=== PATIENT | female | born 1950 ===

== ENCOUNTER → 2020-08-24 15:25 | Outpatient (BNVA) | payer MEDICARE, SELFPAY | PROVIDERS: PCP Family Medicine; Visit Provider Internal Medicine | DX: R06.00 Dyspnea, unspecified (principal); J45.909 Unspecified asthma, uncomplicated; E66.9 Obesity, unspecified; G72.9 Myopathy, unspecified | CPT/HCPCS: 99202 ==

== ENCOUNTER → 2020-10-11 11:21 | Outpatient (BNVA) | payer MEDICARE, SELFPAY | PROVIDERS: PCP Family Medicine; Visit Provider Internal Medicine | DX: J44.9 Chronic obstructive pulmonary disease, unspecified (principal); Z79.899 Other long term (current) drug therapy | CPT/HCPCS: 99212 ==

== ENCOUNTER → 2021-05-29 13:58 | Outpatient (BNVA) | payer MEDICARE, SELFPAY | PROVIDERS: PCP Family Medicine; Visit Provider Internal Medicine | DX: J45.909 Unspecified asthma, uncomplicated (principal); R06.00 Dyspnea, unspecified; R05.9 Cough, unspecified; G72.9 Myopathy, unspecified | CPT/HCPCS: 99212 ==

== ENCOUNTER → 2021-07-27 13:37 | Outpatient (BNVA) | payer MEDICARE, SELFPAY | PROVIDERS: PCP Family Medicine; Visit Provider Internal Medicine | DX: J45.909 Unspecified asthma, uncomplicated (principal); R05.9 Cough, unspecified | CPT/HCPCS: 99212 ==

== ENCOUNTER 2021-08-14 11:25 | Outpatient (REF) | payer MEDICARE, SELFPAY ==
[2021-08-14 14:32] LABS: Basophils Percent Auto 0.6 % (0-2); Hematocrit 30.6 % (37.0-47.0); Hemoglobin 10.1 g/dl (12.0-16.0); Lymphocytes Absolute Auto 0.6 X10*3/uL (1.2-4.9); Lymphocytes Percent Auto 34.5 % (20-40); MANUAL DIFF FLAG SCAN; Mean Corpuscular Hemoglobin 28.3 pg (27.0-33.0); Mean Corpuscular Volume 85.7 fL (80.0-98.0); Mean Platelet Volume 8.8 fL (9.4-12.3); Monocytes Absolute Auto 0.2 X10*3/uL (0.1-1.2); Monocytes Percent Auto 13.3 % (2-11); Neutrophils Absolute Auto 0.9 x10*3/uL (2.0-8.3); Neutrophils Percent Auto 51.6 % (45-73); Platelet Count 222 X10*3/uL (160-400); Red Blood Count 3.57 X10*6/uL (4.20-5.50); Red Cell Distribution Width 12.8 % (11.0-16.0); SCAN SMEAR FLAG 1
[2021-08-14 14:34] LABS: White Blood Count 1.7 X10*3/uL (4.8-10.8)
[2021-08-14 14:55] LABS: Alanine Aminotransferase 19 U/L (0-31); Albumin Level 3.7 g/dL (3.5-5.0); Alkaline Phosphatase 116 U/L (39-117); Anion Gap 13 (12-20); Aspartate Amino Transferase 27 U/L (5-31); Bilirubin Total 0.2 mg/dL (0.0-1.0); Blood Urea Nitrogen 21 mg/dL (9-16); C Reactive Protein 0.49 mg/dL (< or = 0.50); Calcium 9.4 mg/dL (8.4-10.2); Carbon Dioxide 28 mmol/L (22-29); Chloride 91 mmol/L (96-108); Estimated Glomerular Filt Rate 51; Glucose Random 104 mg/dL (60-115); Potassium 3.6 mmol/L (3.3-5.1); Sodium 128 mmol/L (135-145)
[2021-08-14 15:10] LABS: Erythrocyte Sedimentation Rate 97 MM/HR (0-20)
[2021-08-14 15:16] LABS: Ferritin 93 ng/mL (10-250); TSH reflex Free T4 1.86 uIU/mL (0.32-4.0)
[2021-08-14 15:29] LABS: SLIDE REVIEW VERIFIED
[2021-08-15 16:27] LABS: Gliadin Deamidated IgA Ab <1.0 U/mL; Gliadin Deamidated IgG Ab 9.3 U/mL
[2021-08-15 17:17] LABS: Calcium, Ionized 5.2 mg/dL (4.8-5.6)
[2021-08-15 18:21] LABS: IgA 136 mg/dL (70-320); IgG 4494 mg/dL (600-1540); IgM 83 mg/dL (50-300)
[2021-08-19 12:48] LABS: Gastrin 297 pg/mL (<=100)
[2021-08-24 08:17] LABS: Transglutaminase Ab IgG 2.2 U/mL; Transglutaminase IgA <1.0 U/mL
== END 2021-08-14 11:26 | disposition home or self-care (01) ==
LOC: HO.LAB 11:25
PROVIDERS: PCP Family Medicine; Referring Provider Family Medicine; Visit Provider Internal Medicine Gastroenterology
DX: R19.7 Diarrhea, unspecified (principal); G89.29 Other chronic pain; R10.33 Periumbilical pain; K75.81 Nonalcoholic steatohepatitis (NASH); E83.52 Hypercalcemia
CPT/HCPCS: 36415; 80053; 82330; 82728; 82784; 82941; 83088; 83520; 84443; 85025; 85652; 86003; 86140; 86258; 86364; 99202; 99212

== ENCOUNTER 2021-08-23 12:08 | Outpatient (REF) | payer MEDICARE, SELFPAY ==
[2021-08-23 13:19] LABS: CDiff Gene PCR NEGATIVE (Negative)
[2021-08-30 02:07] LABS: Fecal Fat Qualitative NORMAL (NORMAL)
[2021-08-30 19:53] LABS: Pancreatic Elastase-1 >500 mcg/g
[2021-08-30 23:11] LABS: Lactoferrin, Fecal, Quant. <30.0 mcg/mL
== END 2021-08-23 12:09 | disposition home or self-care (01) ==
LOC: HO.LNP 12:08
PROVIDERS: Visit Provider Internal Medicine Gastroenterology
DX: R19.7 Diarrhea, unspecified (principal)
CPT/HCPCS: 82656; 82705; 83631; 87493

== ENCOUNTER 2021-09-01 09:14 | Outpatient (REF) | payer MEDICARE, SELFPAY ==
--- NOTE | ~2021-09-01 | MR_ITS ---
EXAMINATION: MR OF THE ABDOMEN AND PELVIS WITH AND WITHOUT CONTRAST CLINICAL INFORMATION: Diarrhea. COMPARISON: None. TECHNIQUE: Sagittal, axial and coronal sequences through the abdomen and pelvis following oral Breeza contrast and with and without gadolinium. Patient received 8 mL intravenous Gadavist contrast. FINDINGS: The lung bases are clear. The liver is normal in size, shape and signal. No focal liver lesion. The gallbladder has been removed. There is no intrahepatic or extrahepatic biliary duct dilatation. The spleen is normal. Pancreas is normal. There are bilateral renal. There is a 1.5 x 2 cm complex cyst in the lower pole the right kidney thin nonenhancing septations Bosniak type II F cyst. Remainder of the cysts represent simple cysts the bladder is not optimally distended but appears unremarkable. The stomach is normal. The small bowel is normal. There is long segment wall thickening of the distal colon involving the left colon and sigmoid colon long segment distribution. This demonstrates mild enhancement. There is prominence of the vasa recta. There is very mild diverticulosis of the colon. The rectum is normal. The appendix is normal. No ascites or adenopathy. Vascular structures are normal. There is a small umbilical hernia fat. The uterus appears to have been removed. No pelvic mass. Bone marrow signal is normal. There is degenerative disc disease of the lower lumbar spine. MR/MR pelvis wo/w con IMPRESSION: Mild colitis of the distal colon. Bilateral renal cysts.
--- NOTE | ~2021-09-01 | MR_ITS ---
EXAMINATION: MR OF THE ABDOMEN AND PELVIS WITH AND WITHOUT CONTRAST CLINICAL INFORMATION: Diarrhea. COMPARISON: None. TECHNIQUE: Sagittal, axial and coronal sequences through the abdomen and pelvis following oral Breeza contrast and with and without gadolinium. Patient received 8 mL intravenous Gadavist contrast. FINDINGS: The lung bases are clear. The liver is normal in size, shape and signal. No focal liver lesion. The gallbladder has been removed. There is no intrahepatic or extrahepatic biliary duct dilatation. The spleen is normal. Pancreas is normal. There are bilateral renal. There is a 1.5 x 2 cm complex cyst in the lower pole the right kidney thin nonenhancing septations Bosniak type II F cyst. Remainder of the cysts represent simple cysts the bladder is not optimally distended but appears unremarkable. The stomach is normal. The small bowel is normal. There is long segment wall thickening of the distal colon involving the left colon and sigmoid colon long segment distribution. This demonstrates mild enhancement. There is prominence of the vasa recta. There is very mild diverticulosis of the colon. The rectum is normal. The appendix is normal. No ascites or adenopathy. Vascular structures are normal. There is a small umbilical hernia fat. The uterus appears to have been removed. No pelvic mass. Bone marrow signal is normal. There is degenerative disc disease of the lower lumbar spine. MR/MR abdomen wo/w con IMPRESSION: Mild colitis of the distal colon. Bilateral renal cysts.
== END 2021-09-01 09:15 | disposition home or self-care (01) ==
LOC: HO.MRI 09:14
PROVIDERS: Visit Provider Internal Medicine Gastroenterology
DX: R19.7 Diarrhea, unspecified (principal)
CPT/HCPCS: 72197; 74183; A9585

== ENCOUNTER 2021-09-18 17:46 | Emergency (ER) | payer MEDICARE, SELFPAY ==
--- NOTE | ~2021-09-18 | XR_ITS ---
EXAMINATION: XR WRIST, LEFT CLINICAL INFORMATION: Pain COMPARISON: None TECHNIQUE: Four views of the left wrist. FINDINGS: Osseous alignment is anatomic. No definite acute fracture is seen. Osteopenia is noted. There is calcification at the triangular fibrocartilage complex. Joint space narrowing is noted at the wrist, with spurring also present at the basal joint of the thumb. Soft tissue swelling is noted at the wrist. XR/XR wrist LT 2V IMPRESSION: Soft tissue swelling and chronic appearing/degenerative changes as described above.
[2021-09-18 20:29] VITALS: BP 162/78; PULSE 74; RESP 18; TEMP 36.7; O2SAT 98; BMI 36.3
--- NOTE | 2021-09-18 23:37 | PC.NURSE ---
pt refusing lab draw, wants labs drawn off of port.
--- NOTE | 2021-09-19 00:49 | ED_ITS ---
HPI - General Adult General Chief complaint: General Medical Stated complaint: allergic reaction to iv ig infusion Time Seen by Provider: 09/18/21 21:57 History of Present Illness HPI narrative: Patient is a 71-year-old female with a history of cerebral aneurysm status post stent history of anxiety history of hypertension history of acid reflux history of autoimmune myopathy secondary statin use. Currently undergoing IVIG infusions every 3 weeks. Complaining of redness to the left wrist. The swelling has been ongoing for few weeks. There is no fever no chills. No systemic complaints. No history of blood clots. Patient from home. The redness area is localized over the thenar side of the wrist. Patient finally decided to come in for further evaluation. Related Data Home Medications Medication Instructions Recorded Confirmed albuterol sulfate 90 mcg/actuation 2 puff inhalation QID 08/24/20 aerosol inhaler (ProAir HFA) alprazolam 1 mg tablet 1 mg PO TID PRN 08/24/20 amlodipine 10 mg tablet 10 mg PO DAILY 08/24/20 duloxetine 30 mg capsule,delayed 30 mg PO DAILY 08/24/20 release levothyroxine 125 mcg tablet 125 mcg PO DAILY 08/24/20 olmesartan 20 mg tablet 20 mg PO DAILY 08/24/20 trazodone 100 mg tablet 100 mg PO BEDTIME 08/24/20 pantoprazole 40 mg tablet,delayed 40 mg PO DAILY 08/14/21 release Previous Rx's Medication Instructions Recorded bisacodyl 5 mg tablet,delayed 20 mg PO ONCE 1 day #4 tabs 08/14/21 release (Dulcolax (bisacodyl)) polyethylene glycol 3350 17 238 g PO ONCE #238 grams 08/14/21 gram/dose oral powder (Miralax) rifaximin 550 mg tablet 550 mg PO TID 2 weeks #42 tabs 08/14/21 sucralfate 100 mg/mL oral 1 g (10 mL) PO BID GERD #600 mL 08/23/21 suspension (Carafate) fluticasone 500 mcg-salmeterol 50 1 inh inhalation BID ASTHMA/COPD 09/05/21 mcg/dose blistr powdr for 30 days #60 ea inhalation (Advair Diskus) clindamycin HCl 300 mg capsule 300 mg PO Q6H 7 days #28 caps 09/19/21 Allergies Allergy/AdvReac Type Severity Reaction Status Date / Time latex [LATEX] Allergy Intermediate RASH Verified 09/18/21 20:29 Sulfa (Sulfonamide Allergy Intermediate HIVES, Verified 09/18/21 20:29 Antibiotics) coughing, [SULFA (SULFONAMIDE wheezing, ANTIBIOTICS)] breathing moxifloxacin [From AVELOX] Allergy Unknown HIVES Verified 09/18/21 20:29 penicillin G [Penicillin G] Allergy Unknown UPSET Verified 09/18/21 20:29 STOMACH Vqlgfos-UZB-QbZ Reductase Allergy Unknown MUSCLE Verified 09/18/21 20:29 Inhibitor CRAMPS [[id number] REDUCTASE INHIBITOR] transparent dressing Allergy Unknown Unknown Verified 09/18/21 20:29 [Tegaderm] Review of Systems Review of Systems: Positive redness and pain to the left wrist Yes all other systems are reviewed and are negative [facility] Past Medical History Attestation statement: The following information was validated with the patient. Medical History Asthma Cough Dyspnea on exertion EMG syndrome Myopathy Obesity (BMI 30-39.9) Trigger finger, left index finger Surgical History History of bone marrow biopsy History of esophagogastroduodenoscopy (EGD) History of laryngoscopy Hx of cholecystectomy Hx of colonoscopy Hx of nasal polypectomy Family History Family History Father Colon cancer Sister Colon cancer Social History Social History Patient Tobacco Use Status: Former Tobacco user Advance Directives: No Physical Exam ED Vital Signs: Vital Signs - 24 hr 09/18/21 20:29 Temperature 98.0 F Pulse Rate 74 Respiratory Rate 18 Blood Pressure 162/78 H Pulse Oximetry 98 Oxygen Delivery Method Room Air BMI result Body Mass Index 36.3 Appearance: Alert. Oriented X3. No acute distress. Eyes: Pupils equal, round and reactive to light. ENT: Pharynx normal. Neck: Normal inspection. Neck supple. No lymph nodes noted. No crepitus CVS: Normal heart rate and rhythm. Pulses normal. Normal S1 and S2 Respiratory: No respiratory distress. Breath sounds normal. No Wheezing. No r ales Abdomen: Soft and nontender. No rigidity. No distention. good BS x4 Skin: positive redness to the left wrist. Mostly over the radial side. Range of motion intact. Sensation over the radial median ulnar nerve intact. Capillary refill less than 2 seconds. Range of motion at the wrist intact. Extremities: No lower extremity edema. Neurovascular intact to all extremities. No Lacerations. No Rash Neuro: Oriented X 3. No motor deficit. No sensory deficit. Moving all extermities. No slurred speech Medical Decision Making MDM Narrative Medical decision making narrative: Question cause of the redness. Multiple allergies to antibiotics. We will go ahead and get some labs x-rays. Question cellulitis. Will start patient on antibiotics. Will have patient closely follow up on an outpatient basis. Patient's white count is 3. This is approximately baseline. There is no significant shift notice. Patient electrolytes unremarkable. X-ray did not show any acute fracture. Will start patient on clindamycin she has multiple allergies. Will have patient closely follow up on an outpatient basis. Question cellulitis. Patient is currently in stable condition. Lab Data Result diagrams: 09/19/21 01:14 09/19/21 01:14 Labs: Lab Results 09/19/21 09/19/21 09/19/21 Range/Units 01:14 01:14 01:14 WBC 3.3 L (4.8-10.8) X10*3/uL RBC 3.50 L (4.20-5.50) X10*6/uL Hgb 10.0 L (12.0-16.0) g/dl Hct 29.6 L (37.0-47.0) % MCV 84.6 (80.0-98.0) fL MCH 28.6 (27.0-33.0) pg MCHC 33.8 (31.0-35.0) g/dl RDW 13.2 (11.0-16.0) % Plt Count 217 (160-400) X10*3/uL MPV 8.3 L (9.4-12.3) fL Immature Gran % (Auto) 0.3 (0.0-0.4) % Neut % (Auto) 69.0 (45-73) % Lymph % (Auto) 22.6 (20-40) % [place] % (Auto) 7.5 (2-11) % Eos % (Auto) 0.3 (0-4) % Baso % (Auto) 0.3 (0-2) % Lymph # (Auto) 0.8 L (1.2-4.9) X10*3/uL [place] # (Auto) 0.3 (0.1-1.2) X10*3/uL Eos # (Auto) 0.0 (0.0-0.4) X10*3/uL Baso # (Auto) 0.0 (0.0-0.2) X10*3/uL Abs Immat Gran (auto) 0.01 (0.00-0.03) X10*3/uL Absolute Neuts (auto) 2.3 (2.0-8.3) x10*3/uL Absolute Nucleated RBC 0.000 (0.0-0.012) X10*3/uL Nucleated RBC % (auto) 0.0 (0.0-0.2) /100WBC Sodium 132 L (135-145) mmol/L Potassium 3.3 (3.3-5.1) mmol/L Chloride 96 (96-108) mmol/L Carbon Dioxide 28 (22-29) mmol/L Anion Gap 11 L (12-20) BUN 12 (9-16) mg/dL Creatinine 0.97 (0.5-1.4) mg/dL Estim Creat Clear Calc 48.5 Estimated GFR 56 Random Glucose 101 (60-115) mg/dL Calcium 9.3 9.6 (8.4-10.2) mg/dL Magnesium 1.7 (1.6-2.6) mg/dL Total Bilirubin 0.2 (0.0-1.0) mg/dL Direct Bilirubin 0.2 (0.0-0.5) mg/dL AST 27 (5-31) U/L ALT 18 (0-31) U/L Alkaline Phosphatase 93 (39-117) U/L Total Protein 10.5 H (6.5-8.0) g/dL Albumin 3.6 (3.5-5.0) g/dL Urine Color Urine Appearance Urine pH (5.0-8.0) Ur Specific [place] (1.005-1.025) Urine Protein (NEG-TRACE) MG/DL Urine Glucose (UA) (NEG) MG/DL Urine Ketones (NEG) MG/DL Urine Blood (NEG) Urine Nitrite (NEG) Ur Leukocyte Esterase (NEG) Urine RBC (0) /HPF Urine WBC (0-4) /HPF Ur Squamous Epith Cells /LPF Urine Bacteria /LPF 09/19/21 Range/Units 01:14 WBC (4.8-10.8) X10*3/uL RBC (4.20-5.50) X10*6/uL Hgb (12.0-16.0) g/dl Hct (37.0-47.0) % MCV (80.0-98.0) fL MCH (27.0-33.0) pg MCHC (31.0-35.0) g/dl RDW (11.0-16.0) % Plt Count (160-400) X10*3/uL MPV (9.4-12.3) fL Immature Gran % (Auto) (0.0-0.4) % Neut % (Auto) (45-73) % Lymph % (Auto) (20-40) % [place] % (Auto) (2-11) % Eos % (Auto) (0-4) % Baso % (Auto) (0-2) % Lymph # (Auto) (1.2-4.9) X10*3/uL [place] # (Auto) (0.1-1.2) X10*3/uL Eos # (Auto) (0.0-0.4) X10*3/uL Baso # (Auto) (0.0-0.2) X10*3/uL Abs Immat Gran (auto) (0.00-0.03) X10*3/uL Absolute Neuts (auto) (2.0-8.3) x10*3/uL Absolute Nucleated RBC (0.0-0.012) X10*3/uL Nucleated RBC % (auto) (0.0-0.2) /100WBC Sodium (135-145) mmol/L Potassium (3.3-5.1) mmol/L Chloride (96-108) mmol/L Carbon Dioxide (22-29) mmol/L Anion Gap (12-20) BUN (9-16) mg/dL Creatinine (0.5-1.4) mg/dL Estim Creat Clear Calc Estimated GFR Random Glucose (60-115) mg/dL Calcium (8.4-10.2) mg/dL Magnesium (1.6-2.6) mg/dL Total Bilirubin (0.0-1.0) mg/dL Direct Bilirubin (0.0-0.5) mg/dL AST (5-31) U/L ALT (0-31) U/L Alkaline Phosphatase (39-117) U/L Total Protein (6.5-8.0) g/dL Albumin (3.5-5.0) g/dL Urine Color STRAW Urine Appearance CLEAR Urine pH 6.0 (5.0-8.0) Ur Specific [place] <= 1.005 (1.005-1.025) Urine Protein NEG (NEG-TRACE) MG/DL Urine Glucose (UA) NEG (NEG) MG/DL Urine Ketones NEG (NEG) MG/DL Urine Blood TRACE (NEG) Urine Nitrite NEG (NEG) Ur Leukocyte Esterase 1+ H (NEG) Urine RBC 0-2 (0) /HPF Urine WBC 0-2 (0-4) /HPF Ur Squamous Epith Cells TRACE /LPF Urine Bacteria NONE /LPF Discharge Plan Discharge Clinical Impression: Cellulitis Patient Disposition: Home, Self-Care Instructions: Cellulitis (ED) Prescriptions: New clindamycin HCl 300 mg capsule 300 mg PO Q6H 7 Days Qty: 28 0RF No Action sucralfate [Carafate] 100 mg/mL suspension 1 g PO BID Qty: 600 1RF Rx Instructions: take 10 cc's 45-30 mins before breakfast and dinner on empty stomach. fluticasone propion-salmeterol [Advair Diskus] 500-50 mcg/dose blister with device 1 inh inhalation BID 30 Days Qty: 60 3RF alprazolam 1 mg tablet 1 mg PO TID PRN amlodipine 10 mg tablet 10 mg PO DAILY duloxetine 30 mg capsule,delayed release(DR/EC) 30 mg PO DAILY olmesartan 20 mg tablet 20 mg PO DAILY trazodone 100 mg tablet 100 mg PO BEDTIME levothyroxine 125 mcg tablet 125 mcg PO DAILY albuterol sulfate [ProAir HFA] 90 mcg/actuation HFA aerosol inhaler 2 puff inhalation QID pantoprazole 40 mg tablet,delayed release (DR/EC) 40 mg PO DAILY rifaximin 550 mg tablet 550 mg PO TID 14 Days Qty: 42 0RF polyethylene glycol 3350 [Miralax] 17 gram/dose powder 238 g PO ONCE Qty: 238 0RF Rx Instructions: mix the full container with 64 ounces of gatorade for colonoscopy prep the evening before the test and drink bisacodyl [Dulcolax (bisacodyl)] 5 mg tablet,delayed release (DR/EC) 20 mg PO ONCE 1 Days Qty: 4 0RF Rx Instructions: take at 6 pm day before colonoscopy
[2021-09-19 01:23] LABS: Basophils Percent Auto 0.3 % (0-2); Eosinophils Percent Auto 0.3 % (0-4); Hematocrit 29.6 % (37.0-47.0); Imm Gran Abs Auto 0.01 X10*3/uL (0.00-0.03); Imm Gran Pct Auto 0.3 % (0.0-0.4); Lymphocytes Absolute Auto 0.8 X10*3/uL (1.2-4.9); Lymphocytes Percent Auto 22.6 % (20-40); MANUAL DIFF FLAG NO; Mean Corpuscular HGB Conc 33.8 g/dl (31.0-35.0); Mean Corpuscular Hemoglobin 28.6 pg (27.0-33.0); Mean Corpuscular Volume 84.6 fL (80.0-98.0); Mean Platelet Volume 8.3 fL (9.4-12.3); Monocytes Absolute Auto 0.3 X10*3/uL (0.1-1.2); Monocytes Percent Auto 7.5 % (2-11); Neutrophils Absolute Auto 2.3 x10*3/uL (2.0-8.3); Platelet Count 217 X10*3/uL (160-400); Red Cell Distribution Width 13.2 % (11.0-16.0); White Blood Count 3.3 X10*3/uL (4.8-10.8)
[2021-09-19 01:26] LABS: Appearance Urine CLEAR; Color Urine STRAW; Glucose Urine UA NEG (NEG); Leukocyte Esterase Urine 1+ (NEG); Nitrite Urine NEG (NEG); Specific Gravity - Urine <= 1.005 (1.005-1.025); UACC Culture Trigger YES; Urine Blood TRACE (NEG); Urine Ketones NEG (NEG); Urine Protein NEG (NEG-TRACE)
[2021-09-19 01:34] LABS: RBC Urine 0-2 /HPF (0); Squamous Epithelial Cell Urine TRACE /LPF; UACC CULT YES; WBC Urine 0-2 /HPF (0-4)
[2021-09-19 01:41] LABS: Anion Gap 11 (12-20); Blood Urea Nitrogen 12 mg/dL (9-16); Calcium 9.3 mg/dL (8.4-10.2); Carbon Dioxide 28 mmol/L (22-29); Chloride 96 mmol/L (96-108); Creatinine Clr Calc Pharmacy 48.5; Estimated Glomerular Filt Rate 56; Glucose Random 101 mg/dL (60-115); Potassium 3.3 mmol/L (3.3-5.1); Sodium 132 mmol/L (135-145)
[2021-09-19 01:48] LABS: Alanine Aminotransferase 18 U/L (0-31); Albumin Level 3.6 g/dL (3.5-5.0); Alkaline Phosphatase 93 U/L (39-117); Aspartate Amino Transferase 27 U/L (5-31); Bilirubin Direct 0.2 mg/dL (0.0-0.5); Bilirubin Total 0.2 mg/dL (0.0-1.0); Calcium 9.6 mg/dL (8.4-10.2); Magnesium 1.7 mg/dL (1.6-2.6); Total Protein 10.5 g/dL (6.5-8.0)
[2021-09-19] MEDS: Clindamycin HCL 300 MG CAPSULE PO (02:38)
== END 2021-09-19 02:42 | disposition home or self-care (01) ==
PROVIDERS: Emergency Provider Emergency Medicine Emergency Medical Services; PCP Family Medicine
DX: L03.114 Cellulitis of left upper limb (principal); Z79.899 Other long term (current) drug therapy
CPT/HCPCS: 36415; 73100; 80048; 80076; 81001; 82310; 83735; 85025; 87086; 99282; 99284

== ENCOUNTER 2021-10-04 12:33 | Day surgery (SDC) | payer MEDICARE, SELFPAY ==
[2021-10-04] VITALS (8 sets, daily range): BP systolic 104–143; BP diastolic 64–78; PULSE 89–114; RESP 18–22; TEMP 35.9–36.7; O2SAT 95–100; BMI 35.1
--- NOTE | 2021-10-04 12:58 | MHC.SHP ---
Pre-Procedural Eval Section A Date of Service: 10/04/21 Section B Chief Complaint: reflux Details of Present Illness: diarrhea Relevant Family History (Specify if Yes): No Relevant Social History: None Present Medications: see Short Stay Collaborative assessment Medical History: Significant History (Asthma Cough Dyspnea on exertion EMG syndrome Myopathy Obesity (BMI 30-39.9) Trigger finger, left index finger) History of Previous Operations: Relevant previous surgery/procedure and date(s) (History of bone marrow biopsy History of esophagogastroduodenoscopy (EGD) History of laryngoscopy Hx of cholecystectomy Hx of colonoscopy Hx of nasal polypectomy) Allergies: Allergies Allergy/AdvReac Type Severity Reaction Status Date / Time latex [LATEX] Allergy Intermediate RASH Verified 09/18/21 20:29 Sulfa (Sulfonamide Allergy Intermediate HIVES, Verified 09/18/21 20:29 Antibiotics) coughing, [SULFA (SULFONAMIDE wheezing, ANTIBIOTICS)] breathing moxifloxacin [From AVELOX] Allergy Unknown HIVES Verified 09/18/21 20:29 penicillin G [Penicillin G] Allergy Unknown UPSET Verified 09/18/21 20:29 STOMACH Offxivq-TWV-ZgV Reductase Allergy Unknown MUSCLE Verified 09/18/21 20:29 Inhibitor CRAMPS [[id number]-[id number]-[id number] REDUCTASE INHIBITOR] transparent dressing Allergy Unknown Unknown Verified 09/18/21 20:29 [Tegaderm] Review of Systems Sugical H&P ROS: Negative: Constitution, Cardiovascular, Respiratory, Neurological, Psychiatric, Hem-Onc, Allergic/Immunologic, Gastrointestinal, Genitourinary, Musculoskeletal, Integumentary, Endocrine and Eyes/Ears/Nose/Throat Exam Surgical H&P Exam: Normal: HEENT, Normal: Heart, Normal: Lungs, Normal: Extremities, Normal: Abdomen, Normal: Skin and Normal: Neurological Plan Diagnosis/Plan: Unchanged I have reviewed the history and physical and performed a pertinent physical examination on my patient. No changes have occurred unless specified.
[2021-10-04] MEDS: Albuterol Sulfate (0.083%) 2.5 MG/3 ML VIAL.NEB INHALE (13:28)
--- NOTE | 2021-10-04 13:56 | HO.ANESPROP2 ---
[facility] Active Problems Active Problems: All Active Problems (Updated 09/20/21 @ 00:01 by Juwan Leroy) Dysphagia (Acute) Diarrhea (Acute) Cough (Acute) Myopathy (Acute) Obesity (BMI 30-39.9) (Acute) Asthma (Acute) Dyspnea on exertion (Acute) Past Medical History Medical History Asthma Cough Dyspnea on exertion EMG syndrome Myopathy Obesity (BMI 30-39.9) Trigger finger, left index finger Family History Family History Father Colon cancer Sister Colon cancer Family history of problems with anesthesia: No Surgical History Surgical History History of bone marrow biopsy History of esophagogastroduodenoscopy (EGD) History of laryngoscopy Hx of cholecystectomy Hx of colonoscopy Hx of nasal polypectomy History of Problems with Anesthesia: No Social History Social History Patient Tobacco Use Status: Former Tobacco user Are you DNR?: No Advance Directives: No Advance Directives Information Provided: Yes Recently lost weight without trying: Yes How much weight loss: 14-23 pounds Meds Allergies Allergy/AdvReac Type Severity Reaction Status Date / Time latex [LATEX] Allergy Intermediate RASH Verified 09/18/21 20:29 Sulfa (Sulfonamide Allergy Intermediate HIVES, Verified 09/18/21 20:29 Antibiotics) coughing, [SULFA (SULFONAMIDE wheezing, ANTIBIOTICS)] breathing moxifloxacin [From AVELOX] Allergy Unknown HIVES Verified 09/18/21 20:29 penicillin G [Penicillin G] Allergy Unknown UPSET Verified 09/18/21 20:29 STOMACH Wnmrjpk-RAY-TdC Reductase Allergy Unknown MUSCLE Verified 09/18/21 20:29 Inhibitor CRAMPS [LDDTTVP-OUT-IND REDUCTASE INHIBITOR] transparent dressing Allergy Unknown Unknown Verified 09/18/21 20:29 [Tegaderm] Home Medications Medication Instructions Recorded Confirmed Last Taken Type albuterol sulfate 90 mcg/actuation 2 puff inhalation QID 08/24/20 Unknown History aerosol inhaler (ProAir HFA) alprazolam 1 mg tablet 1 mg PO TID PRN 08/24/20 Unknown History amlodipine 10 mg tablet 10 mg PO DAILY 08/24/20 Unknown History duloxetine 30 mg capsule,delayed 30 mg PO DAILY 08/24/20 Unknown History release levothyroxine 125 mcg tablet 125 mcg PO DAILY 08/24/20 Unknown History olmesartan 20 mg tablet 20 mg PO DAILY 08/24/20 Unknown History trazodone 100 mg tablet 100 mg PO BEDTIME 08/24/20 Unknown History pantoprazole 40 mg tablet,delayed 40 mg PO DAILY 08/14/21 Unknown History release Exam Exam Date and Time: October 04, 2021 1356 Height,Weight and Vital Signs: Height 4 ft 11 in Weight 78.925 kg Last Vital Signs Temp 96.7 F L 10/04/21 12:49 Pulse 100 10/04/21 13:30 Resp 22 H 10/04/21 13:30 BP 143/76 H 10/04/21 12:49 Pulse Ox 95 10/04/21 12:49 O2 Del Method 10/04/21 12:49 Airway Mallampati Class: II TM Dist: >3cm Neck ROM: Full Denture: Upper and Lower Heart: rrr Lungs: clear Assessment and Plan Final Anesthetic Review Family History of Problems with Anesthesia: No History of Problems with Anesthesia: No NPO: Yes ASA Class: III Final Preanesthetic Review: No Changes in Pt Med Stat, Meds/Allgs Chart Reviewed, Consent Obtained/Reviewed and Anes Risks/Benef Reviewed Patient Risk: Intermediate Procedure Risk: Low Anesthetic Plan Anesthetic Plan: MAC: Disposition: Standard PACU
--- NOTE | 2021-10-04 14:19 | W.PM.OPN ---
Operative Note Operative Note Date of Service: 10/04/21 Narrative: Procedure Description: EGD Indication: diarrhea, GERD Anesthesia: MAC FLEXIBLE TRANSORAL UPPER GASTROINTESTINAL ENDOSCOPY UPPER ENDOSCOPY Consent: Indications for the procedure and potential complications of bleeding, perforation, reaction to medications and missed diagnosis were discussed with the patient and informed consent was obtained. Instrument: Olympus GIF H 190 J mid size upper endoscope Monitoring: Vital signs and clinical assessment, continuous EKG monitoring, Pulse oximetry, Carbon Dioxide monitoring and blood pressure monitoring were done throughout the procedure. Procedure: The patient was placed in the left lateral decubitis position and pre-procedure medications were administered and a bite block was placed. The endoscope was inserted into the mouth and advanced under direct vision to the third part of duodenum. A careful inspection was made as the upper endoscope was withdrawn including a retroflexed examination of the proximal stomach; Findings and interventions are described below. Findings: Larynx:normal Esophagus: GE junction at 35 cm, diaphragm hiatus at 37 cm, 2 cm sliding hiatal hernia with non obstructive schatzki ring noted, bx taken from GEJ, and distal/proximal esophagus in separate jars Stomach: Patchy gastric erythema with erosions joshua mid body. Biopsies were obtained. Grade 2 flap valve on retroflexed examination of the cardia. Duodenum: Normal bulb and descending duodenum, bx taken Intervention: Biopsies as noted above Impression/Findings: schatzki ring erosive gastritis hiatal hernia PLAN: coughing maybe from reflux given findings, ensure compliance with PPI and carafate, might need Pires to confirm if h pylori pos then treat check for amyloid and other infiltrative disease eg. lymphoma etc
== END 2021-10-04 15:58 | disposition home or self-care (01) ==
PROVIDERS: PCP Family Medicine; Visit Provider Internal Medicine Gastroenterology
PROC: 0DJ08ZZ Inspection of Upper Intestinal Tract, Via Natural or Artificial Opening Endoscopic (ICD-10-PCS; CPT 43235; principal; 2021-10-04 14:00)
DX: K21.9 Gastro-esophageal reflux disease without esophagitis (principal); K29.60 Other gastritis without bleeding; K22.2 Esophageal obstruction; K44.9 Diaphragmatic hernia without obstruction or gangrene; R19.7 Diarrhea, unspecified; Z80.0 Family history of malignant neoplasm of digestive organs; D64.9 Anemia, unspecified; J44.9 Chronic obstructive pulmonary disease, unspecified; R06.09 Other forms of dyspnea; G72.89 Other specified myopathies; R94.131 Abnormal electromyogram [EMG]; E66.9 Obesity, unspecified; Z68.35 Body mass index [BMI] 35.0-35.9, adult; Z79.51 Long term (current) use of inhaled steroids; Z79.899 Other long term (current) drug therapy; Z91.040 Latex allergy status; Z88.0 Allergy status to penicillin; Z88.1 Allergy status to other antibiotic agents; Z88.2 Allergy status to sulfonamides; Z88.8 Allergy status to other drugs, medicaments and biological substances; Z87.891 Personal history of nicotine dependence; Z90.49 Acquired absence of other specified parts of digestive tract
CPT/HCPCS: 43239; 88305; 88313; 88342; 94640

== ENCOUNTER → 2021-10-12 14:05 | Outpatient (BNVA) | payer MEDICARE, SELFPAY | PROVIDERS: PCP Family Medicine; Visit Provider Internal Medicine | DX: J45.909 Unspecified asthma, uncomplicated (principal); G72.9 Myopathy, unspecified; Z79.899 Other long term (current) drug therapy | CPT/HCPCS: 99212 ==

== ENCOUNTER → 2021-12-19 11:21 | Outpatient (BNVA) | payer MEDICARE, SELFPAY | PROVIDERS: PCP Family Medicine; Visit Provider Internal Medicine | DX: G72.9 Myopathy, unspecified (principal); J45.909 Unspecified asthma, uncomplicated; R05.9 Cough, unspecified; R06.00 Dyspnea, unspecified | CPT/HCPCS: 99212 ==

== ENCOUNTER → 2022-02-05 08:59 | Outpatient (BNVA) | payer MEDICARE, SELFPAY | PROVIDERS: PCP Family Medicine; Visit Provider Internal Medicine Gastroenterology | DX: K52.9 Noninfective gastroenteritis and colitis, unspecified (principal) | CPT/HCPCS: 99212 ==

== ENCOUNTER → 2022-04-19 11:20 | Outpatient (BNVA) | payer MEDICARE, SELFPAY | PROVIDERS: PCP Family Medicine; Visit Provider Internal Medicine | DX: J45.909 Unspecified asthma, uncomplicated (principal); R05.9 Cough, unspecified; R06.00 Dyspnea, unspecified | CPT/HCPCS: 99212 ==

== ENCOUNTER 2022-05-02 09:10 | Outpatient (REF) | payer MEDICARE, SELFPAY ==
--- NOTE | ~2022-05-02 | CT_ITS ---
EXAMINATION: CT ENTEROGRAPHY ABDOMEN AND PELVIS WITH CONTRAST CLINICAL INFORMATION: Periumbilical pain COMPARISON: Previous MRI August 2021 TECHNIQUE: Study performed with oral VoLumen (1350 mL) and 480 mL of water to distend the abdomen. The patient was injected with 85 mL Omnipaque 350 intravenous contrast which was administered without adverse effect. Coronal and sagittal reformatted images were obtained at the technologist's workstation. This CT examination was performed using dose optimization techniques as appropriate, variously including the following: *Automated exposure control *Adjustment of mA and/or kV according to patient size (this includes techniques or standardized protocols for targeted exams where dose is matched to indication/reason for exam; i.e. extremities or head) *Use of iterative reconstruction technique DLP: 471 mGy-cm FINDINGS: GASTROINTESTINAL FINDINGS: Stomach: Well-distended and normal in appearance. Small intestine: Satisfactorily distended and normal in appearance. Large intestine: Well-distended and normal in appearance. No perirectal changes demonstrated. The appendix is normal. Additional findings: No abnormal enhancement of the vasa recta or significant mesenteric or retroperitoneal lymphadenopathy is seen. No abdominal abscess or fistulous tract demonstrated. ABDOMINAL AND PELVIC CT FINDINGS: Liver, gallbladder, biliary tract: Mild fatty infiltration of the liver. The gallbladder has been removed. No focal liver lesion or biliary duct dilatation. Pancreas: Normal Spleen: Normal Adrenal glands and kidneys: The adrenal glands are normal. There are bilateral renal cysts. No imaging follow-up recommended. The kidneys are otherwise normal. Ureters and bladder: The ureters are normal. The bladder is not optimally distended. Lymphovascular structures: Normal Bones: Degenerative changes of the spine. Mild anterior subluxation of L4 with respect to L5 probably related to facet arthritis. Degenerative changes at the hip joints, left greater than right. Lung bases: Normal CT/CT enterography IMPRESSION: Mild fatty infiltration of the liver. Bilateral renal cysts.
[2022-05-02 09:11] LABS: MANUAL DIFF FLAG NO
[2022-05-02 09:13] LABS: Basophils Percent Auto 0.9 % (0-2); Eosinophils Absolute Auto 0.1 X10*3/uL (0.0-0.4); Eosinophils Percent Auto 3.4 % (0-4); Hematocrit 33.3 % (37.0-47.0); Hemoglobin 10.8 g/dl (12.0-16.0); Imm Gran Abs Auto 0.01 X10*3/uL (0.00-0.03); Imm Gran Pct Auto 0.3 % (0.0-0.4); Lymphocytes Absolute Auto 1.1 X10*3/uL (1.2-4.9); Lymphocytes Percent Auto 35.1 % (20-40); Mean Corpuscular HGB Conc 32.4 g/dl (31.0-35.0); Mean Corpuscular Hemoglobin 27.2 pg (27.0-33.0); Mean Corpuscular Volume 83.9 fL (80.0-98.0); Mean Platelet Volume 8.8 fL (9.4-12.3); Monocytes Absolute Auto 0.3 X10*3/uL (0.1-1.2); Monocytes Percent Auto 9.4 % (2-11); Neutrophils Absolute Auto 1.6 x10*3/uL (2.0-8.3); Neutrophils Percent Auto 50.9 % (45-73); Platelet Count 236 X10*3/uL (160-400); Red Blood Count 3.97 X10*6/uL (4.20-5.50); Red Cell Distribution Width 13.6 % (11.0-16.0); White Blood Count 3.2 X10*3/uL (4.8-10.8)
[2022-05-02 09:34] LABS: Alanine Aminotransferase 10 U/L (0-31); Albumin Level 3.9 g/dL (3.5-5.0); Alkaline Phosphatase 90 U/L (39-117); Anion Gap 12 (12-20); Aspartate Amino Transferase 19 U/L (5-31); Bilirubin Total 0.3 mg/dL (0.0-1.0); Blood Urea Nitrogen 11 mg/dL (9-16); C Reactive Protein 0.29 mg/dL (< or = 0.50); Calcium 9.2 mg/dL (8.4-10.2); Carbon Dioxide 27 mmol/L (22-29); Chloride 102 mmol/L (96-108); Estimated Glomerular Filt Rate > 60; Glucose Random 104 mg/dL (60-115); Magnesium 1.9 mg/dL (1.6-2.6); Potassium 3.4 mmol/L (3.3-5.1); Sodium 138 mmol/L (135-145); Total Protein 8.1 g/dL (6.5-8.0)
[2022-05-02 09:48] LABS: TSH reflex Free T4 1.66 uIU/mL (0.32-4.0)
[2022-05-02 09:56] LABS: Erythrocyte Sedimentation Rate 74 MM/HR (0-20)
[2022-05-02] MEDS: iohexoL 350 MG/ML 100 ML INFUS..BTL IV (11:19)
[2022-05-02] MEDS: Sorbitol/Mannit/Xanth Imaging 500 ML LIQUID 1500 ML PO (11:20)
[2022-05-04 11:49] LABS: IgA 123 mg/dL (70-320); IgG 2605 mg/dL (600-1540); IgM 99 mg/dL (50-300)
[2022-05-09 06:44] LABS: Gastrin 193 pg/mL (<=100)
== END 2022-05-02 09:11 | disposition home or self-care (01) ==
LOC: HO.CT 09:10
PROVIDERS: Visit Provider Internal Medicine Gastroenterology
DX: R10.33 Periumbilical pain (principal); K75.81 Nonalcoholic steatohepatitis (NASH); R19.7 Diarrhea, unspecified; G72.9 Myopathy, unspecified
CPT/HCPCS: 36415; 74177; 80053; 82784; 82941; 82943; 83735; 84307; 84443; 84586; 85025; 85652; 86140; Q9967

== ENCOUNTER 2022-06-22 10:30 | Outpatient (REF) | payer MEDICARE, SELFPAY ==
[2022-06-22 11:48] LABS: CDiff Gene PCR NEGATIVE (Negative)
[2022-06-28 06:08] LABS: Calcitonin <2 pg/mL (<=5)
[2022-06-29 05:39] LABS: Gastrin 198 pg/mL (<=100)
[2022-06-29 17:39] LABS: Histamine Plasma 1.7 ng/mL (< OR = 1.8)
[2022-06-29 20:34] LABS: Calprotectin, Fecal 69 mcg/g
== END 2022-06-22 10:31 | disposition home or self-care (01) ==
LOC: HO.LNP 10:30
PROVIDERS: Visit Provider Internal Medicine Gastroenterology
DX: K52.9 Noninfective gastroenteritis and colitis, unspecified (principal); K21.9 Gastro-esophageal reflux disease without esophagitis; G72.9 Myopathy, unspecified; E83.52 Hypercalcemia
CPT/HCPCS: 82308; 82330; 82941; 82943; 83088; 83520; 83993; 84307; 84586; 87493; 99212

== ENCOUNTER → 2022-06-27 08:28 | Outpatient (BNVA) | payer MEDICARE, SELFPAY | PROVIDERS: PCP Family Medicine; Visit Provider Internal Medicine Gastroenterology | DX: E66.9 Obesity, unspecified (principal); Z90.49 Acquired absence of other specified parts of digestive tract | CPT/HCPCS: 91110 ==

== ENCOUNTER 2022-07-23 07:53 | Outpatient (REF) | payer MEDICARE, SELFPAY ==
--- NOTE | ~2022-07-23 | US_ITS ---
EXAMINATION: ULTRASOUND DOPPLER ABDOMEN VISCERAL ARTERIES CLINICAL INFORMATION: Diarrhea. Rule out intestinal ischemia. Pain and diarrhea with food. COMPARISON: CT enterography 05/02/2022. TECHNIQUE: Doppler ultrasound of the abdominal aorta, celiac artery (including splenic and hepatic arteries), superior mesenteric artery, and inferior mesenteric artery was performed using grayscale, color Doppler, and spectral Doppler. FINDINGS: Abdominal aorta proximal to SMA: PSV 71 cm/s. Normal waveform. Abdominal aorta distal to SMA: PSV 56 cm/s. Normal waveform. Celiac artery: Supine with inspiration: PSV 172 cm/s. Normal visceral waveform. Supine with expiration: PSV 111 cm/s. Normal visceral waveform. Erect with inspiration: PSV 192 cm/s. Normal visceral waveform. Erect with expiration: PSV 131 cm/s. Normal visceral waveform. Superior mesenteric artery: Proximal: PSV 216 cm/s. Normal visceral waveform. Mid: PSV 128 cm/s. Normal visceral waveform. Distal: PSV 159 cm/s. Normal visceral waveform. Inferior mesenteric artery: PSV 134 cm/s. Normal visceral waveform. Splenic artery: 120 cm/s. Normal visceral waveform. Hepatic artery: 109 cm/s. Normal visceral waveform. CT enterography 05/02/2022 was reviewed to evaluate the arterial system. There is no significant atherosclerotic disease involving the visceral arteries. There is no evidence of hemodynamically significant stenosis. US/US SMA IMPRESSION: No Doppler evidence of hemodynamically significant visceral artery disease.
== END 2022-07-23 07:54 | disposition home or self-care (01) ==
LOC: HO.US 07:53
PROVIDERS: PCP Family Medicine; Visit Provider Internal Medicine Gastroenterology
DX: R19.7 Diarrhea, unspecified (principal); R10.9 Unspecified abdominal pain; K55.059 Acute (reversible) ischemia of intestine, part and extent unspecified
CPT/HCPCS: 93976

== ENCOUNTER 2022-09-24 10:21 | Outpatient (AMB) | payer MEDICARE, SELFPAY ==
--- NOTE | 2022-09-24 10:32 | MHC.OFFVIS ---
Intake Vital Signs 09/24/22 10:34 Height 4 ft 11 in Weight 154 lb 5.177 oz BMI 31.2 BP 120/60 Blood Pressure Location Lt brachial Position Sitting Pulse 50 Intake Visit Reasons: 3 month follow up Capsule and US Intake Note: Sharon presents in the office as a 3 month follow up. CC: States that she is having a lot of health issues. On the she had a BA swallow and has the results of that here today. Diarrhea is in remission. She states that she is having lots of acid reflux and sometimes has trouble swallowing. 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: No Allergies latex [LATEX] Allergy (Intermediate, Verified 06/22/22 10:34) RASH Sulfa (Sulfonamide Antibiotics) [SULFA (SULFONAMIDE ANTIBIOTICS)] Allergy (Intermediate, Verified 06/22/22 10:34) HIVES, coughing, wheezing, breathing moxifloxacin [From AVELOX] Allergy (Unknown, Verified 06/22/22 10:34) HIVES penicillin G [Penicillin G] Allergy (Unknown, Verified 06/22/22 10:34) UPSET STOMACH Tbjccbv-PRT-JbU Reductase Inhibitor [ACUYYOT-ZAA-HMG REDUCTASE INHIBITOR] Allergy (Unknown, Verified 06/22/22 10:34) MUSCLE CRAMPS transparent dressing [Tegaderm] Allergy (Unknown, Verified 06/22/22 10:34) Unknown HPI 3 month follow up Capsule and US HPI Details Josephine has had coughing and regurgitation for a long time, gottne worse over 2 monthsvoice is starting to go hoarse has horrible taste in mouth she might have incontinence with coughing food can get stuck, feels like not going down smoothly, doesn;t digest fully, foods comes out in bowel no choking with food' diarrhea going on for most of ehr life, has progrssed and gotten worse with time, has no control she is going 5-6 times for stool at night as well no blood in stool she has pain in various area,s moves aorund can be lower quadrants abdo can feel distended she has been told she is anemia and bleeding from her GI tract possibly she started pantoprazole 3-4 weeks has felt no benefit -father and sister both had CRC Colonoscopy 2021: 2 adenomatous polyps removed, random bx neg for microscopic colitis EGD 2021-- nml duodenum, mnimal inflmmation stomach MRe- possible colitis left side, but fecal lactoferrin negative CTe: 04/2022-- neg, no inflammation seen Capsule: 07/01-- mild gastritis Ba swallow- 09/30--mild esophgeal dysmotility INTERIM: she has noted staggering when walking, feels embarrased in case ppl think she is drunk, has apptm to see PCP next week has been in poor health diarrhea in remission, she isn't sure what helped--not takign any meds for this no blood in stools appetite is good she has some trouble swallowing, water can run out of her mouth, terrible acid reflux, speech can get fumbled up --still going for the IVIG for the myopathy she is taking PPI and famotidine EXAM: GENERAL: The patient is well developed and nontoxic. VITAL SIGNS:see workflow HEENT: Nonicteric sclerae, PERRLA, EOMI. Oropharynx clear. Moist mucous membranes. Conjunctivae appear well perfused. No thyroid mass. CHEST: Chest wall is nontender. HEART: Regular rate and rhythm without murmurs. LUNGS: Clear to auscultation bilaterally. ABDOMEN: Soft, positive bowel sounds, tender upper and lower abdomen, no organomegaly.no flank tenderness SKIN: No rash, no excessive bruising, petechiae, or purpura. NEUROLOGIC: Cranial nerves II-XII intact without motor/sensory deficit. 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 ? [facility] Medical History Asthma Cough Dyspnea on exertion EMG syndrome Myopathy Obesity (BMI 30-39.9) Trigger finger, left index finger Surgical History History of bone marrow biopsy History of esophagogastroduodenoscopy (EGD) History of laryngoscopy Hx of cholecystectomy Hx of colonoscopy Hx of nasal polypectomy Hx of total knee replacement Family History Father Colon cancer Sister Colon cancer Social History Patient Tobacco Use Status: Former Tobacco user Tobacco use type: Cigarette Years Smoked: 10 years Physical Exam Vital Signs: Last Vital Signs Pulse 50 09/24/22 10:34 BP 120/60 09/24/22 10:34 BMI result Body Mass Index 31.2 Assessment & Plan Assessment & Plan (1) Slurred speech: Code(s): R47.81 - Slurred speech Orders: Referrals Neurology Referral R47.81 - Slurred speech Medications: New esomeprazole magnesium 40 mg PO DAILY 90 caps 1RF Discontinued pantoprazole Discontinued Reason: Patient Completed Course 40 mg PO DAILY 90 tabs 2RF Coding Level of Care Code Est Pt Level 3 (24826) Diagnoses Slurred speech R47.81
[2022-09-24 10:34] VITALS: BP 120/60; PULSE 50; BMI 31.2
== END 2022-09-24 10:59 | disposition home or self-care (01) ==
PROVIDERS: PCP Family Medicine; Visit Provider Internal Medicine Gastroenterology
DX: R47.81 Slurred speech (principal)
CPT/HCPCS: 99213

== ENCOUNTER → 2022-09-24 10:21 | Outpatient (BNVA) | payer MEDICARE, SELFPAY | PROVIDERS: PCP Family Medicine; Visit Provider Internal Medicine Gastroenterology | DX: R47.81 Slurred speech (principal) | CPT/HCPCS: 99212 ==

== ENCOUNTER 2022-10-19 12:34 | Outpatient (RCR) | payer MEDICARE, SELFPAY | END 2022-12-03 15:54 | disposition home or self-care (01) | LOC: HO.WCC 12:34 | PROVIDERS: PCP Family Medicine; Visit Provider Physician Assistant | DX: L97.312 Non-pressure chronic ulcer of right ankle with fat layer exposed (principal); G72.0 Drug-induced myopathy; E44.1 Mild protein-calorie malnutrition; I10 Essential (primary) hypertension; J44.9 Chronic obstructive pulmonary disease, unspecified; Z87.891 Personal history of nicotine dependence; Z86.73 Personal history of transient ischemic attack (TIA), and cerebral infarction without residual deficits | CPT/HCPCS: 11042; 11104; 88304; 88305; 99212; 99213 ==

== ENCOUNTER 2022-12-05 10:59 | Outpatient (AMB) | payer MEDICARE, SELFPAY ==
[2022-12-05 11:32] VITALS: BP 120/64; PULSE 57; O2SAT 98; BMI 32.1
--- NOTE | 2022-12-05 11:32 | A.OFFVIS_ITS ---
Intake Vital Signs 12/05/22 11:32 Height 4 ft 11 in Weight 159 lb BMI 32.1 BP 120/64 Blood Pressure Location Lt brachial Position Sitting Pulse 57 Pulse Source Pulse Oximeter Pulse Oximetry (%) 98 Oxygen Delivery Method Room Air Intake Visit Reasons: cough Intake Note: pt is here for follow up and states she is dealing with a lot of health issues, she states she coughs a lot, but a lot related to acid reflux, hoarse voice at a time. 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 Required: No Allergies latex [LATEX] Allergy (Intermediate, Verified 12/05/22 12:02) RASH Sulfa (Sulfonamide Antibiotics) [SULFA (SULFONAMIDE ANTIBIOTICS)] Allergy (Intermediate, Verified 12/05/22 12:02) HIVES, coughing, wheezing, breathing moxifloxacin [From AVELOX] Allergy (Unknown, Verified 12/05/22 12:02) HIVES penicillin G [Penicillin G] Allergy (Unknown, Verified 12/05/22 12:02) UPSET STOMACH Hwfewbb-AKQ-BpX Reductase Inhibitor [XUUDAVR-BWJ-XBP REDUCTASE INHIBITOR] Allergy (Unknown, Verified 12/05/22 12:02) MUSCLE CRAMPS transparent dressing [Tegaderm] Allergy (Unknown, Verified 12/05/22 12:02) Unknown Medication List - Last Reconciled 12/05/22 by Erin Correa MD albuterol sulfate 90 mcg/actuation (ProAir HFA) 2 puffs inhalation QID alprazolam 1 mg PO TID PRN amlodipine 10 mg PO DAILY diphenoxylate-atropine 2.5-0.025 mg (Lomotil) 1 tab PO BID PRN doxepin 50 mg PO BEDTIME duloxetine 30 mg PO DAILY esomeprazole magnesium 40 mg PO DAILY esomeprazole magnesium 20 mg PO BID 90 days famotidine 40 mg PO BEDTIME fluoxetine 40 mg PO QAM gabapentin 100 mg PO DAILY levothyroxine 112 mcg PO DAILY mesalamine ER 1.5 grams (4 x 0.375 gram) PO DAILY 90 days metoprolol succinate ER 25 mg PO DAILY olmesartan 40 mg PO DAILY trazodone 100 mg PO BEDTIME Wixela Inhub 500-50 mcg/dose (fluticasone propion-salmeterol) 1 inh inhalation BID NS Do you need a note to return to daycare/school/sports/work: No HPI cough HPI Details HAROLDO IS 72 YEARS OLD VERY PLEASANT FEMALE. SHE HAVE ONGOING COUGH WHICH IS RELATIVELY CONTROLLED WITH THE USE OF WIXELA. SHE COMPLAINS OF HOARSENESS OF THE VOICE AND IRRITATION IN THE THROAT WHICH IS MOSTLY RELATED TO GERD CONTINUES TO CAUSE SOME COUGH. SHE DENIES ANY WHEEZING ATTACKS. REMAINS WEAK AND TIRED MAINLY BECAUSE OF HER MULTIPLE ISSUES ESPECIALLY IMMUNE M YOPATHY. SHE CONTINUES TO GET MONTHLY IV ADMINISTRATION OF IVIG . FOR CONTROL OF GERD SHE IS ON HE ESOMEPRAZOLE 40 MG A DAY WELL FAMOTIDINE 40 MG AT BEDTIME. SHE REMAINS WEAK AND GETS TIRED EASILY. [facility] Medical History EMG syndrome Trigger finger, left index finger Cough Myopathy Obesity (BMI 30-39.9) Asthma Dyspnea on exertion Surgical History Hx of total knee replacement History of bone marrow biopsy History of laryngoscopy Hx of nasal polypectomy Hx of cholecystectomy Hx of colonoscopy History of esophagogastroduodenoscopy (EGD) Family History Father Colon cancer Sister Colon cancer Social History Patient Tobacco Use Status: Former Tobacco user Tobacco use type: Cigarette Years Smoked: 10 years Review of Systems Const All systems reviewed & are unremarkable except as noted in HPI and below Reports body aches (MILD ) and Reports fatigue (MILD) Eyes Reports no additional complaints ENT Reports no additional complaints Card Denies chest pain, Denies irregular heart rhythm and Denies dyspnea on exertion Resp Reports cough (OCCASIONAL , MILD ), Denies dyspnea on exertion and Denies wheezing GI Reports no additional complaints Reports no additional complaints Musc Reports myalgias (MILD TO MODERATE ) and Reports muscle weakness (CHRONIC , MILD ) Skin/Breast Reports system reviewed and no additional complaints, except as documented Neuro Reports no additional complaints Psych Reports anxiety (WORRIED ABOUT ALL HER MEDICAL PROBLEMS ) Endo Reports fatigue (MILD) Aller/Immun Denies wheezing Physical Exam Vital Signs: Last Vital Signs Pulse 57 12/05/22 11:32 BP 120/64 12/05/22 11:32 Pulse Ox 98 12/05/22 11:32 Oxygen Delivery Method Room Air 12/05/22 11:32 BMI result Body Mass Index 32.1 Const General: comfortable, no acute distress, alert and awake Orientation/consciousness: patient oriented x3 HEENT Head: Yes normal to inspection General nose exam: No nasal polyps present and No nasal discharge present Face and sinus: Yes sinuses nontender Mouth: oropharynx normal Throat: Yes posterior oropharynx normal Eyes General: appearance normal, both eyes and all related structures Neck Neck: Yes normal visual inspection, Yes no lymphadenopathy, Yes trachea midline and Yes no JVD Thyroid: Thyroid normal Chest Chest palpation & inspection: normal inspection of the chest, normal palpation of entire chest wall and no tenderness Resp Other: Percussion note is resonant, breath sounds slightly distant with prolonged expiratory phase. There are a few scattered expiratory wheezes , no crepitations. Cardio Palpation: normal PMI Rate: regular rate Rhythm: regular rhythm Heart sounds: no gallops and no murmurs Peripheral pulses: Peripheral pulses 2+ throughout GI Palpation (GI): Soft to palpation, nontender, No hepatosplenomegaly present and no masses Auscultation: normal bowel sounds Back/Spine/Pelvis Thoracic/Lumbar Spine: thoracic and lumbar spine normal to inspection Skin General skin exam: no rashes or lesions noted Neuro General: patient oriented x3 and no focal motor deficits Cranial nerves: Yes CN's II-XII intact bilaterally Extrem General: Yes normal to inspection, Yes no clubbing, cyanosis or edema and Yes no calf tenderness Psych Appearance: grossly normal and well kempt Speech and movement: Normal speech and movement present Assessment & Plan Assessment & Plan (1) Asthma: Comment: PER SPIROMETRY SHE DOES HAVE EVIDENCE OF THE BRONCHIAL ASTHMA/COPD MODERATELY SEVERE. Tx : CONTINUE : WIXELA 250-50 1 INHALATION B.I.D. ALBUTEROL HFA 2 PUFFS Q 4-6 HRS PRN SHE STILL HAS COUGH AT NIGHT AND MILD COUGH DURING THE DAYTIME BUT IT IS SEC TO GERD . Code(s): J45.909 - Unspecified asthma, uncomplicated (2) Dyspnea on exertion: Comment: DYSPNEA ON EXERTION IS MULTIFACTORIAL, AND I EXPLAINED TO HER MULTIPLE POSSIBLE CONTRIBUTING FACTORS. 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 Code(s): R06.00 - Dyspnea, unspecified (3) Myopathy: Comment: SHE HAS DIAGNOSIS OF AUTOIMMUNE MYOPATHY, INITIALLY THOUGHT TO BE DUE TO STATINS. SHE IS ON IVIG THERAPY WITH INFUSION OF IVIG OVER 2 CONSECUITIVE DAYS EVERY THREE WEEKS . Code(s): G72.9 - Myopathy, unspecified (4) Cough: Comment: COUGH IS PART OF THE BRONCHIAL ASTHMA, AND CHRONIC OBSTRUCTIVE AIRWAY DISORDER. TX UNDER aSTHMA AND ALSO MAY USE MUCINEX 600 MG B.I.D. P.R.N.. KEEP HEAD OF THE BED PROPPED UO AT NIGHT . Code(s): R05.9 - Cough, unspecified Medications: New fluticasone propion-salmeterol 250-50 mcg/dose (Wixela Inhub) 1 inh inhalation BID 60 ea 3RF ASTHMA/COUGH 90 days Coding Level of Care Code Est Pt Level 3 (51081) Diagnoses Asthma J45.909 Dyspnea on exertion R06.00 Myopathy G72.9 Cough R05.9
== END 2022-12-05 12:03 | disposition home or self-care (01) ==
PROVIDERS: PCP Family Medicine; Visit Provider Internal Medicine
DX: J45.909 Unspecified asthma, uncomplicated (principal); R06.00 Dyspnea, unspecified; G72.9 Myopathy, unspecified; R05.9 Cough, unspecified
CPT/HCPCS: 99213

== ENCOUNTER → 2022-12-05 10:59 | Outpatient (BNVA) | payer MEDICARE, SELFPAY | PROVIDERS: PCP Family Medicine; Visit Provider Internal Medicine | DX: J45.909 Unspecified asthma, uncomplicated (principal); R05.9 Cough, unspecified; R06.00 Dyspnea, unspecified; G72.9 Myopathy, unspecified | CPT/HCPCS: 99212 ==

== ENCOUNTER 2022-12-24 08:06 | Outpatient (RCR) | payer MEDICARE, SELFPAY | END 2022-12-25 10:17 | disposition home or self-care (01) | LOC: HO.WCC 08:06 | PROVIDERS: PCP Family Medicine; Visit Provider Physician Assistant | DX: Z09 Encounter for follow-up examination after completed treatment for conditions other than malignant neoplasm (principal); L08.89 Other specified local infections of the skin and subcutaneous tissue; I10 Essential (primary) hypertension; G72.0 Drug-induced myopathy; Z86.73 Personal history of transient ischemic attack (TIA), and cerebral infarction without residual deficits; Z87.891 Personal history of nicotine dependence | CPT/HCPCS: 99212 ==

== ENCOUNTER 2023-04-08 13:07 | Outpatient (AMB) | payer MEDICARE, SELFPAY ==
--- NOTE | 2023-04-08 13:12 | A.OFFVIS_ITS ---
Intake Vital Signs 04/08/23 13:16 Height 4 ft 11 in Weight 160 lb 14.999 oz BMI 32.5 BP 132/63 Blood Pressure Location Lt brachial Position Sitting Pulse 56 Intake Visit Reasons: 4 month follow up Intake Note: Sharon presents in the office as a 4 month follow up. CC: She states that she went to [facility] and she states that our office did not call her back. Dynamite Reclaimer Required: No Allergies latex [LATEX] Allergy (Intermediate, Verified 04/08/23 13:17) RASH Sulfa (Sulfonamide Antibiotics) [SULFA (SULFONAMIDE ANTIBIOTICS)] Allergy (Intermediate, Verified 04/08/23 13:17) HIVES, coughing, wheezing, breathing moxifloxacin [From AVELOX] Allergy (Unknown, Verified 04/08/23 13:17) HIVES penicillin G [Penicillin G] Allergy (Unknown, Verified 04/08/23 13:17) UPSET STOMACH Hlxlqyp-YYH-BnX Reductase Inhibitor [GDSGFVE-LUC-ZCI REDUCTASE INHIBITOR] Allergy (Unknown, Verified 04/08/23 13:17) MUSCLE CRAMPS transparent dressing [Tegaderm] Allergy (Unknown, Verified 04/08/23 13:17) Unknown HPI 4 month follow up HPI Details 72 yr old f here for f/u Recap she had coughing and regurgitation for a long time, has horrible taste in mouth she might have incontinence with coughing food can get stuck, feels like not going down smoothly, doesn;t digest fully, foods comes out in bowel no choking with food' diarrhea going on for most of ehr life, has progrssed and gotten worse with time, has no control she is going 5-6 times for stool at night as well no blood in stool she has pain in various area,s moves aorund can be lower quadrants abdo can feel distended she has been told she is anemia and bleeding from her GI tract possibly she started pantoprazole 3-4 weeks has felt no benefit -father and sister both had CRC Colonoscopy 2021: 2 adenomatous polyps removed, random bx neg for microscopic colitis EGD 2021-- nml duodenum, mnimal inflmmation stomach MRe- possible colitis left side, but fecal lactoferrin negative CTe: 04/2022-- neg, no inflammation seen Capsule: 07/01-- mild gastritis Ba swallow- 09/30--mild esophgeal dysmotility INTERIM: she was at [facility] and dx with enteritis in Feb 2023 she saw neremery after referral when I saw her last tiem due to cerebellar signs --still having slurred speech at times and gait issues she has variable bowel habits at time, sometimes diarrhea she had worse GERD with the enteritis but now comes and goes still going for the IVIG for the myopathy --CPK level has been higher recently she has trouble swallowing foods or pills soemtimes she has mid abdominal discomfort worse with food Per chart she was referred by me to neuro 6 months ago and she was called but never scheduled the apptm any how now seeing [facility] neuro and MRI pending 04/24/23 EXAM: GENERAL: The patient is well developed and nontoxic. VITAL SIGNS:see workflow HEENT: Nonicteric sclerae, PERRLA, EOMI. Oropharynx clear. Moist mucous membranes. Conjunctivae appear well perfused. No thyroid mass. CHEST: Chest wall is nontender. HEART: Regular rate and rhythm without murmurs. LUNGS: Clear to auscultation bilaterally. ABDOMEN: Soft, positive bowel sounds, tender upper and lower abdomen, no organomegaly.no flank tenderness SKIN: No rash, no excessive bruising, petechiae, or purpura. NEUROLOGIC: Cranial nerves II-XII intact without motor/sensory deficit. 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, acid hypersecretion, hiatal hernia--possibly not controlled with current PPI, maybe oral pharyngeal dysphagia component 3/ anemia of chronic disease 4/ neuro sx with fumbling speech and irr egular gait at times e.g cerebellar d/o, paraneoplastic disorder, TIA-- Plan: 1/neuro w/u pending, from GI point of vi ew Whipples disease could explain if neuro w/u is neg and would explain enteritis and neuro sx--however this si rare 2/ CTe to eval small bowel, if ongoing i nflammation then trial of budeosnide and maybe repeat EGD with bx [facility] Medical History EMG syndrome Trigger finger, left index finger Cough Myopathy Obesity (BMI 30-39.9) Asthma Dyspnea on exertion Surgical History Hx of total knee replacement History of bone marrow biopsy History of laryngoscopy Hx of nasal polypectomy Hx of cholecystectomy Hx of colonoscopy History of esophagogastroduodenoscopy (EGD) Family History Father Colon cancer Sister Colon cancer Social History Patient Tobacco Use Status: Former Tobacco user Tobacco use type: Cigarette Years Smoked: 10 years Physical Exam Vital Signs: BMI result Body Mass Index 32.5 Assessment & Plan Assessment & Plan (1) Diarrhea: Code(s): R19.7 - Diarrhea, unspecified Plan: A/P: 1/ Chronic diarrhea, on and off 2/ chronic gerd, DDX Eoe, dysmotility, 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, acid hypersecretion, hiatal hernia--possibly not controlled with current PPI, maybe oral pharyngeal dysphagia component 3/ anemia of chronic disease 4/ neuro sx with fumbling speech and irregular gait at times e.g cerebellar d/o, paraneoplastic disorder, TIA-- Plan: 1/neuro w/u pending, from GI point of view Whipples disease could explain if neuro w/u is neg and would explain enteritis and neuro sx--however this si rare 2/ CTe to eval small bowel, if ongoing inflammation then trial of budeosnide and maybe repeat EGD with bx (2) Slurred speech: Code(s): R47.81 - Slurred speech Plan: A/P: 1/ Chronic diarrhea, on and off 2/ chronic gerd, DDX Eoe, dysmotility, 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, acid hypersecretion, hiatal hernia--possibly not controlled with current PPI, maybe oral pharyngeal dysphagia component 3/ anemia of chronic disease 4/ neuro sx with fumbling speech and irregular gait at times e.g cerebellar d/o, paraneoplastic disorder, TIA-- Plan: 1/neuro w/u pending, from GI point of view Whipples disease could explain if neuro w/u is neg and would explain enteritis and neuro sx--however this si rare 2/ CTe to eval small bowel, if ongoing inflammation then trial of budeosnide and maybe repeat EGD with bx Orders: Orders CT enterography Today R10.33 - Periumbilical pain Coding Level of Care Code Est Pt Level 3 (77586) Diagnoses Diarrhea R19.7 Slurred speech R47.81
[2023-04-08 13:16] VITALS: BP 132/63; PULSE 56; BMI 32.5
== END 2023-04-08 14:17 | disposition home or self-care (01) ==
PROVIDERS: PCP Family Medicine; Visit Provider Internal Medicine Gastroenterology
DX: R19.7 Diarrhea, unspecified (principal); R47.81 Slurred speech
CPT/HCPCS: 99213

== ENCOUNTER → 2023-04-08 13:07 | Outpatient (BNVA) | payer MEDICARE, SELFPAY | PROVIDERS: PCP Family Medicine; Visit Provider Internal Medicine Gastroenterology | DX: J45.909 Unspecified asthma, uncomplicated (principal); R06.00 Dyspnea, unspecified; R05.9 Cough, unspecified; G72.9 Myopathy, unspecified; R19.7 Diarrhea, unspecified; R47.81 Slurred speech | CPT/HCPCS: 99212 ==

== ENCOUNTER 2023-04-08 13:57 | Outpatient (AMB) | payer MEDICARE, SELFPAY ==
[2023-04-08 14:12] VITALS: BP 102/63; PULSE 51; O2SAT 96; BMI 32.5
--- NOTE | 2023-04-08 14:12 | MHC.OFFVIS ---
Intake Vital Signs 04/08/23 14:12 Height 4 ft 11 in Weight 160 lb 14.999 oz BMI 32.5 BP 102/63 Blood Pressure Location Lt brachial Position Sitting Pulse 51 Pulse Source Pulse Oximeter Pulse Oximetry (%) 96 Oxygen Delivery Method Room Air Intake Visit Reasons: cough Intake Note: pt is here for follow up and states she is starting some coughing with mucous and sometimes some wheezing and coughing spells. Allergies latex [LATEX] Allergy (Intermediate, Verified 04/08/23 14:17) RASH Sulfa (Sulfonamide Antibiotics) [SULFA (SULFONAMIDE ANTIBIOTICS)] Allergy (Intermediate, Verified 04/08/23 14:17) HIVES, coughing, wheezing, breathing moxifloxacin [From AVELOX] Allergy (Unknown, Verified 04/08/23 14:17) HIVES penicillin G [Penicillin G] Allergy (Unknown, Verified 04/08/23 14:17) UPSET STOMACH Mcudplu-VXJ-AfC Reductase Inhibitor [FKDBMKR-RGX-ASQ REDUCTASE INHIBITOR] Allergy (Unknown, Verified 04/08/23 14:17) MUSCLE CRAMPS transparent dressing [Tegaderm] Allergy (Unknown, Verified 04/08/23 14:17) Unknown [facility] Medical History EMG syndrome Trigger finger, left index finger Cough Myopathy Obesity (BMI 30-39.9) Asthma Dyspnea on exertion Surgical History Hx of total knee replacement History of bone marrow biopsy History of laryngoscopy Hx of nasal polypectomy Hx of cholecystectomy Hx of colonoscopy History of esophagogastroduodenoscopy (EGD) Family History Father Colon cancer Sister Colon cancer Social History Patient Tobacco Use Status: Former Tobacco user Tobacco use type: Cigarette Years Smoked: 10 years Coding
--- NOTE | 2023-04-08 14:13 | A.OFFVIS_ITS ---
Intake Vital Signs 04/08/23 14:12 Height 4 ft 11 in Weight 160 lb 14.999 oz BMI 32.5 BP 102/63 Blood Pressure Location Lt brachial Position Sitting Pulse 51 Pulse Source Pulse Oximeter Pulse Oximetry (%) 96 Oxygen Delivery Method Room Air Intake Visit Reasons: cough Allergies latex [LATEX] Allergy (Intermediate, Verified 04/08/23 14:27) RASH Sulfa (Sulfonamide Antibiotics) [SULFA (SULFONAMIDE ANTIBIOTICS)] Allergy (Intermediate, Verified 04/08/23 14:27) HIVES, coughing, wheezing, breathing moxifloxacin [From AVELOX] Allergy (Unknown, Verified 04/08/23 14:27) HIVES penicillin G [Penicillin G] Allergy (Unknown, Verified 04/08/23 14:27) UPSET STOMACH Mtqvykw-YGN-AxK Reductase Inhibitor [PYVXLQZ-XHI-QFG REDUCTASE INHIBITOR] Allergy (Unknown, Verified 04/08/23 14:27) MUSCLE CRAMPS transparent dressing [Tegaderm] Allergy (Unknown, Verified 04/08/23 14:27) Unknown Medication List - Last Reconciled 04/08/23 by Erin Correa MD albuterol sulfate 90 mcg/actuation (ProAir HFA) 2 puffs inhalation QID alprazolam 1 mg PO TID PRN amlodipine 10 mg PO DAILY clotrimazole-betamethasone 1-0.05 % appl topical DAILY diphenoxylate-atropine 2.5-0.025 mg (Lomotil) 1 tab PO BID PRN doxepin 50 mg PO BEDTIME duloxetine 30 mg PO DAILY esomeprazole magnesium 40 mg PO DAILY esomeprazole magnesium 20 mg PO BID 90 days famotidine 40 mg PO BEDTIME fluoxetine 40 mg PO QAM fluticasone propion-salmeterol 250-50 mcg/dose (Wixela Inhub) 1 inh inhalation BID 90 days gabapentin 100 mg PO DAILY levothyroxine 112 mcg PO DAILY mesalamine ER 1.5 grams (4 x 0.375 gram) PO DAILY 90 days metoprolol succinate ER 25 mg PO DAILY olmesartan 40 mg PO DAILY trazodone 100 mg PO BEDTIME Do you need a note to return to daycare/school/sports/work: No HPI cough HPI Details 72 years old female very pleasant is her e for 6 months follow-up. She is being treated for chronic cough which is mostly due to reactive airways, and has responded very well to the treatment with fluticasone/salmeterol. She is using Wixela 250-50 b.i.d., the cough is mostly under control with only occasional flare ups. She uses albuterol once in awhile . She continues to have IV IG infusions Q 4 weeks for her chronic Auto-immune myopathy syndrome. Malickkikendra has had no acute infection or exacerbation. [facility] Medical History EMG syndrome Trigger finger, left index finger Cough Myopathy Obesity (BMI 30-39.9) Asthma Dyspnea on exertion Surgical History Hx of total knee replacement History of bone marrow biopsy History of laryngoscopy Hx of nasal polypectomy Hx of cholecystectomy Hx of colonoscopy History of esophagogastroduodenoscopy (EGD) Family History Father Colon cancer Sister Colon cancer Social History Patient Tobacco Use Status: Former Tobacco user Tobacco use type: Cigarette Years Smoked: 10 years Review of Systems Const All systems reviewed & are unremarkable except as noted in HPI and below Reports body aches (MILD ) and Reports fatigue (MILD) Eyes Reports no additional complaints ENT Reports no additional complaints Card Denies chest pain, Denies irregular heart rhythm and Denies dyspnea on exertion Resp Reports cough (OCCASIONAL , MILD ), Denies dyspnea on exertion and Denies wheezi ng GI Reports no additional complaints Reports no additional complaints Musc Reports myalgias (MILD TO MODERATE ) and Reports muscle weakness (CHRONIC , MILD ) Skin/Breast Reports system reviewed and no additional complaints, except as documented Neuro Reports no additional complaints Psych Reports anxiety (WORRIED ABOUT ALL HER MEDICAL PROBLEMS ) Endo Reports fatigue (MILD) Aller/Immun Denies wheezing Physical Exam Const General: comfortable, no acute distress, alert and awake Orientation/consciousness: patient oriented x3 HEENT Head: Yes normal to inspection General nose exam: No nasal polyps present and No nasal discharge present Face and sinus: Yes sinuses nontender Mouth: oropharynx normal Throat: Yes posterior oropharynx normal Eyes General: appearance normal, both eyes and all related structures Neck Neck: Yes normal visual inspection, Yes no lymphadenopathy, Yes trachea midline and Yes no JVD Thyroid: Thyroid normal Chest Chest palpation & inspection: normal inspection of the chest, normal palpation of entire chest wall and no tenderness Resp Other: Percussion note is resonant, breath sounds slightly distant with prolonged expiratory phase. There are a few scattered expiratory wheezes , no crepitations. Cardio Palpation: normal PMI Rate: regular rate Rhythm: regular rhythm Heart sounds: no gallops and no murmurs Peripheral pulses: Peripheral pulses 2+ throughout GI Palpation (GI): Soft to palpation, nontender, No hepatosplenomegaly present and no masses Auscultation: normal bowel sounds Back/Spine/Pelvis Thoracic/Lumbar Spine: thoracic and lumbar spine normal to inspection Skin General skin exam: no rashes or lesions noted Neuro General: patient oriented x3 and no focal motor deficits Cranial nerves: Yes CN's II-XII intact bilaterally Extrem General: Yes normal to inspection, Yes no clubbing, cyanosis or edema and Yes no calf tenderness Psych Appearance: grossly normal and well kempt Speech and movement: Normal speech and movement present Assessment & Plan Assessment & Plan (1) Asthma: Comment: PER SPIROMETRY SHE DOES HAVE EVIDENCE OF BRONCHIAL ASTHMA/COPD ,MODERATELY SEVERE . REMAINS UNDER CONTROL AND STABLE. Code(s): J45.909 - Unspecified asthma, uncomplicated Plan: Tx : WIXELA 250-50 1 INHALATION B.I.D. ALBUTEROL HFA 2 PUFFS Q 4-6 HRS PRN (2) Dyspnea on exertion: Comment: DYSPNEA ON EXERTION IS MULTIFACTORIAL, AND I EXPLAINED TO HER MULTIPLE POSSIBLE CONTRIBUTING FACTORS. 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 SHE UNDERSTANDS FULLY AND, STATES THAT HER DYSPNEA ON EXERTION IS NOT BOTHERING HER MUCH. Code(s): R06.00 - Dyspnea, unspecified Plan: ABOVE (3) Myopathy: Comment: SHE HAS DIAGNOSIS OF AUTOIMMUNE MYOPATHY, INITIALLY THOUGHT TO BE DUE TO STATINS. SHE IS ON IVIG THERAPY WITH INFUSION OF IVIG OVER 2 CONSECUITIVE DAYS EVERY FOUR WEEKS . SEEMS TO BE UNDER CONTROL Code(s): G72.9 - Myopathy, unspecified Plan: ABOVE (4) Cough: Comment: COUGH IS PART OF THE BRONCHIAL ASTHMA, AND CHRONIC OBSTRUCTIVE AIRWAY DISORDER. Code(s): R05.9 - Cough, unspecified Plan: TX UNDER aSTHMA AND ALSO MAY USE MUCINEX 600 MG B.I.D. P.R.N.. KEEP HEAD OF THE BED PROPPED UO AT NIGHT . Medications: Refilled fluticasone propion-salmeterol 250-50 mcg/dose (Wixela Inhub) 1 inh inhalation BID 90 days 3 ea 3RF ASTHMA/COUGH Coding Level of Care Code Est Pt Level 3 (63539) Diagnoses Asthma J45.909 Dyspnea on exertion R06.00 Myopathy G72.9 Cough R05.9
== END 2023-04-08 14:32 | disposition home or self-care (01) ==
PROVIDERS: PCP Family Medicine; Visit Provider Internal Medicine
DX: J45.909 Unspecified asthma, uncomplicated (principal); R06.00 Dyspnea, unspecified; G72.9 Myopathy, unspecified; R05.9 Cough, unspecified
CPT/HCPCS: 99213

== ENCOUNTER 2023-05-06 10:52 | Outpatient (REF) | payer MEDICARE, SELFPAY ==
[2023-05-08 08:35] LABS: Myeloperoxidase Antibody <1.0 AI; Proteinase 3 PR3 Antibodies <1.0 AI
[2023-05-12 21:34] LABS: Acetylcholine Receptor Binding <0.30 nmol/L
[2023-05-14 18:09] LABS: Acetylcholine Recep Modulating <1
[2023-05-16 14:48] LABS: Hu Antibody Screen, IFA Serum NEGATIVE (NEGATIVE); Yo Antibody, Serum Screen NEGATIVE (NEGATIVE)
[2023-05-16 18:53] LABS: Acetylcholine Recept. Blocking <15 (<15)
== END 2023-05-06 10:53 | disposition home or self-care (01) ==
LOC: HO.LAB 10:52
PROVIDERS: PCP Family Medicine; Visit Provider Internal Medicine Gastroenterology
DX: K55.9 Vascular disorder of intestine, unspecified (principal); G72.9 Myopathy, unspecified
CPT/HCPCS: 36415; 84181; 86021; 86041; 86042; 86043; 86255; 86256; 99212

== ENCOUNTER 2023-05-06 10:54 | Outpatient (AMB) | payer MEDICARE, SELFPAY ==
--- NOTE | 2023-05-06 11:00 | MHC.OFFVIS ---
Intake Vital Signs 05/06/23 11:01 Height 4 ft 11 in Weight 154 lb 5.177 oz BMI 31.2 BP 133/60 Blood Pressure Location Lt brachial Position Sitting Pulse 55 Intake Visit Reasons: 4 week follow up Intake Note: Sharon presents in the office as a 4 week follow up. CC: She states that she is still having a lot of GI problems. 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: No Allergies latex [LATEX] Allergy (Intermediate, Verified 05/06/23 11:02) RASH Sulfa (Sulfonamide Antibiotics) [SULFA (SULFONAMIDE ANTIBIOTICS)] Allergy (Intermediate, Verified 05/06/23 11:02) HIVES, coughing, wheezing, breathing moxifloxacin [From AVELOX] Allergy (Unknown, Verified 05/06/23 11:02) HIVES penicillin G [Penicillin G] Allergy (Unknown, Verified 05/06/23 11:02) UPSET STOMACH Xzynkyv-OIN-YaU Reductase Inhibitor [HKYMLXI-GAT-JKM REDUCTASE INHIBITOR] Allergy (Unknown, Verified 05/06/23 11:02) MUSCLE CRAMPS transparent dressing [Tegaderm] Allergy (Unknown, Verified 05/06/23 11:02) Unknown HPI 4 week follow up HPI Details 72 yr old f here for f/u Recap she had coughing and regurgitation for a long time, has horrible taste in mouth she might have incontinence with coughing food can get stuck, feels like not going down smoothly, doesn;t digest fully, foods comes out in bowel no choking with food' diarrhea going on for most of ehr life, has progrssed and gotten worse with time, has no control she is going 5-6 times for stool at night as well no blood in stool she has pain in various area,s moves aorund can be lower quadrants abdo can feel distended she has been told she is anemia and bleeding from her GI tract possibly she started pantoprazole 3-4 weeks has felt no benefit -father and sister both had CRC Colonoscopy 2021: 2 adenomatous polyps removed, random bx neg for microscopic colitis EGD 2021-- nml duodenum, mnimal inflmmation stomach MRe- possible colitis left side, but fecal lactoferrin negative CTe: 04/2022-- neg, no inflammation seen Capsule: 07/01-- mild gastritis Ba swallow- 09/30--mild esophgeal dysmotility INTERIM: She has trouble swallowing usu pills and foods she has been worse last 1 week with diarrhea and nausea, she has mid abdominal pain her CK level is going down, with ther IVIG still taking PPI She had MRI spine and brain no acute findings, small vessel disease but done w/o contrast EXAM: GENERAL: The patient is well developed and nontoxic. VITAL SIGNS:see workflow HEENT: Nonicteric sclerae, PERRLA, EOMI. Oropharynx clear. Moist mucous membranes. Conjunctivae appear well perfused. No thyroid mass. CHEST: Chest wall is nontender. HEART: Regular rate and rhythm without murmurs. LUNGS: Clear to auscultation bilaterally. ABDOMEN: Soft, positive bowel sounds, tender upper and lower abdomen, no organomegaly.no flank tenderness SKIN: No rash, no excessive bruising, petechiae, or purpura. NEUROLOGIC: Cranial nerves II-XII intact without motor/sensory deficit. no nystagmus, falling to sides at time, mild tremor Psych: nml affect A/P: 1/ Chronic diarrhea, on and off --worse recently 2/ chronic gerd, DDX Eoe, dysmotility, 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, acid hypersecretion, hiatal hernia--possibly not controlled with current PPI, maybe oral pharyngeal dysphagia component 3/ anemia of chronic disease 4/ neuro sx with fumbling speech and irregular gait at times e.g cerebellar d/o, paraneoplastic disorder, TIA-- Plan: 1/EGd with dilation and bx for T.whipplei 2/ CTe to eval small bowel, if ongoing inflammation then trial of budeosnide--has this coming up, can try pepto bismol meantime 3/ check ANCA and ab for MG, consider repeat MRI with contrast PFSH Medical History EMG syndrome Trigger finger, left index finger Cough Myopathy Obesity (BMI 30-39.9) Asthma Dyspnea on exertion Surgical History Hx of total knee replacement History of bone marrow biopsy History of laryngoscopy Hx of nasal polypectomy Hx of cholecystectomy Hx of colonoscopy History of esophagogastroduodenoscopy (EGD) Family History Father Colon cancer Sister Colon cancer Social History Patient Tobacco Use Status: Former Tobacco user Tobacco use type: Cigarette Years Smoked: 10 years Physical Exam Vital Signs: Last Vital Signs Pulse 55 05/06/23 11:01 BP 133/60 05/06/23 11:01 BMI result Body Mass Index 31.2 Assessment & Plan Assessment & Plan (1) Mesenteric ischemia: Code(s): K55.9 - Vascular disorder of intestine, unspecified Plan: 1/ Chronic diarrhea, on and off --worse recently 2/ chronic gerd, DDX Eoe, dysmotility, 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, acid hypersecretion, hiatal hernia--possibly not controlled with current PPI, maybe oral pharyngeal dysphagia component 3/ anemia of chronic disease 4/ neuro sx with fumbling speech and irregular gait at times e.g cerebellar d/o, paraneoplastic disorder, TIA-- Plan: 1/EGd with dilation and bx for T.whipplei 2/ CTe to eval small bowel, if ongoing inflammation then trial of budeosnide--has this coming up, can try pepto bismol meantime 3/ check ANCA and ab for MG, consider repeat MRI with contrast (2) Myopathy: Code(s): G72.9 - Myopathy, unspecified Plan: 1/ Chronic diarrhea, on and off --worse recently 2/ chronic gerd, DDX Eoe, dysmotility, 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, acid hypersecretion, hiatal hernia--possibly not controlled with current PPI, maybe oral pharyngeal dysphagia component 3/ anemia of chronic disease 4/ neuro sx with fumbling speech and irregular gait at times e.g cerebellar d/o, paraneoplastic disorder, TIA-- Plan: 1/EGd with dilation and bx for T.whipplei 2/ CTe to eval small bowel, if ongoing inflammation then trial of budeosnide--has this coming up, can try pepto bismol meantime 3/ check ANCA and ab for MG, consider repeat MRI with contrast Orders: Orders ANCA Vasculitides Today G72.9 - Myopathy, unspecified, K55.9 - Vascular disorder of intestine, unspecified GI Panel Today G72.9 - Myopathy, unspecified, K55.9 - Vascular disorder of intestine, unspecified, R19.7 - Diarrhea, unspecified CDiff Gene PCR Today G72.9 - Myopathy, unspecified, K55.9 - Vascular disorder of intestine, unspecified Yo Antibody Today G72.9 - Myopathy, unspecified, K55.9 - Vascular disorder of intestine, unspecified HU Antibody Today G72.9 - Myopathy, unspecified, K55.9 - Vascular disorder of intestine, unspecified Acetylcholine Orthotic/Prosthetic Practitioner Modulating Today G72.9 - Myopathy, unspecified, K55.9 - Vascular disorder of intestine, unspecified Acetylcholine Recept. Blocking Today G72.9 - Myopathy, unspecified, K55.9 - Vascular disorder of intestine, unspecified Acetylcholine Receptor Binding Today G72.9 - Myopathy, unspecified, K55.9 - Vascular disorder of intestine, unspecified Coding Level of Care Code Est Pt Level 4 (04970) Diagnoses Mesenteric ischemia K55.9 Myopathy G72.9
[2023-05-06 11:01] VITALS: BP 133/60; PULSE 55; BMI 31.2
== END 2023-05-06 11:55 | disposition home or self-care (01) ==
PROVIDERS: PCP Family Medicine; Visit Provider Internal Medicine Gastroenterology
DX: K55.9 Vascular disorder of intestine, unspecified (principal); G72.9 Myopathy, unspecified
CPT/HCPCS: 99214

== ENCOUNTER 2023-05-16 11:54 | Day surgery (SDC) | payer MEDICARE, SELFPAY ==
[2023-05-16 13:00] VITALS: BP 171/81; PULSE 78; RESP 18; TEMP 36.4; O2SAT 95; BMI 30.9
--- NOTE | 2023-05-16 13:57 | P.CONAN_ITS ---
[facility] Active Problems Active Problems: All Active Problems (Updated 05/16/23 @ 13:32 by Susana Suresh RN) Slurred speech (Acute) Mesenteric ischemia (Acute) Dysphagia (Acute) Diarrhea (Acute) Cough (Acute) Myopathy (Acute) Obesity (BMI 30-39.9) (Acute) Asthma (Acute) Dyspnea on exertion (Acute) Past Medical History Medical History GERD (gastroesophageal reflux disease) Thyroid disease HTN (hypertension) Bundle branch block EMG syndrome Trigger finger, left index finger Cough Myopathy Obesity (BMI 30-39.9) Asthma Dyspnea on exertion Family History Family History Father Colon cancer Sister Colon cancer Family history of problems with anesthesia: No Surgical History Surgical History Hx of hysterectomy Hx of cerebral aneurysm repair Hx of total knee replacement History of bone marrow biopsy History of laryngoscopy Hx of nasal polypectomy Hx of cholecystectomy Hx of colonoscopy History of esophagogastroduodenoscopy (EGD) History of Problems with Anesthesia: No Social History Social History Patient Tobacco Use Status: Former Tobacco user Tobacco use type: Cigarette Years Smoked: 10 years Are you DNR?: No Advance Directives: No Advance Directives Information Provided: Yes Nutrition Risks: No Nutritional Risk Meds Allergies Allergy/AdvReac Type Severity Reaction Status Date / Time latex [LATEX] Allergy Intermediate RASH Verified 05/06/23 11:02 Sulfa (Sulfonamide Allergy Intermediate HIVES, Verified 05/06/23 11:02 Antibiotics) coughing, [SULFA (SULFONAMIDE wheezing, ANTIBIOTICS)] breathing moxifloxacin [From AVELOX] Allergy Unknown HIVES Verified 05/06/23 11:02 penicillin G [Penicillin G] Allergy Unknown UPSET Verified 05/06/23 11:02 STOMACH Ksehfit-UFE-JsD Reductase Allergy Unknown MUSCLE Verified 05/06/23 11:02 Inhibitor CRAMPS [[id number]-[id number]-QCZ REDUCTASE INHIBITOR] Home Medications Medication Instructions Recorded Confirmed Last Taken Type albuterol sulfate 90 mcg/actuation 2 puff inhalation QID 08/24/20 05/16/23 05/16/23 07:00 History aerosol inhaler (ProAir HFA) alprazolam 1 mg tablet 1 mg PO TID PRN y 08/24/20 05/16/23 05/15/23 History amlodipine 10 mg tablet 10 mg PO DAILY 08/24/20 05/16/23 05/15/23 History duloxetine 30 mg capsule,delayed 30 mg PO DAILY 08/24/20 05/16/23 05/16/23 07:00 History release trazodone 100 mg tablet 100 mg PO BEDTIME 08/24/20 05/16/23 05/15/23 History levothyroxine 112 mcg tablet 112 mcg PO DAILY 02/05/22 05/16/23 05/16/23 07:00 History metoprolol succinate 25 mg 25 mg PO DAILY 04/19/22 05/16/23 05/16/23 07:00 History tablet,extended release 24 hr fluoxetine 20 mg capsule 40 mg PO QAM 09/24/22 05/16/23 05/15/23 History gabapentin 100 mg capsule 100 mg PO DAILY 09/24/22 05/16/23 05/15/23 History olmesartan 40 mg tablet 40 mg PO DAILY 09/24/22 05/16/23 05/15/23 History Exam Height,Weight and Vital Signs: Height 4 ft 11 in Weight 69.49 kg Last Vital Signs Temp 97.6 F 05/16/23 13:00 Pulse 78 05/16/23 13:00 Resp 18 05/16/23 13:00 BP 171/81 H 05/16/23 13:00 Pulse Ox 95 05/16/23 13:00 O2 Del Method Room Air 05/16/23 13:00 Airway Mallampati Class: II TM Dist: >3cm Neck ROM: Full Denture: Upper and Lower Loose/Missing/Broken Teeth: Yes, Upper and Lower Heart: RRR Lungs: CTA Assessment and Plan Assessment Anesthesia Assessment: Anesthesia Plan Discussed and Chart Reviewed Final Anesthetic Review Family History of Problems with Anesthesia: No History of Problems with Anesthesia: No NPO: Yes ASA Class: III Final Preanesthetic Review: Meds/Allgs Chart Reviewed, Consent Obtained/Reviewed and Anes Risks/Benef Reviewed Patient Risk: Intermediate Procedure Risk: Intermediate Anesthetic Plan Anesthetic Plan: MAC: Disposition: Standard PACU
--- NOTE | 2023-05-16 14:23 | MHC.SHP ---
Pre-Procedural Eval Section A - 24 Hr Update-Section A only Date of Service: 05/16/23 The patient is an INPATIENT: No The patient has been examined within 24 hours of the surgical procedure. The History & Physical has been completed within 30 days and I have reviewed it.: Yes Section B - Complete if H&P > 30 days Chief Complaint: Myopathy,Vascular disorder of intestine, Allergies: Allergies Allergy/AdvReac Type Severity Reaction Status Date / Time latex [LATEX] Allergy Intermediate RASH Verified 05/06/23 11:02 Sulfa (Sulfonamide Allergy Intermediate HIVES, Verified 05/06/23 11:02 Antibiotics) coughing, [SULFA (SULFONAMIDE wheezing, ANTIBIOTICS)] breathing moxifloxacin [From AVELOX] Allergy Unknown HIVES Verified 05/06/23 11:02 penicillin G [Penicillin G] Allergy Unknown UPSET Verified 05/06/23 11:02 STOMACH Kjfeciv-TYS-CfT Reductase Allergy Unknown MUSCLE Verified 05/06/23 11:02 Inhibitor CRAMPS [PQKBXQV-AAP-DDI REDUCTASE INHIBITOR] Plan I have reviewed the history and physical and performed a pertinent physical examination on my patient. No changes have occurred unless specified. Time Spent With Patient Time: Total time managing care of this patient today ____ minutes.
--- NOTE | 2023-05-16 14:24 | W.PM.OPN ---
Operative Note Operative Note Date of Service: 05/16/23 Narrative: Procedure Description: EGD Indication: dysphagia Anesthesia: MAC FLEXIBLE TRANSORAL UPPER GASTROINTESTINAL ENDOSCOPY UPPER ENDOSCOPY Consent: Indications for the procedure and potential complications of bleeding, perforation, reaction to medications and missed diagnosis were discussed with the patient and informed consent was obtained. Instrument: Olympus GIF H 190 J mid size upper endoscope Monitoring: Vital signs and clinical assessment, continuous EKG monitoring, Pulse oximetry, Carbon Dioxide monitoring and blood pressure monitoring were done throughout the procedure. Procedure: The patient was placed in the left lateral decubitis position and pre-procedure medications were administered and a bite block was placed. The endoscope was inserted into the mouth and advanced under direct vision to the third part of duodenum. A careful inspection was made as the upper endoscope was withdrawn including a retroflexed examination of the proximal stomach; Findings and interventions are described below. Findings: Larynx:normal Esophagus: GE junction at 38 cm, diaphragm hiatus at 38 cm, schatzki ring noted, bx taken from GEJ, distal and proximal esophagus, balloon dilation to 20 mm at LES and UES. no tears seen Stomach: Patchy erythema, scar tissue . Biopsies were obtained. Grade 2 flap valve on retroflexed examination of the cardia. polypoid lesion proximal stomach 11-12 mm removed with cold snare and retrieved by net Duodenum: Normal bulb and descending duodenum, bx taken incl for tropheryma PCR Intervention: Biopsies as noted above, cold snare polypectomy, balloon dilation Impression/Findings: gastritis schatzki ring gastric polyp PLAN: cont with PPI for the meantime GERD precautions if ongoing sx then manometry
[2023-05-16 15:13] VITALS: BP 88/43; PULSE 64; RESP 18; TEMP 36.1; O2SAT 100
[2023-05-16 15:28] VITALS: BP 133/59; PULSE 57; RESP 18; TEMP 36.3; O2SAT 98
[2023-05-16 15:43] VITALS: BP 132/63; PULSE 53; RESP 18; TEMP 36.6; O2SAT 98
== END 2023-05-16 15:55 | disposition home or self-care (01) ==
PROVIDERS: PCP Family Medicine; Visit Provider Internal Medicine Gastroenterology
PROC: (CPT 43249; principal; 2023-05-16 14:20)
DX: K22.2 Esophageal obstruction (principal); G72.9 Myopathy, unspecified; K55.9 Vascular disorder of intestine, unspecified; Z80.0 Family history of malignant neoplasm of digestive organs; K29.50 Unspecified chronic gastritis without bleeding; K31.7 Polyp of stomach and duodenum; K44.9 Diaphragmatic hernia without obstruction or gangrene; E66.9 Obesity, unspecified; Z68.31 Body mass index [BMI] 31.0-31.9, adult; J45.909 Unspecified asthma, uncomplicated; Z79.899 Other long term (current) drug therapy; Z88.0 Allergy status to penicillin; Z88.1 Allergy status to other antibiotic agents; Z88.2 Allergy status to sulfonamides; Z88.8 Allergy status to other drugs, medicaments and biological substances; Z91.040 Latex allergy status; Z87.891 Personal history of nicotine dependence
CPT/HCPCS: 43249; 43251; 43239; 88305; 88312; 88313; 88342; C1726; J2704

== ENCOUNTER → 2023-05-16 11:54 | Outpatient (BNV) | payer MEDICARE, SELFPAY | PROVIDERS: PCP Family Medicine; Visit Provider Internal Medicine Gastroenterology | DX: K22.2 Esophageal obstruction (principal); K29.70 Gastritis, unspecified, without bleeding; K31.7 Polyp of stomach and duodenum | CPT/HCPCS: 43239; 43249; 43251 ==

== ENCOUNTER → 2023-05-27 10:37 | Outpatient (BNVA) | payer MEDICARE, SELFPAY | PROVIDERS: PCP Family Medicine; Visit Provider Internal Medicine Gastroenterology ==

== ENCOUNTER 2023-05-27 11:55 | Emergency (ER) | payer MEDICARE, SELFPAY ==
--- NOTE | ~2023-05-27 | CT_ITS ---
EXAMINATION: CT ANGIOGRAM HEAD CT ANGIOGRAM NECK CLINICAL INFORMATION: Increased headache. History of aneurysm. COMPARISON: Brain MRI from 04/24/2023. TECHNIQUE: Initial noncontrast cemetery warden imaging of the head and neck was performed. Noncontrast head CT was also performed. Test bolus sequences followed by intravenous administration 70 mL of Omnipaque 350. Helical imaging was performed in the axial plane from the aortic arch to the skull vertex. Delayed postcontrast imaging of the head was also performed. The data was processed at the microbiology technologist's workstation for generation of MIP sequences. Angled MIPs and volume rendered reformatted images were also generated at an offline 3D workstation. Stenoses are assessed in accordance with NASCET criteria unless otherwise indicated. This CT examination was performed using dose optimization techniques as appropriate, variously including the following: *Automated exposure control. *Adjustment of mA and/or kV according to patient size (this includes techniques or standardized protocols for targeted exams where dose is matched to indication/reason for exam; i.e. extremities or head). *Use of iterative reconstruction technique. DLP: 1909 mGy-cm FINDINGS: CT Head: There is no evidence of acute intracranial hemorrhage or edematous territorial infarction. Jones-white matter differentiation is preserved. Scattered and partially confluent hypoattenuation in the periventricular and deep white matter are consistent with moderate microangiopathy. Proportional prominence of the ventricles and sulcal spaces without evidence of obstructive hydrocephalus. No abnormal mass effect or midline shift. No extra-axial fluid collections. No pathologic intra-axial enhancement or regional oligemia. No acute soft tissue or osseous abnormalities. Changes of prior sinonasal surgery. Mild mucosal thickening of the paranasal sinuses. The mastoid air cells and middle ear cavities are clear. Bilateral lens extractions. CT Neck: The thyroid gland and remaining cervical soft tissues are within normal limits. Straightening of the normal cervical lordosis. CT Upper Chest: Accessed right-sided chest port. The visualized lung apices and upper mediastinum are within normal limits. Neck CTA: Aortic Arch: Normal contour and caliber with moderate calcific atherosclerotic disease. Two vessel branching pattern of the arch with left common carotid artery arising from the brachiocephalic trunk. Great Vessel Origins: No significant stenosis of the branch origins. Right Common Carotid Artery: No focal stenosis or occlusion. Cervical Right Internal Carotid Artery: Calcific atherosclerotic disease of the carotid bulb and proximal internal carotid artery causing less than 50% stenosis. Left Common Carotid Artery: No focal stenosis or occlusion. Cervical Left Internal Carotid Artery: Calcific atherosclerotic disease of the carotid bulb and proximal internal carotid artery causing less than 50% stenosis. Cervical Right Vertebral Artery: Co-dominant. No focal stenosis or occlusion. Cervical Left Vertebral Artery: Co-dominant. No focal stenosis or occlusion. Brain CTA: Intracranial Internal Carotid Arteries: No focal stenosis or occlusion. Pipeline embolization device in place within the cavernous and parapelvic segments of the left ICA. Right Anterior Cerebral Artery: Normal A1 segment. Normal opacification of the distal GEORGINA segments. Left Anterior Cerebral Artery: Normal A1 segment. Normal opacification of the distal GEORGINA segments. Anterior Communicating Artery: Normal. Right Middle Cerebral Artery: Normal M1 segment of the MCA without focal stenosis or occlusion. Normal arborization of the distal segments. Left Middle Cerebral Artery: Normal M1 segment of the MCA without focal stenosis or occlusion. Normal arborization of the distal segments. Right Vertebral Artery: Normal V4 segment. Normal opacification of the proximal segments of the posterior inferior cerebellar artery. Left Vertebral Artery: Normal V4 segment. Normal opacification of the proximal segments of the posterior inferior cerebellar artery. Basilar Artery: Normal without focal stenosis or occlusion. Normal appearance of the proximal superior cerebellar arteries. Right Posterior Cerebral Artery: Normal P1 segment. Normal opacification of the distal COMMUNITY WORKER segments. Left Posterior Cerebral Artery: Normal P1 segment. Normal opacification of the distal COMMUNITY WORKER segments. Normal opacification of the superior sagittal, straight, transverse, and sigmoid sinuses. CT/CT angio head neck IMPRESSION: 1. No evidence of acute intracranial hemorrhage or edematous territorial infarction. Moderate underlying microangiopathy and generalized cerebral volume loss. 2. Pipeline embolization device in place within the cavernous and supraclinoid segments of the left ICA. No demonstrated intracranial aneurysm. 3. CTA of the head and neck without proximal occlusion or flow-limiting stenosis.
--- NOTE | 2023-05-27 12:45 | ED_ITS ---
HPI - General Adult General Chief complaint: General Medical Stated complaint: outpatient response Time Seen by Provider: 05/27/23 12:07 Source: patient and old records reviewed Limitations: no limitations History of Present Illness HPI narrative: 73 yo female with PMH of GERD, HTN, BBB, asthma, dysphagia, mesenteric ischemia, brain aneurysm s/p repair, statin induced myopathy who receives IVIG infusions at [facility] received 1 week ago at this time she was seen at GI follow up today but had intermittent diffuse rigors but denies fevers. Has had this in the past related to stress. Just had endoscopy showing possible barretts. She is due for CT scan of head given increased headaches next week. She can talk and sometimes when talking the rigors stop. They started after waking this AM. No hx of seizures. MD complaint: body shaking Onset (ago): hour(s) (4+) Location: chest, abdomen, left, right, upper extremity and lower extremity Radiation: non-radiation Severity: moderate Quality: other (shaking) Pain Consistency: intermittent Relieving factors: none Exacerbating factors: other (stress, movement) Associated symptoms: other (headaches, sore throat, GERD) Treatments prior to arrival: none Related Data Home Medications Medication Instructions Recorded Confirmed albuterol sulfate 90 mcg/actuation 2 puff inhalation QID 08/24/20 05/16/23 aerosol inhaler (ProAir HFA) alprazolam 1 mg tablet 1 mg PO TID PRN y 08/24/20 05/16/23 amlodipine 10 mg tablet 10 mg PO DAILY 08/24/20 05/16/23 duloxetine 30 mg capsule,delayed 30 mg PO DAILY 08/24/20 05/16/23 release trazodone 100 mg tablet 100 mg PO BEDTIME 08/24/20 05/16/23 levothyroxine 112 mcg tablet 112 mcg PO DAILY 02/05/22 05/16/23 metoprolol succinate 25 mg 25 mg PO DAILY 04/19/22 05/16/23 tablet,extended release 24 hr fluoxetine 20 mg capsule 40 mg PO QAM 09/24/22 05/16/23 gabapentin 100 mg capsule 100 mg PO DAILY 09/24/22 05/16/23 olmesartan 40 mg tablet 40 mg PO DAILY 09/24/22 05/16/23 Previous Rx's Medication Instructions Recorded diphenoxylate-atropine 2.5 1 tab PO BID PRN diarrhea #30 tabs 06/22/22 mg-0.025 mg tablet (Lomotil) mesalamine 0.375 gram 1.5 g (4 x 0.375 gram) PO DAILY 90 09/04/22 capsule,extended release 24 hr days #360 caps esomeprazole magnesium 40 mg 40 mg PO DAILY #90 caps 10/09/22 capsule,delayed release esomeprazole magnesium 20 mg 20 mg PO BID 90 days #180 caps 11/08/22 capsule,delayed release famotidine 40 mg tablet 40 mg PO BEDTIME #90 tabs 02/04/23 fluticasone 250 mcg-salmeterol 50 1 inh inhalation BID ASTHMA/COUGH 04/08/23 mcg/dose blistr powdr for 90 days #3 ea inhalation (Wixela Inhub) Allergies Allergy/AdvReac Type Severity Reaction Status Date / Time latex [LATEX] Allergy Intermediate RASH Verified 05/27/23 11:25 Sulfa (Sulfonamide Allergy Intermediate HIVES, Verified 05/27/23 11:25 Antibiotics) coughing, [SULFA (SULFONAMIDE wheezing, ANTIBIOTICS)] breathing moxifloxacin [From AVELOX] Allergy Unknown HIVES Verified 05/27/23 11:25 penicillin G [Penicillin G] Allergy Unknown UPSET Verified 05/27/23 11:25 STOMACH Lbiostc-KCC-IqL Reductase Allergy Unknown MUSCLE Verified 05/27/23 11:25 Inhibitor CRAMPS [FCINNWL-EVJ-PRE REDUCTASE INHIBITOR] Review of Systems 2 Review of Systems: Constitutional : No Fever, No Chills, No Fatigue ENT/Mouth : No sore throat, No Rhinorrhea Eyes: No Eye Pain, No Swelling, No Redness Cardiovascular : No Chest Pain, No SOB, No Dyspnea on Exertion Respiratory : No Cough, No Sputum Gastrointestinal : No Nausea, No Vomiting, No Diarrhea, No abdominal Pain Genitourinary : No Dysuria, No Urinary Frequency, No Hematuria, Musculoskeletal : No joint pain, No Myalgias, No Joint Swelling Skin : No Skin Lesions, No rash Neuro : No Weakness, No Numbness, No Dizziness, positive Headache, pos shaking Psych : No Anxiety/Panic, No Depression Heme/Lymph: No Bruising, No Bleeding,No Lymphadenopathy Endocrine : No Polyuria, No Polydipsia All other systems reviewed and are negative PMFSH Past Medical History Attestation statement: The following information was validated with the patient. Source: old records reviewed Medical History GERD (gastroesophageal reflux disease) Thyroid disease HTN (hypertension) Bundle branch block EMG syndrome Trigger finger, left index finger Cough Myopathy Obesity (BMI 30-39.9) Asthma Dyspnea on exertion Surgical History Hx of hysterectomy Hx of cerebral aneurysm repair Hx of total knee replacement History of bone marrow biopsy History of laryngoscopy Hx of nasal polypectomy Hx of cholecystectomy Hx of colonoscopy History of esophagogastroduodenoscopy (EGD) Family History Family History Father Colon cancer Sister Colon cancer Social History Social History Patient Tobacco Use Status: Former Tobacco user Tobacco use type: Cigarette Years Smoked: 10 years Smoked in Last 30 Days: No Use of substances other than those prescribed or required for medical reasons: No Advance Directives: No Physical Exam ED Vital Signs: Vital Signs - 24 hr 05/27/23 12:51 05/27/23 14:50 Temperature 97.7 F 98.2 F Pulse Rate 65 63 Respiratory Rate 16 14 Blood Pressure 163/71 H 154/70 H Pulse Oximetry 97 97 Oxygen Delivery Method Room Air Room Air BMI result Body Mass Index 30.1 Appearance: Alert. Oriented X3. No acute distress. Eyes: Pupils equal, round and reactive to light. ENT: Pharynx normal. Neck: Normal inspection. Neck supple. CVS: Normal heart rate and rhythm. Pulses normal. Respiratory: No respiratory distress. Breath sounds normal. Abdomen: Soft and nontender. Skin: Skin warm and dry. Normal skin color. Normal skin turgor. Extremities: No lower extremity edema. No calf ttp Neuro: Oriented X 3. No motor deficit. No sensory deficit. no clonus no hyperreflexia no rigidity the tremors are intermittent and at times stop when she is talking or distracted Course Course Course Narrative: rigors have stopped Reevaluation(s) Reevaluation #1: signed out to Dr. Sanches pending CTA Medications Administered Generic Name Dose Route Start Last Admin Trade Name Freq PRN Reason Stop Dose Admin Potassium Chloride 10 meq in 100 mls @ 100 mls/hr 05/27/23 15:15 05/27/23 15:58 Potassium Chloride/H20 IV 05/27/23 17:14 100 mls/hr Q1H YISSEL Administration Discontinued Medications Generic Name Dose Route Start Last Admin Trade Name Anshul PRN Reason Stop Dose Admin Iohexol 100 ml 05/27/23 15:40 05/27/23 15:40 Iohexol 350 Mg/Ml 100 Ml Infus..Btl IV 05/27/23 15:41 70 ml ONCE ONE Administration Lorazepam 1 mg 05/27/23 12:43 05/27/23 14:46 Lorazepam 2 Mg/Ml Vial IVPUSH 05/27/23 12:44 1 mg STAT STA Administration Potassium Chloride 40 meq 05/27/23 15:11 05/27/23 15:52 Potassium Chloride Packet 20 Meq Packet PO 05/27/23 15:12 40 meq ONCE ONE Administration Medical Decision Making Medical Decision Making [facility] Narrative: 73 yo female with PMH of GERD, HTN, BBB, asthma, dysphagia, mesenteric ischemia, brain aneurysm s/p repair, statin induced myopathy here with c/o rigors or body shaking that she has had before in the past due to stress at this time they are intermittent no focal deficits, no hyperreflexia, no clonus has had this before will obtain labs, CTA given plan for this as outpatient with worsening headaches, IV ativan for rigors and infectioius work up ordered though lower suspicion Differential Diagnosis Differential Diagnoses: The differential diagnosis associated with the presentation includes stress, rigors, rhabdo, mass Admission/Observation Consideration of admission/observation: Escalation of care including admission/observation considered pending CTA will sign out to Dr. Sanches Lab Data [facility] Lab Attestation statement: I reviewed the patient's lab results. CRP negative doubt infection repleting K 05/27/23 14:42 05/27/23 14:42 Labs: Lab Results 05/27/23 05/27/23 Range/Units 11:59 14:42 WBC 3.6 L (4.8-10.8) X10*3/uL RBC 3.56 L (4.20-5.50) X10*6/uL Hgb 9.5 L (12.0-16.0) g/dl Hct 29.0 L (37.0-47.0) % MCV 81.5 (80.0-98.0) fL MCH 26.7 L (27.0-33.0) pg MCHC 32.8 (31.0-35.0) g/dl RDW 14.5 (11.0-16.0) % Plt Count 202 (160-400) X10*3/uL MPV 9.0 L (9.4-12.3) fL Immature Gran % (Auto) 0.0 (0.0-0.4) % Neut % (Auto) 62.1 (45-73) % Lymph % (Auto) 28.7 (20-40) % Stoddard % (Auto) 7.8 (2-11) % Eos % (Auto) 1.1 (0-4) % Baso % (Auto) 0.3 (0-2) % Lymph # (Auto) 1.0 L (1.2-4.9) X10*3/uL Stoddard # (Auto) 0.3 (0.1-1.2) X10*3/uL Eos # (Auto) 0.0 (0.0-0.4) X10*3/uL Baso # (Auto) 0.0 (0.0-0.2) X10*3/uL Abs Immat Gran (auto) 0.00 (0.00-0.03) X10*3/uL Absolute Neuts (auto) 2.2 (2.0-8.3) x10*3/uL Absolute Nucleated RBC 0.000 (0.0-0.012) X10*3/uL Nucleated RBC % (auto) 0.0 (0.0-0.2) /100WBC Sodium 139 (135-145) mmol/L Potassium 2.9 L* (3.3-5.1) mmol/L Chloride 104 (96-108) mmol/L Carbon Dioxide 25 (22-29) mmol/L Anion Gap 13 (12-20) BUN 9 (9-16) mg/dL Creatinine 0.82 (0.5-1.4) mg/dL Estim Creat Clear Calc 50.2 Estimated GFR > 60 POC Glucose 120 H (60-115) mg/dL Random Glucose 98 (60-115) mg/dL Calcium 8.5 D (8.4-10.2) mg/dL Magnesium 1.6 (1.6-2.6) mg/dL Total Bilirubin 0.2 (0.0-1.0) mg/dL Direct Bilirubin < 0.2 (0.0-0.5) mg/dL AST 20 (5-31) U/L ALT 14 (0-31) U/L Alkaline Phosphatase 76 (39-117) U/L Total Creatine Kinase 322 H (26-140) U/L C-Reactive Protein 0.11 (< or = 0.50) mg/dL Total Protein 7.7 (6.5-8.0) g/dL Albumin 3.7 (3.5-5.0) g/dL Independent Interpretation I performed an independent interpretation of an: CT Scan Independent Historian Clinical information obtained from an independent historian. History obtained from or confirmed by: Spouse External Record Review External record reviewed: Inpatient record and Office record Critical Care Time Critical Care Time Critical Care Time: Yes Total Critical Care Time: 45 Attestation: IV potassium ordered to replete, review of records I attest to this time spent taking care of the patient Discharge Plan Discharge Clinical Impression: Acute hypokalemia, Abnormal movements Patient Disposition: Still a Patient Instructions: Hypokalemia (ED), Tremors (ED) Additional Instructions: your potassium was low we repleted it make sure your doctor rechecks your level in 2 days. return for any worsening symptoms or concerns. Prescriptions: No Action mesalamine 0.375 gram capsule,extended release 24hr 1.5 g PO DAILY 90 Days Qty: 360 0RF esomeprazole magnesium 40 mg capsule,delayed release(DR/EC) 40 mg PO DAILY Qty: 90 3RF esomeprazole magnesium 20 mg capsule,delayed release(DR/EC) 20 mg PO BID 90 Days Qty: 180 2RF famotidine 40 mg tablet 40 mg PO BEDTIME Qty: 90 5RF alprazolam 1 mg tablet 1 mg PO TID MDD anxiety PRN (Reason: y) amlodipine 10 mg tablet 10 mg PO DAILY duloxetine 30 mg capsule,delayed release(DR/EC) 30 mg PO DAILY trazodone 100 mg tablet 100 mg PO BEDTIME albuterol sulfate [ProAir HFA] 90 mcg/actuation HFA aerosol inhaler 2 puff inhalation QID levothyroxine 112 mcg tablet 112 mcg PO DAILY metoprolol succinate 25 mg tablet extended release 24 hr 25 mg PO DAILY diphenoxylate-atropine [Lomotil] 2.5-0.025 mg tablet 1 tab PO BID PRN (Reason: diarrhea) Qty: 30 0RF fluoxetine 20 mg capsule 40 mg PO QAM gabapentin 100 mg capsule 100 mg PO DAILY olmesartan 40 mg tablet 40 mg PO DAILY fluticasone propion-salmeterol [Wixela Inhub] 250-50 mcg/dose blister with device 1 inh inhalation BID 90 Days Qty: 3 3RF
[2023-05-27 12:51] VITALS: BP 163/71; PULSE 65; RESP 16; TEMP 36.5; O2SAT 97; BMI 30.1
--- NOTE | 2023-05-27 12:53 | PC.NURSE ---
pt rigorous in triage, a&o x4, calm, and cooperative. pt sts she is chronically ill and has lost weight recently. was an outpatient response in Dr. Miramontes's office. pt had an endoscopy last week. pt sts she has not been sleeping or eating. gets frequent headaches. reporting pain to head, neck, back, throat, and abdomen. pt sts she gets these tremors/ rigors every once in a while but this time it's real bad . last time was over a year ago. pt has a port to right upper chest for IVIG infusions she gets once a month. hx of aneurysm with stent placed 8 years ago. pt and sts she has been unsteady on feet and drops things easily. pt scheduled for head CT with contrast for next week with Dr. Miramontes.
[2023-05-27 14:07] LABS: Glucose, Whole Blood 120 mg/dL (60-115)
[2023-05-27 14:45] LABS: MANUAL DIFF FLAG NO
[2023-05-27 14:46] LABS: Basophils Percent Auto 0.3 % (0-2); Eosinophils Percent Auto 1.1 % (0-4); Hemoglobin 9.5 g/dl (12.0-16.0); Lymphocytes Percent Auto 28.7 % (20-40); Mean Corpuscular HGB Conc 32.8 g/dl (31.0-35.0); Mean Corpuscular Hemoglobin 26.7 pg (27.0-33.0); Mean Corpuscular Volume 81.5 fL (80.0-98.0); Monocytes Absolute Auto 0.3 X10*3/uL (0.1-1.2); Monocytes Percent Auto 7.8 % (2-11); Neutrophils Absolute Auto 2.2 x10*3/uL (2.0-8.3); Neutrophils Percent Auto 62.1 % (45-73); Platelet Count 202 X10*3/uL (160-400); Red Blood Count 3.56 X10*6/uL (4.20-5.50); Red Cell Distribution Width 14.5 % (11.0-16.0); White Blood Count 3.6 X10*3/uL (4.8-10.8)
[2023-05-27] MEDS: LORazepam 2 MG/ML VIAL 1 MG IVPUSH (14:46)
[2023-05-27 14:50] VITALS: BP 154/70; PULSE 63; RESP 14; TEMP 36.8; O2SAT 97
--- NOTE | 2023-05-27 14:53 | PC.NURSE ---
pt power port accessed by TONYA Salcedo. labs drawn and sent. pt tolerated well. plan of care ongoing.
[2023-05-27 15:11] LABS: Alanine Aminotransferase 14 U/L (0-31); Albumin Level 3.7 g/dL (3.5-5.0); Alkaline Phosphatase 76 U/L (39-117); Anion Gap 13 (12-20); Aspartate Amino Transferase 20 U/L (5-31); Bilirubin Direct < 0.2 mg/dL (0.0-0.5); Bilirubin Total 0.2 mg/dL (0.0-1.0); Blood Urea Nitrogen 9 mg/dL (9-16); C Reactive Protein 0.11 mg/dL (< or = 0.50); Calcium 8.5 mg/dL (8.4-10.2); Carbon Dioxide 25 mmol/L (22-29); Chloride 104 mmol/L (96-108); Creatinine Clr Calc Pharmacy 50.2; Estimated Glomerular Filt Rate > 60; Glucose Random 98 mg/dL (60-115); Magnesium 1.6 mg/dL (1.6-2.6); Potassium 2.9 mmol/L (3.3-5.1); Sodium 139 mmol/L (135-145); Total Protein 7.7 g/dL (6.5-8.0)
[2023-05-27] MEDS: iohexoL 350 MG/ML 100 ML INFUS..BTL IV (15:40)
[2023-05-27] MEDS: Potassium Chloride Packet 20 MEQ PACKET 40 MEQ PO (15:52)
[2023-05-27] MEDS: Potassium Chloride/H20 10 MEQ/100 ML PIGGYBACK 100 MEQ IV ×2 (15:58→17:20)
[2023-05-27] MEDS: Dicyclomine HCl 10 MG CAPSULE 20 MG PO (18:28)
[2023-05-27] MEDS: LORazepam 1 MG TABLET PO (18:29)
[2023-05-27] MEDS: Heparin Sodium,Porcine Flush 50 UNITS, 0.9 % Sodium Chloride Flush 5 ML IVFLUSH (18:49)
[2023-05-27 19:08] VITALS: BP 154/70; PULSE 69; RESP 14; TEMP 36.5; O2SAT 98
== END 2023-05-27 19:14 | disposition home or self-care (01) ==
PROVIDERS: Emergency Medicine; Emergency Provider Internal Medicine
DX: E87.6 Hypokalemia (principal); G25.9 Extrapyramidal and movement disorder, unspecified; I10 Essential (primary) hypertension; Z86.79 Personal history of other diseases of the circulatory system
CPT/HCPCS: 36415; 70496; 70498; 80048; 80076; 82550; 82947; 83735; 85025; 86140; 96365; 96366; 96375; 99284; J1642; J2060; J3480; Q9967

== ENCOUNTER 2023-06-14 11:39 | Outpatient (AMB) | payer MEDICARE, SELFPAY ==
--- NOTE | 2023-06-14 11:52 | A.OFFVIS_ITS ---
Intake Vital Signs 06/14/23 11:54 Height 4 ft 11 in Weight 149 lb BMI 30.1 BP 133/69 Blood Pressure Location Lt brachial Position Sitting Pulse 56 Intake Visit Reasons: follow up Intake Note: Sharon presents in the office as a follow up. CC: voice, bowels and stomach all acting up. she states that she feels like she is falling apart. 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: No Allergies latex [LATEX] Allergy (Intermediate, Verified 06/14/23 11:54) RASH Sulfa (Sulfonamide Antibiotics) [SULFA (SULFONAMIDE ANTIBIOTICS)] Allergy (Intermediate, Verified 06/14/23 11:54) HIVES, coughing, wheezing, breathing moxifloxacin [From AVELOX] Allergy (Unknown, Verified 06/14/23 11:54) HIVES penicillin G [Penicillin G] Allergy (Unknown, Verified 06/14/23 11:54) UPSET STOMACH Uwiplxe-VNE-AaS Reductase Inhibitor [GGZDLCO-EYG-IAD REDUCTASE INHIBITOR] Allergy (Unknown, Verified 06/14/23 11:54) MUSCLE CRAMPS HPI follow up HPI Details 73 yr old f here for f/u Recap she had coughing and regurgitation for a long time, has horrible taste in mouth she might have incontinence with coughing food can get stuck, feels like not going down smoothly, doesn;t digest fully, foods comes out in bowel no choking with food' diarrhea going on for most of ehr life, has progrssed and gotten worse with time, has no control she is going 5-6 times for stool at night as well no blood in stool she has pain in various area,s moves aorund can be lower quadrants abdo can feel distended she has been told she is anemia and bleeding from her GI tract possibly she started pantoprazole 3-4 weeks has felt no benefit -father and sister both had CRC Colonoscopy 2021: 2 adenomatous polyps removed, random bx neg for microscopic colitis EGD 2021-- nml duodenum, mnimal inflmmation stomach MRe- possible colitis left side, but fecal lactoferrin negative CTe: 04/2022-- neg, no inflammation seen Capsule: 07/01-- mild gastritis Ba swallow- 09/30--mild esophgeal dysmotility She had MRI spine and brain no acute findings, small vessel disease but done w/o contrast EGD: 2023-- dilation, hyperplastic polyp removed, h pylori neg At last clinic visit she was sent to the ED as she had a seizure like attack, CTA was done with no acute findings, microangiopathy noted K was a little low at 2.9 and replenished, Mag was 1.6 INTERIM: she has abdominal pain, like gas build up, feels better when passes early satiety she has vocie changes, no trouble swallowing still has gerd, even when doesn't eat EXAM: GENERAL: The patient is well developed and nontoxic. VITAL SIGNS:see workflow HEENT: Nonicteric sclerae, PERRLA, EOMI. Oropharynx clear. Moist mucous membranes. Conjunctivae appear well perfused. No thyroid mass. CHEST: Chest wall is nontender. HEART: Regular rate and rhythm without murmurs. LUNGS: Clear to auscultation bilaterally. ABDOMEN: Soft, positive bowel sounds, tender upper and lower abdomen, no organomegaly.no flank tenderness SKIN: No rash, no excessive bruising, petechiae, or purpura. NEUROLOGIC: Cranial nerves II-XII intact without motor/sensory deficit. 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, acid hypersecretion, hiatal hernia--possibly not controlled with current PPI, maybe oral pharyngeal dysphagia component , gastroparesis or due to lyte disturbance 3/ anemia of chronic disease 4/ neuro sx with fumbling speech and irr egular gait at times e.g cerebellar d/o, paraneoplastic disorder, TIA-- Plan: 1/ MRI with contrast as before 2/ CTe to eval small bowel, has apptm 3/ GES 4/ H pylori breath test, stop PPi and fa motidine for 2 weeks can use carafate 5/ trial of rifaximin after H pylori gilmar t 6/ check lytes may be playing a role in her sx as well 7/ per pt req refer urology for stress i ncontinence [facility] Medical History GERD (gastroesophageal reflux disease) Thyroid disease HTN (hypertension) Bundle branch block EMG syndrome Trigger finger, left index finger Cough Myopathy Obesity (BMI 30-39.9) Asthma Dyspnea on exertion Surgical History Hx of hysterectomy Hx of cerebral aneurysm repair Hx of total knee replacement History of bone marrow biopsy History of laryngoscopy Hx of nasal polypectomy Hx of cholecystectomy Hx of colonoscopy History of esophagogastroduodenoscopy (EGD) Family History Father Colon cancer Sister Colon cancer Social History Patient Tobacco Use Status: Former Tobacco user Tobacco use type: Cigarette Years Smoked: 10 years Physical Exam Vital Signs: Last Vital Signs Pulse 56 06/14/23 11:54 BP 133/69 06/14/23 11:54 BMI result Body Mass Index 30.1 Assessment & Plan Assessment & Plan (1) Dysphagia: Code(s): R13.10 - Dysphagia, unspecified Plan: 1/ Chronic diarrhea, on and off -- 2/ chronic gerd, DDX Eoe, dysmotility, 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, acid hypersecretion, hiatal hernia--possibly not controlled with current PPI, maybe oral pharyngeal dysphagia component , gastroparesis or due to lyte disturbance 3/ anemia of chronic disease 4/ neuro sx with fumbling speech and irregular gait at times e.g cerebellar d/o, paraneoplastic disorder, TIA-- Plan: 1/ MRI with contrast as before 2/ CTe to eval small bowel, has apptm 3/ GES 4/ H pylori breath test, stop PPi and famotidine for 2 weeks can use carafate 5/ trial of rifaximin after H pylori test 6/ check lytes may be playing a role in her sx as well (2) Slurred speech: Code(s): R47.81 - Slurred speech Plan: 1/ Chronic diarrhea, on and off -- 2/ chronic gerd, DDX Eoe, dysmotility, 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, acid hypersecretion, hiatal hernia--possibly not controlled with current PPI, maybe oral pharyngeal dysphagia component , gastroparesis or due to lyte disturbance 3/ anemia of chronic disease 4/ neuro sx with fumbling speech and irregular gait at times e.g cerebellar d/o, paraneoplastic disorder, TIA-- Plan: 1/ MRI with contrast as before 2/ CTe to eval small bowel, has apptm 3/ GES 4/ H pylori breath test, stop PPi and famotidine for 2 weeks can use carafate 5/ trial of rifaximin after H pylori test 6/ check lytes may be playing a role in her sx as well (3) Urine incontinence: Code(s): R32 - Unspecified urinary incontinence Plan: 1/ Chronic diarrhea, on and off -- 2/ chronic gerd, DDX Eoe, dysmotility, 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, acid hypersecretion, hiatal hernia--possibly not controlled with current PPI, maybe oral pharyngeal dysphagia component , gastroparesis or due to lyte disturbance 3/ anemia of chronic disease 4/ neuro sx with fumbling speech and irregular gait at times e.g cerebellar d/o, paraneoplastic disorder, TIA-- Plan: 1/ MRI with contrast as before 2/ CTe to eval small bowel, has apptm 3/ GES 4/ H pylori breath test, stop PPi and famotidine for 2 weeks can use carafate 5/ trial of rifaximin after H pylori test 6/ check lytes may be playing a role in her sx as well Orders: Orders Magnesium Today R13.10 - Dysphagia, unspecified, R32 - Unspecified urinary incontinence, R47.81 - Slurred speech Aldolase Today R13.10 - Dysphagia, unspecified, R32 - Unspecified urinary incontinence, R47.81 - Slurred speech Comprehensive Met. Panel Today K75.81 - Nonalcoholic steatohepatitis ([place]), R13.10 - Dysphagia, unspecified, R32 - Unspecified urinary incontinence, R47.81 - Slurred speech Calcium, Ionized Today E83.52 - Hypercalcemia, R13.10 - Dysphagia, unspecified, R32 - Unspecified urinary incontinence, R47.81 - Slurred speech Phosphorus Today R13.10 - Dysphagia, unspecified, R32 - Unspecified urinary incontinence, R47.81 - Slurred speech NM gastric emptying study Today R68.81 - Early satiety Referrals Urology Referral R13.10 - Dysphagia, unspecified, R32 - Unspecified urinary incontinence, R47.81 - Slurred speech Medications: New sucralfate (Carafate) 10 mL PO BID 2 weeks 280 mL 0RF pantoprazole 40 mg PO DAILY 30 tabs 2RF rifaximin 550 mg PO TID 2 weeks 42 tabs 0RF Discontinued esomeprazole magnesium Discontinued Reason: Doctor's Order 40 mg PO DAILY 90 caps 3RF esomeprazole magnesium Discontinued Reason: Doctor's Order 20 mg PO BID 180 caps 3RF Coding Level of Care Code Est Pt Level 4 (04651) Diagnoses Dysphagia R13.10 Slurred speech R47.81 Urine incontinence R32
[2023-06-14 11:54] VITALS: BP 133/69; PULSE 56; BMI 30.1
== END 2023-06-14 12:24 | disposition home or self-care (01) ==
PROVIDERS: Visit Provider Internal Medicine Gastroenterology
DX: R13.10 Dysphagia, unspecified (principal); R47.81 Slurred speech; R32 Unspecified urinary incontinence
CPT/HCPCS: 99214

== ENCOUNTER 2023-06-14 11:39 | Outpatient (REF) | payer MEDICARE, SELFPAY ==
[2023-06-14 14:40] LABS: Alanine Aminotransferase 14 U/L (0-31); Alkaline Phosphatase 85 U/L (39-117); Anion Gap 10 (12-20); Aspartate Amino Transferase 24 U/L (5-31); Bilirubin Total 0.3 mg/dL (0.0-1.0); Blood Urea Nitrogen 18 mg/dL (9-16); Calcium 9.6 mg/dL (8.4-10.2); Carbon Dioxide 29 mmol/L (22-29); Chloride 104 mmol/L (96-108); Estimated Glomerular Filt Rate > 60; Glucose Random 87 mg/dL (60-115); Magnesium 2.1 mg/dL (1.6-2.6); Phosphorus 3.4 mg/dL (2.7-4.5); Potassium 4.2 mmol/L (3.3-5.1); Sodium 139 mmol/L (135-145)
[2023-06-17 08:53] LABS: Calcium, Ionized 5.1 mg/dL (4.7-5.5)
[2023-06-20 14:25] LABS: Aldolase 5.1 U/L (<=8.1)
== END 2023-06-14 11:40 | disposition home or self-care (01) ==
LOC: HO.LAB 11:39
PROVIDERS: PCP Family Medicine; Visit Provider Internal Medicine Gastroenterology
DX: R47.81 Slurred speech (principal); R13.10 Dysphagia, unspecified; R32 Unspecified urinary incontinence; E83.52 Hypercalcemia; K75.81 Nonalcoholic steatohepatitis (NASH)
CPT/HCPCS: 36415; 80053; 82085; 82330; 83735; 84100; 99212

== ENCOUNTER 2023-06-20 05:58 | Emergency (ER) | payer MEDICARE, SELFPAY ==
--- NOTE | ~2023-06-20 | CT_ITS ---
EXAMINATION: CT ABDOMEN AND PELVIS WITH CONTRAST CLINICAL INFORMATION: Diarrhea. Severe abdominal pain. COMPARISON: 05/02/2022 TECHNIQUE: Multidetector volumetric images were obtained from the superior aspect of the liver through the pubic symphysis following administration 85 mL of Omnipaque 350 intravenous contrast. Sagittal and coronal reformatted images were obtained on the technologist's workstation. Oral contrast: No This CT examination was performed using dose optimization techniques as appropriate, variously including the following: *Automated exposure control *Adjustment of mA and/or kV according to patient size (this includes techniques or standardized protocols for targeted exams where dose is matched to indication/reason for exam; i.e. extremities or head) *Use of iterative reconstruction technique DLP: 488 mGy-cm FINDINGS: LUNG BASES: The visualized lung bases are unremarkable. LIVER, GALLBLADDER, AND BILIARY TREE: The liver is normal in size and contour. No focal hepatic lesion or biliary ductal dilatation is present. The gallbladder is surgically absent. PANCREAS: No ductal dilatation. SPLEEN: Not enlarged. ADRENAL GLANDS: No adrenal mass. KIDNEYS AND URETERS: The kidneys are normal in size, shape, and attenuation. 2.3 cm right renal cyst. No further imaging follow-up is needed. No hydronephrosis. No perinephric stranding. BLADDER: Decompressed. GASTROINTESTINAL TRACT: Suspected gastric wall thickening. There is submucosal fatty infiltration of this cecum/ascending colon most likely representing prior inflammation. Scattered diverticula of the colon. No small bowel obstruction. Appendix is within normal limits. ABDOMINAL WALL: No significant hernia is appreciated. LYMPH NODES: No bulky lymphadenopathy. VASCULAR: Normal caliber abdominal aorta. PELVIC VISCERA: Uterus is surgically absent. OSSEOUS STRUCTURES: No destructive bone lesions. CT/CT abdomen pelvis w IV con IMPRESSION: Suspected gastric wall thickening. This could represent gastritis. Consider correlation with direct visualization.
[2023-06-20 06:09] VITALS: BP 143/86; PULSE 92; RESP 16; TEMP 36.8; O2SAT 95; BMI 30.7
[2023-06-20 06:22] LABS: MANUAL DIFF FLAG NO
[2023-06-20 06:23] LABS: Basophils Percent Auto 1.4 % (0-2); Eosinophils Absolute Auto 0.1 X10*3/uL (0.0-0.4); Eosinophils Percent Auto 2.4 % (0-4); Hematocrit 33.2 % (37.0-47.0); Hemoglobin 10.8 g/dl (12.0-16.0); Mean Corpuscular HGB Conc 32.5 g/dl (31.0-35.0); Mean Corpuscular Hemoglobin 26.9 pg (27.0-33.0); Mean Corpuscular Volume 82.6 fL (80.0-98.0); Mean Platelet Volume 8.7 fL (9.4-12.3); Monocytes Absolute Auto 0.4 X10*3/uL (0.1-1.2); Monocytes Percent Auto 15.3 % (2-11); Neutrophils Absolute Auto 1.4 x10*3/uL (2.0-8.3); Neutrophils Percent Auto 47.9 % (45-73); Platelet Count 221 X10*3/uL (160-400); Red Blood Count 4.02 X10*6/uL (4.20-5.50); Red Cell Distribution Width 14.8 % (11.0-16.0); White Blood Count 2.9 X10*3/uL (4.8-10.8)
[2023-06-20 06:36] LABS: Alanine Aminotransferase 16 U/L (0-31); Albumin Level 3.9 g/dL (3.5-5.0); Alkaline Phosphatase 88 U/L (39-117); Anion Gap 12 (12-20); Aspartate Amino Transferase 25 U/L (5-31); Bilirubin Direct 0.1 mg/dL (0.0-0.5); Bilirubin Total 0.3 mg/dL (0.0-1.0); Blood Urea Nitrogen 12 mg/dL (9-16); Calcium 10.1 mg/dL (8.4-10.2); Carbon Dioxide 25 mmol/L (22-29); Chloride 102 mmol/L (96-108); Creatinine Clr Calc Pharmacy 39.7; Estimated Glomerular Filt Rate 51; Glucose Random 134 mg/dL (60-115); Lipase 34 U/L (8-78); Potassium 4.2 mmol/L (3.3-5.1); Sodium 135 mmol/L (135-145); Total Protein 8.8 g/dL (6.5-8.0)
--- NOTE | 2023-06-20 08:50 | ED_ITS ---
HPI - Abdominal Pain General Chief Complaint: Abdominal Pain Stated Complaint: Abd Pain Time Seen by Provider: 06/20/23 08:37 Source: patient Mode of arrival: ambulatory Limitations: no limitations History of Present Illness HPI narrative: 73 yo female with PMH of GERD, HTN, BBB, asthma, dysphagia, mesenteric ischemia, brain aneurysm s/p repair, statin induced myopathy who receives IVIG infusions at [facility] and follows with Dr. Miramontes for chronic gerd and epigastric issues is due for h pylori breath test so he held her PPI and H2 as of 06/13 but started her on carafate. She comes in [facility] with c/o n/v/d and severe GERD. She notes her abdominal pain is the worst it has ever been. She was recently just seen as well for abnormal movements and had CTA of head and neck that resolved with IV ativan. She has had normal CT enterography and mesenteric US. She notes her abdominal pain is every day since April and nothing makes it better. She has not slept for 2 nights. She is spitting up white bile because she cannot eat. She has diarrhea and now her hemorrhoids are bleeding and she is irritated as well too. No recent antibiotic use. MD elicited complaint: abdominal pain Pertinent past history: other (chronic abdominal pain since April) Onset (ago): month(s) Pain Consistency: constant Location: diffuse Severity: severe Quality: aching Radiation: none Migration to: no migration Exacerbating factors: eating Relieving factors: nothing Context: history of similar episodes Associated symptoms: nausea and diarrhea Related Data Home Medications ?Medication ?Instructions ?Recorded ?Confirmed albuterol sulfate 90 mcg/actuation 2 puff inhalation QID 08/24/20 05/16/23 aerosol inhaler (ProAir HFA) amlodipine 10 mg tablet 10 mg PO DAILY 08/24/20 05/16/23 duloxetine 30 mg capsule,delayed 30 mg PO DAILY 08/24/20 05/16/23 release trazodone 100 mg tablet 100 mg PO BEDTIME 08/24/20 05/16/23 levothyroxine 112 mcg tablet 112 mcg PO DAILY 02/05/22 05/16/23 metoprolol succinate 25 mg 25 mg PO DAILY 04/19/22 05/16/23 tablet,extended release 24 hr gabapentin 100 mg capsule 100 mg PO DAILY 09/24/22 05/16/23 olmesartan 40 mg tablet 40 mg PO DAILY 09/24/22 05/16/23 Previous Rx's ?Medication ?Instructions ?Recorded diphenoxylate-atropine 2.5 1 tab PO BID PRN diarrhea #30 tabs 06/22/22 mg-0.025 mg tablet (Lomotil) mesalamine 0.375 gram 1.5 g (4 x 0.375 gram) PO DAILY 90 09/04/22 capsule,extended release 24 hr days #360 caps famotidine 40 mg tablet 40 mg PO BEDTIME #90 tabs 02/04/23 fluticasone 250 mcg-salmeterol 50 1 inh inhalation BID ASTHMA/COUGH 04/08/23 mcg/dose blistr powdr for 90 days #3 ea inhalation (Wixela Inhub) dicyclomine 20 mg tablet 20 mg PO TID PRN abdominal pain 05/27/23 #20 tabs lorazepam 1 mg tablet (Ativan) 1 mg PO BEDTIME PRN anxiety/sleep 05/27/23 #14 tabs pantoprazole 40 mg tablet,delayed 40 mg PO DAILY #30 tabs 06/14/23 release rifaximin 550 mg tablet 550 mg PO TID 2 weeks #42 tabs 06/14/23 sucralfate 100 mg/mL oral 10 ml PO BID 2 weeks #280 mL 06/14/23 suspension (Carafate) ondansetron 4 mg disintegrating 4 mg PO Q8H PRN nausea and 06/20/23 tablet vomiting #20 tabs Allergies Allergy/AdvReac Type Severity Reaction Status Date / Time latex [LATEX] Allergy Intermediate RASH Verified 06/20/23 06:17 Sulfa (Sulfonamide Allergy Intermediate HIVES, Verified 06/20/23 06:17 Antibiotics) coughing, [SULFA (SULFONAMIDE wheezing, ANTIBIOTICS)] breathing moxifloxacin [From AVELOX] Allergy Unknown HIVES Verified 06/20/23 06:17 penicillin G [Penicillin G] Allergy Unknown UPSET Verified 06/20/23 06:17 STOMACH Rbhwyxn-XLW-LhP Reductase Allergy Unknown MUSCLE Verified 06/20/23 06:17 Inhibitor CRAMPS [QPJWXRU-GLG-AGR REDUCTASE INHIBITOR] Review of Systems Review of Systems Constitutional : No Weight loss, No Fever, No Chills ENT/Mouth : No sore throat, No Rhinorrhea Eyes: No Swelling, No Redness Cardiovascular : No Chest Pain, No SOB, NoEdema Respiratory : No Cough, No Sputum, No Wheezing Gastrointestinal : Positive Nausea, no Vomiting, positive Diarrhea, positive abdominal Pain, No Hematochezia, No Melena Genitourinary : No Dysuria, No Urinary Frequency, No Hematuria, No Urgency Musculoskeletal : No joint pain, No Myalgias, No Joint Swelling Skin : No Skin Lesions, No rash Neuro : No Weakness, No Numbness, No Dizziness, No Headache Psych : No Anxiety/Panic, No Depression Heme/Lymph: No Bruising, No Lymphadenopathy Endocrine : No Polyuria, No Polydipsia All other systems reviewed and are negative. [facility] Past Medical History Attestation statement: The following information was validated with the patient. Source: old records reviewed Medical History GERD (gastroesophageal reflux disease) Thyroid disease HTN (hypertension) Bundle branch block EMG syndrome Trigger finger, left index finger Cough Myopathy Obesity (BMI 30-39.9) Asthma Dyspnea on exertion Surgical History Hx of hysterectomy Hx of cerebral aneurysm repair Hx of total knee replacement History of bone marrow biopsy History of laryngoscopy Hx of nasal polypectomy Hx of cholecystectomy Hx of colonoscopy History of esophagogastroduodenoscopy (EGD) Family History Family History Father Colon cancer Sister Colon cancer Social History Social History Patient Tobacco Use Status: Former Tobacco user Tobacco use type: Cigarette Years Smoked: 10 years Advance Directives: Yes Advance Directives Information Provided: No Advance Directives on File: No Physical Exam ED Vital Signs: Vital Signs - 24 hr 06/20/23 06:09 06/20/23 09:54 06/20/23 10:26 Temperature 98.2 F 98.7 F 98.2 F Pulse Rate 92 68 70 Respiratory Rate 16 16 14 Blood Pressure 143/86 H 169/74 H 147/65 H Pulse Oximetry 95 98 98 Oxygen Delivery Method Room Air Room Air Room Air 06/20/23 13:11 Temperature 97.5 F Pulse Rate 79 Respiratory Rate 18 Blood Pressure 142/75 H Pulse Oximetry 96 Oxygen Delivery Method Room Air BMI result Body Mass Index 30.7 Appearance: Alert. Oriented X3. No acute distress. anxious Eyes: Pupils equal, round and reactive to light. ENT: Pharynx normal. Neck: Normal inspection. Neck supple. CVS: Normal heart rate and rhythm. Pulses normal. Respiratory: No respiratory distress. Breath sounds normal. Abdomen: Soft and mild diffuse ttp no rebound Skin: Skin warm and dry. Normal skin color. Normal skin turgor. Extremities: No lower extremity edema. No calf ttp Neuro: Oriented X 3. No motor deficit. No sensory deficit. Medical Decision Making Medical Decision Making [facility] Narrative: 73 yo female with PMH of GERD, HTN, BBB, asthma, dysphagia, mesenteric ischemia, brain aneurysm s/p repair, statin induced myopathy who receives IVIG infusions at [facility] and follows with Dr. Miramontes for chronic gerd and epigastric issues here with chronic worsening abdominal pain and stating she is spitting up white bile, not sleeping for 3 days, worsening GERD not sure she is totally compliant with the carafate, diarrhea - at this time IVF, reglan benadryl and CT scan for colitis ordered Differential Diagnosis Differential Diagnoses: The differential diagnosis associated with the presentation includes colitis, anxiety, GERD Admission/Observation Consideration of admission/observation: Escalation of care including admission/observation considered tolerating PO labs stable Consult Healthcare Provider Management of the patient was discussed with: 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 06/20/23 06:18 06/20/23 06:18 Labs: Lab Results 06/20/23 06/20/23 Range/Units 06:18 09:54 WBC 2.9 L (4.8-10.8) X10*3/uL RBC 4.02 L (4.20-5.50) X10*6/uL Hgb 10.8 L (12.0-16.0) g/dl Hct 33.2 L (37.0-47.0) % MCV 82.6 (80.0-98.0) fL MCH 26.9 L (27.0-33.0) pg MCHC 32.5 (31.0-35.0) g/dl RDW 14.8 (11.0-16.0) % Plt Count 221 (160-400) X10*3/uL MPV 8.7 L (9.4-12.3) fL Immature Gran % (Auto) 0.0 (0.0-0.4) % Neut % (Auto) 47.9 (45-73) % Lymph % (Auto) 33.0 (20-40) % Gonzales % (Auto) 15.3 H (2-11) % Eos % (Auto) 2.4 (0-4) % Baso % (Auto) 1.4 (0-2) % Lymph # (Auto) 1.0 L (1.2-4.9) X10*3/uL Gonzales # (Auto) 0.4 (0.1-1.2) X10*3/uL Eos # (Auto) 0.1 (0.0-0.4) X10*3/uL Baso # (Auto) 0.0 (0.0-0.2) X10*3/uL Abs Immat Gran (auto) 0.00 (0.00-0.03) X10*3/uL Absolute Neuts (auto) 1.4 L (2.0-8.3) x10*3/uL Absolute Nucleated RBC 0.000 (0.0-0.012) X10*3/uL Nucleated RBC % (auto) 0.0 (0.0-0.2) /100WBC Sodium 135 (135-145) mmol/L Potassium 4.2 (3.3-5.1) mmol/L Chloride 102 (96-108) mmol/L Carbon Dioxide 25 (22-29) mmol/L Anion Gap 12 (12-20) BUN 12 (9-16) mg/dL Creatinine 1.05 (0.5-1.4) mg/dL Estim Creat Clear Calc 39.7 Estimated GFR 51 Random Glucose 134 H (60-115) mg/dL Calcium 10.1 (8.4-10.2) mg/dL Total Bilirubin 0.3 (0.0-1.0) mg/dL Direct Bilirubin 0.1 (0.0-0.5) mg/dL AST 25 (5-31) U/L ALT 16 (0-31) U/L Alkaline Phosphatase 88 (39-117) U/L Total Protein 8.8 H (6.5-8.0) g/dL Albumin 3.9 (3.5-5.0) g/dL Lipase 34 (8-78) U/L Urine Color Yellow Urine Appearance Cloudy Urine pH 5.5 (5.0-9.0) Ur Specific [place] 1.025 (1.005-1.025) Urine Protein Trace (Neg-Trace) mg/dL Urine Glucose (UA) Negative (Negative) mg/dL Urine Ketones 15 (Negative) mg/dL Urine Blood Trace H (Negative) Urine Nitrite Negative (Negative) Ur Leukocyte Esterase Trace H (Negative) Urine RBC 0-2 (0-2) /HPF Urine WBC 0-5 (0-5) /HPF Ur Squamous Epith Cells 11-20 (0-2) /HPF Urine Bacteria None Seen (None Seen) Hyaline Casts 0-2 (0-2) /LPF Independent Interpretation I performed an independent interpretation of an: CT Scan (gastritis) Radiology Impression Discussion of test interpretation with radiology: I have reviewed the radiologist's reading. Independent Historian Clinical information obtained from an independent historian. History obtained from or confirmed by: Spouse External Record Review External record reviewed: Inpatient record and Office record Prescription Management I considered prescription management with: Other Medications Administered Discontinued Medications Generic Name Dose Route Start Last Admin Trade Name Freq PRN Reason Stop Dose Admin Alprazolam 1 mg 06/20/23 12:06 06/20/23 12:22 Alprazolam 0.5 Mg Tablet PO 06/20/23 12:07 1 mg ONCE ONE Administration Diphenhydramine HCl 25 mg 06/20/23 08:39 06/20/23 09:47 Diphenhydramine Hcl 50 Mg/Ml Vial IVPUSH 06/20/23 08:40 25 mg ONCE ONE Administration Sodium Chloride 1,000 mls @ 999 mls/hr 06/20/23 08:45 06/20/23 11:33 Ns IV 06/20/23 09:45 Infused .Q1H1M YISSEL Infusion Iohexol 100 ml 06/20/23 10:36 06/20/23 10:37 Iohexol 350 Mg/Ml 100 Ml Infus..Btl IV 06/20/23 10:37 85 ml ONCE ONE Administration Lidocaine HCl 15 ml 06/20/23 09:03 06/20/23 09:48 Lidocaine Hcl Viscous 2 % 15 Ml Solution MUCOUS MEM 06/20/23 09:04 15 ml ONCE ONE Administration Metoclopramide HCl 10 mg 06/20/23 08:39 06/20/23 09:48 Metoclopramide Hcl 10 Mg/2 Ml Vial IVPUSH 06/20/23 08:40 10 mg ONCE ONE Administration Discharge Plan Discharge Clinical Impression: Gastritis Qualifiers: Gastritis type: unspecified gastritis Chronicity: acute Gastritis bleeding: w ithout bleeding Qualified Code(s): K29.00 - Acute gastritis without bleeding Patient Disposition: Home, Self-Care Instructions: Gastritis (ED) Additional Instructions: labs reassuring, continue your carafate can take maalox over the counter as well per Dr. Miramontes please contact Dr. Miramontes's office for any further issues. return for worsening symptoms or concerns. Prescriptions: New ondansetron 4 mg tablet,disintegrating 4 mg PO Q8H PRN (Reason: nausea and vomiting) Qty: 20 0RF No Action mesalamine 0.375 gram capsule,extended release 24hr 1.5 g PO DAILY 90 Days Qty: 360 0RF famotidine 40 mg tablet 40 mg PO BEDTIME Qty: 90 5RF dicyclomine 20 mg tablet 20 mg PO TID PRN (Reason: abdominal pain) Qty: 20 0RF lorazepam [Ativan] 1 mg tablet 1 mg PO BEDTIME PRN (Reason: anxiety/sleep) Qty: 14 0RF amlodipine 10 mg tablet 10 mg PO DAILY duloxetine 30 mg capsule,delayed release(DR/EC) 30 mg PO DAILY trazodone 100 mg tablet 100 mg PO BEDTIME albuterol sulfate [ProAir HFA] 90 mcg/actuation HFA aerosol inhaler 2 puff inhalation QID levothyroxine 112 mcg tablet 112 mcg PO DAILY metoprolol succinate 25 mg tablet extended release 24 hr 25 mg PO DAILY diphenoxylate-atropine [Lomotil] 2.5-0.025 mg tablet 1 tab PO BID PRN (Reason: diarrhea) Qty: 30 0RF gabapentin 100 mg capsule 100 mg PO DAILY olmesartan 40 mg tablet 40 mg PO DAILY fluticasone propion-salmeterol [Wixela Inhub] 250-50 mcg/dose blister with device 1 inh inhalation BID 90 Days Qty: 3 3RF pantoprazole 40 mg tablet,delayed release (DR/EC) 40 mg PO DAILY Qty: 30 2RF rifaximin 550 mg tablet 550 mg PO TID 14 Days Qty: 42 0RF sucralfate [Carafate] 100 mg/mL suspension 10 ml PO BID 14 Days Qty: 280 0RF Print Language: Guyanese
[2023-06-20] MEDS: 0.9 % Sodium Chloride 1,000 ML 999 ML IV (09:36)
[2023-06-20] MEDS: diphenhydrAMINE HCL 50 MG/ML VIAL 25 MG IVPUSH (09:47)
[2023-06-20] MEDS: Lidocaine HCl Viscous 2 % 15 ML SOLUTION MUCOUS MEM (09:48)
[2023-06-20] MEDS: Metoclopramide HCl 10 MG/2 ML VIAL IVPUSH (09:48)
[2023-06-20 09:54] VITALS: BP 169/74; PULSE 68; RESP 16; TEMP 37.1; O2SAT 98
[2023-06-20 10:08] LABS: Appearance Urine Cloudy; Color Urine Yellow; Glucose Urine UA Negative (Negative); Leukocyte Esterase Urine Trace (Negative); Nitrite Urine Negative (Negative); PH 5.5 (5.0-9.0); Specific Gravity - Urine 1.025 (1.005-1.025); UMIC TRIGGER UACC YES; Urine Blood Trace (Negative); Urine Ketones 15 mg/dL (Negative); Urine Protein Trace mg/dL (Neg-Trace)
[2023-06-20 10:11] LABS: Bacteria Urine None Seen (None Seen); Hyaline Casts Urine 0-2 /LPF (0-2); RBC Urine 0-2 /HPF (0-2); WBC Urine 0-5 /HPF (0-5)
[2023-06-20 10:26] VITALS: BP 147/65; PULSE 70; RESP 14; TEMP 36.8; O2SAT 98
[2023-06-20] MEDS: iohexoL 350 MG/ML 100 ML INFUS..BTL IV (10:37)
[2023-06-20] MEDS: ALPRAZolam 0.5 MG TABLET 1 MG PO (12:22)
--- NOTE | 2023-06-20 12:24 | PC.NURSE ---
awaiting results from CT scan. patient medicated per the MAR for anxiety. ambulates independently to the bathroom
[2023-06-20 13:11] VITALS: BP 142/75; PULSE 79; RESP 18; TEMP 36.4; O2SAT 96
[2023-06-20] MEDS: Magnesium Hydrox/Alum Hydrox 30 ML ORAL.SUSP 15 ML PO (14:28)
[2023-06-20 14:32] VITALS: BP 142/75; PULSE 79; RESP 18; TEMP 36.4; O2SAT 96
== END 2023-06-20 14:33 | disposition home or self-care (01) ==
PROVIDERS: Emergency Provider Emergency Medicine; PCP Family Medicine
DX: K29.00 Acute gastritis without bleeding (principal); R11.2 Nausea with vomiting, unspecified; R10.2 Pelvic and perineal pain; Z87.891 Personal history of nicotine dependence; Z79.899 Other long term (current) drug therapy
CPT/HCPCS: 36415; 74177; 80053; 81001; 82248; 83690; 85025; 96361; 96374; 96375; 99284; 99285; J1200; J2765; Q9967

== ENCOUNTER 2023-06-27 08:51 | Outpatient (REF) | payer MEDICARE, SELFPAY ==
--- NOTE | ~2023-06-27 | CT_ITS ---
EXAMINATION: CT ENTEROGRAPHY ABDOMEN AND PELVIS WITH CONTRAST CLINICAL INFORMATION: Periumbilical pain COMPARISON: CT abdomen and pelvis from 06/20/2023 TECHNIQUE: Study performed with oral VoLumen (1350 mL) and 480 mL of water to distend the abdomen. The patient was injected with 85 mL Omnipaque 350 intravenous contrast which was administered without adverse effect. Coronal and sagittal reformatted images were obtained at the technologist's workstation. This CT examination was performed using dose optimization techniques as appropriate, variously including the following: *Automated exposure control *Adjustment of mA and/or kV according to patient size (this includes techniques or standardized protocols for targeted exams where dose is matched to indication/reason for exam; i.e. extremities or head) *Use of iterative reconstruction technique DLP: 521 mGy-cm FINDINGS: GASTROINTESTINAL FINDINGS: Stomach: Well-distended and normal in appearance. Small intestine: Satisfactorily distended and normal in appearance. Large intestine: Well-distended and normal in appearance. There are mild changes of diverticulosis without diverticulitis No perirectal changes demonstrated. The appendix is normal. Additional findings: No abnormal enhancement of the vasa recta or significant mesenteric or retroperitoneal lymphadenopathy is seen. No abdominal abscess or fistulous tract demonstrated. ABDOMINAL AND PELVIC CT FINDINGS: Liver, gallbladder, biliary tract: Liver is homogeneous of normal attenuation. There are no intrahepatic masses or ductal dilatation. Gallbladder is surgically absent. Pancreas: Unremarkable Spleen: Normal in size and shape Adrenal glands and kidneys: There are glands are normal adrenal glands are normal. Right kidney demonstrate simple cortical cysts with the largest in interpolar cortex measured 2.2 cm in no hydroureteronephrosis. Left kidney demonstrate tiny cortical cysts nephrolithiasis Ureters and bladder: Ureters are not dilated Lymphovascular structures: Unremarkable Bones: There are changes of osteoarthritis in left hip joint and mild degenerative changes in lower lumbar spine with grade 1 anterior listhesis of L4 over L5 and facets arthropathy is. There is narrowing of L5-S1. Lung bases: Clear CT/CT enterography IMPRESSION: 1. Diverticulosis without diverticulitis. 2. Status post cholecystectomy. 3. Bilateral renal cysts. 4. Degenerative changes in left hip joint and lower lumbar spine.
[2023-06-27] MEDS: iohexoL 350 MG/ML 100 ML INFUS..BTL IV (13:24)
[2023-06-27] MEDS: Sorbitol/Mannit/Xanth Imaging 500 ML LIQUID 1500 ML PO (13:27)
== END 2023-06-27 08:52 | disposition home or self-care (01) ==
LOC: HO.CT 08:51
PROVIDERS: PCP Family Medicine; Visit Provider Internal Medicine Gastroenterology
DX: Z13.89 Encounter for screening for other disorder (principal)
CPT/HCPCS: 74177; Q9967

== ENCOUNTER 2023-06-27 10:52 | Emergency (ER) | payer MEDICARE, SELFPAY ==
[2023-06-27 11:23] VITALS: BP 164/50; PULSE 59; RESP 16; TEMP 36.4; O2SAT 100; BMI 31.8
--- NOTE | 2023-06-27 11:28 | ECG_ITS ---
Test Reason : SYNCOPE Blood Pressure : / mmHG Vent. Rate : 047 BPM Atrial Rate : 047 BPM P-R Int : 134 ms QRS Dur : 116 ms QT Int : 490 ms P-R-T Axes : 049 007 027 degrees QTc Int : 433 ms Artifact in tracing Sinus bradycardia Incomplete right bundle branch block Nonspecific ST abnormality Abnormal ECG When compared with ECG of 15-NOV-2009 13:15, QRS axis Shifted left Referred By: Teresa Sánchez Electronically Signed By:MICHAELA PHELAN
--- NOTE | 2023-06-27 11:43 | ED.SYNCOPE ---
HPI - Syncope General Chief Complaint: Syncope Stated Complaint: near syncope Time Seen by Provider: 06/27/23 11:20 Source: patient Mode of arrival: wheelchair History of Present Illness HPI narrative: 73 y/o female with history of GERD, HTN, RBBB, asthma, dysphagia, mesenteric ischemia, brain aneurysm s/p repair, stain induced myopathy who receives IVIG infusions at [facility] and follows with Dr. Miramontes for chronic gerd and epigastric issues presenting to the ED with near syncope episode in radiology just prior to arrival. She was scheduled for CT abdomen/ pelvis with PO and IV contrast today and while preparing for scan she had to repeatedly go to the bathroom because she was unable to hold her bowels. When returning from bathroom, she felt very weak, like she was going to pass out. hybrid technologist had to help patient to chair. Patient denies any LOC or headstrike. She reports several episodes of tremors and rigors since then. She reports 3 episodes of watery diarrhea in radiology. Denies any recent sickness or fevers. She has a cough that she attributes to her chronic GERD. No nausea or vomiting. She reports epigastric pain, which was why she was getting a CT today. Denies chest pain, shortness of breath, or palpitations. She is very anxious on presentation and adament that she just like the CT and does not need to be further evaluated. complaint: almost passed out Onset (ago): hour(s) Prodromal symptoms: lightheaded Witnessed: Yes - by Other (polygraph technician) Treatments prior to arrival: none Related Data Home Medications ?Medication ?Instructions ?Recorded ?Confirmed albuterol sulfate 90 mcg/actuation 2 puff inhalation QID 08/24/20 05/16/23 aerosol inhaler (ProAir HFA) amlodipine 10 mg tablet 10 mg PO DAILY 08/24/20 05/16/23 duloxetine 30 mg capsule,delayed 30 mg PO DAILY 08/24/20 05/16/23 release trazodone 100 mg tablet 100 mg PO BEDTIME 08/24/20 05/16/23 levothyroxine 112 mcg tablet 112 mcg PO DAILY 02/05/22 05/16/23 metoprolol succinate 25 mg 25 mg PO DAILY 04/19/22 05/16/23 tablet,extended release 24 hr gabapentin 100 mg capsule 100 mg PO DAILY 09/24/22 05/16/23 olmesartan 40 mg tablet 40 mg PO DAILY 09/24/22 05/16/23 Previous Rx's ?Medication ?Instructions ?Recorded diphenoxylate-atropine 2.5 1 tab PO BID PRN diarrhea #30 tabs 06/22/22 mg-0.025 mg tablet (Lomotil) mesalamine 0.375 gram 1.5 g (4 x 0.375 gram) PO DAILY 90 09/04/22 capsule,extended release 24 hr days #360 caps famotidine 40 mg tablet 40 mg PO BEDTIME #90 tabs 02/04/23 fluticasone 250 mcg-salmeterol 50 1 inh inhalation BID ASTHMA/COUGH 04/08/23 mcg/dose blistr powdr for 90 days #3 ea inhalation (Wixela Inhub) dicyclomine 20 mg tablet 20 mg PO TID PRN abdominal pain 05/27/23 #20 tabs lorazepam 1 mg tablet (Ativan) 1 mg PO BEDTIME PRN anxiety/sleep 05/27/23 #14 tabs pantoprazole 40 mg tablet,delayed 40 mg PO DAILY #30 tabs 06/14/23 release rifaximin 550 mg tablet 550 mg PO TID 2 weeks #42 tabs 06/14/23 sucralfate 100 mg/mL oral 10 ml PO BID 2 weeks #280 mL 06/14/23 suspension (Carafate) ondansetron 4 mg disintegrating 4 mg PO Q8H PRN nausea and 06/20/23 tablet vomiting #20 tabs metronidazole 500 mg tablet 500 mg PO TID 14 days #42 tabs 06/25/23 Allergies Allergy/AdvReac Type Severity Reaction Status Date / Time latex [LATEX] Allergy Intermediate RASH Verified 06/27/23 11:27 Sulfa (Sulfonamide Allergy Intermediate HIVES, Verified 06/27/23 11:27 Antibiotics) coughing, [SULFA (SULFONAMIDE wheezing, ANTIBIOTICS)] breathing moxifloxacin [From AVELOX] Allergy Unknown HIVES Verified 06/27/23 11:27 penicillin G [Penicillin G] Allergy Unknown UPSET Verified 06/27/23 11:27 STOMACH Ybmsjxs-BVL-JmP Reductase Allergy Unknown MUSCLE Verified 06/27/23 11:27 Inhibitor CRAMPS [GGEOBVS-PPK-CHR REDUCTASE INHIBITOR] Review of Systems Review of Systems: Yes all other systems are reviewed and are negative Constitutional: Constitutional: Reports as per HPI [facility] Past Medical History Medical History GERD (gastroesophageal reflux disease) Thyroid disease HTN (hypertension) Bundle branch block EMG syndrome Trigger finger, left index finger Cough Myopathy Obesity (BMI 30-39.9) Asthma Dyspnea on exertion Surgical History Hx of hysterectomy Hx of cerebral aneurysm repair Hx of total knee replacement History of bone marrow biopsy History of laryngoscopy Hx of nasal polypectomy Hx of cholecystectomy Hx of colonoscopy History of esophagogastroduodenoscopy (EGD) Family History Family History Father Colon cancer Sister Colon cancer Social History Social History Patient Tobacco Use Status: Former Tobacco user Tobacco use type: Cigarette Years Smoked: 10 years Advance Directives: No Advance Directives Information Provided: Yes Physical Exam Vital Signs: Vital Signs: Last Vital Signs Temp 97.8 F 06/27/23 12:18 Pulse 59 06/27/23 12:24 Resp 20 06/27/23 12:18 BP 162/71 H 06/27/23 12:24 Pulse Ox 98 06/27/23 12:18 O2 Del Method Room Air 06/27/23 12:18 BMI result Body Mass Index 31.8 Appearance: Alert. Oriented X3. No acute distress. Head: normocephalic, atraumatic. Eyes: Pupils equal, round and reactive to light. ENT: Pharynx normal. No tonsillar swelling or exudate. Neck: Normal inspection. Neck supple. CVS: Normal heart rate and rhythm. Pulses normal. Respiratory: No respiratory distress. Breath sounds normal. Abdomen: Soft, nondistended. Tender to palpation epigastric and RUQ with guarding. Rectal: small 1cm external hemrrhoid, digital rectal exam reveals small internal 1cm hemorrhoid. No visible or occult blood. Negative guaic. Skin: Skin warm and dry. Normal skin color. Normal skin turgor. No rashes. Extremities: No lower extremity edema. No joint swelling. Neuro/psych: Oriented X 3. No motor deficit. Normal speech and cognition. Course Reevaluation(s) Reevaluation #1: patient feeling much better she would like to go home CT enterography results not back yet she will look in the portal comfortable w/ discharge home with outpatient follow up Time: 15:12 Medical Decision Making Medical Decision Making MDM Narrative: 73 y/o female with history of GERD, HTN, BBB, asthma, dysphagia, mesenteric ischemia, brain aneurysm s/p repair, stain induced myopathy who receives IVIG infusions at [facility] and follows with Dr. Miramontes for chronic gerd and epigastric issues presenting to the ED with near syncope episode in radiology just prior to arrival. She is very anxious on presentation and adament that she just like the CT and does not need to be further evaluated. She is agreeable to digital rectal exam, which is negative for visible and occult blood. Will give IVF as she has been experiencing continuous episodes of watery diarrhea. Ordered ECG and labwork to assesss for cardiac or anemic underlying etiology. Will complete CT abdomen/pelvis w/ IV and PO contrast as she completed oral contrast consumption just prior to arrival. 14:[address], receiving IV fluids- states that she is feeling much better. Awaiting formal CT interpretation. VSS, patient rest on stretcher, comfortable to discharge home with outpatient follow up with gastroenterology. Differential Diagnosis Differential Diagnoses: The differential diagnosis associated with the presentation includes pre-syncope, vasovagal syncope, anemia, electrolyte abnormality, acute dehydration, orthostatic hypotension, cardiac arrythmia Admission/Observation Consideration of admission/observation: Escalation of care including admission/observation considered Lab Data MDM Lab Attestation statement: I reviewed the patient's lab results. Labs similar to previous labwork, unremarkable for acute processes 06/27/23 12:41 06/27/23 12:41 Labs: Lab Results 06/27/23 Range/Units 12:41 WBC 3.6 L (4.8-10.8) X10*3/uL RBC 3.85 L (4.20-5.50) X10*6/uL Hgb 10.4 L (12.0-16.0) g/dl Hct 32.1 L (37.0-47.0) % MCV 83.4 (80.0-98.0) fL MCH 27.0 (27.0-33.0) pg MCHC 32.4 (31.0-35.0) g/dl RDW 14.7 (11.0-16.0) % Plt Count 227 (160-400) X10*3/uL MPV 9.3 L (9.4-12.3) fL Immature Gran % (Auto) 0.3 (0.0-0.4) % Neut % (Auto) 48.5 (45-73) % Lymph % (Auto) 38.3 (20-40) % [place] % (Auto) 8.1 (2-11) % Eos % (Auto) 4.2 H (0-4) % Baso % (Auto) 0.6 (0-2) % Lymph # (Auto) 1.4 (1.2-4.9) X10*3/uL [place] # (Auto) 0.3 (0.1-1.2) X10*3/uL Eos # (Auto) 0.2 (0.0-0.4) X10*3/uL Baso # (Auto) 0.0 (0.0-0.2) X10*3/uL Abs Immat Gran (auto) 0.01 (0.00-0.03) X10*3/uL Absolute Neuts (auto) 1.7 L (2.0-8.3) x10*3/uL Absolute Nucleated RBC 0.000 (0.0-0.012) X10*3/uL Nucleated RBC % (auto) 0.0 (0.0-0.2) /100WBC Sodium 136 (135-145) mmol/L Potassium 3.8 (3.3-5.1) mmol/L Chloride 104 (96-108) mmol/L Carbon Dioxide 28 (22-29) mmol/L Anion Gap 8 L (12-20) BUN 11 (9-16) mg/dL Creatinine 0.81 (0.5-1.4) mg/dL Estim Creat Clear Calc 52.4 Estimated GFR > 60 Random Glucose 97 (60-115) mg/dL Calcium 9.2 D (8.4-10.2) mg/dL Magnesium 2.0 (1.6-2.6) mg/dL Total Bilirubin 0.3 (0.0-1.0) mg/dL Direct Bilirubin 0.1 (0.0-0.5) mg/dL AST 22 (5-31) U/L ALT 14 (0-31) U/L Alkaline Phosphatase 91 (39-117) U/L Total Protein 7.8 (6.5-8.0) g/dL Albumin 3.9 (3.5-5.0) g/dL Lipase 32 (8-78) U/L Independent Interpretation I performed an independent interpretation of an: EKG Interpretation: ECG: Sinus bradycardia with ventricular rate of 47. Incomplete right BBB which is unchanged from prior in 2010 Radiology Impression Discussion of test interpretation with radiology: I have reviewed the radiologist's reading. Independent Historian Clinical information obtained from an independent historian. History obtained from or confirmed by: Spouse External Record Review External record reviewed: Inpatient record, Office record, Outpatient record, Prior outpatient labs and Prior outpatient radiology Prescription Management I considered prescription management with: Other (anti-diarrheal) Chronic Conditions Patient?s care impacted by: Other (chronic diarrhea) Critical Care Time Critical Care Time Critical Care Time: No Discharge Plan Discharge Clinical Impression: Pre-syncope Patient Disposition: Home, Self-Care Instructions: Near Syncope (ED) Additional Instructions: Your lab workup today was unremarkable. Recommend rest and plenty of oral hydration. Your CT scan results should be on your portal. Follow-up with your GI doctor. If you develop new or worsening symptoms call 911 or come back to the ER for further evaluation. Prescriptions: No Action mesalamine 0.375 gram capsule,extended release 24hr 1.5 g PO DAILY 90 Days Qty: 360 0RF famotidine 40 mg tablet 40 mg PO BEDTIME Qty: 90 5RF metronidazole 500 mg tablet 500 mg PO TID 14 Days Qty: 42 0RF dicyclomine 20 mg tablet 20 mg PO TID PRN (Reason: abdominal pain) Qty: 20 0RF lorazepam [Ativan] 1 mg tablet 1 mg PO BEDTIME PRN (Reason: anxiety/sleep) Qty: 14 0RF ondansetron 4 mg tablet,disintegrating 4 mg PO Q8H PRN (Reason: nausea and vomiting) Qty: 20 0RF amlodipine 10 mg tablet 10 mg PO DAILY duloxetine 30 mg capsule,delayed release(DR/EC) 30 mg PO DAILY trazodone 100 mg tablet 100 mg PO BEDTIME albuterol sulfate [ProAir HFA] 90 mcg/actuation HFA aerosol inhaler 2 puff inhalation QID levothyroxine 112 mcg tablet 112 mcg PO DAILY metoprolol succinate 25 mg tablet extended release 24 hr 25 mg PO DAILY diphenoxylate-atropine [Lomotil] 2.5-0.025 mg tablet 1 tab PO BID PRN (Reason: diarrhea) Qty: 30 0RF gabapentin 100 mg capsule 100 mg PO DAILY olmesartan 40 mg tablet 40 mg PO DAILY fluticasone propion-salmeterol [Wixela Inhub] 250-50 mcg/dose blister with device 1 inh inhalation BID 90 Days Qty: 3 3RF pantoprazole 40 mg tablet,delayed release (DR/EC) 40 mg PO DAILY Qty: 30 2RF rifaximin 550 mg tablet 550 mg PO TID 14 Days Qty: 42 0RF sucralfate [Carafate] 100 mg/mL suspension 10 ml PO BID 14 Days Qty: 280 0RF Print Language: [place]
[2023-06-27 12:18] VITALS: BP 138/77; PULSE 50; RESP 20; TEMP 36.6; O2SAT 98
[2023-06-27 12:20] VITALS: BP 153/63; PULSE 50
[2023-06-27 12:23] VITALS: BP 147/68; PULSE 56
[2023-06-27 12:24] VITALS: BP 162/71; PULSE 59
[2023-06-27 12:45] LABS: MANUAL DIFF FLAG NO
[2023-06-27 12:47] LABS: Basophils Percent Auto 0.6 % (0-2); Eosinophils Absolute Auto 0.2 X10*3/uL (0.0-0.4); Eosinophils Percent Auto 4.2 % (0-4); Hematocrit 32.1 % (37.0-47.0); Hemoglobin 10.4 g/dl (12.0-16.0); Imm Gran Abs Auto 0.01 X10*3/uL (0.00-0.03); Imm Gran Pct Auto 0.3 % (0.0-0.4); Lymphocytes Absolute Auto 1.4 X10*3/uL (1.2-4.9); Lymphocytes Percent Auto 38.3 % (20-40); Mean Corpuscular HGB Conc 32.4 g/dl (31.0-35.0); Mean Corpuscular Volume 83.4 fL (80.0-98.0); Mean Platelet Volume 9.3 fL (9.4-12.3); Monocytes Absolute Auto 0.3 X10*3/uL (0.1-1.2); Monocytes Percent Auto 8.1 % (2-11); Neutrophils Absolute Auto 1.7 x10*3/uL (2.0-8.3); Neutrophils Percent Auto 48.5 % (45-73); Platelet Count 227 X10*3/uL (160-400); Red Blood Count 3.85 X10*6/uL (4.20-5.50); Red Cell Distribution Width 14.7 % (11.0-16.0); White Blood Count 3.6 X10*3/uL (4.8-10.8)
[2023-06-27 13:03] LABS: Alanine Aminotransferase 14 U/L (0-31); Albumin Level 3.9 g/dL (3.5-5.0); Alkaline Phosphatase 91 U/L (39-117); Anion Gap 8 (12-20); Aspartate Amino Transferase 22 U/L (5-31); Bilirubin Direct 0.1 mg/dL (0.0-0.5); Bilirubin Total 0.3 mg/dL (0.0-1.0); Blood Urea Nitrogen 11 mg/dL (9-16); Calcium 9.2 mg/dL (8.4-10.2); Carbon Dioxide 28 mmol/L (22-29); Chloride 104 mmol/L (96-108); Creatinine Clr Calc Pharmacy 52.4; Estimated Glomerular Filt Rate > 60; Glucose Random 97 mg/dL (60-115); Lipase 32 U/L (8-78); Potassium 3.8 mmol/L (3.3-5.1); Sodium 136 mmol/L (135-145); Total Protein 7.8 g/dL (6.5-8.0)
[2023-06-27] MEDS: 0.9 % Sodium Chloride 1,000 ML 999 ML IV (13:30)
[2023-06-27] MEDS: Bismuth Subsalicylate Liquid 524 MG/30 ML ORAL.SUSP 262 MG PO (15:22)
[2023-06-27] MEDS: Heparin Sodium,Porcine Flush 50 UNITS/5 ML SYRINGE IVFLUSH (15:22)
[2023-06-27 15:35] VITALS: BP 159/73; PULSE 67; RESP 16; TEMP 36.6; O2SAT 95
== END 2023-06-27 15:36 | disposition home or self-care (01) ==
PROVIDERS: Physician Assistant; Emergency Provider Emergency Medicine
DX: R55 Syncope and collapse (principal); I10 Essential (primary) hypertension; J45.909 Unspecified asthma, uncomplicated
CPT/HCPCS: 36415; 74177; 80048; 80076; 83690; 83735; 85025; 93005; 96360; 96361; 99284; J1642; Q9967

== ENCOUNTER → 2023-06-27 11:28 | Outpatient (BNV) | payer MEDICARE, SELFPAY | PROVIDERS: Emergency Provider Emergency Medicine; Visit Provider Internal Medicine | DX: R94.31 Abnormal electrocardiogram [ECG] [EKG] (principal) | CPT/HCPCS: 93010 ==

== ENCOUNTER 2023-07-01 10:58 | Outpatient (REF) | payer MEDICARE, SELFPAY ==
[2023-07-03 09:50] LABS: H Pylori Breath Test Negative (Negative)
== END 2023-07-01 10:59 | disposition home or self-care (01) ==
LOC: HO.LNP 10:58
PROVIDERS: PCP Family Medicine; Visit Provider Internal Medicine Gastroenterology
DX: R19.7 Diarrhea, unspecified (principal); Z11.0 Encounter for screening for intestinal infectious diseases
CPT/HCPCS: 83013; 99211

== ENCOUNTER 2023-07-01 10:59 | Outpatient (AMB) | payer MEDICARE, SELFPAY ==
--- NOTE | 2023-07-01 11:11 | AM.OFFVISNUR ---
Intake Intake Visit Reasons: H pylori Allergies latex [LATEX] Allergy (Intermediate, Verified 06/27/23 11:27) RASH Sulfa (Sulfonamide Antibiotics) [SULFA (SULFONAMIDE ANTIBIOTICS)] Allergy (Intermediate, Verified 06/27/23 11:27) HIVES, coughing, wheezing, breathing moxifloxacin [From AVELOX] Allergy (Unknown, Verified 06/27/23 11:27) HIVES penicillin G [Penicillin G] Allergy (Unknown, Verified 06/27/23 11:27) UPSET STOMACH Wulsnoy-OIX-QeN Reductase Inhibitor [EKNNQJV-CDA-HHV REDUCTASE INHIBITOR] Allergy (Unknown, Verified 06/27/23 11:27) MUSCLE CRAMPS Nursing Note Patient presents for collection of H Pylori breath test. Patient has been fasting for 1 hour (nothing to eat, drink, no chewing gum or smoking) has not taken any antacid medication for at least 2 weeks and has no allergies to artificial sweeteners.?? Coding Level of Care Code Established Pt Est Pt Level 1 (64200) Patient Type Established Medical Decision Making Straight Forward Diagnoses Diarrhea R19.7 Assessment & Plan Assessment & Plan (1) Diarrhea: Code(s): R19.7 - Diarrhea, unspecified Category: Medical Plan Patient presents for collection of H Pylori breath test. Patient has been fasting for 1 hour (nothing to eat, drink, no chewing gum or smoking) has not taken any antacid medication for at least 2 weeks and has no allergies to artificial sweeteners.???This test checks for an overgrowth of bacteria in your stomach. We all have bacteria but some may have more than others. It is treatable. if the test comes back negative there is nothing else to do. If the test result is positive we will treat you with 2 antibiotics and a medication to decrease the acid in your stomach (PPI) for 2 weeks. Two weeks after you have completed the treatment we will retest you to make sure the overgrowth has resolved. Patient Instructions: Process for specimen collection and reason for testing was explained to the patient. Specimen collection. Patient instructed to take a deep breath and then exhale into the blue bag, filling it up as much as possible. Patient instructed to drink a mixture of water and the artificial sweetener with a straw. A 15 minute wait period was observed. Patient instructed to take a deep breath and then exhale into the pink bag, filling it up as much as possible
== END 2023-07-01 11:53 | disposition home or self-care (01) ==
PROVIDERS: PCP Family Medicine; Visit Provider Internal Medicine Gastroenterology
DX: R19.7 Diarrhea, unspecified (principal)

== ENCOUNTER → 2023-07-17 08:35 | Outpatient (REF) | payer MEDICARE, SELFPAY ==
--- NOTE | ~2023-07-17 | NM_ITS ---
EXAMINATION: NM RADIONUCLIDE SOLID FOOD GASTRIC EMPTYING 4-HOUR STUDY CLINICAL INFORMATION: Early satiety. COMPARISON: None TECHNIQUE: A standard meal consisting of 4 oz of Egg Beaters brand tagged with 1000 microcuries Tc-99m Sulfur Colloid, 8 oz water and 2 slices of toast with jelly was administered orally to the patient. Images were obtained using a dual head gamma camera in the anterior and posterior projections over of the stomach immediately post ingestion and at hourly intervals up to 4 hours post ingestion. The anterior and posterior counts at each time interval were averaged using the geometric mean and expressed as percentage of the immediate post ingestion counts. FINDINGS: There is good visualization of activity in the stomach immediately post ingestion. As the study progresses, there is good clearance of activity from the stomach and visualization of progressively increasing small bowel activity. By the end of the study, there is almost no retention noted in the stomach. Retention in the stomach at each time interval was: 1 hour 49% (normal 37%-90%) 2 hours 28% (normal 30%-60%) 3 hours 2% 4 hours estimation was not performed since only 2% retention was noted at 3 hours interval. NM/NM gastric emptying study IMPRESSION: Normal 4-hour solid food gastric emptying study. For solid meal, rapid gastric emptying is less than 30% at 60 minutes. Delayed gastric emptying criteria is more than 60% remaining at 120 minutes or more than 10% at 240 minutes. The 4-hour value is the best discriminator of a normal or abnormal result). Gastric emptying study grading per JNMT Consensus Recommendations in 2008 (https://tech.snmjournals.org/content/36/1/44) Grade 1 (mild retention): 11-20% at 4h Grade 2 (moderate retention): 21-35% at 4h Grade 3 (severe retention): 36-50% at 4h Grade 4 (very severe retention): >50% retention at 4h
== END ==
LOC: HO.NUCMED 08:35
PROVIDERS: PCP Family Medicine; Visit Provider Internal Medicine Gastroenterology
DX: R68.81 Early satiety (principal)
CPT/HCPCS: 78264; A9541

== ENCOUNTER 2023-07-31 10:59 | Outpatient (REF) | payer MEDICARE, SELFPAY ==
--- NOTE | ~2023-07-31 | MR_ITS ---
MRI OF THE BRAIN WITH AND WITHOUT IV CONTRAST INDICATION: Abnormal gait, dropping things. Poor memory and headaches. Rule out mass or lesion. COMPARISON: None available. TECHNIQUE: Multiplanar multisequence MR imaging of the brain was obtained without and following the administration of 7 mL of Gadavist without complication. FINDINGS: There is no pathologic intracranial enhancement. There is global cerebral volume loss and there is moderate chronic microangiopathy. There is no hydrocephalus, extra-axial surface collection, or herniation. The major flow voids at the skull base are preserved. There is no acute infarct on diffusion-weighted imaging. There is no intracranial hemorrhage on the gradient recalled echo acquisition. The midline structures are normal. The cerebellar tonsils are normally positioned. The cerebellum and brainstem are normal. The craniocervical junction is normal. Osseous marrow signal intensity is homogenous. The visualized soft tissues are unremarkable. MR/MR head/brain wo/w con IMPRESSION: - No acute intracranial findings. No acute infarcts and no pathologic enhancement intracranially. - There is global cerebral volume loss and there is moderate chronic microangiopathy.
[2023-07-31] MEDS: gadobutroL 7.5 ML VIAL IVPUSH (12:36)
== END 2023-07-31 11:00 | disposition home or self-care (01) ==
LOC: HO.MRI 10:59
PROVIDERS: PCP Family Medicine; Visit Provider Internal Medicine Gastroenterology
DX: R27.0 Ataxia, unspecified (principal)
CPT/HCPCS: 70553; A9585

== ENCOUNTER 2023-09-23 10:38 | Outpatient (AMB) | payer MEDICARE, SELFPAY ==
--- NOTE | 2023-09-23 10:51 | MHC.OFFVIS ---
Vital Signs 09/23/23 10:52 Height 4 ft 11 in Weight 155 lb 6.814 oz BMI 31.4 BP 120/64 Blood Pressure Location Lt brachial Position Sitting Pulse 51 Pulse Source Pulse Oximeter Pulse Oximetry (%) 100 Oxygen Delivery Method Room Air Intake Visit Reasons: cough Intake Note: pt is here for follow up and states she is stating the usual mucous. Some inner ear pain. 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 Required: No Allergies latex [LATEX] Allergy (Intermediate, Verified 09/23/23 11:12) RASH Sulfa (Sulfonamide Antibiotics) [SULFA (SULFONAMIDE ANTIBIOTICS)] Allergy (Intermediate, Verified 09/23/23 11:12) HIVES, coughing, wheezing, breathing moxifloxacin [From AVELOX] Allergy (Unknown, Verified 09/23/23 11:12) HIVES penicillin G [Penicillin G] Allergy (Unknown, Verified 09/23/23 11:12) UPSET STOMACH Xolezvq-YFN-MkL Reductase Inhibitor [MHDNJKY-HTT-LOL REDUCTASE INHIBITOR] Allergy (Unknown, Verified 09/23/23 11:12) MUSCLE CRAMPS Medication List - Last Reconciled 09/23/23 by Erin Correa MD albuterol sulfate 90 mcg/actuation (ProAir HFA) 2 puffs inhalation QID amlodipine 10 mg PO DAILY dicyclomine 20 mg PO TID PRN diphenoxylate-atropine 2.5-0.025 mg (Lomotil) 1 tab PO BID PRN duloxetine 30 mg PO DAILY famotidine 40 mg PO BEDTIME fluticasone propion-salmeterol 250-50 mcg/dose (Wixela Inhub) 1 inh inhalation BID 90 days gabapentin 100 mg PO DAILY levothyroxine 112 mcg PO DAILY lorazepam (Ativan) 1 mg PO BEDTIME PRN mesalamine ER 1.5 grams (4 x 0.375 gram) PO DAILY 90 days metoprolol succinate ER 25 mg PO DAILY metronidazole 500 mg PO TID 14 days olmesartan 40 mg PO DAILY ondansetron 4 mg PO Q8H PRN pantoprazole 40 mg PO DAILY rifaximin 550 mg PO TID 2 weeks sucralfate (Carafate) 10 mL PO BID 2 weeks trazodone 100 mg PO BEDTIME Do you need a note to return to daycare/school/sports/work: No HPI HPI cough: Details: THIS 73 YEARS OLD VERY PLEASANT FEMALE IS HERE FOR 6 MONTHS FOLLOW-UP. SHE IS BEING TREATED FOR REACTIVE AIRWAYS/ASTHMA VARIANT, WHICH WAS CAUSING FREQUENT COUGH. SINCE SHE WAS STARTED ON WIXELA 250-51 INHALATION B.I.D. HER COUGH WAS MUCH IMPROVED. NOW SHE USES WIXELA ONLY 2 OR 3 TIMES A WEEK WHEN SHE STARTS HAVING INCREASED COUGH. SHE DENIES ANY WHEEZING ATTACKS, SHE DOES HAVE MILD SHORTNESS OF BREATH ON EXERTION. LATELY SHE IS COMPLAINING OF INCREASED AMOUNT OF MUCUS, WHICH SEEMS TO BE RELATED TO NASAL CONGESTION, NO ATTACKS OF SNEEZING. [facility] Medical History (Updated 09/23/23 @ 11:19 by Erin Correa MD) Allergic rhinitis GERD (gastroesophageal reflux disease) Thyroid disease HTN (hypertension) Bundle branch block EMG syndrome Trigger finger, left index finger Cough Myopathy Obesity (BMI 30-39.9) Asthma Dyspnea on exertion Surgical History Hx of hysterectomy Hx of cerebral aneurysm repair Hx of total knee replacement History of bone marrow biopsy History of laryngoscopy Hx of nasal polypectomy Hx of cholecystectomy Hx of colonoscopy History of esophagogastroduodenoscopy (EGD) Family History Father Colon cancer Sister Colon cancer Social History Patient Tobacco Use Status: Former Tobacco user Tobacco use type: Cigarette Years Smoked: 10 years Review of Systems Const All systems reviewed & are unremarkable except as noted in HPI and below Reports body aches (MILD ) and Reports fatigue (MILD) Eyes Reports no additional complaints ENT Reports no additional complaints Card Denies chest pain, Denies irregular heart rhythm and Denies dyspnea on exertion Resp Reports cough (OCCASIONAL , MILD ), Denies dyspnea on exertion and Denies wheezing GI Reports no additional complaints Reports no additional complaints Musc Reports myalgias (MILD TO MODERATE ) and Reports muscle weakness (CHRONIC , MILD ) Skin/Breast Reports system reviewed and no additional complaints, except as documented Neuro Reports no additional complaints Psych Reports anxiety (WORRIED ABOUT ALL HER MEDICAL PROBLEMS ) Endo Reports fatigue (MILD) Aller/Immun Denies wheezing Physical Exam Vital Signs: Last Vital Signs Pulse 51 09/23/23 10:52 BP 120/64 09/23/23 10:52 Pulse Ox 100 09/23/23 10:52 Oxygen Delivery Method Room Air 09/23/23 10:52 BMI result Body Mass Index 31.4 Const General: comfortable, no acute distress, alert and awake Orientation/consciousness: patient oriented x3 HEENT Head: Yes normal to inspection General nose exam: No nasal polyps present and No nasal discharge present Face and sinus: Yes sinuses nontender Mouth: oropharynx normal Throat: Yes posterior oropharynx normal Eyes General: appearance normal, both eyes and all related structures Neck Neck: Yes normal visual inspection, Yes no lymphadenopathy, Yes trachea midline and Yes no JVD Thyroid: Thyroid normal Chest Chest palpation & inspection: normal inspection of the chest, normal palpation of entire chest wall and no tenderness Resp Other: Percussion note is resonant, breath sounds slightly distant with prolonged expiratory phase. There are no wheezes , rhonchi or crepitations. Cardio Palpation: normal PMI Rate: regular rate Rhythm: regular rhythm Heart sounds: no gallops and no murmurs Peripheral pulses: Peripheral pulses 2+ throughout GI Palpation (GI): Soft to palpation, nontender, No hepatosplenomegaly present and no masses Auscultation: normal bowel sounds Back/Spine/Pelvis Thoracic/Lumbar Spine: thoracic and lumbar spine normal to inspection Skin General skin exam: no rashes or lesions noted Neuro General: patient oriented x3 and no focal motor deficits Cranial nerves: Yes CN's II-XII intact bilaterally Extrem General: Yes normal to inspection, Yes no clubbing, cyanosis or edema and Yes no calf tenderness Psych Appearance: grossly normal and well kempt Speech and movement: Normal speech and movement present Assessment & Plan Assessment & Plan (1) Asthma: Comment: PER SPIROMETRY SHE DOES HAVE EVIDENCE OF BRONCHIAL ASTHMA/COPD ,MODERATELY SEVERE . REMAINS UNDER CONTROL AND STABLE. Code(s): J45.909 - Unspecified asthma, uncomplicated Category: Medical Plan: Wixela 250-51 inhalation b.i.d., she is using it only 2 or 3 times a week but I advised that she can start using it at least once a day if she starts having increased cough. Albuterol HFA 2 puffs Q 6 hours p.r.n. for sustained bouts of cough. (2) Cough: Comment: COUGH IS PART OF THE BRONCHIAL ASTHMA, AND CHRONIC OBSTRUCTIVE AIRWAY DISORDER. Code(s): R05.9 - Cough, unspecified Category: Medical Plan: Wixela 250-51 inhalation b.i.d. And albuterol p.r.n.. (3) Allergic rhinitis: Comment: She is describing symptoms of some nasal congestion on also feeling of blocked ears, along with increased mucus in the oropharynx. I think the symptoms are due to low-grade rhinosinusitis. May be allergic in nature . Code(s): J30.9 - Allergic rhinitis, unspecified Category: Medical Plan: May use Flonase nasal spray 1 spray each nostril b.i.d. Also may use Claritin 10 mg once a day if there is nasal congestion and also feeling of blocked ears . For increased mucus she can also use Medi pot or steam inhalation once or twice a day. Coding Level of Care Code Est Pt Level 3 (30235) Diagnoses Asthma J45.909 Cough R05.9 Allergic rhinitis J30.9
[2023-09-23 10:52] VITALS: BP 120/64; PULSE 51; O2SAT 100; BMI 31.4
== END 2023-09-23 11:12 | disposition home or self-care (01) ==
PROVIDERS: PCP Family Medicine; Visit Provider Internal Medicine
DX: J45.909 Unspecified asthma, uncomplicated (principal); R05.9 Cough, unspecified; J30.9 Allergic rhinitis, unspecified
CPT/HCPCS: 99213

== ENCOUNTER → 2023-09-23 10:38 | Outpatient (BNVA) | payer MEDICARE, SELFPAY | PROVIDERS: PCP Family Medicine; Visit Provider Internal Medicine | DX: K21.9 Gastro-esophageal reflux disease without esophagitis (principal); J45.909 Unspecified asthma, uncomplicated; R05.9 Cough, unspecified | CPT/HCPCS: 99212 ==

== ENCOUNTER 2023-09-23 11:17 | Outpatient (AMB) | payer MEDICARE, SELFPAY ==
[2023-09-23 11:19] VITALS: BP 161/74; PULSE 50; BMI 31.2
--- NOTE | 2023-09-23 11:19 | MHC.OFFVIS ---
Vital Signs 09/23/23 11:19 Height 4 ft 11 in Weight 154 lb 5.177 oz BMI 31.2 BP 161/74 H Blood Pressure Location Lt brachial Position Sitting Pulse 50 Intake Visit Reasons: f/u EGD Intake Note: Sharon presents in the office as a follow up EGD. CC: No concerns just here today for the results for her EGD. 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 Required: No Allergies latex [LATEX] Allergy (Intermediate, Verified 09/23/23 11:12) RASH Sulfa (Sulfonamide Antibiotics) [SULFA (SULFONAMIDE ANTIBIOTICS)] Allergy (Intermediate, Verified 09/23/23 11:12) HIVES, coughing, wheezing, breathing moxifloxacin [From AVELOX] Allergy (Unknown, Verified 09/23/23 11:12) HIVES penicillin G [Penicillin G] Allergy (Unknown, Verified 09/23/23 11:12) UPSET STOMACH Hvxxime-NRE-TiS Reductase Inhibitor [GSEXVPK-HTT-WQS REDUCTASE INHIBITOR] Allergy (Unknown, Verified 09/23/23 11:12) MUSCLE CRAMPS HPI HPI f/u EGD: Details: 73 yr old f here for f/u Recap she had coughing and regurgitation for a long time, has horrible taste in mouth she might have incontinence with coughing food can get stuck, feels like not going down smoothly, doesn;t digest fully, foods comes out in bowel no choking with food' diarrhea going on for most of ehr life, has progrssed and gotten worse with time, has no control she is going 5-6 times for stool at night as well no blood in stool she has pain in various area,s moves aorund can be lower quadrants abdo can feel distended she has been told she is anemia and bleeding from her GI tract possibly she started pantoprazole 3-4 weeks has felt no benefit -father and sister both had CRC Colonoscopy 2021: 2 adenomatous polyps removed, random bx neg for microscopic colitis EGD 2021-- nml duodenum, mnimal inflmmation stomach MRe- possible colitis left side, but fecal lactoferrin negative CTe: 04/2022-- neg, no inflammation seen Capsule: 07/01-- mild gastritis Ba swallow- 09/30--mild esophgeal dysmotility She had MRI spine and brain no acute findings, small vessel disease but done w/o contrast EGD: 2023-- dilation, hyperplastic polyp removed, h pylori neg MRI 07/2023- cerebral vol is reduced INTERIM: brother has lung ca, going for hospice she is feeling v good her voice is good no abdominal pain her bowel habits are good no trouble swallowing she is taking pantoprazole and happy with it she stopped mesalamine now EXAM: GENERAL: The patient is well developed and nontoxic. VITAL SIGNS:see workflow HEENT: Nonicteric sclerae, PERRLA, EOMI. Oropharynx clear. Moist mucous membranes. Conjunctivae appear well perfused. No thyroid mass. CHEST: Chest wall is nontender. HEART: Regular rate and rhythm without murmurs. LUNGS: Clear to auscultation bilaterally. ABDOMEN: Soft, positive bowel sounds, tender upper and lower abdomen, no organomegaly.no flank tenderness SKIN: No rash, no excessive bruising, petechiae, or purpura. NEUROLOGIC: Cranial nerves II-XII intact without motor/sensory deficit. no nystagmus, falling to sides at time, mild tremor Psych: nml affect A/P: 1/ Chronic diarrhea, seems to have resolved 2/ chronic gerd- controlled 4/ neuro sx with fumbling speech and irregular gait at times --mri with loss of cerebral vol but she seems to be coping well Plan: 1/ cont with PPI, take MV daily PFSH Medical History (Updated 09/23/23 @ 11:43 by Naif Miramontes MD) Allergic rhinitis GERD (gastroesophageal reflux disease) Thyroid disease HTN (hypertension) Bundle branch block EMG syndrome Trigger finger, left index finger Cough Myopathy Obesity (BMI 30-39.9) Asthma Dyspnea on exertion Surgical History Hx of hysterectomy Hx of cerebral aneurysm repair Hx of total knee replacement History of bone marrow biopsy History of laryngoscopy Hx of nasal polypectomy Hx of cholecystectomy Hx of colonoscopy History of esophagogastroduodenoscopy (EGD) Family History Father Colon cancer Sister Colon cancer Social History Patient Tobacco Use Status: Former Tobacco user Tobacco use type: Cigarette Years Smoked: 10 years Physical Exam Vital Signs: Last Vital Signs Pulse 50 09/23/23 11:19 BP 161/74 H 09/23/23 11:19 BMI result Body Mass Index 31.2 Assessment & Plan Assessment & Plan (1) GERD (gastroesophageal reflux disease): Code(s): K21.9 - Gastro-esophageal reflux disease without esophagitis Category: Medical Plan: see above Medications: Refilled pantoprazole 40 mg PO DAILY 90 tabs 2RF Discontinued mesalamine ER Discontinued Reason: Doctor's Order 1.5 grams (4 x 0.375 gram) PO DAILY 90 days 360 caps 0RF sucralfate (Carafate) Discontinued Reason: Doctor's Order 10 mL PO BID 2 weeks 280 mL 0RF rifaximin Discontinued Reason: Doctor's Order 550 mg PO TID 2 weeks 42 tabs 0RF Coding Level of Care Code Est Pt Level 3 (83531) Diagnoses GERD (gastroesophageal reflux disease) K21.9
== END 2023-09-23 11:45 | disposition home or self-care (01) ==
PROVIDERS: PCP Family Medicine; Visit Provider Internal Medicine Gastroenterology
DX: K21.9 Gastro-esophageal reflux disease without esophagitis (principal)
CPT/HCPCS: 99213

== ENCOUNTER 2024-01-15 10:50 | Outpatient (REF) | payer MEDICARE, SELFPAY ==
[2024-01-15 12:08] LABS: MANUAL DIFF FLAG NO
[2024-01-15 12:20] LABS: Basophils Absolute Auto 0.1 X10*3/uL (0.0-0.2); Basophils Percent Auto 1.8 % (0-2); Eosinophils Absolute Auto 0.1 X10*3/uL (0.0-0.4); Eosinophils Percent Auto 4.2 % (0-4); Hemoglobin 10.7 g/dl (12.0-16.0); Lymphocytes Absolute Auto 1.4 X10*3/uL (1.2-4.9); Lymphocytes Percent Auto 47.7 % (20-40); Mean Corpuscular HGB Conc 33.4 g/dl (31.0-35.0); Mean Corpuscular Hemoglobin 27.6 pg (27.0-33.0); Mean Corpuscular Volume 82.5 fL (80.0-98.0); Mean Platelet Volume 9.2 fL (9.4-12.3); Monocytes Absolute Auto 0.2 X10*3/uL (0.1-1.2); Monocytes Percent Auto 8.1 % (2-11); Neutrophils Absolute Auto 1.1 x10*3/uL (2.0-8.3); Neutrophils Percent Auto 38.2 % (45-73); Platelet Count 204 X10*3/uL (160-400); Red Blood Count 3.88 X10*6/uL (4.20-5.50); Red Cell Distribution Width 14.4 % (11.0-16.0); White Blood Count 2.8 X10*3/uL (4.8-10.8)
[2024-01-15 12:55] LABS: Alanine Aminotransferase 15 U/L (0-31); Albumin Level 4.1 g/dL (3.5-5.0); Alkaline Phosphatase 72 U/L (39-117); Anion Gap 11 (12-20); Aspartate Amino Transferase 25 U/L (5-31); Bilirubin Total 0.4 mg/dL (0.0-1.0); Blood Urea Nitrogen 12 mg/dL (9-16); Calcium 9.6 mg/dL (8.4-10.2); Carbon Dioxide 27 mmol/L (22-29); Chloride 102 mmol/L (96-108); Estimated Glomerular Filt Rate > 60; Glucose Random 96 mg/dL (60-115); Potassium 4.3 mmol/L (3.3-5.1); Sodium 136 mmol/L (135-145); Total Protein 7.9 g/dL (6.5-8.0)
[2024-01-15 13:32] LABS: Folate 9.6 ng/mL (> or = 4.0); Vitamin B12 200 pg/mL (200-900)
[2024-01-18 19:03] LABS: Zinc 68 mcg/dL (60-130)
== END 2024-01-15 10:51 | disposition home or self-care (01) ==
LOC: HO.XRAY 10:50
PROVIDERS: Internal Medicine Gastroenterology; PCP Family Medicine; Visit Provider Internal Medicine
DX: R19.7 Diarrhea, unspecified (principal); G72.9 Myopathy, unspecified; K75.81 Nonalcoholic steatohepatitis (NASH); R05.9 Cough, unspecified; R04.2 Hemoptysis; J30.9 Allergic rhinitis, unspecified; J45.909 Unspecified asthma, uncomplicated
CPT/HCPCS: 36415; 71046; 80053; 82607; 82746; 84630; 85025; 99212

== ENCOUNTER 2024-01-15 10:50 | Outpatient (AMB) | payer MEDICARE, SELFPAY ==
--- NOTE | 2024-01-15 10:58 | A.OFFVIS_ITS ---
Vital Signs 01/15/24 10:59 Height 4 ft 11 in Weight 152 lb 1.903 oz BMI 30.7 BP 128/70 Blood Pressure Location Rt brachial Position Sitting Pulse 56 Pulse Source Pulse Oximeter Pulse Oximetry (%) 99 Oxygen Delivery Method Room Air Intake Visit Reasons: persistent cough, Cough with hemoptysis Intake Note: THIS 73 YEARS OLD VERY PLEASANT FEMALE, COMES FOR AN URGENT VISIT, BECAUSE FOR THE PAST 1 WEEK OR SO SHE IS HAVING INCREASED COUGH, ALSO EVERY NOW AND THEN SHE HAS TO SPIT OUT SOME MUCUS WITH SPECKS OF BLOOD. THIS SEEMS TO BE RELATED TO HER COUGH AND FEELING OF POSTNASAL DISCHARGE. HAS NO FEVER OR CHILLS. NO INCREASED IN WHEEZING. PATIENT IS BEING TREATED FOR CHRONIC COUGH SECONDARY TO REACTIVE AIRWAYS, WHICH FLARES UP OFF AND ON. PATIENT HAS HISTORY OF SMOKING IN THE REMOTE PAST, QUIT MORE THAN 40 YEARS AGO. HER BROTHER OF LUNG CANCER SO SHE IS ALWAYS WORRIED, SHE HAD A CT SCAN OF THE CHEST AT [facility] FOR THE FEEBLE-MINDED IN APRIL 2021. IT WAS NEGATIVE FOR ILD OR ANY NODULE OR MASS. BECAUSE OF SPECKS OF BLOOD WITH THE MUCUS IN THE LAST WEEK OR SO SHE IS QUITE WORRIED. Blood Donor Recruiter Required: No Manufacturing Worker: Manufacturing Worker offered & declined Accompanied by: Self / Same As Patient Allergies latex [LATEX] Allergy (Intermediate, Verified 01/15/24 11:48) RASH Sulfa (Sulfonamide Antibiotics) [SULFA (SULFONAMIDE ANTIBIOTICS)] Allergy (Intermediate, Verified 01/15/24 11:48) HIVES, coughing, wheezing, breathing moxifloxacin [From AVELOX] Allergy (Unknown, Verified 01/15/24 11:48) HIVES penicillin G [Penicillin G] Allergy (Unknown, Verified 01/15/24 11:48) UPSET STOMACH Eyijkpt-VUO-UlH Reductase Inhibitor [WNWCTHO-WUG-HOS REDUCTASE INHIBITOR] All ergy (Unknown, Verified 01/15/24 11:48) MUSCLE CRAMPS Medication List - Last Reconciled 01/15/24 by Erin Correa MD albuterol sulfate 90 mcg/actuation (ProAir HFA) 2 puffs inhalation QID amlodipine 10 mg PO DAILY dicyclomine 20 mg PO TID PRN diphenoxylate-atropine 2.5-0.025 mg (Lomotil) 1 tab PO BID PRN duloxetine 30 mg PO DAILY famotidine 40 mg PO BEDTIME fluticasone propion-salmeterol 250-50 mcg/dose (Wixela Inhub) 1 inh inhalation BID 90 days gabapentin 100 mg PO DAILY levothyroxine 112 mcg PO DAILY lorazepam (Ativan) 1 mg PO BEDTIME PRN metoprolol succinate ER 25 mg PO DAILY metronidazole 500 mg PO TID 14 days olmesartan 40 mg PO DAILY ondansetron 4 mg PO Q8H PRN pantoprazole 40 mg PO DAILY trazodone 100 mg PO BEDTIME zolpidem 10 mg PO BEDTIME PRN Do you need a note to return to daycare/school/sports/work: No HPI HPI persistent cough: Details: THIS 73 YEARS OLD VERY PLEASANT FEMALE, COMES FOR AN URGENT VISIT, BECAUSE FOR THE PAST 1 WEEK OR SO SHE IS HAVING INCREASED COUGH, ALSO EVERY NOW AND THEN SHE HAS TO SPIT OUT SOME MUCUS WITH SPECKS OF BLOOD. THIS SEEMS TO BE RELATED TO HER COUGH AND FEELING OF POSTNASAL DISCHARGE. HAS NO FEVER OR CHILLS. NO INCREASED IN WHEEZING. PATIENT IS BEING TREATED FOR CHRONIC COUGH SECONDARY TO REACTIVE AIRWAYS, WHICH FLARES UP OFF AND ON. PATIENT HAS HISTORY OF SMOKING IN THE REMOTE PAST, QUIT MORE THAN 40 YEARS AGO. HER BROTHER OF LUNG CANCER SO SHE IS ALWAYS WORRIED, SHE HAD A CT SCAN OF THE CHEST AT [facility] FOR THE FEEBLE-MINDED IN APRIL 2021. IT WAS NEGATIVE FOR ILD OR ANY NODULE . BECAUSE OF THE THE SPECKS OF BLOOD WITH MUCUS, SHE IS QUITE WORRIED. [facility] Medical History Hemoptysis Allergic rhinitis GERD (gastroesophageal reflux disease) Thyroid disease HTN (hypertension) Bundle branch block EMG syndrome Trigger finger, left index finger Cough Myopathy Obesity (BMI 30-39.9) Asthma Dyspnea on exertion Surgical History Hx of hysterectomy Hx of cerebral aneurysm repair Hx of total knee replacement History of bone marrow biopsy History of laryngoscopy Hx of nasal polypectomy Hx of cholecystectomy Hx of colonoscopy History of esophagogastroduodenoscopy (EGD) Family History Father Colon cancer Sister Colon cancer Social History Patient Tobacco Use Status: Former Tobacco user Tobacco use type: Cigarette Years Smoked: 10 years Review of Systems Const All systems reviewed & are unremarkable except as noted in HPI and below Reports body aches (MILD ) and Reports fatigue (MILD) Eyes Reports no additional complaints ENT Reports no additional complaints Card Denies chest pain, Denies irregular heart rhythm and Denies dyspnea on exertion Resp Reports cough (OCCASIONAL , MILD ), Denies dyspnea on exertion and Denies wheezing GI Reports no additional complaints Reports no additional complaints Musc Reports myalgias (MILD TO MODERATE ) and Reports muscle weakness (CHRONIC , MILD ) Skin/Breast Reports system reviewed and no additional complaints, except as documented Neuro Reports no additional complaints Psych Reports anxiety (WORRIED ABOUT ALL HER MEDICAL PROBLEMS ) Endo Reports fatigue (MILD) Aller/Immun Denies wheezing Physical Exam Vital Signs: Last Vital Signs Pulse 56 01/15/24 10:59 BP 128/70 01/15/24 10:59 Pulse Ox 99 01/15/24 10:59 Oxygen Delivery Method Room Air 01/15/24 10:59 BMI result Body Mass Index 30.7 Const General: comfortable, no acute distress, alert and awake Orientation/consciousness: patient oriented x3 HEENT Head: Yes normal to inspection General nose exam: No nasal polyps present, No nasal discharge present and Other nasal findings present (MILD NASAL CONGESTION NOTED) Face and sinus: Yes sinuses nontender Mouth: oropharynx normal Throat: Yes posterior oropharynx normal Eyes General: appearance normal, both eyes and all related structures Neck Neck: Yes normal visual inspection, Yes no lymphadenopathy, Yes trachea midline and Yes no JVD Thyroid: Thyroid normal Chest Chest palpation & inspection: normal inspection of the chest, normal palpation of entire chest wall and no tenderness Resp Other: Percussion note is resonant, breath sounds slightly distant with prolonged expiratory phase. There are no wheezes , rhonchi or crepitations. Cardio Palpation: normal PMI Rate: regular rate Rhythm: regular rhythm Heart sounds: no gallops and no murmurs Peripheral pulses: Peripheral pulses 2+ throughout GI Palpation (GI): Soft to palpation, nontender, No hepatosplenomegaly present and no masses Auscultation: normal bowel sounds Back/Spine/Pelvis Thoracic/Lumbar Spine: thoracic and lumbar spine normal to inspection Skin General skin exam: no rashes or lesions noted Neuro General: patient oriented x3 and no focal motor deficits Cranial nerves: Yes CN's II-XII intact bilaterally Extrem General: Yes normal to inspection, Yes no clubbing, cyanosis or edema and Yes no calf tenderness Psych Appearance: grossly normal and well kempt Speech and movement: Normal speech and movement present Assessment & Plan Assessment & Plan (1) Cough: Comment: COUGH IS SEC. TO REACTIVE AIRWAYS , PART OF THE BRONCHIAL ASTHMA, AND CHRONIC OBSTRUCTIVE AIRWAY DISORDER. IT GETS FLARED UP EVERY NOW AND THEN ESPECIALLY AT CHANGE OF THE WEATHER. Code(s): R05.9 - Cough, unspecified Category: Medical Plan: ADVISED TO CONTINUE USING WIXELA 250-51 INHALATION B.I.D.. USE ALBUTEROL HFA 2 PUFFS Q 6 HOURS P.R.N. MAY USE COUGH MEDICINE , SUCH GUAIFENESIN ( ROBITUSSIN 0 P.R.N. ADVISE THAT SHE SHOULD HAVE A SMALL HUMIDIFIER RUNNING IN THE BEDROOM AT NIGHT (2) Hemoptysis: Comment: HEMOPTYSIS IS MINIMAL AND SEEMS TO BE DUE TO SOME LOCAL BLEEDING IN NASOPHARYNX DUE TO HER ALLERGIC RHINITIS. JUST TO MAKE SURE THAT SHE DOES NOT HAVE ANY ACUTE PATHOLOGY IN THE LUNGS, CHEST X-RAY IS ORDERED Code(s): R04.2 - Hemoptysis Category: Medical Plan: CHEST X-RAY.ORDERED (3) Cough with hemoptysis: Code(s): R04.2 - Hemoptysis Plan: SEE UNDER HEMOTYSIS (4) Asthma: Comment: PER SPIROMETRY SHE DOES HAVE EVIDENCE OF BRONCHIAL ASTHMA/COPD ,MODERATELY SEVERE . REMAINS UNDER CONTROL AND STABLE. Code(s): J45.909 - Unspecified asthma, uncomplicated Category: Medical Plan: WIXELA 250-51 INHALATION B.I.D. ALBUTEROL HFA 2 PUFFS Q 6 HOURS P.R.N. Orders: Orders XR chest 2V Today J30.9 - Allergic rhinitis, unspecified, R04.2 - Hemoptysis, R05.9 - Cough, unspecified Coding Level of Care Code Est Pt Level 3 (20359) Diagnoses Cough R05.9 Hemoptysis R04.2 Cough with hemoptysis R04.2 Asthma J45.909
[2024-01-15 10:59] VITALS: BP 128/70; PULSE 56; O2SAT 99; BMI 30.7
== END 2024-01-15 11:30 | disposition home or self-care (01) ==
LOC: HO.HPS 10:50
PROVIDERS: PCP Family Medicine; Visit Provider Internal Medicine
DX: R05.9 Cough, unspecified (principal); R04.2 Hemoptysis; J45.909 Unspecified asthma, uncomplicated
CPT/HCPCS: 99213

== ENCOUNTER 2024-05-12 12:58 | Emergency (ER) | payer MEDICARE, SELFPAY ==
--- NOTE | ~2024-05-12 | CT_ITS ---
CLINICAL HISTORY: Lower abdominal pain, diarrhea, R O diverticulitis CT abdomen and pelvis with contrast Comparison: CT/IA/SR - CT ABDOMEN PELVIS W IV CON - 06/20/23 10:29 EDT Findings: The lung bases are clear. Subcentimeter low-attenuation lesions within the left kidney, likely renal cysts. There is a 2.4 cm right renal cyst present. No hydronephrosis. No ureteral stones. The liver is enlarged. The spleen, adrenal glands and pancreas are unremarkable. Gallbladder is absent. No bowel obstruction, pneumoperitoneum, or pneumatosis. There are scattered colonic diverticula, however no evidence of diverticulitis. Pelvic contents unremarkable. Normal appendix. No acute fracture. Degenerative changes of the lumbar spine. IMPRESSION: No acute findings. Evidence diverticulitis. Normal appendix. This document has been electronically signed by: Krzysztof Flannery MD on 05/13/2024 00:13:12
--- NOTE | ~2024-05-12 | XR_ITS ---
EXAMINATION: XR RIBS, RIGHT CLINICAL INFORMATION: fall COMPARISON: January 15, 2024. TECHNIQUE: 3 views of the right ribs were obtained. FINDINGS: Questionable irregularity in the lateral aspect of the right third rib. No consolidation pleural effusion or pneumothorax. Right-sided Port-A-Cath tip ends in the SVC, unchanged. Cardiomediastinal silhouette size is normal calcified plaque aortic arch. XR/XR ribs RT min 3V w CXR1V IMPRESSION: Questionable/versus artifactual nondisplaced fracture lateral aspect right third rib. Electronically signed by: Orion Ward MD 05/12/2024 02:19 PM EST
[2024-05-12 13:22] VITALS: BP 161/99; PULSE 105; RESP 16; O2SAT 99; BMI 26.4
--- NOTE | 2024-05-12 13:22 | ED_ITS ---
HPI - Abdominal Pain General Chief Complaint: Abdominal Pain Stated Complaint: constipation, stomach distended Time Seen by Provider: 05/12/24 22:10 Source: patient Mode of arrival: ambulatory Limitations: no limitations History of Present Illness ED Provider: Dr. Garland Holman HPI narrative: 74-year-old female with a history of asthma, IBS, hemoptysis, GERD who presents emergency department for evaluation of abdominal pain. The patient states that she has IBS and has been having abdominal pain for weeks. She states however the last 5-6 days the pain is become more severe. She states the pain is a constant, throbbing sensation located in her lower abdomen. Patient states that she feels like she was constipated but he has been having loose yellow stool multiple times a day. She states she feels very bloated. The patient had nausea but no vomiting. She denied fever or chills. The patient states that 1 week ago she did fall and landed on her right chest. Since that time she has been having right chest pain. She does the pain is worse with movement. Patient states she has been under increased stress since your fell on the ice in broke his leg. He was scheduled for surgery tomorrow. Related Data Home Medications ?Medication ?Instructions ?Recorded ?Confirmed albuterol sulfate 90 mcg/actuation 2 puff inhalation QID 08/24/20 01/15/24 aerosol inhaler (ProAir HFA) amlodipine 10 mg tablet 10 mg PO DAILY 08/24/20 01/15/24 duloxetine 30 mg capsule,delayed 30 mg PO DAILY 08/24/20 01/15/24 release trazodone 100 mg tablet 100 mg PO BEDTIME 08/24/20 01/15/24 levothyroxine 112 mcg tablet 112 mcg PO DAILY 02/05/22 01/15/24 metoprolol succinate 25 mg 25 mg PO DAILY 04/19/22 01/15/24 tablet,extended release 24 hr gabapentin 100 mg capsule 100 mg PO DAILY 09/24/22 01/15/24 olmesartan 40 mg tablet 40 mg PO DAILY 09/24/22 01/15/24 zolpidem 10 mg tablet 10 mg PO BEDTIME PRN 09/23/23 01/15/24 Previous Rx's ?Medication ?Instructions ?Recorded diphenoxylate-atropine 2.5 1 tab PO BID PRN diarrhea #30 tabs 06/22/22 mg-0.025 mg tablet (Lomotil) fluticasone 250 mcg-salmeterol 50 1 inh inhalation BID ASTHMA/COUGH 04/08/23 mcg/dose blistr powdr for 90 days #3 ea inhalation (Wixela Inhub) dicyclomine 20 mg tablet 20 mg PO TID PRN abdominal pain 05/27/23 #20 tabs lorazepam 1 mg tablet (Ativan) 1 mg PO BEDTIME PRN anxiety/sleep 05/27/23 #14 tabs ondansetron 4 mg disintegrating 4 mg PO Q8H PRN nausea and 06/20/23 tablet vomiting #20 tabs metronidazole 500 mg tablet 500 mg PO TID 14 days #42 tabs 06/25/23 famotidine 40 mg tablet 40 mg PO BEDTIME #90 tabs 04/13/24 pantoprazole 40 mg tablet,delayed 40 mg PO DAILY #90 tabs 04/13/24 release Allergies Allergy/AdvReac Type Severity Reaction Status Date / Time latex [LATEX] Allergy Intermediate RASH Verified 05/12/24 13:25 Sulfa (Sulfonamide Allergy Intermediate HIVES, Verified 05/12/24 13:25 Antibiotics) coughing, [SULFA (SULFONAMIDE wheezing, ANTIBIOTICS)] breathing moxifloxacin [From AVELOX] Allergy Unknown HIVES Verified 05/12/24 13:25 penicillin G [Penicillin G] Allergy Unknown UPSET Verified 05/12/24 13:25 STOMACH Npqlftk-[id number]-HkJ Reductase Allergy Unknown MUSCLE Verified 05/12/24 13:25 Inhibitor CRAMPS [[id number] REDUCTASE INHIBITOR] Review of Systems Review of Systems Yes all other systems are reviewed and are negative FOR[facility]LY [facility] Past Medical History Medical History Hemoptysis Allergic rhinitis GERD (gastroesophageal reflux disease) Thyroid disease HTN (hypertension) Bundle branch block EMG syndrome Trigger finger, left index finger Cough Myopathy Obesity (BMI 30-39.9) Asthma Dyspnea on exertion Surgical History Hx of hysterectomy Hx of cerebral aneurysm repair Hx of total knee replacement History of bone marrow biopsy History of laryngoscopy Hx of nasal polypectomy Hx of cholecystectomy Hx of colonoscopy History of esophagogastroduodenoscopy (EGD) Family History Family History Father Colon cancer Sister Colon cancer Social History Social History Patient Tobacco Use Status: Former Tobacco user Tobacco use type: Cigarette Years Smoked: 10 years Physical Exam ED Vital Signs: Vital Signs - 24 hr 05/12/24 13:22 05/12/24 20:35 05/12/24 21:52 Temperature 98.1 F 97.9 F Pulse Rate 105 H 92 102 H Respiratory Rate 16 18 20 Blood Pressure 161/99 H 152/88 H 156/81 H Pulse Oximetry 99 97 96 Oxygen Delivery Method Room Air Room Air Room Air 05/12/24 23:54 05/13/24 01:51 05/13/24 02:07 Temperature 98.0 F 97.9 F 97.9 F Pulse Rate 91 114 H 114 H Respiratory Rate 16 16 16 Blood Pressure 143/80 H 157/85 H 157/85 H Pulse Oximetry 99 95 95 Oxygen Delivery Method Room Air Room Air Room Air BMI result Body Mass Index 26.4 Vital signs revealed elevated blood pressure of 161/99 elevated heart rate of 105 otherwise unremarkable. Exam: General: Awake, alert in no distress Head: Normocephalic, atraumatic EENT: PERRL, Lids normal, sclera normal, conjunctiva normal, nose normal , ears normal, throat without erythema or exudates Neck: Supple, no adenopathy Lung: breath sounds symmetric, no wheezing, rales or rhonchi Chest: Patient was tenderness with palpation of her right lateral chest, there is no crepitus or ecchymosis noted Heart: regular rate and rhythm, normal S1, S2 no murmurs or rubs Abdomen: soft, nondistended, normoactive bowel sounds, moderate right lower and left lower quadrant tenderness, mild diffuse tenderness Rectal exam: No external abnormalities noted, no masses felt on digital rectal exam, there was loose brown stool which was negative for occult blood. No evidence for fecal impaction Back: no vertebral tenderness, no CVAT Extremities: no deformities, moves all extremities symmetrically Neuro: Awake, alert, oriented, normal speech, cranial nerves intact, moves all extremities symmetrically Psych: Pleasant, cooperative Course Course Course Narrative: 74 yo female with PMH of GERD, HTN, BBB, asthma, dysphagia, mesenteric ischemia, brain aneurysm s/p repair, statin induced myopathy who receives IVIG infusions at [facility] who has chronic abdominal pain and we were seeing her more frequently on she comes in with diarrhea/constipation and upper abdominal pain with bloating. The pain radiates into the back. She has been sick on and off worsening since 04/17/24. It has worsened in the last 6 days. She states she fell a couple of weeks ago and feels she has internal brusing. She notes she is very stressed out and overwhelmed due to taking care of her . At this time basic labs, UA, fall reported R rib xrays ordered. this is a RAPID medical screening exam the rest of the history and physical exam is to be done by the main provider. Medical Decision Making Medical Decision Making MDM Narrative: 74-year-old female with a history of asthma, IBS, hemoptysis, GERD who presents emergency department for evaluation of abdominal pain times weeks with increased pain over the last 5-6 days. The pain is a constant, throbbing sensation located in her lower abdomen, she has had a sensation of constipation , bloated, having multiple loose, watery, yellow stools per day. she has also been having right-sided chest pain. The patient has been under increased stress Since she has had to care for to her ' had a recent leg fracture and he is having surgery tomorrow morning. The patient did have a fall 1 week prior and is complaining of right-sided. Examination did reveal mild to moderate diffuse tenderness with moderate tenderness with palpation of her lower abdomen bilaterally. Rectal exam revealed no fecal impaction. Patient also had tenderness palpation of the right lateral chest Wall. Differential diagnosis: Includes but is not limited to IBS, diverticulitis, partial bowel obstruction, viral syndrome, infectious diarrhea, C difficile colitis, colitis, chest wall contusion, rib fracture, pneumothorax Course: My independent interpretation patient's laboratory evaluation is as follows: CBC was normal. CMP was normal. Lipase was not elevated. serial high sensitive troponin I is were detectable but not elevated at 16.[address] scan of the abdomen pelvis with IV contrast did not reveal a clear cause for the patient's symptoms which is reassuring. chest x-ray with right-sided rib x- rays did not reveal any significant abnormalities on my review however the radiologist suspected a possible right lateral 3rd rib nondisplaced fracture. The patient's chest wall pain may be secondary to a nondisplaced fracture versus a contusion and I did discuss this with the patient. The patient's abdominal pain may be secondary to a viral syndrome or a flare- up of her IBS. The patient may have infectious diarrhea however I think this is less likely given the negative CT scan and no evidence for colitis. The patient was not able to give a stool sample here in the emergency department. I sent her home with containers to collect a GI panel and C difficile test with printed instructions on how to handle these specimens. The patient was advised to contact her nursing manager, Dr. Fitzpatrick for further evaluation. Patient was discharged home. Admission/Observation Consideration of admission/observation: Escalation of care including admission/observation considered ( yes) Lab Data MDM Lab Attestation statement: I reviewed the patient's lab results. 05/12/24 13:58 05/12/24 13:58 Labs: Lab Results 05/12/24 05/12/24 Range/Units 13:58 17:42 WBC 4.9 (4.8-10.8) X10*3/uL RBC 4.29 (4.20-5.50) X10*6/uL Hgb 11.7 L (12.0-16.0) g/dl Hct 36.2 L (37.0-47.0) % MCV 84.4 (80.0-98.0) fL MCH 27.3 (27.0-33.0) pg MCHC 32.3 (31.0-35.0) g/dl RDW 14.6 (11.0-16.0) % Plt Count 224 (160-400) X10*3/uL MPV 8.7 L (9.4-12.3) fL Immature Gran % (Auto) 0.4 (0.0-0.4) % Neut % (Auto) 56.8 (45-73) % Lymph % (Auto) 32.4 (20-40) % [place] % (Auto) 8.8 (2-11) % Eos % (Auto) 1.2 (0-4) % Baso % (Auto) 0.4 (0-2) % Lymph # (Auto) 1.6 (1.2-4.9) X10*3/uL [place] # (Auto) 0.4 (0.1-1.2) X10*3/uL Eos # (Auto) 0.1 (0.0-0.4) X10*3/uL Baso # (Auto) 0.0 (0.0-0.2) X10*3/uL Abs Immat Gran (auto) 0.02 (0.00-0.03) X10*3/uL Absolute Neuts (auto) 2.8 (2.0-8.3) x10*3/uL Absolute Nucleated RBC 0.000 (0.0-0.012) X10*3/uL Nucleated RBC % (auto) 0.0 (0.0-0.2) /100WBC Sodium 139 (135-145) mmol/L Potassium 4.3 (3.3-5.1) mmol/L Chloride 104 (96-108) mmol/L Carbon Dioxide 27 (22-29) mmol/L Anion Gap 12 (12-20) BUN 11 (9-16) mg/dL Creatinine 0.94 (0.5-1.4) mg/dL Estim Creat Clear Calc 45.9 Estimated GFR 58 Random Glucose 107 (60-115) mg/dL Calcium 9.6 (8.4-10.2) mg/dL Magnesium 2.2 (1.6-2.6) mg/dL Total Bilirubin 0.5 (0.0-1.0) mg/dL Direct Bilirubin 0.1 (0.0-0.5) mg/dL AST 30 (5-31) U/L ALT 18 (0-31) U/L Alkaline Phosphatase 79 (39-117) U/L Troponin I High Sens 16.8 17.6 H (<3.5-17.0) ng/L Total Protein 8.6 H (6.5-8.0) g/dL Albumin 4.2 (3.5-5.0) g/dL Lipase 39 (8-78) U/L Independent Interpretation I performed an independent interpretation of an: EKG and Plain X-Ray Interpretation: My independent interpretation patient's 12 EKG done on 05/12/2024 at 13:50 hours is as follows: Normal sinus rhythm with a rate of 83, normal NV interval, prolonged QRS duration of 110 milliseconds, normal QTC interval, no ST segment elevation, no ST segment depression, right bundle-branch block, no significant T-wave abnormalities, no PACs, no PVCs. Compared to EKG dated 06/27/2023 at 12:06 hours, right bundle-branch block is old, no significant changes. My iindependent interpretation of the patient's chest x-ray with right rib series is as follows: No acute nondisplaced fracture noted, no pneumothorax or hemothorax Radiology Impression Discussion of test interpretation with radiology: I have reviewed the radiologist's reading. Radiologist Impression: EXAMINATION: XR RIBS, RIGHT CLINICAL INFORMATION: fall COMPARISON: January 15, 2024. TECHNIQUE: 3 views of the right ribs were obtained. FINDINGS: Questionable irregularity in the lateral aspect of the right third rib. No consolidation pleural effusion or pneumothorax. Right-sided Port-A-Cath tip ends in the SVC, unchanged. Cardiomediastinal silhouette size is normal calcified plaque aortic arch. XR/XR ribs RT min 3V w CXR1V IMPRESSION: Questionable/versus artifactual nondisplaced fracture lateral aspect right third rib. Electronically signed by: Orion Ward MD 05/12/2024 02:19 PM External Record Review External record reviewed: Office record ( GI office note) Chronic Conditions Patient?s care impacted by: Other ( GERD, IBS, asthma) Medications Administered Discontinued Medications Generic Name Dose Route Start Last Admin Trade Name Freq PRN Reason Stop Dose Admin Iohexol 85 ml 05/12/24 23:15 05/12/24 23:16 Iohexol 350 Mg/Ml 100 Ml Infus..Btl IV 05/12/24 23:16 85 ml ONCE ONE Administration Discharge Plan Discharge Clinical Impression: Abdominal pain, Diarrhea, Chest wall contusion, Fall Patient Disposition: Home, Self-Care Instructions: Abdominal Pain (ED) Additional Instructions: Your blood work was unremarkable. The CT scan of your abdomen pelvis with IV contrast did not reveal any clear cause for your abdominal pain which is reassuring. Take Tylenol 500 mg pills, 2 pills every 6 hours as needed for pain Continue taking your medications as prescribed by your providers. Follow-up with your doctor in 2 days. Please return to the emergency department if your symptoms get worse or if you develop any symptoms that are concerning to you. GI panel collection instructions: We are sending you home with a stool sample orange top tube for a ?GI Panel . ? This tube needs to be kept at room temperature. Do not put it in the refrigerator. This test is time sensitive needs to be put into the orange top tube within 2 hours of collection. The test then needs to be run within 4 days of collection. You should bring the tube back to the outpatient lab as soon as possible. The outpatient lab is open till 6:00 PM on , 11:00 AM on Saturday and closed on Sundays. You will then need to get the results from your primary care doctor. C difficile collection instructions We are sending you home with a frank container. Put the stool in the container and put the container the refrigerator. Bring the sample to the lab as soon as possible. Bring the lab slip with the you when you go to the lab. Prescriptions: No Action metronidazole 500 mg tablet 500 mg PO TID 14 Days Qty: 42 0RF pantoprazole 40 mg tablet,delayed release (DR/EC) 40 mg PO DAILY Qty: 90 2RF famotidine 40 mg tablet 40 mg PO BEDTIME Qty: 90 3RF dicyclomine 20 mg tablet 20 mg PO TID PRN (Reason: abdominal pain) Qty: 20 0RF lorazepam [Ativan] 1 mg tablet 1 mg PO BEDTIME PRN (Reason: anxiety/sleep) Qty: 14 0RF ondansetron 4 mg tablet,disintegrating 4 mg PO Q8H PRN (Reason: nausea and vomiting) Qty: 20 0RF amlodipine 10 mg tablet 10 mg PO DAILY duloxetine 30 mg capsule,delayed release(DR/EC) 30 mg PO DAILY trazodone 100 mg tablet 100 mg PO BEDTIME albuterol sulfate [ProAir HFA] 90 mcg/actuation HFA aerosol inhaler 2 puff inhalation QID levothyroxine 112 mcg tablet 112 mcg PO DAILY metoprolol succinate 25 mg tablet extended release 24 hr 25 mg PO DAILY diphenoxylate-atropine [Lomotil] 2.5-0.025 mg tablet 1 tab PO BID PRN (Reason: diarrhea) Qty: 30 0RF gabapentin 100 mg capsule 100 mg PO DAILY olmesartan 40 mg tablet 40 mg PO DAILY zolpidem 10 mg tablet 10 mg PO BEDTIME PRN fluticasone propion-salmeterol [Wixela Inhub] 250-50 mcg/dose blister with device 1 inh inhalation BID 90 Days Qty: 3 3RF Referrals: Naif Miramontes MD [Physician] - ( abdominal pain times weeks, worse times 5-6 days, associated with watery diarrheal stools. Laboratory evaluation CT abdomen pelvis with IV contrast unremarkable. Patient is sent home with GI panel and C diff collection containers. Needs follow-up for pain and diarrhea.) Interventions: ED Discharge Assessment Last Done: 05/13/24 02:07 Discharge Date/Time: 05/13/24 02:08 Print Language: Maltese
--- NOTE | 2024-05-12 13:25 | ECG_ITS ---
Test Reason : rib/ abdominal pain Blood Pressure : */* mmHG Vent. Rate : 83 BPM Atrial Rate : 83 BPM P-R Int : 130 ms QRS Dur : 110 ms QT Int : 386 ms P-R-T Axes : 67 33 19 degrees QTcB Int : 453 ms Normal sinus rhythm Incomplete right bundle branch block T wave abnormality, consider anterior ischemia Abnormal ECG When compared with ECG of 27-Jun-2023 12:06, Vent. rate has increased by 36 bpm T wave inversion now evident in Anterior leads Referred By: Michelle Davis Electronically Signed By: AAMIR GUAJARDO MD
[2024-05-12 14:02] LABS: Basophils Percent Auto 0.4 % (0-2); Eosinophils Absolute Auto 0.1 X10*3/uL (0.0-0.4); Eosinophils Percent Auto 1.2 % (0-4); Hematocrit 36.2 % (37.0-47.0); Hemoglobin 11.7 g/dl (12.0-16.0); Imm Gran Abs Auto 0.02 X10*3/uL (0.00-0.03); Imm Gran Pct Auto 0.4 % (0.0-0.4); Lymphocytes Absolute Auto 1.6 X10*3/uL (1.2-4.9); Lymphocytes Percent Auto 32.4 % (20-40); MANUAL DIFF FLAG NO; Mean Corpuscular HGB Conc 32.3 g/dl (31.0-35.0); Mean Corpuscular Hemoglobin 27.3 pg (27.0-33.0); Mean Corpuscular Volume 84.4 fL (80.0-98.0); Mean Platelet Volume 8.7 fL (9.4-12.3); Monocytes Absolute Auto 0.4 X10*3/uL (0.1-1.2); Monocytes Percent Auto 8.8 % (2-11); Neutrophils Absolute Auto 2.8 x10*3/uL (2.0-8.3); Neutrophils Percent Auto 56.8 % (45-73); Platelet Count 224 X10*3/uL (160-400); Red Blood Count 4.29 X10*6/uL (4.20-5.50); Red Cell Distribution Width 14.6 % (11.0-16.0); White Blood Count 4.9 X10*3/uL (4.8-10.8)
[2024-05-12 14:20] LABS: Alanine Aminotransferase 18 U/L (0-31); Albumin Level 4.2 g/dL (3.5-5.0); Alkaline Phosphatase 79 U/L (39-117); Anion Gap 12 (12-20); Aspartate Amino Transferase 30 U/L (5-31); Bilirubin Direct 0.1 mg/dL (0.0-0.5); Bilirubin Total 0.5 mg/dL (0.0-1.0); Blood Urea Nitrogen 11 mg/dL (9-16); Calcium 9.6 mg/dL (8.4-10.2); Carbon Dioxide 27 mmol/L (22-29); Chloride 104 mmol/L (96-108); Creatinine Clr Calc Pharmacy 45.9; Estimated Glomerular Filt Rate 58; Glucose Random 107 mg/dL (60-115); Lipase 39 U/L (8-78); Magnesium 2.2 mg/dL (1.6-2.6); Potassium 4.3 mmol/L (3.3-5.1); Sodium 139 mmol/L (135-145); Total Protein 8.6 g/dL (6.5-8.0)
[2024-05-12 14:26] LABS: Troponin-I High Sensitivity 16.8 ng/L (<3.5-17.0)
--- OUTSIDE RECORDS SUMMARY | 2024-05-12 17:36 | XMS_ITS | Clinical Summary ---
Author Organization [facility] Facility Address [address] [place] [id number] Care Team Providers Care [employer] Name Role Phone Unavailable Primary Care Provider Unavailabl e Social History Tobacco Use Types Packs/Day Years Used Date Smoking Tobacco: Never Assessed Comments Unknown Sex and Gender Information Value Date Recorded Sex Assigned at Not on file Legal Sex Female 10:44 AM EDT Gender Identity Not on file Sexual Orientation Not on file Plan of Treatment Health Maintenance Due Date Last Done Comments Breast Cancer Screening 1950 Colorectal Cancer Screening: Annual FOBT 1998 Colorectal Cancer Screening: Colonoscopy 1998 Colorectal Cancer Screening: Sigmoidoscopy 1998 Influenza Vaccine (#1) 2023 6, 12/14/2009, 02/16/2009, Additional history exists Pneumococcal Vaccine: 65+ Years Completed 01/09/2018, 05/28/2014, 01/09/2006, Additional history exists Hepatitis B Vaccine Aged Out No longe r eligible based on patient's age to complete this topic Insurance MEDICARE [facility] MEDICARE [facility]
--- OUTSIDE RECORDS SUMMARY | 2024-05-12 17:36 | XMS_ITS ---
Author Organization [facility] Address [address] [place] [address] Care Team Providers Care 2Nd Grade Teacher Name Role Phone Samm Steward MD Primary Care Provider Unava ilable Black, Elise Unavailable [phone] Nora Johnson Unavailable [phone] Allergies Allergen (clinical drug ingredient) Drug/Non Drug Allergy documented on EMR Reaction Allergy Type Onset Date Status moxifloxacin Avelox hives Drug Allergy Acti ve ciprofloxacin Cipro Unknown Drug Allergy Act christiano Levaquin Unknown Drug Allergy Active angiotensin-converti ng enzyme inhibitor (FN) MISHA Inhibitors coughing, sore throat, diarrhea, upset stomach Drug Allergy Active Adhesive Unknown Allergy Active erythromycin Erythromycin nausea Drug Allergy A ctive Latex Latex skin irritation, blisters Allergy Active Penicillin nausea Drug Allergy Active Substance with 5-oekqpmq-8-methylgl utaryl-coenzyme A reductase inhibitor mechanism of action (substance) Statins muscle problems, elevated CPK Drug Allergy Active Substance with sulfonamide structure and antibacterial mechanism of action (substance) Sulfa Antibiotics coughing, wheezing, shortness of breath Drug Allergy Active Tegaderm skin irritation, blisters Allergy Active REASON FOR VISIT Skin problem(s) Medications Medication SIG (Take, Route, Frequency, Duration) Notes Start Date End Date Status IVIg Infusions Active FLUoxetine HCl 20 MG 1 capsule Orally On ce a day for 30 day(s) Active Olmesartan Medoxomil 20 MG 1 tablet Orally Once a day for 30 day(s) Active Lidocaine-Prilocaine 2.5-2.5 % as directed Externally Activ e Levothyroxine Sodium 112 MCG 1 tablet in the morning on an empty stomach Orally Once a day for 30 day(s) Active Ammonium Lactate 12 % 1 application Externally to affected areas of dry skin to feet except for between the toes Twice a day for 30 days Active Wixela Inhub 500-50 MCG/ACT 1 puff Inhalation Twice a day Active traZODone HCl 100 MG 1 tablet at bedtime Orally Once a day for 30 day(s) Active ProAir HFA 108 (90 Base) MCG/ACT 1 puff as needed Inhalation every 4 hrs Active Pantoprazole Sodium 40 MG 1 tablet Orall y Once a day for 30 day(s) Active Famotidine 20 MG 1 tablet at bedtime as needed Orally Once a day for 30 day(s) Active amLODIPine Besylate 10 MG 1 tablet Orall y Once a day for 30 day(s) Active ALPRAZolam 1 MG 1 tablet Orally Twic e a day Active Ammonium Lactate 12 % 1 application to affected area Externally Twice a day to dry areas of skin on feet for 30 days Active Social History Tobacco Use: Social History Observation Description Date Details (start date - stop date) Never Smoker NA - NA Tobacco Use/Smoking Question Answer Notes Are you a: nonsmoker Additional Findings: Tobacco Non-User Current no n-smoker Tobacco use other than smoking: Question Answer Notes Are you an other tobacco user? No Problems Problem Type SNOMED Code ICD Code Onset Dates Problem Status W/U Status Risk Notes Problem Plantar wart (59507795) Plantar wart (B07.0) Active confirmed Vital Signs Height [id number] in 04/24/2024 Weight 145 lbs 04/24/2024 BMI 29.28 kg/m2 04/24/2024 Blood pressure systolic 125 mm Hg 04/24/19 25 Blood pressure diastolic 70 mm Hg 025 Encounters Encounter Location Date Provider Diagnosis [facility] [place] [address] [place] [address] 04/24/2024 Nora Johnson Xerosis of skin L85.3 Assessments Encounter Date Diagnosis (ICD Code) Assessment Notes Treatment Notes Treatment Clinical Notes Section Notes 04/24/2024 Xerosis of skin (ICD-10 - L85.3) Plan Of Treatment Medication Medication Name Sig Start Date Stop Date Notes Ammonium Lactate 12 % 1 application Exte rnally to affected areas of dry skin to feet except for between the toes Twice a day for 30 days Next Appt Details Follow Up: prn, Reason: Progress Notes * Sharon ALONZO ADOB: [birth year] (73 yo F)Acc No.[id number]:04/24/2024 Progress Note Patient:?Sharon ALONZO Provider:?Nora Johnson DPM :1950???Age:73 Y???Sex:Female D ate:04/24/2024 Address:[address] [place], [place] [id number] Pcp:Samm Steward MD Subjective: * Chief Complaints: * ???Skin problem(s) * HPI: ???Skin problems:?Nature:?dryness , scaling.?Location:?B/L feet, especially her heels.?Duration:?, several years.?Onset/Cause:?gradual.?Course:?worse.?Aggravated by:?walking bare foot.?Treatments:?Pt states she has used many creams in the past, but unsure of their names.? Pt does state she walks barefoot in her home, does not wear socks during the day or while sleeping.??.? * ROS:?General/Constitutional:?Nausea?denies.?Vomiting?denies.?Hunger Thirst?denies.?Loss appetite?denies.?Chills?denies.?Fatigue?denies.?Fever?denies.?Night Sweats?denies.?Unexplained weight loss?denies.?Unexplained weight gain?denies.?HEENTM:?Dentures?denies.?Dizziness?denies.?Glasses/contacts?denies.?Retinopathy?de nies.?Blurred/double vision?denies.?TMJ?denies.?Discharge/drainage?denies.?Implants?denies.?Sore throat?denies.?Dental implants?denies.?Hard of hearing ?denies.?Difficulty chewing/swallowing/speaking?denies.?Nose bleeds?denies.?Sore mouth?denies.?Respiratory:?On Oxygen?denies.?Pneumonia/pleurisy?denies.?Bronchitis?denies.?Emphysema?denies.?C oughing?denies.?Cough blood?denies.?Shortness of breath?denies.?Wheezing?denies.?Cardiovascular:?Pacemaker?denies.?MVP?denies.?WPW?denies.?CHF?denies.?Heart attack?denies.?Septal defect?denies.?Rapid beat?denies.?Chest pain ?denies.?Atrial Fib.?denies.?Murmur/Palpitations?denies.?Gastrointestinal:?Hemorrhoids?denies.?Stomach/Abdominal pain?denies.?Dark blood stool?denies.?Irritable bowel ?denies.?Constipation?denies.?Diarrhea?denies.?Hematology:?Swelling?denies.?Clots?denies.?Varicose Veins?denies.?Bruising?denies.?Bleeding problem?denies.?Genitourinary:?Blood urine?denies.?Frequent/Painfu/urination/bladder control?denies.?Kidney stones?denies.?Infection (UTI)?denies.?Nephropathy?denies.?sex trans dis (STD)?denies.?Prostate?denies.?Musculoskeletal:?Hammertoes?denies.?Bunions?denies.?Back Pain?denies.?Muscle Cramps/ Resting?denies.?Muscle cramps / walking?denies.?Generalized aches and pains?denies.?Weakness?denies.?Integ.:?Gomez?denies.?Scars?denies.?Corns/calluses?denies.?Ingrown nails?denies.?Painful nails?denies.?Open Sores?denies.?Rashes?denies.?Neurologic:?Difficulty sleeping?denies.?Brain disorder?denies.?Numbness?denies.?Balance trouble?denies.?Confusion?denies.?Fainting/blackouts?denies.?Tingling?denies.?Tr emors?denies.? * Medical History:? * Surgical History:?hysterecto my, total with bilateral salpingo-oophorectomy (BSO) 11/04/2006gall bladder, stones 04/09/2006colonoscopy 09/26/2021enign Salivary Gland Tumor 02/27/2005Bladder Nk Suspe w/P-V Sling 11/22/2009nasal polypectomy/chronic sinusitis, multiple 01/23/2011rthroscopic knee surgery, right 1973ganglion cyst excision, left index finger 02/13/2013endoscopy 2x 10/04/2021, 03/01/2016Stent for cerebral aneurysm 12/17/2016cataract surgery, left eye 10/02/2011cataract surgery, right eye 11/14/2011Posterior Capsulotomy, right eye 01/30/2013Posterior Capsulotomy, left eye 06/17/2013 * Hospitalization/Major Diagno stic Procedure:?Diverticulitis, Polymyositis - [facility] 02/18/2016TIA, Aneurysm - [facility] 09/23/2016[facility]- flu 05/05 * Family History:?Mother: dece ased, diagnosed with Unspecified essential hypertension.?Father: , diagnosed with Other malignant neoplasm of unspecified site, Unspecified essential hypertension.?Siblings: diagnosed with Other malignant neoplasm of unspecified site.? * Social History:?Tobacco Use:?Tobacco Use/Smoking?Are you a:?nonsmoker ?Additional Findings: Tobacco Non-User?Current non-smoker ?Tobacco use other than smoking?Are you an other tobacco user??No ???Miscellaneous:?Caffeine: yes, Soda. ?Children: yes, 1. ?Exercise: no. ?Marital status: . ?Occupation: retired, [employer]. * Medications:?TakingWixela In hub 500-50 MCG/ACT Aerosol Powder Breath Activated 1 puff Inhalation Twice a day traZODone HCl 100 MG Tablet 1 tablet at bedtime Orally Once a day ProAir HFA 108 (90 Base) MCG/ACT Aerosol Solution 1 puff as needed Inhalation every 4 hrs Pantoprazole Sodium 40 MG Tablet Delayed Release 1 tablet Orally Once a day Olmesartan Medoxomil 20 MG Tablet 1 tablet Orally Once a day Lidocaine- Prilocaine 2.5-2.5 % Cream as directed Externally Levothyroxine Sodium 112 MCG Tablet 1 tablet in the morning on an empty stomach Orally Once a day IVIg , Notes to Pharmacist: InfusionsFLUoxetine HCl 20 MG Capsule 1 capsule Orally Once a day Famotidine 20 MG Tablet 1 tablet at bedtime as needed Orally Once a day amLODIPine Besylate 10 MG Tablet 1 tablet Orally Once a day ALPRAZolam 1 MG Tablet 1 tablet Orally Twice a day Ammonium Lactate 12 % Cream 1 application to affected area Externally Twice a day to dry areas of skin on feet Medication List reviewed and reconciled with the patientTaking Wixela Inhub 500-50 MCG/ACT Aerosol Powder Breath Activated 1 puff Inhalation Twice a day Taking traZODone HCl 100 MG Tablet 1 tablet at bedtime Orally Once a day Taking ProAir HFA 108 (90 Base) MCG/ACT Aerosol Solution 1 puff as needed Inhalation every 4 hrs Taking Pantoprazole Sodium 40 MG Tablet Delayed Release 1 tablet Orally Once a day Taking Olmesartan Medoxomil 20 MG Tablet 1 tablet Orally Once a day Taking Lidocaine-Prilocaine 2.5-2.5 % Cream as directed Externally Taking Levothyroxine Sodium 112 MCG Tablet 1 tablet in the morning on an empty stomach Orally Once a day Taking IVIg , Notes to Pharmacist: InfusionsTaking FLUoxetine HCl 20 MG Capsule 1 capsule Orally Once a day Taking Famotidine 20 MG Tablet 1 tablet at bedtime as needed Orally Once a day Taking amLODIPine Besylate 10 MG Tablet 1 tablet Orally Once a day Taking ALPRAZolam 1 MG Tablet 1 tablet Orally Twice a day Taking Ammonium Lactate 12 % Cream 1 application to affected area Externally Twice a day to dry areas of skin on feet Medication List reviewed and reconciled with the patient * Allergies:?Penicillin: nause aErythromycin: nauseaCiproLevaquinSulfa Antibiotics: coughing, wheezing, shortness of breathAdhesiveLatex: skin irritation, blistersAvelox: hivesStatins: muscle problems, elevated CPKTegaderm: skin irritation, blistersACE Inhibitors: coughing, sore throat, diarrhea, upset stomachyes[Allergies Verified] Objective: * Vitals:?Ht: 7ci15da, Wt:145, BMI:29.28, Shoe size: 6.5, BP:125/70mm Hg, Ht-cm: 149.86 cm, Wt-k.77 kg. * Examination: ???General Examination: ?GENERAL APPEARANCE:?Reveals a pleasant, alert, well-nourished, well- developed, well hydrated individual, who demonstrates proper attention to hygiene/body habitus, and is in no acute distress, Pt serves as own?historian for office visit today.?ORIENTED:?person, place, and time.?Neurological: ?SENSORY:?Neurological exam reveals intact sensorium, pain sensation normal, vibration sensation intact, pinprick sensation is normal in the lower extremities, Pt denies, anesthesia, burning, paresthesia, tingling, B/L.?DEEP TENDON REFLEXES:?Achilles, 2/4, B/L.?Vascular: ?DP PULSES (B):?3/4, B/L.?PT PULSES (B):?3/4, B/L.?CAPILLARY FILL TIME:?immediate, all digits, B/L.?TROPHIC CONDITION-TEXTURE/ELASTICITY/TURGOR/HAIR GROWTH (B):?normal, B/L.?TEMPERTURE GRADIENT (C):?warm to cool, proximal to distal, B/L.?PIGMENTATION:?normal, B/L.?EDEMA (C):?absent, B/L.?Dermatologic: ?SKIN FINDINGS:?Skin shows sign(s) of, dryness, scaling, in a stocking fashion, no fissure(s) present, B/L.?Orthopedic: ?MUSCLE STRENGTH:?5/5 all groups in a symmetrical fashion , B/L.? 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 Plan: * Treatment: * Procedure Codes:? * Preventive Medicine:? ??Counseling:?Discussion:?-14: Office or other outpatient visit for the evaluation and management of an established patient, which required a medically appropriate history and/or examination and MODERATE level of DECISION MAKING for: 1 OR MORE CHRONIC PROBLEM(S) THATS WORSENING, 2 STABLE CHRONIC PROBLEMS, A NEWLY DIAGNOSED PROBLEM WITH UNCERTAIN PROGNOSIS, AN ACUTE COMPLICATED INJURY WITH MULTIPLE TREATMENT OPTIONS, OR AN ACUTE PROBLEM WITH ACCOMPANYING SYSTEMIC SYMPTOMS, THAT POSE(S) A MODERATE RISK OF MORBIDITY. THIS CONDITION MAY ALSO INCLUDE RX DRUG MANAGEMENT, OR A DECISON FOR MINOR SURGERY. The visit on the day of the encounter encompassed interpreting the data and educating the patient as to the nature of their condition, treatment options available according to their individual PMH, meds, allergies, and overall health/living conditions, as well as any potential risks or complications that may occur from a failure to adhere to, and participate in, the recommended course of therapy. The discussion included a complete verbal, and/or written explanation of the examination results, any x-rays taken, the proposed diagnosis, and outline of the treatment plan. A schedule for future care needs was also explained. The patient verbalized an understanding of the instructions at this time and agreed to be an active participant in their treatment. If the patient should think of any questions or concerns after the visit, I have encouraged the patient to call the office.?Consult:?Pt sees a Entry Level Staff Accountant, I recommend pt speak with her Entry Level Staff Accountant as well about her chronic dry skin, pt denies any history of psoriasis or eczema, however states her skin has been dry for years despite any treatment.?Xerosis:?The patient was counseled on the diagnosis, potential etiologies, and treatment options for their skin condition. We discussed the risks and benefits of each option from performing no treatment, to utilizing OTC topical skin creams/ointments, to utilizing prescription topical creams/ointments, to utilizing customized compounded topical medications and use of nocturnal occlusion with any/all previously detailed therapies. We discussed the advantages and disadvantages of each possible treatment and importance for adherence to all the recommended therapies for optimum success and avoid potential complications such as open sore/infection/possible hospitalization. We discussed the potential effectiveness of each topical preparation as well as each ones possible side effects and/or patient medication interactions. Patient questions re: use, dosage, successful outcomes, and application consistency were reviewed and the patient verbalized that all answers were clearly understood. The patient has decided to apply Rx skin creams to their feet save the interspaces while paying special attention to the heels. Such was sent to their pharmacy at the time of visit, Discussed with the Patient the issues that may arise if he/she does not treat their condition : Pain, fissues, infection and further break down of skin, Recom. evening occlusion with gel sock, Recom. callus file.? ??Screening/Special Tests:?Fall Risk?Screening:?No falls in the past year ?FALLS: Screening for Future Fall Risk?Have you had any falls with injury in the past year??No * Follow Up:?prn * Images: * Sign off status: Completed true * Provider:?Nora Johnson DPM Date:? Generated for Cookie brown/Gaviota/Brandon on:?05/12/2024 05:36 PM EST History and Physical Notes * HPI (History of Present Illness) Category Sub-Category Detail Notes Category Not es Skin problems Nature: dryness , scaling Location: B/L feet, especially her heels Duration: , several years Onset/Cause: gradual Course: worse Aggravated by: walking bare foot Treatments: Pt states she has us ed many creams in the past, but unsure of their names. Pt does state she walks barefoot in her home, does not wear socks during the day or while sleeping. Examination Category Sub-Category Detail Notes Category Not es Neurological SENSORY: Neurological exa m reveals intact sensorium, pain sensation normal, vibration sensation intact, pinprick sensation is normal in the lower extremities, Pt denies, anesthesia, burning, paresthesia, tingling, B/L DEEP TENDON REFLEXES: Achilles, 2/4, B/L Dermatologic SKIN FINDINGS: Skin shows sign( s) of, dryness, scaling, in a stocking fashion, no fissure(s) present, B/L Orthopedic MUSCLE STRENGTH: 5/5 all groups in a symm etrical fashion , B/L General Examination GENERAL APPEARANCE: Reveals a pleasant, alert, well- nourished, well-developed, well hydrated individual, who demonstrates proper attention to hygiene/body habitus, and is in no acute distress, Pt serves as own historian for office visit today ORIENTED: person, place, and t hailey Vascular DP PULSES (B): 3/4, B/L PT PULSES (B): 3/4, B/L CAPILLARY FILL TIME: immediate, all digi ts, B/L TEMPERTURE GRADIENT (C): warm to cool, p roximal to distal, B/L TROPHIC CONDITION-TEXTURE/ELASTICITY/TURGOR/HAIR GROWTH (B): normal, B/L EDEMA (C): absent, B/L PIGMENTATION: normal, B/L
--- OUTSIDE RECORDS SUMMARY | 2024-05-12 17:36 | XMS_ITS ---
Author Organization [facility] Address [address] [place] [id number] Care Team Providers Care Salt Washer Name Role Phone Nichelle CHAVEZ, Samm Primary Care Provider Unava ilable Black, Elise Unavailable [phone] Shantelle Linda [phone] Fishman Encounters Encounter Location Date Provider Diagnosis [facility] [address] [place] [address] 04/16/2024 Shantelle Linda Plan Of Treatment No Information Progress Notes * Sharon ALONZO ADOB: [birth year] (74 yo F)Acc No.[id number]:04/16/2024 Progress Note Patient:?Sharon ALONZO Provider:?Shantelle Linda DPM :1950???Age:73 Y???Sex:Female D ate:04/16/2024 Address:[address] [place], [place] [id number] Pcp:Samm Steward MD Subjective: * Chief Complaints: * ???1. Dr Fishman. * Medical History:? Objective: * Vitals:? Assessment: Plan: * Treatment: * Images: * The named appointment provid er may or may not be the originator of this progress note, and it is not deemed complete until electronically signed by the appointment provider. Sign off status: Pending * Provider:?Shantelle Linda DPM Date:?0 04/16/2024 Generated for Cookie brown/Gaviota/eTransmitting on:?05/12/2024 05:36 PM EST
--- OUTSIDE RECORDS SUMMARY | 2024-05-12 17:36 | XMS_ITS | Data Portability ---
Author Organization [place] - [facility] Address [address] [place] [id number] Care Team Providers Care Chairman & Co Founder Name Role Phone HORACIO OCHOA Primary Care Provider Assessment Encounter Date Assessment Date Assessment LastModified by Organization Details LastModified Time 12/09/2020 12/09/2020 Proper Personal Protective Equipment (PPE), including gloves, gown, shoe covers, eye protection and masks were donned and doffed appropriately and all equipment cleaned using approved technique with germicidal disposable wipes prior to and after care of this patient according to [facility]'s infection prevention protocols. 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 Patient endorses having history of shingles in same location as current rash above left eye. No shingles vaccine due to autoimmune myopathy. She endorses completing 10 months of oral steroid therapy three weeks ago and two week history of pruritic rash above her left eye with occasional electric shock type left sided headaches. Exam: Eyes: PERRL at 3mm, EOM's intact, no swelling, no discharge, sclera / conjunctiva clear; visual accuity with reading glasses 20/100 bilaterally. ENT: no nasal discharge, oral thrush present on tongue, no erythema/ exudate noted in oropharynx, dry mucous membranes, no lymphadenopathy CV: Normal HR, no rubs/ murmurs/ gallops heard, 2+ radial pulses bilaterally, no edema, 1+ DP pulses bilaterally Pulm: breath sounds clear and equal bilaterally, no wheeze/ rhonchi or rales on auscultation. Speaks in full sentences, no increased work of breathing. GI: Soft, tender to palpation X 4 quadrants, No masses, normal bowel sounds. : No CVA tenderness bilaterally. MS: Self ambulatory patient, moves all limbs without deficit, no evidence of trauma Neuro: No focal deficits, patient GCS- 456, CN? s II-XII grossly normal Skin: No rash, negative Romberg test Psych: Calm, cooperative, non-manic DDx considered, but not limited to: herpes zoster (shingles) most likely with small cluster of non-crusted papules above patients left eyebrow; pruritic w/occasion electric shock type left sided headache, immunocompromised after 10 months of corticosteroid therapy, extremely stressful time in her life with uncertain future due to aggressive autoimmune disease. Oral candidus present on exam. Work up/Results: none Plan/Discussion: herpes zoster (shingles); prescribed Valacyclovir 1g PO TID X 7 day; dosing based off CMP completed in November 04, 2020 CrCL 65 ml/min. Currently shingles rash is above patient's left eye, no intraoccular involvement or evidence bacterial conjuntivitis seen on exam. Oral candidiasis; prescribed Nystatin 100, 000 u/ml 5ml PO QID X 7 days. Discussed with patient to contact her PCP on Saturday to discuss potential drug interactions between Valacyclovir and olmesartan, aspirin, HCTZ. Increase PO fluid intake, supplement with pedialyte or half strength Gatorade. Report to the ER for acute symptoms of chest pain, worsened shortness of breath, severe weakness, fevers of 101.5 or greater, mental status changes, severe unrelieved headaches, inability to eat, drink, or walk. Pt verbalized understanding of all instructions provided In order to obtain further information and compare any laboratory results/values, I have accessed patient records on the [employer]. This information was pertinent in my medical decision making today. [email or web address] Not available 12/09/2020 22:08:31 09/29/2021 09/29/2021 Ms Alonzo is a [age] yo established patient new to this provider with cc of coughing. She has had a recent hospitalization for diarrhea following taking clindamycin for cellulitis of wrist . Labs at that time showed significant hyponatremia for which she was given IVF sodium, and they were able to get her sodium up to 137. She also had negative C Diff, negative colonoscopy save for 2 polyps which were removed. unclear etiology for diarrhea. She was thought to have SAIDH etiology unclear. She is to check sodium frequently , she had it checked after being DC'd and it was coming down, Yesterday she had it checked and it was 129. She is trying to take in more nsodium, and limiting her fluid intake to 1 liter max a day. She is not having headache, muscle twitches, no confusion, she has never had seizures. DDX for sore throat could be secondary to GERD coupled with her cough of COPD and GERD. She is on famotidine, after recently having her protonix dc'd. doubtful for strep, rapid test negative and negative centor criteria save for her cough. She is no longer having diarrhea, no vomiting ( 1 0r 2 episodes post tussive . She has follow up appointments with her PCP, GI and Multimedia Editor coming up . Time On Scene with Patient: 00:48:34 [email or web address] Not available 09/29/2021 20:00:08 09/30/2021 09/30/2021 Overview/History : 71 YO F new to provider but known to She is being seen today as she was set up for follow up by another provider for a lab draw She has has low sodium requiring hospitalizations in the past She recently had her Na level checked and apparently 129 w/o sx's. Her PCP is aware and she was seen by us yesterday where she discussed this with our provider Genevieve Solorio PA-C who seems to have set her up for follow up blood draw today as a courtesy. Patient continues to not have symptoms and she feels overall well today. She continues to eat high sodium diet. No other complaints today, no weakness, no numbness/tingling, no ataxic gait, no headache, no abd pain, no NVD, no tremors. She has never had seizures. No other complaints today. She is very happy we are here today. Exam: Vitals: VSS and afebrile Constitutional: 71 yo Well developed, well nourished, pleasant patient in no apparent distress. She is well appearing especially for her age. She is not toxic appearing. Eyes: PERRL at 4mm, EOM's intact, corrective lenses, No swelling, no discharge, sclera / conjunctiva clear, no nystagmus ENT: no nasal discharge, no erythema/ exudate noted in oropharynx, uvula midline, moist mucous membranes CV: RRR, no rubs/ murmurs/ gallops heard, 2+ radial pulses bilaterally, no edema and no calf tenderness BL, 2+ DP/ PT pulses bilaterally Pulm: breath sounds clear and equal bilaterally, no wheeze/ rhonchi or rales on auscultation. Speaks in full sentences, no increased work of breathing. GI: Soft, non-tender to palpation. No masses, normal bowel sounds. MS: Self ambulatory patient, moves all limbs without deficit, no evidence of trauma Neuro: No focal deficits, A&O x4, CN? s II-XII grossly normal, equal strength BL, gait not ataxic, no tremors, no fasciculations, LE reflexes intact and equal BL Skin: No rash Psych: Calm, cooperative, non-manic. Pleasant. DDx considered, but not limited to: Symptomatic HypoNa - no sxs Asx HypoNa - present, Na 132,, improved from 129 Resolved HypoNa - still present Work up/Results: Istat BMP is benign w/ an improved Na of 132 fro 129, Cl remians low but better than previous, anemia is slightly better as well and is known and all is being followed by PCP Plan/Discussion: Asx Hypona: -Seems chronic as this is known -Undergoing workup w/ PCP -Unknown etiology at this point it seems -Was 129 2 days ago, better today a 132, she remains asx -She is eating a high sodium diet -SHe has follow up w/PCP on Saturday -She is to f/u emergently with any sxs and she understand this -I did Cortext her PCP Dr Ochoa with her level today and he responded promptly which I appreciate greatly -She is very thankful her level has improved and for our visit today. Pt is on agreement and verbalizes understanding with the above plans at this time. Pt has no other questions or concerns at this time. All questiosn are answered to the best of my ability. Pt thanks us for our visit today. In order to obtain further information and compare any laboratory results/values, I have accessed old patient records. This information was pertinent in my medical decision making today. [email or web address] Not available 09/30/2021 15:13:20 Plan of Treatment Reminders Order Date Submit Date Provider Last Modified By Organization Details Last Modified Time Details Appointments None recorded. Lab BMP + ionized calcium, serum or plasma 2021 022 MIKESALLY Ramos [facility], [address] [place], [address], 14:23:15 rapid strep group A, throat 2021 [email or web address] 0 [facility], [address] [place], [address], 18:58:31 Referral None recorded. Procedures None recorded. Surgeries None recorded. Imaging None recorded. Medication Orders nystatin 100,000 unit/mL oral suspension 2020 021 [email or web address] 0 [id number], [address], [place], [phone], 18:11:58 valacyclovi r 1 gram tablet 2020 022 [id number], [address], [place], [phone], 14:07:49 Patient TargetsNo targets recorded. Patient Instructions Encounter Date Encounter Id Patient Instructions Last Modified By Organization Details Last Modified Time 12/09/2020 [id number] Thank you for yo ur visit with [facility] today. We cannot always find the exact cause of your symptoms during your initial visit. Please follow up with your primary care provider or specialist within 12-24 hours within 24-48 hours within 2-3 days to be rechecked or seek medical attention if your symptoms do not go away or get worse. If you develop any new or worsening symptoms and need after hours care, please go to nearest ER and/or call 911. If you have additional concerns or develop a change in your condition between 8am-10pm, please call [facility] at [phone] to help navigate your care. Please seek care or call your primary provider if the rash: 1. Worsens 2. Lasts longer than one week 3. Shows signs of local infection (redness, oozing, or swelling) 4. Occurs together with fever, chills, swollen glands, or other symptoms of infection 5. Looks dark purple or spotted 6. Occurs together with symptoms that suggest autoimmune disorder (recurring fever, malaise, fatigue, unexplained weight loss, or joint swelling) If you have additional concerns or develop a change in your condition between 8am-10pm, please call [facility] at [phone] to help navigate your care. Not available 12/09/2020 21:21:15 Reason for Referral None Reported. Results Created Date Observation Date Name Description Value Unit Range Abnormal Flag Note LastModifiedBy Organization Detail LastModifiedTime 09/30/19 22 09/29/2021 rapid strep group A, throa t Strep A (ref: neg) negati ve Not Available [facility] [address] [place], [address], 09/29/2021 18:33:19 09/30/19 22 09/29/2021 rapid strep group A, throa t Control Visual ized/V alid Not Available [facility] [address] [place], [address], 09/29/2021 18:33:19 09/30/19 22 09/29/2021 rapid strep group A, throa t Location [facility], [address] [place] [address], [id number] Not Available [facility] - [address], [address], 09/29/2021 18:33:19 10/01/19 22 09/30/2021 BMP + IONIZ ED CALCI UM, SERUM OR PLASM A glu 125 mg/dL 70-105 Not Available [facility] [address] [place], [address], 09/30/2021 14:23:15 10/01/19 22 09/30/2021 BMP + IONIZ ED CALCI UM, SERUM OR PLASM A BUN 12 mg/dL 8-26 Not Available [facility] [address], [place], [address], 09/30/2021 14:23:15 10/01/19 22 09/30/2021 BMP + IONIZ ED CALCI UM, SERUM OR PLASM A crea 1.2 mg/dL 0.6-1. 3 Not Available [address], [address], 09/30/2021 14:23:15 10/01/19 22 09/30/2021 BMP + IONIZ ED CALCI UM, SERUM OR PLASM A Na 132 mmol/ L 138-14 6 Not Available [address], [address], 09/30/2021 14:23:15 10/01/19 22 09/30/2021 BMP + IONIZ ED CALCI UM, SERUM OR PLASM A K 3.9 mmol/ L 3.5-4. 9 Not Available [address], [address], 09/30/2021 14:23:15 10/01/19 22 09/30/2021 BMP + IONIZ ED CALCI UM, SERUM OR PLASM A cL 95 mmol/ L 98-109 Not Available [address], [address], 09/30/2021 14:23:15 10/01/19 22 09/30/2021 BMP + IONIZ ED CALCI UM, SERUM OR PLASM A TCO2 27 mmol/ L 24-29 Not Available [address], [address], 09/30/2021 14:23:15 10/01/19 22 09/30/2021 BMP + IONIZ ED CALCI UM, SERUM OR PLASM A angap 15 mmol/ L 10-20 Not Available [address], [address], 09/30/2021 14:23:15 10/01/19 22 09/30/2021 BMP + IONIZ ED CALCI UM, SERUM OR PLASM A ica 1.25 mmol/ L 1.12-1 .32 Not Available [facility] [address] [place], [address], 09/30/2021 14:23:15 10/01/19 22 09/30/2021 BMP + IONIZ ED CALCI UM, SERUM OR PLASM A HCT 30 %pcv 38-51 Not Available [facility] [address] [place], [address], 09/30/2021 14:23:15 10/01/19 22 09/30/2021 BMP + IONIZ ED CALCI UM, SERUM OR PLASM A Hb 10.2 g/dL 12-17 Not Available [facility] [address] [place], [address], 09/30/2021 14:23:15 Result Notes None recorded. Procedures Surgical History Date Name Laterality Status Provider Name and Address Organization Details Recorded Time 022 Venipuncture - DH completed VIOLET Mcgregor [address] [place], [address], [place] [facility] 09/30/2021 15:00:50 Total Hysterectomy completed KYM CUETO NP [address] [place], [address], [place] [facility] 12/09/2020 20:40:28 Imaging Results None recorded. Procedure Notes None recorded. Medical Equipment None Reported. Allergies Allergen ID Allergen Name Allergen Category Reaction Reaction Severity Criticality Documentation Date Start Date Code Code System Note Provider Name and Address Organization Details Recorded Time [id number] Product containin g penicilli n (product) medicatio n Not available Not available Not available 12/09/2020 97620 8001 SNOMED KYM CUETO NP [address] [place], [address], [place] [facility] 10/01/202 1 20:37:16 [id number] erythromy maxwell medicatio n Not available Not available Not available 12/09/2020 4053 RxNorm KYM CUETO, [address], [place], [address], [place] [facility] 20:37:36 [id number] Avelox medicatio n Not available Not available Not available 12/09/2020 24203 6 RxNorm KYM CUETO, [address], [place], [address], [place] [facility] 20:37:44 [id number] Substance with sulfonami de structure and antibacte rial mechanism of action (substanc e) medicatio n Not available Not available Not available 12/09/2020 35753 8003 SNOMED KYM ROM, [address], [place], [address], [place] [facility] 20:37:52 608944 Product containin g 3-hydroxy -3-methyl glutaryl- coenzyme A reductase inhibitor (product) medicatio n Not available Not available Not available 12/09/2020 18295 009 SNOMED KYM CUETO, [address], [place], [address], [place] [facility] 20:37:59 190379 latex environme nt,medica tion Not available Not available Not available 12/09/2020 52941 91 RxNorm KYM ROM, [address], [place], [address], [place] [facility] 20:38:06 201668 Product containin g angiotens in-conver ting enzyme inhibitor (product) medicatio n Not available Not available Not available 12/09/2020 53916 009 SNOMED KYM CUETO, [address], [place], [address], [place] [facility] 20:38:17 Medications Name Sig Start Date Stop Date Status Note LastModified by Organization Details LastModified Time nystatin 100,000 unit/mL oral suspension SHAKE LIQUID AND TAKE 5 ML BY MOUTH FOUR TIMES DAILY FOR 7 DAYS 09/29 completed Not Available Not Available Not Available prednisone 10 mg tablet TAKE 1 TABLET BY MOUTH EVERY DAY FOR 14 DAYS active Not Available Not Available No t Available clindamycin HCl 300 mg capsule TAKE 1 CAPSULE BY MOUTH EVERY 6 HOURS FOR 7 DAYS 09/29 completed Not Available Not Available Not Available loperamide 2 mg capsule active Not Available Not Available Not Available alprazolam 1 mg tablet active Not Available Not Available Not Available hydrocodone 5 mg-acetamin ophen 325 mg tablet TAKE 1 TABLET BY MOUTH THREE TIMES DAILY NEEDED FOR SEVERE PAIN 09/29 completed Not Available Not Available Not Available sucralfate 100 mg/mL oral suspension active Not Available Not Available N ot Available prednisone 20 mg tablet 12/09 completed Not Available Not Available Not Available prednisone 5 mg tablet 12/09 completed Not Available Not Available Not Available diphenoxyla te-atropine 2.5 mg-0.025 mg tablet TAKE 1 TABLET BY MOUTH FOUR TIMES DAILY NEEDED FOR LOOSE STOOLS active Not Available Not Available No t Available levothyroxi ne 100 mcg tablet 09/29 completed Not Available Not Available Not Available famotidine 20 mg tablet TAKE 1 TABLET BY MOUTH DAILY active Not Available Not Available No t Available trazodone 100 mg tablet active Not Available Not Available Not Available dicyclomine 20 mg tablet active Not Available Not Available Not Available amlodipine 10 mg tablet active Not Available Not Available Not Available pantoprazol e 40 mg tablet,pardeep yed release 09/29 completed Not Available Not Available Not Available levothyroxi ne 125 mcg tablet active Not Available Not Available Not Available nystatin 100,000 unit/gram topical cream APPLY TO AFFECTED AREA TWICE DAILY FOR 7 DAYS active Not Available Not Available No t Available omeprazole 20 mg capsule,del ayed release active Not Available Not Available Not Available bisacodyl 5 mg tablet,pardeep yed release TAKE 4 TABLETS BY MOUTH AT 6PM THE DAY BEFORE COLONOSCO PY active Not Available Not Available No t Available hydrochloro thiazide 25 mg tablet 09/29 completed Not Available Not Available Not Available hydroxychlo roquine 200 mg tablet active Not Available Not Available No t Available polyethylen e glycol 3350 17 gram/dose oral powder MIX THE FULL CONTAINER WITH 64OZ OF GATORADE AND DRINK ALL THE NIGHT BEFORE COLONOSCO PY active Not Available Not Available No t Available albuterol sulfate HFA 90 mcg/actuati on aerosol inhaler INHALE 2 PUFFS BY MOUTH EVERY 4 TO 6 HOURS NEEDED FOR SHORTNESS OF BREATH OR WHEEZING active Not Available Not Available No t Available fluoxetine 20 mg capsule active Not Available Not Available Not Available olmesartan 20 mg tablet active Not Available Not Available Not Available duloxetine 30 mg capsule,del ayed release active Not Available Not Available Not Available duloxetine 60 mg capsule,del ayed release 09/29 completed Not Available Not Available Not Available [facility] 100,000 unit/gram topical powder APPLY TO THE AFFECTED AREA(S) BY TOPICAL ROUTE 2 TIMES PER DAY for 7 DAYS 09/29 completed Not Available Not Available Not Available aspirin active Not Available Not Avail able Not Available Readi-Cat 2 2 % (w/v) oral suspension PLEASE SEE ATTACHED FOR DETAILED DIRECTION S 09/29 completed Not Available Not Available Not Available Wixela Inhub 250 mcg-50 mcg/dose powder for inhalation active Not Available Not Available N ot Available Wixela Inhub 500 mcg-50 mcg/dose powder for inhalation INHALE 1 PUFF BY MOUTH TWICE DAILY FOR ASTHMA OR COPD active Not Available Not Available No t Available Vitals Date Recorded Heart rate Oxygen saturation Oxygen saturation in Arterial blood by Pulse oximetry Body temperature Respiratory rate Systolic blood pressure Diastolic blood pressure Provider Name and Address Organization Details Last Updated DateTime 1 90 /min 97 % 97 % 97.6 [degF] 18 /min 128 mm[Hg] 84 mm[Hg] Not Available [facility], [facility] 1 20:48:21 Date Recorded Heart rate Body temperature Oxygen saturation Oxygen saturation in Arterial blood by Pulse oximetry Respiratory rate Systolic blood pressure Diastolic blood pressure Provider Name and Address Organization Details Last Updated DateTime 2 88 /min 98.5 [degF] 95 % 95 % 18 /min 140 mm[Hg] 78 mm[Hg] Not Available [facility] 2 18:16:45 Date Recorded Heart rate Body temperature Respiratory rate Oxygen saturation Oxygen saturation in Arterial blood by Pulse oximetry Systolic blood pressure Diastolic blood pressure Provider Name and Address Organization Details Last Updated DateTime 2 92 /min 97.8 [degF] 18 /min 94 % 94 % 142 mm[Hg] 78 mm[Hg] Not Available [facility] 14:08:24 Social History Question Answer Notes LastModified by Organizat ion Details LastModified Time Tobacco Smoking Status Never Smoker KYM CUETO NP [address], [place], [address], [place] [facility] 12/09/2020 20:39:12 Do You Have An Advance Directive? No [email or web address] Information not available 12/09/2020 What Is Your Level Of Alcohol Consumption? None [email or web address] Information not available 12/09/2020 What Is Your Code Status? Full Code [email or web address] Information not available 12/09/2020 Within The Past 12 Months, Has It Happened That The Food You Bought Just Didn't Last And You Didn't Have Money To Get More. No [email or web address] Information not available 12/09/2020 Within The Past 12 Months, Have You Worried That Your Food Would Run Out Before You Got Money To Buy More. No [email or web address] Information not available 12/09/2020 Fall Risk: Do You Feel Unsteady When Standing Or Walking? No [email or web address] Information not available 12/09/2020 We Know That How And When People Interact With Friends And Family Can Be Very Different From Person To Person. How Often Do You Have The Opportunity To See Or Talk To People That You Care About And Feel Close To? (Ex: Talking To Friends On The Phone Or Visiting Friends Or Family Or Going To [employer] Or Club Meetings) 5 Or More Times Per Week [email or web address] Information not available 12/09/2020 Excessive Alcohol Or Drug Use No Information not available 12/09/2020 Does This Patient Have A PCP? Yes [email or web address] Information not available 12/09/2020 We Know From Many Of Our Patients That Covering All Of Their Costs Can Be Difficult At Times. This Can Cause Stress And Impact Health. In The Past Year, Have You Been Unable To Get Any Of The Following When It Was Really Needed? No [email or web address] Information not available 12/09/2020 What Is Your Housing Situation Today? I Have Housing [email or web address] Information not available 12/09/2020 Would You Like Help Connecting To Resources? None [email or web address] Information not available 12/09/2020 Do You Use Any Illicit Or Recreational Drugs? No [email or web address] Information not available 12/09/2020 Do You Or Have You Ever Used Any Other Forms Of Tobacco Or Nicotine? No [email or web address] Information not available 12/09/2020 Sex: Unknown Functional Status None recorded. Mental Status None recorded. Family History Relationship Description Onset Age of this Age Resolved Age Notes LastModified by Organization Details LastModified Time Father Malignant tumor of colon [email or web address] Not available 2020 20:38:47 Sister Malignant tumor of colon [email or web address] Not available 2020 20:38:47 Notes:brother has lung cance r, he is a smoker Medical History Condition Response Diabetes N Coronary Artery Disease N CHF N Parkinson's Disease N Cancer N Stroke Dementia N Asthma Y Hypothyroidism Y Depression Y COPD Y High Cholesterol N Rheumatoid Arthritis Pulmonary Embolism N Hypertension Y A-fib N Osteoporosis N Gynecological HistoryNo gynecological history recorded. Obstetrics History GPAL:G 0 P 0 0 0 0 Past Encounters Encounter ID Performer Location Encounter Start Date Encounter Closed Date Diagnosis/Indication Diagnosis SNOMED-CT Code Diagnosis ICD10 Code Diagnosis Note [id number] KYM CUETO NP [facility] [address] [place] [address] 12/09/2020 15:59:06 12/14/2020 17:15:29 Herpes zoster 7192602 B02.9 Candidiasis of mouth 797 [address]60[address] B37.0 [id number] VIOLET Olson [facility] [address] [place] [address] 09/29/2021 17:46:18 10/01/2021 17:32:36 Acute pharyngitis [id number] J02.9 Pt has had a very bad sore throat for past several days, no fever, chills, no swollen glands. no URI sx She is coughing, and believes the cough and her GERD are combining to irritate her throat.PE shows pharynx to be erythemato us, no tonsillar enlargemen t, no exudate. No lymphadeno devin. Rapid strep negative. ice chips (chickn broth ice cubes) follow up with your PCP. Hyponatremia [id number] E8 7.1 Pt had recent 6 day stay in [facility] for hyponatrem ia, treated with IVF and sts salt . her sodium went up as high as 137, she sts since she has been home is is going down, most recent test was 09/28/21 Na was 129. She has not had any recurrence of muscle twitching, cramping, confusion, she has not had seizures . She sts she did have a headache when she was admitted but that has dissipated . Given ED precaution s to Ms. Alonzo and her . Cough [id number] R05.3 currently being worked up for chronic GERD, she is only on famotidine at this time, protonix were just dc'd while in [facility] last week. cough is productive of clear light yellow sputum, no fever, chills. or other URI sxx. Chest xary in hospital 09/24/21 negative for pneumonia or evidence of mass. She is [id number] [facility] [address] [facility] [place] [address] 09/30/2021 13:35:48 10/01/2021 17:32:45 Chronic hyponatremia [id number] E87.1 Health Concerns Section Related Observation LastModified by Organization Detai ls LastModified Time None Recorded Concern Status LastModified by Organization Details LastModified Time None Recorded Advance Directives Directive N: Payers Encounter Date Sequence Insurance Name Policy Number Policy Bustos Covered Member ID Bustos Member ID Guarantor Name 12/09/2020 1 [place] [employer] Sharon A Clinton [id number] Sharon Alonzo 12/09/2020 2 [employer] OPTIONS (MEDICARE SUPPLEMENT) Sharon Alonzo [id number] Sharon Alonzo 09/29/2021 1 [place] [employer] Sharon A Alonzo [id number] Sharon Alonzo 09/30/2021 1 MEDICARE B-[place]: [facility] Sharon A Alonzo [id number] Sharon Alonzo Notes Date Note Type Note Provider Name and Address Organization Details Recorded Time 1 text/html 70 yo female who is new to and to this provider. 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 Patient endorses having history of shingles in same location as current rash above left eye. No shingles vaccine due to autoimmune myopathy. She states she is not feeling all over, Patient is was on prednisone PO for 10 months, recently completed steroid therapy three weeks ago. She states she first noticed the rash a couple of weeks ago; terribly itchy with occasional electric shock type pain. Endorses baseline vision is poor; extensive eye related PMHx. She states she contacted her PCPs office regarding current rash as well her infusion nurse who contacted for this appointment. Denies fever, endorses chills, headache all the time located over the left side; feels like lumps on her scalp, left sided electric shock pain, nothing makes it worse, tylenol and trazadone which helps her to sleep. denies sore throat, endorses chronic cough, denies any chest pain, palpitations, endorses chronic abdominal cramping associated with feeling of having to move her bowels, loss 15lbs over the last two months without trying; just have no appetite. KYM CUETO, SHON [address], [place], [address], [place] - [facility] 12/09/2020 22:09:59 2 text/html 5 days ago went for her infusions, had a reddened area on wrist and she was sent to [facility], who then sent to [facility] for ? cellulitis of left wrist, put on Clindamycin, she got diarrhea, headache, muscle cramping, and went to [facility] where she was noted to have hyponatremia, she was admitted. Treated with IVF and her huband thought salt pills . She also had colonoscopy for her diarrhea, which was ok. She was tested for C difficele, and was negative. She had no blood in stool, she had a couple of polypsthat were removed. She sts her sodium went up to 137, she felt improved until her chronic cough became worse while in the hospital. She sts she was coughing up green phlegm no fever, chills, no other URI sx. She has continued to cough, but the phlegm is a much drawing tracer color yellow / clear, continue to be afebrile. The cough is irritating her throat and it is worse because she has GERD and believe the acid is also bothering her throat. No swollen glands, no PND, no sinus congestion.She has had 3 covid tests, this past 2 weeks all were negative. She sts her temp at [facility] was 100.1 otherwise it is 99. her pulse ox is typically 100% on RA. She has had several COVID test all negative. chest xray negative on 09/24 her sodium was lowest 120, which is why she was admitted to [facility]. She went for labs yesterday and her Na was 127, when she was in hospital it was 137. She has been having saltines and tomato juice, She has inhalers, pro air and wexela. she has not used her proair since she got home.she will be seeing her clinical staff anesthesiologist on Saturday and her [employer] Counselor next week. VIOLTE Olson [address], [place], [address], [place] [facility] 09/29/2021 20:01:14 2 text/html 71 YO F new to provider [facility] she was set up for follow up by another provider for a lab drawShe has has low sodium requiring hospitalizations in the pastShe recently had her Na level checked and apparently 129 w/o sx's. Her PCP is aware and she was seen by us yesterday where she discussed this with our provider Genevieve Solorio PA-C who seems to have set her up for follow up blood draw today as a courtesy.Patient continues to not have symptoms and she feels overall well today. She continues to eat high sodium diet.No other complaints today, no weakness, no numbness/tingling, no ataxic gait, no headache, no abd pain, no NVD, no tremors. She has never had seizures. No other complaints today. She is very happy we are here today. VIOLET Mcgregor [address], [place], [address], [place] [facility] 09/30/2021 15:13:30 OBGyn Episode No OBEpisode recorded.
--- OUTSIDE RECORDS SUMMARY | 2024-05-12 17:36 | XMS_ITS | Data Portability ---
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 Physical exam unrevealing aside from a small dilated vessel on the right anterior septum. Nasal endoscopy reveals expected postsurigcal changes without polypoid regrowth. Suspect allergic rhinitis. Recommend fluticasone. Offered cautery but patient prefers to avoid. Recommend saline spray, gel, and bedside humidifier. Return next available with Dr. Perez; discussed if her symptoms have advanced or failed to improve, interventions that day might include cautery, repeat endoscopy, and/or CT sinus. Discussed that allergy testing may prove illuminating. [email or web address] Not available 04/01/2024 14:46:33 Plan of Treatment Reminders Order Date Submit Date Provider Last Modified By Organization Details Last Modified Time Details Appointments Establish ed 15 2024 08:30A M KRISTI COYLE MD Not available Not available Not available Lab None recorded. Referral None recorded. Procedures None recorded. Surgeries None recorded. Imaging None recorded. Medication Orders fluticaso ne propionat e 50 mcg/actua tion nasal spray,tuan pension 2024 025 [id number], [address], [place], [id number], 04/01/2024 14:24:08 Patient TargetsNo targets recorded. Patient InstructionsNo instructions recorded. Reason for Referral None Reported. Problems Name Problem SNOMED Code Status Onset Date Resolution Date Notes Provider Name and Address Organization Details Recorded Time Disorder of muscle 404094233 Active 2020 Other specified disorders of muscle; Note: Date Diagnosed: 07/20/2020 11:12 AM (M62.89) Not Available [facility] 4 02:31:14 Nasal polyp Active 2014 Nasal polyps: Polyp of nasal cavity; Note: Date Diagnosed: 03/31/2014 11:12 AM (471.0) Not Available [facility] 4 02:31:10 Dysphonia 71423054 Active 2016 Other voice and resonance disorders; Note: Date Diagnosed: 05/24/2016 5:22 PM (R49.8) Not Available [facility] 4 02:30:55 Finding of resonance of voice 587830449 Active 2016 Other voice and resonance disorders; Note: Date Diagnosed: 05/24/2016 5:22 PM (R49.8) Not Available [facility] 4 02:30:55 Gastroeso phageal reflux disease without esophagit is 393058953 Active 2015 Gastro-eso phageal reflux disease without esophagiti s; Note: Date Diagnosed: 11/02/2015 12:09 PM (K21.9) Not Available [facility] 4 02:31:12 Anxiety disorder 127973256 Active 2014 Transient mental disorders due to conditions classified elsewhere: Anxiety disorder in conditions classified elsewhere; Note: Date Diagnosed: 03/31/2014 11:12 AM (293.84) Not Available [facility] 4 02:31:05 Chronic pharyngit is 916490 Active 2014 Chronic pharyngiti s and nasopharyn gitis: Chronic pharyngiti s; Note: Date Diagnosed: 03/31/2014 11:12 AM (472.1) Not Available [facility] 4 02:31:03 Chronic rhinitis 97917611 Active 2016 Chronic rhinitis; Note: Date Diagnosed: 01/09/2017 5:17 PM (J31.0) Not Available [facility] 4 02:30:57 Polyp of nasal cavity 975495805 Active 2015 Polyp of nasal cavity; Note: Date Diagnosed: 11/02/2015 12:09 PM (J33.0) Not Available [facility] 4 02:31:10 Glossitis 06291988 Active 2014 Glossitis; Note: Date Diagnosed: 05/31/2014 10:50 AM (529.0) Not Available [facility] 4 02:31:11 Headache 98258530 Active 2016 Facial pain NOS; Note: Date Diagnosed: 01/09/2017 2:08 PM (R51) Not Available [facility] 4 02:30:57 Arthralgi a of temporoma ndibular joint 46858906 Active 2015 Arthralgia of temporoman dibular joint; Note: Date Diagnosed: 11/02/2015 11:10 AM (M26.62) Not Available [facility] 4 02:31:12 Allergic rhinitis 54839767 Active 2024 JOSÉ BLAIR PA-C [address] [place] [address], [phone] , [place] [facility] 14:47:05 Problem Notes None recorded. Procedures Surgical History Date Name Laterality Status Provider Name and Address Organization Details Recorded Time 04/01/19 Nasal Endoscopy completed JOSÉ BLAIR PA-C [address] [place] [address], [phone], [place] [facility] 04/01/2024 14:25:03 Hysterectomy completed Kaylynn Moctezuma [place] - [facility] 04/01/2024 14:00:27 cholecystectomy completed Kaylynn Moctezuma [place] [facility] 04/01/2024 14:00:34 arthroscopy of knee completed Kaylynn Moctezuma [place] [facility] 04/01/2024 14:01:28 biopsy of breast completed Kaylynn Moctezuma [place] [facility] 04/01/2024 14:01:39 total knee replacement completed Kaylynn Moctezuma [place] [facility] 04/01/2024 14:01:47 Imaging Results None recorded. Procedure Notes None recorded. Medical Equipment None Reported. Allergies Allergen ID Allergen Name Allergen Category Reaction Reaction Severity Criticality Documentation Date Start Date Code Code System Note Provider Name and Address Organization Details Recorded Time 52279 Product containin g angiotens in-conver ting enzyme inhibitor (product) medicatio n other Not available Not available 07/23/2023 52873 009 SNOMED React ion: Unkno wn; Not Available [facility] 4 00:53:39 24641 moxifloxa maxwell medicatio n other Not available Not available 07/23/2023 74088 2 RxNorm React ion: unkno wn, unspe cifie d;; Not Available [facility] 4 00:53:40 91363 erythromy maxwell ethylsucc inate medicatio n other Not available Not available 07/23/2023 4056 RxNorm React ion: unkno wn, unspe cifie d;; Not Available [facility] 4 00:53:44 33986 penicilli n V potassium medicatio n other Not available Not available 07/23/2023 68822 5 RxNorm React ion: unkno wn, unspe cifie d;; Not Available [facility] 4 00:53:47 09340 Product containin g 3-hydroxy -3-methyl glutaryl- coenzyme A reductase inhibitor (product) medicatio n other Not available Not available 07/23/2023 91610 009 SNOMED React ion: unkno wn, unspe cifie d;; Not Available [facility] 4 00:53:52 05432 Substance with sulfonami de structure and antibacte rial mechanism of action (substanc e) medicatio n other Not available Not available 07/23/2023 29116 8003 SNOMED React ion: unkno wn, unspe cifie d;; Not Available [facility] 4 00:53:53 Medications Name Sig Start Date Stop Date Status Note LastModified by Organization Details LastModified Time fluoxetin e 40 mg capsule 05/04 completed Medicati on ID: [id number] Du ration Value: 30 Reason: () Brand Name: fluoxeti ne Send Method: E-Prescr ibed Sub s Allowed: subs OK Speci al Instruct ion: TAKE 1 CAPSULE BY MOUTH ONCE A DAY Medi cationGe nericNam e: fluoxeti ne Not Available Not Available Not Available latanopro st 0.005 % eye drops 07/20 completed Medicati on ID: [id number] B rand Name: latanopr ost Send Method: E-Prescr ibed Sub s Allowed: subs OK Medic ationGen ericName : latanopr ost Not Available Not Available Not Available atorvasta tin 80 mg tablet 05/04 completed Medicati on ID: [id number] R yinka: () Brand Name: atorvast atin Sen d Method: E-Prescr ibed Sub s Allowed: subs OK Medic ationGen ericName : atorvast atin Not Available Not Available Not Available trazodone 50 mg tablet 05/04 completed Medicati on ID: [id number] Du ration Value: 30 Reason: () Brand Name: trazodon e Send Method: E-Prescr ibed Sub s Allowed: subs OK Speci al Instruct ion: TAKE 1 TABLET BY MOUTH AT BEDTIME Medicati onGeneri cName: trazodon e Not Available Not Available Not Available alprazola m 1 mg tablet 04/01 completed Medicati on ID: [id number] B rand Name: alprazol am Send Method: E-Prescr ibed Sub s Allowed: subs OK Medic ationGen ericName : alprazol am Not Available Not Available Not Available benzonata te 200 mg capsule TAKE 1 CAPSULE BY MOUTH THREE TIMES DAILY FOR 7 DAYS active Not Available Not Available No t Available sucralfat e 100 mg/mL oral suspensio n SHAKE AND TAKE 10 ML BY MOUTH TWICE A DAY FOR 2 WEEKS 04/01 completed Not Available Not Available Not Available famotidin e 40 mg tablet Take 1 tablet every day by oral route. active Not Available Not Available No t Available prednison e 20 mg tablet TAKE 2 TABLETS BY MOUTH DAILY FOR 5 DAYS 04/01 completed Not Available Not Available Not Available alendrona te 70 mg tablet 05/04 completed Medicati on ID: [id number] Du ration Value: 84 Reason: () Brand Name: alendron ate Send Method: E-Prescr ibed Sub s Allowed: subs OK Medic ationGen ericName : alendron ate Not Available Not Available Not Available metronida zole 500 mg tablet TAKE 1 TABLET BY MOUTH THREE TIMES DAILY FOR 14 DAYS 04/01 completed Not Available Not Available Not Available amlodipin e 5 mg tablet 07/20 completed Medicati on ID: [id number] D uration Value: 90 Brand Name: amlodipi ne Send Method: E-Prescr ibed Sub s Allowed: subs OK Medic ationGen ericName : amlodipi ne Not Available Not Available Not Available levothyro xine 25 mcg tablet 05/04 completed Medicati on ID: [id number] R yinka: () Brand Name: levothyr oxine Se nd Method: E-Prescr ibed Sub s Allowed: subs OK Medic ationGen ericName : levothyr oxine Not Available Not Available Not Available levothyro xine 75 mcg tablet 07/20 completed Medicati on ID: [id number] D uration Value: 90 Brand Name: levothyr oxine Se nd Method: E-Prescr ibed Sub s Allowed: subs OK Medic ationGen ericName : levothyr oxine Not Available Not Available Not Available alprazola m 0.5 mg tablet 05/04 completed Medicati on ID: [id number] Du ration Value: 30 Reason: () Brand Name: alprazol am Send Method: E-Prescr ibed Sub s Allowed: subs OK Speci al Instruct ion: TAKE 1 TABLET BY MOUTH 3 TIMES A DAY Medi cationGe nericNam e: alprazol am Not Available Not Available Not Available hydromorp radha 2 mg tablet TAKE 1 TABLET BY MOUTH EVERY 4 HOURS NEEDED FOR PAIN 04/01 completed Not Available Not Available Not Available trazodone 100 mg tablet active Medicati on ID: [id number] B rand Name: trazodon e Send Method: E-Prescr ibed Sub s Allowed: subs OK Medic ationGen ericName : trazodon e Not Available Not Available Not Available dicyclomi ne 20 mg tablet TAKE 1 TABLET BY MOUTH THREE TIMES DAILY NEEDED FOR ABDOMINA L PAIN 04/01 completed Not Available Not Available Not Available amlodipin e 10 mg tablet Take 1 tablet every day by oral route. active Not Available Not Available No t Available flunisoli de 25 mcg (0.025 %) nasal spray 07/20 completed Medicati on ID: [id number] B rand Name: flunisol kelvin Send Method: E-Prescr ibed Sub s Allowed: subs OK Medic ationGen ericName : flunisol kelvin Not Available Not Available Not Available pantopraz ole 40 mg tablet,de layed release TAKE 1 TABLET BY MOUTH DAILY active Not Available Not Available No t Available oseltamiv ir 75 mg capsule active Not Available Not Available Not Available levothyro xine 125 mcg tablet active Medicati on ID: [id number] B rand Name: levothyr oxine Se nd Method: E-Prescr ibed Sub s Allowed: subs OK Medic ationGen ericName : levothyr oxine Not Available Not Available Not Available omeprazol e 20 mg capsule,d elayed release 07/20 completed Medicati on ID: [id number] B rand Name: omeprazo le Send Method: E-Prescr ibed Sub s Allowed: subs OK Medic ationGen ericName : omeprazo le Not Available Not Available Not Available pravastat in 20 mg tablet 05/04 completed Medicati on ID: [id number] Du ration Value: 90 Reason: () Brand Name: pravasta tin Send Method: E-Prescr ibed Sub s Allowed: subs OK Medic ationGen ericName : pravasta tin Not Available Not Available Not Available lorazepam 1 mg tablet TAKE 1 TABLET BY MOUTH AT BEDTIME NEEDED FOR ANXIETY OR SLEEP 04/01 completed Not Available Not Available Not Available zolpidem 10 mg tablet TAKE 1 TABLET BY MOUTH DAILY AT BEDTIME active Not Available Not Available No t Available multivita min capsule 07/20 completed Medicati on ID: [id number] B rand Name: multivit callahan Sen d Method: E-Prescr ibed Sub s Allowed: subs OK Medic ationGen ericName : multivit callahan Not Available Not Available Not Available fluoxetin e 20 mg capsule 07/20 completed Medicati on ID: [id number] B rand Name: fluoxeti ne Send Method: E-Prescr ibed Sub s Allowed: subs OK Medic ationGen ericName : fluoxeti ne Not Available Not Available Not Available fluticaso ne propionat e 50 mcg/actua tion nasal spray,tuan pension 2 sprays each nostril once a day 2024 active Not Available Not Available Not Avai lable olmesarta n 20 mg tablet active Medicati on ID: [id number] B rand Name: olmesart an Send Method: E-Prescr ibed Sub s Allowed: subs OK Medic ationGen ericName : olmesart an Not Available Not Available Not Available Fish Oil 120 mg-180 mg capsule 07/20 completed Medicati on ID: [id number] B rand Name: Fish Oil Send Method: E-Prescr ibed Sub s Allowed: subs OK Medic ationGen ericName : Fish Oil Not Available Not Available Not Available Spiriva with HandiHale r 18 mcg and inhalatio n capsules 07/20 completed Medicati on ID: [id number] B rand Name: Spiriva with HandiHal er Send Method: E-Prescr ibed Sub s Allowed: subs OK Medic ationGen ericName : Spiriva with HandiHal er Not Available Not Available Not Available duloxetin e 30 mg capsule,d elayed release 07/20 completed Medicati on ID: [id number] B rand Name: duloxeti ne Send Method: E-Prescr ibed Sub s Allowed: subs OK Medic ationGen ericName : duloxeti ne Not Available Not Available Not Available duloxetin e 60 mg capsule,d elayed release 04/01 completed Medicati on ID: [id number] B rand Name: duloxeti ne Send Method: E-Prescr ibed Sub s Allowed: subs OK Medic ationGen ericName : duloxeti ne Not Available Not Available Not Available gabapenti n 100 mg tablet Take 1 tablet 3 times a day by oral route. active Not Available Not Available No t Available ProAir HFA 90 mcg/actua tion aerosol inhaler 07/20 completed Medicati on ID: [id number] Du ration Value: 16 Brand Name: ProAir HFA Send Method: E-Prescr ibed Sub s Allowed: subs OK Medic ationGen ericName : ProAir HFA Not Available Not Available Not Available quetiapin e 50 mg tablet 05/04 completed Medicati on ID: [id number] R yinka: () Brand Name: quetiamatt ne Send Method: E-Prescr ibed Sub s Allowed: subs OK Medic ationGen ericName : quetiapi ne Not Available Not Available Not Available Symbicort 160 mcg-4.5 mcg/actua tion HFA aerosol inhaler 07/20 completed Medicati on ID: [id number] Du ration Value: 90 Brand Name: Symbicor t Send Method: E-Prescr ibed Sub s Allowed: subs OK Medic ationGen ericName : Symbicor t Not Available Not Available Not Available Calcium 600 + D(3) 600 mg-10 mcg (400 unit) tablet 07/20 completed Medicati on ID: [id number] B rand Name: Calcium 600 + D(3) Sen d Method: E-Prescr ibed Sub s Allowed: subs OK Medic ationGen ericName : Calcium 600 + D(3) Not Available Not Available Not Available Vitamin D3 125 mcg (5,000 unit) tablet 07/20 completed Medicati on ID: [id number] B rand Name: Vitamin D3 Send Method: E-Prescr ibed Sub s Allowed: subs OK Medic ationGen ericName : Vitamin D3 Not Available Not Available Not Available Probiotic (B. coagulans ) 10 billion cell capsule,d elayed release 07/20 completed Medicati on ID: [id number] B rand Name: Probioti c (B. coagulan s) Send Method: E-Prescr ibed Sub s Allowed: subs OK Medic ationGen ericName : Probioti c (B. coagulan s) Not Available Not Available Not Available metoprolo l succinate ER 25 mg capsule sprinkle, ext. release 24 hr Take 1 capsule every day by oral route. active Not Available Not Available No t Available Wixela Inhub 250 mcg-50 mcg/dose powder for inhalatio n active Medicati on ID: [id number] B rand Name: Wixela Inhub Se nd Method: E-Prescr ibed Sub s Allowed: subs OK Medic ationGen ericName : Frankie Stanley Not Available Not Available Not Available Vitals Date Recorded Body height Body weight Provider Name and Address Organization Details Last Updated DateTime 04/01/2024 149.86 cm 50742.89 g Kaylynn Moctezuma [place] [facility] 04/01/2024 13:57:31 Social History None recorded. Functional Status None recorded. Mental Status None recorded. Family History Nothing Reported. Medical History Condition Response Anemia Y Arthritis Y Anxiety Y Migraines Y Stroke Thyroid Problems Y Hypertension Y Depression Y Asthma Y Gynecological HistoryNo gynecological history recorded. Obstetrics History GPAL:G 0 P 0 0 0 0 Past Encounters Encounter ID Performer Location Encounter Start Date Encounter Closed Date Diagnosis/Indication Diagnosis SNOMED-CT Code Diagnosis ICD10 Code Diagnosis Note [id number] JOSÉ BLAIR PA-C [facility] [address] [address] 04/01/2024 13:45:57 04/01/2024 14:30:05 Polyp of nasal cavity 792213433 J33.0 Allergic rhinitis 327604 04 J30.9 Health Concerns Section Related Observation LastModified by Organization Detai ls LastModified Time None Recorded Concern Status LastModified by Organization Details LastModified Time None Recorded Advance Directives Directive None Recorded Payers Encounter Date Sequence Insurance Name Policy Number Policy Bustos Covered Member ID Bustos Member ID Guarantor Name 04/01/2024 1 MEDICARE B-MI: [employer] Sharon Alonzo [id number] Sharon Alonzo Notes Date Note Type Note Provider Name and Address Organization Details Recorded Time 04/01/2024 text/html 46 year old fema puja with history of polypectomy multiple times presents after long hiatus from the practice for evaluation of nasal itching ongoing for the past several months. Went to urgent care twice but they didn't know what it was. Then she developed swelling at the top of the nose on the left side. Started sneezing a lot, developed nasal congestion, a little blood from the nose. She does not take any sprays nor irrigations. Still seeing some blood on the tissue when she blows the nose. JOSÉ BLAIR PA-C [address] [place] [address], [phone], [facility] - [facility] 04/01/2024 14:47:35 OBGyn Episode No OBEpisode recorded.
--- OUTSIDE RECORDS SUMMARY | 2024-05-12 17:37 | XMS_ITS | Patient Health Record ---
Author Organization [facility] Address [address] [place] [address] Care Team Providers Care Band Saw Operator Name Role Phone Samm Steward MD Primary Care Provider Maria linda Elise Santos Unavailable [phone] AlexNora Unavailable [phone] Shantelle Linda Unavailable [phone] Allergies Allergen (clinical drug ingredient) Drug/Non Drug [...] Penicillin nausea Drug Allergy Active Substance with 3-lzneyrs-3-methylgl utaryl-coenzyme A reductase inhibitor mechanism of action (substance) Statins muscle problems, elevated CPK Drug Allergy Active Substance with sulfonamide structure and antibacterial mechanism of action (substance) Sulfa Antibiotics coughing, wheezing, shortness of breath Drug Allergy Active Tegaderm skin irritation, blisters Allergy Active Reason For Referral No Information Medications Medication SIG (Take, Route, Frequency, Duration) Notes Start Date End Date Status Famotidine 20 MG 1 tablet at bedtime as needed Orally Once a day for 30 day(s) Active IVIg Infusions Active FLUoxetine HCl 20 MG 1 capsule Orally On ce a day for 30 day(s) Active Ammonium Lactate 12 % 1 application Externally to affected areas of dry skin to feet except for between the toes Twice a day for 30 days Active amLODIPine Besylate 10 MG 1 tablet Orall y Once a day for 30 day(s) Active Wixela Inhub 500-50 MCG/ACT 1 puff Inhalation Twice a day Active ALPRAZolam 1 MG 1 tablet Orally Twic e a day Active traZODone HCl 100 MG 1 tablet at bedtime Orally Once a day for 30 day(s) Active Ammonium Lactate 12 % 1 application to affected area Externally Twice a day to dry areas of skin on feet for 30 days Active ProAir HFA 108 (90 Base) MCG/ACT 1 puff as needed Inhalation every 4 hrs Active Pantoprazole Sodium 40 MG 1 tablet Orall y Once a day for 30 day(s) Active Olmesartan Medoxomil 20 MG 1 tablet Orally Once a day for 30 day(s) Active Lidocaine-Prilocaine 2.5-2.5 % as directed Externally Activ e Levothyroxine Sodium 112 MCG 1 tablet in the morning on an empty stomach Orally Once a day for 30 day(s) Active Social History Tobacco Use: Social History Observation Description Date Details (start date - stop date) Never Smoker NA - NA Tobacco Use/Smoking Question Answer Notes Are you a: nonsmoker Additional Findings: Tobacco Non-User Current no n-smoker Alcohol Screen Question Answer Notes Did you have a drink containing alcohol in the p ast year? No Points 0 Interpretation Negative Tobacco use other than smoking: Question Answer Notes Are you an other tobacco user? No Problems Problem Type SNOMED Code ICD Code Onset Dates Problem Status W/U Status Risk Notes Problem Plantar wart (80694438) Plantar wart (B07.0) Active confirmed Vital Signs Blood pressure diastolic 70 mm Hg 04/24/2024 Height 2fx44uv in 04/24/2024 Blood pressure systolic 125 mm Hg 04/24/2024 Weight 145 lbs 04/24/2024 BMI 29.28 kg/m2 04/24/2024 Encounters Encounter Location Date Provider Diagnosis [facility] [place] [address] [place] [address] 04/24/2024 Nora Johnson Xerosis of skin L85.3 Assessments Encounter Date Diagnosis (ICD Code) Assessment Notes Treatment Notes Treatment Clinical Notes Section Notes 04/24/2024 Xerosis of skin (ICD-10 - L85.3) Plan Of Treatment No Information Insurance Providers Payer Name Payer Address Payer Phone Subscriber Number Group Number Insured Name Patient Relationship to Insured Coverage Start Date Coverage End Date Medicare National [employer] [address] [place] [address] [id number] Sharon Alonzo Self - patient is the insured AARP Secondary to Medicare [address] [place] [address] [id number] Sharon Alonzo Self - patient is the insured Medical (General) History Medical History History ICD Code Anemia Anxiety asthma Back,Hip,and Knee pain Depression Diverticulosis Headaches/Migraines Hiatal hernia High blood pressure Numbness Reflux ( GERD) chronic sinusitis Stroke thyroid Warts Measles Mumps Chicken pox Infusions Surgical History Surgery Date(Month/Year) hysterectomy, total with bilateral salpi chaudhary-oophorectomy (BSO) 11/04/2006 gall bladder, stones 04/09/2006 colonoscopy 09/26/2021 Benign Salivary Gland Tumor 02/27/2005 Bladder Nk Suspe w/P-V Sling 11/22/2009 nasal polypectomy/chronic sinusitis, mul tiple 01/23/2011 arthroscopic knee surgery, right 1973 ganglion cyst excision, left index finge r 02/13/2013 endoscopy 2x 10/04/2021, 03/01/20 16 Stent for cerebral aneurysm 12/17/2016 cataract surgery, left eye 10/02/2011 cataract surgery, right eye 11/14/2011 Posterior Capsulotomy, right eye 013 Posterior Capsulotomy, left eye 06/18/19 14 Hospitalization History Reason Date(Month/Year) [facility]- flu 05/05 TIA, Aneurysm - [facility] 09/23/2016 Diverticulitis, Polymyositis - [facility] 02/17
[2024-05-12 18:08] LABS: Troponin-I High Sensitivity 17.6 ng/L (<3.5-17.0)
[2024-05-12 20:35] VITALS: BP 152/88; PULSE 92; RESP 18; TEMP 36.7; O2SAT 97
[2024-05-12 21:52] VITALS: BP 156/81; PULSE 102; RESP 20; TEMP 36.6; O2SAT 96
[2024-05-12] MEDS: iohexoL 350 MG/ML 100 ML INFUS..BTL 85 ML IV (23:16)
[2024-05-12 23:54] VITALS: BP 143/80; PULSE 91; RESP 16; TEMP 36.7; O2SAT 99
[2024-05-13 01:51] VITALS: BP 157/85; PULSE 114; RESP 16; TEMP 36.6; O2SAT 95
[2024-05-13 02:07] VITALS: BP 157/85; PULSE 114; RESP 16; TEMP 36.6; O2SAT 95
== END 2024-05-13 02:08 | disposition home or self-care (01) ==
PROVIDERS: Emergency Medicine; Physician Assistant Medical; Emergency Provider Emergency Medicine Emergency Medical Services; PCP Family Medicine
DX: S20.211A Contusion of right front wall of thorax, initial encounter (principal); R10.9 Unspecified abdominal pain; R07.81 Pleurodynia; K59.00 Constipation, unspecified; R10.2 Pelvic and perineal pain; X58.XXXA Exposure to other specified factors, initial encounter; Y93.9 Activity, unspecified; Y92.9 Unspecified place or not applicable; Y99.9 Unspecified external cause status; Z79.899 Other long term (current) drug therapy
CPT/HCPCS: 36415; 71101; 74177; 80048; 80076; 83690; 83735; 84484; 85025; 93005; 99284; Q9967

== ENCOUNTER → 2024-05-12 13:25 | Outpatient (BNV) | payer MEDICARE, SELFPAY | PROVIDERS: PCP Family Medicine; Visit Provider Radiology Diagnostic Radiology | DX: R10.9 Unspecified abdominal pain (principal); S22.31XA Fracture of one rib, right side, initial encounter for closed fracture | CPT/HCPCS: 71101 ==

== ENCOUNTER → 2024-05-12 13:25 | Outpatient (BNV) | payer MEDICARE, SELFPAY | PROVIDERS: PCP Family Medicine; Visit Provider Internal Medicine Cardiovascular Disease | DX: I45.19 Other right bundle-branch block (principal); R94.31 Abnormal electrocardiogram [ECG] [EKG] | CPT/HCPCS: 93010 ==

== ENCOUNTER 2024-05-14 13:26 | Outpatient (REF) | payer MEDICARE, SELFPAY ==
[2024-05-14 13:43] LABS: MANUAL DIFF FLAG NO
[2024-05-14 14:36] LABS: Basophils Percent Auto 0.7 % (0-2); Eosinophils Absolute Auto 0.1 X10*3/uL (0.0-0.4); Eosinophils Percent Auto 1.1 % (0-4); Hemoglobin 11.1 g/dl (12.0-16.0); Imm Gran Abs Auto 0.03 X10*3/uL (0.00-0.03); Imm Gran Pct Auto 0.5 % (0.0-0.4); Lymphocytes Absolute Auto 1.9 X10*3/uL (1.2-4.9); Lymphocytes Percent Auto 34.7 % (20-40); Mean Corpuscular HGB Conc 31.7 g/dl (31.0-35.0); Mean Corpuscular Hemoglobin 26.9 pg (27.0-33.0); Mean Platelet Volume 9.1 fL (9.4-12.3); Monocytes Absolute Auto 0.4 X10*3/uL (0.1-1.2); Monocytes Percent Auto 6.9 % (2-11); Neutrophils Absolute Auto 3.1 x10*3/uL (2.0-8.3); Neutrophils Percent Auto 56.1 % (45-73); Platelet Count 257 X10*3/uL (160-400); Red Blood Count 4.12 X10*6/uL (4.20-5.50); Red Cell Distribution Width 14.8 % (11.0-16.0); White Blood Count 5.5 X10*3/uL (4.8-10.8)
[2024-05-14 14:53] LABS: Appearance Urine Clear; Color Urine Yellow; Glucose Urine UA Negative (Negative); Leukocyte Esterase Urine Negative (Negative); Nitrite Urine Negative (Negative); PH 5.5 (5.0-9.0); Specific Gravity - Urine <= 1.005 (1.005-1.025); Urine Blood Negative (Negative); Urine Ketones Negative (Negative); Urine Protein Negative (Neg-Trace)
[2024-05-14 15:23] LABS: Alanine Aminotransferase 21 U/L (0-31); Alkaline Phosphatase 79 U/L (39-117); Anion Gap 13 (12-20); Aspartate Amino Transferase 31 U/L (5-31); Bilirubin Total 0.4 mg/dL (0.0-1.0); Blood Urea Nitrogen 12 mg/dL (9-16); C Reactive Protein < 0.10 mg/dL (< or = 0.50); Calcium 9.2 mg/dL (8.4-10.2); Carbon Dioxide 26 mmol/L (22-29); Chloride 101 mmol/L (96-108); Estimated Glomerular Filt Rate 46; Glucose Random 121 mg/dL (60-115); Potassium 3.4 mmol/L (3.3-5.1); Sodium 137 mmol/L (135-145); Total Protein 8.1 g/dL (6.5-8.0)
[2024-05-14 16:00] LABS: CDiff Gene PCR NEGATIVE (Negative)
--- OUTSIDE RECORDS SUMMARY | 2024-05-14 16:23 | XMS_ITS | Patient Health Record ---
[facility] Address [address] [place] [address] Care Team Providers Care Muffle Operator Name Role Phone Samm Steward MD Primary Care Provider Maria linda Elise Santos Unavailable [phone] AlexNora Unavailable [phone] Shantelle Linda Unavailable [phone] Allergies Allergen (clinical drug ingredient) Drug/Non Drug [...] Penicillin nausea Drug Allergy Active Substance with 8-dtsbjcq-7-methylgl utaryl-coenzyme A reductase inhibitor mechanism of action [...] W/U Status Risk Notes Problem Plantar wart (33408040) Plantar wart (B07.0) Active confirmed Vital Signs Blood pressure diastolic 70 mm Hg 04/24/2024 Height 5ml23fb in 04/24/2024 Blood pressure systolic 125 mm Hg 04/24/2024 Weight 145 lbs 04/24/2024 BMI 29.28 kg/m2 04/24/2024 Encounters Encounter Location Date Provider Diagnosis [facility] [address] [place] [address] 04/24/2024 Nora Johnson Xerosis of skin L85.3 [...] Medicare National [employer] [address] [place] [address] [id number] Sharon Alonzo Self - patient is the insured [employer] Secondary to Medicare [address] [place] [address] [id number] Sharon Alonzo Self - patient is the [...]
--- OUTSIDE RECORDS SUMMARY | 2024-05-14 16:23 | XMS_ITS | Clinical Summary ---
Author Organization [facility] Facility Address [address] [place] [address] Care Team Providers Care Multigraph Operator Name Role Phone Unavailable Primary Care Provider [...] age to complete this topic Insurance MEDICARE [facility] MEDICARE [facility]
--- OUTSIDE RECORDS SUMMARY | 2024-05-14 16:23 | XMS_ITS | Data Portability ---
Author Organization [place] - [facility] Address [address] [address] Care Team Providers Care Faculty Criminal Justice Name Role Phone HORACIO OCHOA Primary Care [...] mcg/actua tion nasal spray,tuan pension 2024 025 [employer] [id number], [address] [place], [place], [id number], 04/01/2024 14:24:08 Patient TargetsNo targets recorded. Patient InstructionsNo instructions recorded. Reason for Referral None Reported. Problems Name Problem SNOMED Code Status Onset Date Resolution Date Notes Provider Name and Address Organization Details Recorded Time Disorder of muscle 521215396 Active 2020 Other specified disorders of muscle; Note: Date Diagnosed: 07/20/2020 11:12 AM (M62.89) Not Available [facility] 4 02:31:14 Nasal polyp Active 2014 Nasal polyps: Polyp of nasal cavity; Note: Date Diagnosed: 03/31/2014 11:12 AM (471.0) Not Available [facility] 4 02:31:10 Dysphonia 34731552 Active 2016 Other voice and resonance disorders; Note: Date Diagnosed: 05/24/2016 5:22 PM (R49.8) Not Available [facility] 4 02:30:55 Finding of resonance of voice 212012601 Active 2016 Other voice and resonance disorders; Note: Date Diagnosed: 05/24/2016 5:22 PM (R49.8) Not Available [facility] 4 02:30:55 Gastroeso phageal reflux disease without esophagit is 460086367 Active 2015 Gastro-eso phageal reflux disease without esophagiti s; Note: Date Diagnosed: 11/02/2015 12:09 PM (K21.9) Not Available [facility] 4 02:31:12 Anxiety disorder 278875505 Active 2014 Transient mental disorders due to conditions classified elsewhere: Anxiety disorder in conditions classified elsewhere; Note: Date Diagnosed: 03/31/2014 11:12 AM (293.84) Not Available [facility] 4 02:31:05 Chronic pharyngit is 882581 Active 2014 Chronic pharyngiti s and nasopharyn gitis: Chronic pharyngiti s; Note: Date Diagnosed: 03/31/2014 11:12 AM (472.1) Not Available [facility] 4 02:31:03 Chronic rhinitis 31358970 Active 2016 Chronic rhinitis; Note: Date Diagnosed: 01/09/2017 5:17 PM (J31.0) Not Available [facility] 4 02:30:57 Polyp of nasal cavity 836510313 Active 2015 Polyp of nasal cavity; Note: Date Diagnosed: 11/02/2015 12:09 PM (J33.0) Not Available [facility] 4 02:31:10 Glossitis 36650479 Active 2014 Glossitis; Note: Date Diagnosed: 05/31/2014 10:50 AM (529.0) Not Available [facility] 4 02:31:11 Headache 53976616 Active 2016 Facial pain NOS; Note: Date Diagnosed: 01/09/2017 2:08 PM (R51) Not Available [facility] 4 02:30:57 Arthralgi a of temporoma ndibular joint 61643130 Active 2015 Arthralgia of temporoman dibular joint; Note: Date Diagnosed: 11/02/2015 11:10 AM (M26.62) Not Available [facility] 4 02:31:12 Allergic rhinitis 79395344 Active 2024 JOSÉ BLAIR PA-C [address] [place] [address], [address] , [place] - [facility] 14:47:05 Problem Notes None recorded. Procedures Surgical History Date Name Laterality Status Provider Name and Address Organization Details Recorded Time 04/01/19 Nasal Endoscopy completed JOSÉ BLAIR PA-C [address] [place] [address], [phone], [place] - [facility] 04/01/2024 14:25:03 Hysterectomy completed Kaylynn Moctezuma [place] - [facility] 04/01/2024 14:00:27 cholecystectomy completed Kaylynn Moctezuma [place] - [facility] 04/01/2024 14:00:34 arthroscopy of knee completed Kaylynn Moctezuma [place] - [facility] 04/01/2024 14:01:28 biopsy of breast completed Kaylynn Moctezuma [place] - [facility] 04/01/2024 14:01:39 total knee replacement completed Kaylynn Moctezuma [place] - [facility] 04/01/2024 14:01:47 Imaging Results None recorded. Procedure Notes None recorded. Medical Equipment None Reported. Allergies Allergen ID Allergen Name Allergen Category Reaction Reaction Severity Criticality Documentation Date Start Date Code Code System Note Provider Name and Address Organization Details Recorded Time 05836 Product containin g angiotens in-conver ting enzyme inhibitor (product) medicatio n other Not available Not available 07/23/2023 04427 009 SNOMED React ion: Unkno wn; Not Available [facility] 4 00:53:39 02621 moxifloxa maxwell medicatio n other Not available Not available 07/23/2023 01482 2 RxNorm React ion: unkno wn, unspe cifie d;; Not Available [facility] 4 00:53:40 82934 erythromy maxwell ethylsucc inate medicatio n other Not available Not available 07/23/2023 4056 RxNorm React ion: unkno wn, unspe cifie d;; Not Available [facility] 4 00:53:44 49305 penicilli n V potassium medicatio n other Not available Not available 07/23/2023 45185 5 RxNorm React ion: unkno wn, unspe cifie d;; Not Available [facility] 4 00:53:47 17207 Product containin g 3-hydroxy -3-methyl glutaryl- coenzyme A reductase inhibitor (product) medicatio n other Not available Not available 07/23/2023 46623 009 SNOMED React ion: unkno wn, unspe cifie d;; Not Available [facility] 4 00:53:52 61903 Substance with sulfonami de structure and antibacte rial mechanism of action (substanc e) medicatio n other Not available Not available 07/23/2023 25450 8003 SNOMED React ion: unkno wn, unspe cifie d;; Not Available [facility] 4 00:53:53 Medications Name Sig Start Date Stop Date Status Note LastModified by Organization Details LastModified Time fluoxetin e 40 mg capsule 05/04 completed Medicati on ID: [id number] Du ration Value: 30 Reason: () Brand Name: fluoxeti ne Send Method: E-Prescr ibed Sub s Allowed: subs OK Speci al Instruct ion: TAKE 1 CAPSULE BY MOUTH ONCE A DAY Medi cationGe nericNam e: fluoxeti ne Not Available Not Available Not Available latanopro st 0.005 % eye drops 07/20 completed Medicati on ID: [id number] B rand Name: latanopr ost Send Method: E-Prescr ibed Sub s Allowed: subs OK Medic ationGen ericName : latanopr ost Not Available Not Available Not Available atorvasta tin 80 mg tablet 05/04 completed Medicati on ID: [id number] R yinka: () Brand Name: atorvast atin Sen d Method: E-Prescr ibed Sub s Allowed: subs OK Medic ationGen ericName : atorvast atin Not Available Not Available Not Available trazodone 50 mg tablet 05/04 completed Medicati on ID: [id number] Du ration Value: 30 Reason: () Brand Name: trazodon e Send Method: E-Prescr ibed Sub s Allowed: subs OK Speci al Instruct ion: TAKE 1 TABLET BY MOUTH AT BEDTIME Medicati onGeneri cName: trazodon e Not Available Not Available Not Available alprazola m 1 mg tablet 04/01 completed Medicati on ID: [id number] B rand Name: alprazol am Send Method: [...] mg tablet 05/04 completed Medicati on ID: [id number] Du ration Value: 84 Reason: () Brand [...] mg tablet 07/20 completed Medicati on ID: [id number] D uration Value: 90 Brand Name: amlodipi ne Send Method: E-Prescr ibed Sub s Allowed: subs OK Medic ationGen ericName : amlodipi ne Not Available Not Available Not Available levothyro xine 25 mcg tablet 05/04 completed Medicati on ID: [id number] R yinka: () Brand Name: levothyr oxine Se nd Method: E-Prescr ibed Sub s Allowed: subs OK Medic ationGen ericName : levothyr oxine Not Available Not Available Not Available levothyro xine 75 mcg tablet 07/20 completed Medicati on ID: [id number] D uration Value: 90 Brand Name: levothyr oxine Se nd Method: E-Prescr ibed Sub s Allowed: subs OK Medic ationGen ericName : levothyr oxine Not Available Not Available Not Available alprazola m 0.5 mg tablet 05/04 completed Medicati on ID: [id number] Du ration Value: 30 Reason: () Brand [...] 100 mg tablet active Medicati on ID: [id number] B rand Name: trazodon e Send Method: [...] nasal spray 07/20 completed Medicati on ID: 138251 B rand Name: flunisol kelvin Send Method: [...] 125 mcg tablet active Medicati on ID: 285310 B rand Name: levothyr oxine Se nd Method: E-Prescr ibed Sub s Allowed: subs OK Medic ationGen ericName : levothyr oxine Not Available Not Available Not Available omeprazol e 20 mg capsule,d elayed release 07/20 completed Medicati on ID: 204188 B rand Name: omeprazo le Send Method: E-Prescr ibed Sub s Allowed: subs OK Medic ationGen ericName : omeprazo le Not Available Not Available Not Available pravastat in 20 mg tablet 05/04 completed Medicati on ID: [id number] Du ration Value: 90 Reason: () Brand [...] min capsule 07/20 completed Medicati on ID: [id number] B rand Name: multivit callahan Sen d Method: E-Prescr ibed Sub s Allowed: subs OK Medic ationGen ericName : multivit callahan Not Available Not Available Not Available fluoxetin e 20 mg capsule 07/20 completed Medicati on ID: [id number] B rand Name: fluoxeti ne Send Method: E-Prescr ibed Sub s Allowed: subs OK Medic ationGen ericName : fluoxeti ne Not Available Not Available Not Available fluticaso ne propionat e 50 mcg/actua tion nasal spray,tuan pension 2 sprays each nostril once a day 2024 active Not Available Not Available Not Avai lable olmesarta n 20 mg tablet active Medicati on ID: [id number] B rand Name: olmesart an Send Method: E-Prescr ibed Sub s Allowed: subs OK Medic ationGen ericName : olmesart an Not Available Not Available Not Available Fish Oil 120 mg-180 mg capsule 07/20 completed Medicati on ID: 495273 B rand Name: Fish Oil Send Method: E-Prescr ibed Sub s Allowed: subs OK Medic ationGen ericName : Fish Oil Not Available Not Available Not Available Spiriva with HandiHale r 18 mcg and inhalatio n capsules 07/20 completed Medicati on ID: 509408 B rand Name: Spiriva with HandiHal er Send Method: E-Prescr ibed Sub s Allowed: subs OK Medic ationGen ericName : Spiriva with HandiHal er Not Available Not Available Not Available duloxetin e 30 mg capsule,d elayed release 07/20 completed Medicati on ID: [id number] B rand Name: duloxeti ne Send Method: E-Prescr ibed Sub s Allowed: subs OK Medic ationGen ericName : duloxeti ne Not Available Not Available Not Available duloxetin e 60 mg capsule,d elayed release 04/01 completed Medicati on ID: [id number] B rand Name: duloxeti ne Send Method: E-Prescr ibed Sub s Allowed: subs OK Medic ationGen ericName : duloxeti ne Not Available Not Available Not Available gabapenti n 100 mg tablet Take 1 tablet 3 times a day by oral route. active Not Available Not Available No t Available ProAir HFA 90 mcg/actua tion aerosol inhaler 07/20 completed Medicati on ID: [id number] Du ration Value: 16 Brand Name: ProAir HFA Send Method: E-Prescr ibed Sub s Allowed: subs OK Medic ationGen ericName : ProAir HFA Not Available Not Available Not Available quetiapin e 50 mg tablet 05/04 completed Medicati on ID: 254102 R yinka: () Brand Name: quetiamatt ne Send Method: E-Prescr ibed Sub s Allowed: subs OK Medic ationGen ericName : quetiapi ne Not Available Not Available Not Available Symbicort 160 mcg-4.5 mcg/actua tion HFA aerosol inhaler 07/20 completed Medicati on ID: [id number] Du ration Value: 90 Brand Name: Symbicor t Send Method: E-Prescr ibed Sub s Allowed: subs OK Medic ationGen ericName : Symbicor t Not Available Not Available Not Available Calcium 600 + D(3) 600 mg-10 mcg (400 unit) tablet 07/20 completed Medicati on ID: [id number] B rand Name: Calcium 600 + D(3) Sen d Method: E-Prescr ibed Sub s Allowed: subs OK Medic ationGen ericName : Calcium 600 + D(3) Not Available Not Available Not Available Vitamin D3 125 mcg (5,000 unit) tablet 07/20 completed Medicati on ID: [id number] B rand Name: Vitamin D3 Send Method: E-Prescr ibed Sub s Allowed: subs OK Medic ationGen ericName : Vitamin D3 Not Available Not Available Not Available Probiotic (B. coagulans ) 10 billion cell capsule,d elayed release 07/20 completed Medicati on ID: [id number] B rand Name: Probioti c (B. coagulan [...] for inhalatio n active Medicati on ID: 656349 B rand Name: Wixela Inhub Se nd Method: E-Prescr ibed Sub s Allowed: subs OK Medic ationGen ericName : Frankie Stanley Not Available Not Available Not Available Vitals Date Recorded Body height Body weight Provider Name and Address Organization Details Last Updated DateTime 04/01/2024 149.86 cm 87500.89 g Kaylynn Moctezuma [place] - [facility] 04/01/2024 13:57:31 Social History None recorded. Functional [...] SNOMED-CT Code Diagnosis ICD10 Code Diagnosis Note [id number] JOSÉ BLAIR PA-C [facility] [address] [address] 04/01/2024 13:45:57 04/01/2024 14:30:05 Polyp of nasal cavity 981943667 J33.0 Allergic rhinitis 167495 04 J30.9 Health Concerns Section Related Observation LastModified by Organization Detai ls LastModified Time None Recorded Concern Status LastModified by Organization Details LastModified Time None Recorded Advance Directives Directive None Recorded Payers Encounter Date Sequence Insurance Name Policy Number Policy Bustos Covered Member ID Bustos Member ID Guarantor Name 04/01/2024 1 MEDICARE B-PR: [employer] Sharon Alonzo [id number] Sharon Alonzo Notes Date Note Type [...] she blows the nose. JOSÉ BLAIR PA-C [address] [place] [address], [address], [facility] - [facility] 04/01/2024 14:47:35 OBGyn Episode No OBEpisode recorded.
--- OUTSIDE RECORDS SUMMARY | 2024-05-14 16:23 | XMS_ITS ---
Author Organization [facility] Address [address] [place] [address] Care Team Providers Care Online Marketing Specialist Name Role Phone Samm Steward MD Primary Care Provider Unava ilable Black, Elise Unavailable [phone] Nora Johnson Unavailable [phone] Allergies Allergen (clinical drug ingredient) Drug/Non Drug [...] Penicillin nausea Drug Allergy Active Substance with 4-zploova-3-methylgl utaryl-coenzyme A reductase inhibitor mechanism of action [...] W/U Status Risk Notes Problem Plantar wart (97130986) Plantar wart (B07.0) Active confirmed Vital Signs Height 1pf54jf in 04/24/2024 Weight 145 lbs 04/24/2024 BMI 29.28 kg/m2 04/24/2024 Blood pressure systolic 125 mm Hg 04/24/19 25 Blood pressure diastolic 70 mm Hg 025 Encounters Encounter Location Date Provider Diagnosis [facility] [address] [place] [address] 04/24/2024 Nora Johnson Xerosis of skin L85.3 [...] Sharon ALONZO ADOB: [birth year] (73 yo F)Acc No.[id number]:04/24/2024 Progress Note Patient:?Sharon ALONZO Provider:?Nora Johnson DPM :1950???Age:73 Y???Sex:Female D ate:04/24/2024 Address:[address] [place], [place] [address] Pcp:Samm Steward MD Subjective: * Chief Complaints: [...] ?Exercise: no. ?Marital status: . ?Occupation: retired, [employer]. * Medications:?TakingWixela In hub 500-50 MCG/ACT Aerosol [...] diarrhea, upset stomachyes[Allergies Verified] Objective: * Vitals:?Ht: 5va91pd, Wt:145, BMI:29.28, Shoe size: 6.5, BP:125/70mm Hg, [...] patient to call the office.?Consult:?Pt sees a Rotary Veneer Machine Operator, I recommend pt speak with her Rotary Veneer Machine Operator as well about her chronic dry skin, [...] Johnson DPM Date:? Generated for Cookie brown/Gaviota/Brandon on:?05/14/2024 04:23 PM EST History and Physical Notes * [...]
--- OUTSIDE RECORDS SUMMARY | 2024-05-14 16:23 | XMS_ITS ---
Author Organization [facility] Address [address] [place] [address] Care Team Providers Care Combination Building Inspector Name Role Phone Nichelle CHAVEZ, Samm Primary Care Provider Unava ilable Black, Elise Unavailable [phone] Shantelle Linda [phone] Fishman Encounters Encounter Location Date Provider Diagnosis [facility] [address] [place] [address] 04/16/2024 Shantelle Linda Plan Of Treatment No Information Progress Notes * Sharon ALONZO ADOB: [birth year] (74 yo F)Acc No.[id number]:04/16/2024 Progress Note Patient:?Sharon ALONZO Provider:?Shantelle Linda DPM :1950???Age:73 Y???Sex:Female D ate:04/16/2024 Address:[address] [place], [place] [address] Pcp:Samm Steward MD Subjective: * Chief Complaints: [...] DPM Date:?0 04/16/2024 Generated for Cookie brown/Gaviota/eTransmitting on:?05/14/2024 04:23 PM EST
== END 2024-05-14 13:27 | disposition home or self-care (01) ==
LOC: HO.LAB 13:26
PROVIDERS: PCP Family Medicine; Visit Provider Internal Medicine Gastroenterology
DX: R19.7 Diarrhea, unspecified (principal); K75.81 Nonalcoholic steatohepatitis (NASH); R30.0 Dysuria; G72.9 Myopathy, unspecified; K55.9 Vascular disorder of intestine, unspecified
CPT/HCPCS: 80053; 81003; 85025; 86140; 87493

== ENCOUNTER 2024-05-20 | Outpatient (REF) | payer MEDICARE, SELFPAY ==
[2024-05-21 12:46] LABS: CDiff Gene PCR NEGATIVE (Negative)
--- OUTSIDE RECORDS SUMMARY | 2024-05-21 14:33 | XMS_ITS | Clinical Summary ---
Author Organization [facility] Address [address] [place] [id number] Care Team Providers Care Motorcycle Delivery Driver Name Role Phone Unavailable Primary Care Provider [...] age to complete this topic Insurance MEDICARE [facility] MEDICARE [facility]
[2024-05-21 15:16] LABS: Adenovirus F 40/41 Not Detected (Not Detect.); Astrovirus Not Detected (Not Detect.); Campylobacter Not Detected (Not Detect.); Cryptosporidium Not Detected (Not Detect.); Cyclospora cayetanensis Not Detected (Not Detect.); E. coli EAEC Not Detected (Not Detect.); E. coli EPEC Not Detected (Not Detect.); E. coli ETEC Not Detected (Not Detect.); E. coli STEC Not Detected (Not Detect.); Entamoeba histolytica Not Detected (Not Detect.); Giardia lamblia Not Detected (Not Detect.); Norovirus GI/GII Not Detected (Not Detect.); Plesiomonas shigelloides Not Detected (Not Detect.); Rotavirus A Not Detected (Not Detect.); Salmonella Not Detected (Not Detect.); Sapovirus Not Detected (Not Detect.); Shigella sp./EIEC Not Detected (Not Detect.); Vibrio Not Detected (Not Detect.); Vibrio Cholerae Not Detected (Not Detect.); Yersinia enterocolitica Not Detected (Not Detect.)
== END 2024-05-20 00:01 | disposition home or self-care (01) ==
LOC: HO.LNP
PROVIDERS: Visit Provider Internal Medicine Gastroenterology
DX: R19.7 Diarrhea, unspecified (principal)
CPT/HCPCS: 87493; 87507

== ENCOUNTER 2024-05-21 10:55 | Outpatient (AMB) | payer MEDICARE, SELFPAY ==
[2024-05-21 11:08] VITALS: BP 120/68; PULSE 85; O2SAT 98; BMI 29.4
--- NOTE | 2024-05-21 11:08 | A.OFFVIS_ITS ---
Vital Signs 05/21/24 11:08 Height 4 ft 11 in Weight 145 lb 8.081 oz BMI 29.4 BP 120/68 Blood Pressure Location Lt brachial Position Sitting Pulse 85 Pulse Source Pulse Oximeter Pulse Oximetry (%) 98 Oxygen Delivery Method Room Air Intake Visit Reasons: Cough Intake Note: pt is here for follow up and states the breathing is good, had 2 chest x-rays, but is dealing with a very bad gerd cough Fiscal Technician Required: No Allergies latex [LATEX] Allergy (Intermediate, Verified 05/21/24 11:24) RASH Sulfa (Sulfonamide Antibiotics) [SULFA (SULFONAMIDE ANTIBIOTICS)] Allergy (Intermediate, Verified 05/21/24 11:24) HIVES, coughing, wheezing, breathing moxifloxacin [From AVELOX] Allergy (Unknown, Verified 05/21/24 11:24) HIVES penicillin G [Penicillin G] Allergy (Unknown, Verified 05/21/24 11:24) UPSET STOMACH Rvgfbvz-UNY-WhE Reductase Inhibitor [WIKSAFA-OBL-NAW REDUCTASE INHIBITOR] Allergy (Unknown, Verified 05/21/24 11:24) MUSCLE CRAMPS Medication List - Last Reconciled 05/21/24 by Erin Correa MD albuterol sulfate 90 mcg/actuation (ProAir HFA) 2 puffs inhalation QID amlodipine 10 mg PO DAILY dicyclomine 20 mg PO TID PRN diphenoxylate-atropine 2.5-0.025 mg (Lomotil) 1 tab PO BID PRN duloxetine 30 mg PO DAILY famotidine 40 mg PO BEDTIME fluticasone propion-salmeterol 250-50 mcg/dose (Wixela Inhub) 1 inh inhalation BID 90 days gabapentin 100 mg PO DAILY levothyroxine 112 mcg PO DAILY lorazepam (Ativan) 1 mg PO BEDTIME PRN metoprolol succinate ER 25 mg PO DAILY metronidazole 500 mg PO TID 14 days olmesartan 40 mg PO DAILY ondansetron 4 mg PO Q8H PRN pantoprazole 40 mg PO DAILY trazodone 100 mg PO BEDTIME zolpidem 10 mg PO BEDTIME PRN Do you need a note to return to daycare/school/sports/work: No HPI HPI Cough: Details: THIS 74 YEARS OLD FEMALE IS HERE FOR FOLLOW-UP AFTER 4 MONTHS. HER MAIN COMPLAINT IS FREQUENT COUGH WHICH IS MOSTLY RELATED TO GERD SYMPTOMS. SHE HAS LONGSTANDING HISTORY OF IRRITABLE BOWEL SYNDROME AND GERD SYMPTOMS. SHE IS FOLLOWING WITH DR. ROCHE THE GI SPECIALIST, AND IS ON PROTONIX WELL FAMOTIDINE 40 MG ON A REGULAR BASIS. STILL GETS INTERMITTENT SYMPTOMS OF GERD WHICH PRODUCES COUGH MOSTLY NONPRODUCTIVE. HAS OCCASIONAL FEELING OF CHEST CONGESTION WITH WHEEZING, OVERALL IT IS CONTROLLED WITH USE OF WIXELA. SHE USES ALBUTEROL ONLY ONCE IN A WHILE . SHE IS SOMEWHAT SAD TODAY BECAUSE OF SOME FAMILY ISSUES. AND I HAD A GOOD TALK WITH HER TO CHEER HER UP . [facility] Medical History Hemoptysis Allergic rhinitis GERD (gastroesophageal reflux disease) Thyroid disease HTN (hypertension) Bundle branch block EMG syndrome Trigger finger, left index finger Cough Myopathy Obesity (BMI 30-39.9) Asthma Dyspnea on exertion Surgical History Hx of hysterectomy Hx of cerebral aneurysm repair Hx of total knee replacement History of bone marrow biopsy History of laryngoscopy Hx of nasal polypectomy Hx of cholecystectomy Hx of colonoscopy History of esophagogastroduodenoscopy (EGD) Family History Father Colon cancer Sister Colon cancer Social History Patient Tobacco Use Status: Former Tobacco user Tobacco use type: Cigarette Years Smoked: 10 years Review of Systems Const All systems reviewed & are unremarkable except as noted in HPI and below Reports body aches (MILD ) and Reports fatigue (MILD) Eyes Reports no additional complaints ENT Reports no additional complaints Card Denies chest pain, Denies irregular heart rhythm and Denies dyspnea on exertion Resp Reports cough (OCCASIONAL , MILD ), Denies dyspnea on exertion and Denies wheezing GI Reports no additional complaints Reports no additional complaints Musc Reports myalgias (MILD TO MODERATE ) and Reports muscle weakness (CHRONIC , MILD ) Skin/Breast Reports system reviewed and no additional complaints, except as documented Neuro Reports no additional complaints Psych Reports anxiety (WORRIED ABOUT ALL HER MEDICAL PROBLEMS ) Endo Reports fatigue (MILD) Aller/Immun Denies wheezing Physical Exam Vital Signs: Last Vital Signs Pulse 85 05/21/24 11:08 BP 120/68 05/21/24 11:08 Pulse Ox 98 05/21/24 11:08 Oxygen Delivery Method Room Air 05/21/24 11:08 BMI result Body Mass Index 29.4 Const General: comfortable, no acute distress, alert and awake Orientation/consciousness: patient oriented x3 HEENT Head: Yes normal to inspection General nose exam: No nasal polyps present, No nasal discharge present and Other nasal findings present (MILD NASAL CONGESTION NOTED) Face and sinus: Yes sinuses nontender Mouth: oropharynx normal Throat: Yes posterior oropharynx normal Eyes General: appearance normal, both eyes and all related structures Neck Neck: Yes normal visual inspection, Yes no lymphadenopathy, Yes trachea midline and Yes no JVD Thyroid: Thyroid normal Chest Chest palpation & inspection: normal inspection of the chest, normal palpation of entire chest wall and no tenderness Resp Other: Percussion note is resonant, breath sounds slightly distant with prolonged expiratory phase. There are no wheezes , rhonchi or crepitations. Cardio Palpation: normal PMI Rate: regular rate Rhythm: regular rhythm Heart sounds: no gallops and no murmurs Peripheral pulses: Peripheral pulses 2+ throughout GI Palpation (GI): Soft to palpation, nontender, No hepatosplenomegaly present and no masses Auscultation: normal bowel sounds Back/Spine/Pelvis Thoracic/Lumbar Spine: thoracic and lumbar spine normal to inspection Skin General skin exam: no rashes or lesions noted Neuro General: patient oriented x3 and no focal motor deficits Cranial nerves: Yes CN's II-XII intact bilaterally Extrem General: Yes normal to inspection, Yes no clubbing, cyanosis or edema and Yes no calf tenderness Psych Appearance: grossly normal and well kempt Speech and movement: Normal speech and movement present Assessment & Plan Assessment & Plan (1) Asthma: Comment: PER SPIROMETRY SHE DOES HAVE EVIDENCE OF BRONCHIAL ASTHMA/COPD ,MODERATELY SEVERE . REMAINS UNDER CONTROL AND STABLE. Code(s): J45.909 - Unspecified asthma, uncomplicated Category: Medical Plan: CONTINUE TO USE WIXELA 250-51 INHALATION B.I.D.. NEW PRESCRIPTION IS SENT. TO PHARMACY ALBUTEROL HFA 2 PUFFS Q 6 HOURS ONLY P.R.N. (2) Cough: Comment: COUGH IS SEC. TO GERD AND REACTIVE AIRWAYS . IT GETS FLARED UP EVERY NOW AND THEN ESPECIALLY WITH THE AT CHANGE IN THE WEATHER. Code(s): R05.9 - Cough, unspecified Category: Medical Plan: CONTINUE TO USE WIXELA, WELL ANTI GERD MEDS. (3) Allergic rhinitis: Comment: She does have intermittent nasal congestion with some postnasal drip., but it is not bothersome. Code(s): J30.9 - Allergic rhinitis, unspecified Category: Medical Plan: Does not need to use any decongestant on a regular basis Medications: Refilled fluticasone propion-salmeterol 250-50 mcg/dose (Wixela Inhub) 1 inh inhalation BID 3 ea 3RF ASTHMA/COUGH 90 days Coding Level of Care Code Est Pt Level 3 (88198) Diagnoses Asthma J45.909 Cough R05.9 Allergic rhinitis J30.9
--- OUTSIDE RECORDS SUMMARY | 2024-05-21 14:01 | XMS_ITS | Clinical Summary ---
Author Organization [facility] Facility Address [address] [place] [address] Care Team Providers Care Trim Machine Operator Name Role Phone Unavailable Primary Care [...] age to complete this topic Insurance MEDICARE [facility]
--- OUTSIDE RECORDS SUMMARY | 2024-05-21 14:01 | XMS_ITS | Data Portability ---
Author Organization [place] [facility], Allergy Address [address] [address] Care Team Providers Care Assistant Center Manager Name Role Phone HORACIO OCHOA Primary Care Provider [phone] Assessment Encounter Date Assessment Date Assessment LastModified [...] mcg/actua tion nasal spray,tuan pension 2024 025 [id number], [address] [place], [place], [id number], 04/01/2024 14:24:08 Patient TargetsNo targets recorded. Patient InstructionsNo instructions recorded. Reason for Referral None Reported. Problems Name Problem SNOMED Code Status Onset Date Resolution Date Notes Provider Name and Address Organization Details Recorded Time Disorder of muscle 816817997 Active 2020 Other specified disorders of muscle; Note: Date Diagnosed: 07/20/2020 11:12 AM (M62.89) Not Available [facility] 4 02:31:14 Nasal polyp Active 2014 Nasal polyps: Polyp of nasal cavity; Note: Date Diagnosed: 03/31/2014 11:12 AM (471.0) Not Available [facility] 4 02:31:10 Dysphonia 91457836 Active 2016 Other voice and resonance disorders; Note: Date Diagnosed: 05/24/2016 5:22 PM (R49.8) Not Available [facility] 4 02:30:55 Finding of resonance of voice 676314188 Active 2016 Other voice and resonance disorders; Note: Date Diagnosed: 05/24/2016 5:22 PM (R49.8) Not Available [facility] 4 02:30:55 Gastroeso phageal reflux disease without esophagit is 342719743 Active 2015 Gastro-eso phageal reflux disease without esophagiti s; Note: Date Diagnosed: 11/02/2015 12:09 PM (K21.9) Not Available [facility] 4 02:31:12 Anxiety disorder 308541378 Active 2014 Transient mental disorders due to conditions classified elsewhere: Anxiety disorder in conditions classified elsewhere; Note: Date Diagnosed: 03/31/2014 11:12 AM (293.84) Not Available [facility] 4 02:31:05 Chronic pharyngit is 555302 Active 2014 Chronic pharyngiti s and nasopharyn gitis: Chronic pharyngiti s; Note: Date Diagnosed: 03/31/2014 11:12 AM (472.1) Not Available [facility] 4 02:31:03 Chronic rhinitis 77452553 Active 2016 Chronic rhinitis; Note: Date Diagnosed: 01/09/2017 5:17 PM (J31.0) Not Available [facility] 4 02:30:57 Polyp of nasal cavity 769270088 Active 2015 Polyp of nasal cavity; Note: Date Diagnosed: 11/02/2015 12:09 PM (J33.0) Not Available [facility] 4 02:31:10 Glossitis 84564014 Active 2014 Glossitis; Note: Date Diagnosed: 05/31/2014 10:50 AM (529.0) Not Available [facility] 4 02:31:11 Headache 37854496 Active 2016 Facial pain NOS; Note: Date Diagnosed: 01/09/2017 2:08 PM (R51) Not Available [facility] 4 02:30:57 Arthralgi a of temporoma ndibular joint 50734379 Active 2015 Arthralgia of temporoman dibular joint; Note: Date Diagnosed: 11/02/2015 11:10 AM (M26.62) Not Available [facility] 4 02:31:12 Allergic rhinitis 95758518 Active 2024 JOSÉ BLAIR PA-C [address] [place] [address], [phone] , [place] [facility] 14:47:05 Problem Notes None recorded. Procedures Surgical History Date Name Laterality Status Provider Name and Address Organization Details Recorded Time 04/01/19 Nasal Endoscopy completed JOSÉ BLAIR PA-C [address] [place] [address], [phone], [place] [facility] 04/01/2024 14:25:03 Hysterectomy completed Kaylynn Moctezuma [place] - [facility] 04/01/2024 14:00:27 cholecystectomy completed Kaylynn Moctezuma [place] [facility] 04/01/2024 14:00:34 arthroscopy of knee completed Kaylynn Moctezuma [place] [facility] 04/01/2024 14:01:28 biopsy of breast completed Kaylynn Moctezuma [place] - [facility] 04/01/2024 14:01:39 total knee replacement completed Kaylynn Moctezuma [place] [facility] 04/01/2024 14:01:47 Imaging Results None recorded. Procedure Notes None recorded. Medical Equipment None Reported. Allergies Allergen ID Allergen Name Allergen Category Reaction Reaction Severity Criticality Documentation Date Start Date Code Code System Note Provider Name and Address Organization Details Recorded Time 59842 Product containin g angiotens in-conver ting enzyme inhibitor (product) medicatio n other Not available Not available 07/23/2023 35324 009 SNOMED React ion: Unkno wn; Not Available [facility] 4 00:53:39 15178 moxifloxa maxwell medicatio n other Not available Not available 07/23/2023 19045 2 RxNorm React ion: unkno wn, unspe cifie d;; Not Available [facility] 4 00:53:40 92042 erythromy maxwell ethylsucc inate medicatio n other Not available Not available 07/23/2023 4056 RxNorm React ion: unkno wn, unspe cifie d;; Not Available [facility] 4 00:53:44 30371 penicilli n V potassium medicatio n other Not available Not available 07/23/2023 73838 5 RxNorm React ion: unkno wn, unspe cifie d;; Not Available [facility] 4 00:53:47 93339 Product containin g 3-hydroxy -3-methyl glutaryl- coenzyme A reductase inhibitor (product) medicatio n other Not available Not available 07/23/2023 74982 009 SNOMED React ion: unkno wn, unspe cifie d;; Not Available [facility] 4 00:53:52 14665 Substance with sulfonami de structure and antibacte rial mechanism of action (substanc e) medicatio n other Not available Not available 07/23/2023 75949 8003 SNOMED React ion: unkno wn, unspe cifie d;; Not Available [facility] 4 00:53:53 Medications Name Sig Start Date Stop Date Status Note LastModified by Organization Details LastModified Time fluoxetin e 40 mg capsule 05/04 completed Medicati on ID: [id number] Du ration Value: 30 Reason: () Brand Name: fluoxeti ne Send Method: E-Prescr ibed Sub s Allowed: subs OK Speci al Instruct ion: TAKE 1 CAPSULE BY MOUTH ONCE A DAY Medi cationGe nericNam e: fluoxeti ne Not Available Not Available Not Available latanopro st 0.005 % eye drops 07/20 completed Medicati on ID: [id number] B rand Name: latanopr ost Send Method: E-Prescr ibed Sub s Allowed: subs OK Medic ationGen ericName : latanopr ost Not Available Not Available Not Available atorvasta tin 80 mg tablet 05/04 completed Medicati on ID: [id number] R yinka: () Brand Name: atorvast atin Sen d Method: E-Prescr ibed Sub s Allowed: subs OK Medic ationGen ericName : atorvast atin Not Available Not Available Not Available trazodone 50 mg tablet 05/04 completed Medicati on ID: [id number] Du ration Value: 30 Reason: () Brand Name: trazodon e Send Method: E-Prescr ibed Sub s Allowed: subs OK Speci al Instruct ion: TAKE 1 TABLET BY MOUTH AT BEDTIME Medicati onGeneri cName: trazodon e Not Available Not Available Not Available alprazola m 1 mg tablet 04/01 completed Medicati on ID: [id number] B rand Name: alprazol am Send Method: [...] mg tablet 05/04 completed Medicati on ID: [id number] Du ration Value: 84 Reason: () Brand [...] mg tablet 07/20 completed Medicati on ID: [id number] D uration Value: 90 Brand Name: amlodipi ne Send Method: E-Prescr ibed Sub s Allowed: subs OK Medic ationGen ericName : amlodipi ne Not Available Not Available Not Available levothyro xine 25 mcg tablet 05/04 completed Medicati on ID: [id number] R yinka: () Brand Name: levothyr oxine Se nd Method: E-Prescr ibed Sub s Allowed: subs OK Medic ationGen ericName : levothyr oxine Not Available Not Available Not Available levothyro xine 75 mcg tablet 07/20 completed Medicati on ID: [id number] D uration Value: 90 Brand Name: levothyr oxine Se nd Method: E-Prescr ibed Sub s Allowed: subs OK Medic ationGen ericName : levothyr oxine Not Available Not Available Not Available alprazola m 0.5 mg tablet 05/04 completed Medicati on ID: [id number] Du ration Value: 30 Reason: () Brand [...] 100 mg tablet active Medicati on ID: [id number] B rand Name: trazodon e Send Method: [...] nasal spray 07/20 completed Medicati on ID: [id number] B rand Name: flunisol kelvin Send Method: [...] 125 mcg tablet active Medicati on ID: [id number] B rand Name: levothyr oxine Se nd Method: E-Prescr ibed Sub s Allowed: subs OK Medic ationGen ericName : levothyr oxine Not Available Not Available Not Available omeprazol e 20 mg capsule,d elayed release 07/20 completed Medicati on ID: [id number] B rand Name: omeprazo le Send Method: E-Prescr ibed Sub s Allowed: subs OK Medic ationGen ericName : omeprazo le Not Available Not Available Not Available pravastat in 20 mg tablet 05/04 completed Medicati on ID: [id number] Du ration Value: 90 Reason: () Brand [...] min capsule 07/20 completed Medicati on ID: [id number] B rand Name: multivit callahan Sen d Method: E-Prescr ibed Sub s Allowed: subs OK Medic ationGen ericName : multivit callahan Not Available Not Available Not Available fluoxetin e 20 mg capsule 07/20 completed Medicati on ID: 134392 B rand Name: fluoxeti ne Send Method: E-Prescr ibed Sub s Allowed: subs OK Medic ationGen ericName : fluoxeti ne Not Available Not Available Not Available fluticaso ne propionat e 50 mcg/actua tion nasal spray,tuan pension 2 sprays each nostril once a day 2024 active Not Available Not Available Not Avai lable olmesarta n 20 mg tablet active Medicati on ID: [id number] B rand Name: olmesart an Send Method: E-Prescr ibed Sub s Allowed: subs OK Medic ationGen ericName : olmesart an Not Available Not Available Not Available Fish Oil 120 mg-180 mg capsule 07/20 completed Medicati on ID: [id number] B rand Name: Fish Oil Send Method: E-Prescr ibed Sub s Allowed: subs OK Medic ationGen ericName : Fish Oil Not Available Not Available Not Available Spiriva with HandiHale r 18 mcg and inhalatio n capsules 07/20 completed Medicati on ID: [id number] B rand Name: Spiriva with HandiHal er Send Method: E-Prescr ibed Sub s Allowed: subs OK Medic ationGen ericName : Spiriva with HandiHal er Not Available Not Available Not Available duloxetin e 30 mg capsule,d elayed release 07/20 completed Medicati on ID: [id number] B rand Name: duloxeti ne Send Method: E-Prescr ibed Sub s Allowed: subs OK Medic ationGen ericName : duloxeti ne Not Available Not Available Not Available duloxetin e 60 mg capsule,d elayed release 04/01 completed Medicati on ID: [id number] B rand Name: duloxeti ne Send Method: E-Prescr ibed Sub s Allowed: subs OK Medic ationGen ericName : duloxeti ne Not Available Not Available Not Available gabapenti n 100 mg tablet Take 1 tablet 3 times a day by oral route. active Not Available Not Available No t Available ProAir HFA 90 mcg/actua tion aerosol inhaler 07/20 completed Medicati on ID: [id number] Du ration Value: 16 Brand Name: ProAir HFA Send Method: E-Prescr ibed Sub s Allowed: subs OK Medic ationGen ericName : ProAir HFA Not Available Not Available Not Available quetiapin e 50 mg tablet 05/04 completed Medicati on ID: [id number] R yinka: () Brand Name: quetiamatt ne Send Method: E-Prescr ibed Sub s Allowed: subs OK Medic ationGen ericName : quetiapi ne Not Available Not Available Not Available Symbicort 160 mcg-4.5 mcg/actua tion HFA aerosol inhaler 07/20 completed Medicati on ID: [id number] Du ration Value: 90 Brand Name: Symbicor t Send Method: E-Prescr ibed Sub s Allowed: subs OK Medic ationGen ericName : Symbicor t Not Available Not Available Not Available Calcium 600 + D(3) 600 mg-10 mcg (400 unit) tablet 07/20 completed Medicati on ID: [id number] B rand Name: Calcium 600 + D(3) Sen d Method: E-Prescr ibed Sub s Allowed: subs OK Medic ationGen ericName : Calcium 600 + D(3) Not Available Not Available Not Available Vitamin D3 125 mcg (5,000 unit) tablet 07/20 completed Medicati on ID: [id number] B rand Name: Vitamin D3 Send Method: E-Prescr ibed Sub s Allowed: subs OK Medic ationGen ericName : Vitamin D3 Not Available Not Available Not Available Probiotic (B. coagulans ) 10 billion cell capsule,d elayed release 07/20 completed Medicati on ID: [id number] B rand Name: Probioti c (B. coagulan [...] for inhalatio n active Medicati on ID: [id number] B rand Name: Wixela Inhub Se nd Method: E-Prescr ibed Sub s Allowed: subs OK Medic ationGen ericName : Frankie Stanley Not Available Not Available Not Available Vitals Date Recorded Body height Body weight Provider Name and Address Organization Details Last Updated DateTime 04/01/2024 149.86 cm 95711.89 g Kaylynn Moctezuma [place] [facility] 04/01/2024 13:57:31 Social History None recorded. Functional [...] SNOMED-CT Code Diagnosis ICD10 Code Diagnosis Note [id number] JOSÉ BLAIR PA-C [facility] [address] [address] 04/01/2024 13:45:57 04/01/2024 14:30:05 Polyp of nasal cavity 326124316 J33.0 Allergic rhinitis 874690 04 J30.9 Health Concerns Section Related Observation LastModified by Organization Detai ls LastModified Time None Recorded Concern Status LastModified by Organization Details LastModified Time None Recorded Advance Directives Directive None Recorded Payers Encounter Date Sequence Insurance Name Policy Number Policy Bustos Covered Member ID Bustos Member ID Guarantor Name 04/01/2024 1 MEDICARE B-[employer]: [employer] Sharon Alonzo [id number] Sharon Alonzo Notes Date Note Type [...] she blows the nose. JOSÉ BLAIR PA-C [address] [place] [address], [phone], [facility] - [facility] 04/01/2024 14:47:35 OBGyn Episode No OBEpisode recorded.
--- OUTSIDE RECORDS SUMMARY | 2024-05-21 14:01 | XMS_ITS | Patient Health Record ---
Author Organization [facility] Address [address] [place] [address] Care Team Providers Care Communications Executive Name Role Phone Samm Steward MD Primary Care Provider Maria linda Elise Santos Unavailable [phone] AlexNora Unavailable [phone] Shantelle Linda Unavailable [phone] Allergies Allergen (clinical drug ingredient) Drug/Non Drug [...] Penicillin nausea Drug Allergy Active Substance with 7-hlvbpax-3-methylgl utaryl-coenzyme A reductase inhibitor mechanism of action [...] W/U Status Risk Notes Problem Plantar wart (19388509) Plantar wart (B07.0) Active confirmed Vital Signs Blood pressure diastolic 70 mm Hg 04/24/2024 Height 7ii13vn in 04/24/2024 Blood pressure systolic 125 mm Hg 04/24/2024 Weight 145 lbs 04/24/2024 BMI 29.28 kg/m2 04/24/2024 Encounters Encounter Location Date Provider Diagnosis [facility] [address] [place] [address] 04/24/2024 Nora Johnson Xerosis of skin L85.3 [...] Medicare [employer] [address] [place] [address] [id number] Sharon Alonzo Self - patient is the insured [employer] Secondary to Medicare [address] [place] [id number] Sharon Alonzo Self - patient is the [...]
--- OUTSIDE RECORDS SUMMARY | 2024-05-21 14:01 | XMS_ITS ---
Author Organization [facility] Address [address] [place] [address] Care Team Providers Care Targeting Acquisition Officer Name Role Phone Nichelle CHAVEZ, Samm Primary Care Provider Unava ilable Black, Elise Unavailable [phone] Shantelle Linda [phone] Fishman Encounters Encounter Location Date Provider Diagnosis [facility] [address] [place] [address] 04/16/2024 Shantelle Linda Plan Of Treatment No Information Progress Notes * Sharon ALONZO ADOB: [birth year] (74 yo F)Acc No.[id number]:04/16/2024 Progress Note Patient:?Sharon ALONZO Provider:?Shantelle Linda DPM :1950???Age:73 Y???Sex:Female D ate:04/16/2024 Address:[address] [place], [place] [id number] Pcp:Samm Steward MD Subjective: * Chief Complaints: [...] DPM Date:?0 04/16/2024 Generated for Cookie brown/[place]/eTransmitting on:?05/21/2024 02:01 PM EDT
--- OUTSIDE RECORDS SUMMARY | 2024-05-21 14:01 | XMS_ITS ---
Author Organization [facility] Address [address] [place] [address] Care Team Providers Care Board Certified Family Physician Name Role Phone Samm Steward MD Primary Care Provider Unava ilable Black, Elise Unavailable [phone] Nora Johnson Unavailable [phone] Allergies Allergen (clinical drug ingredient) Drug/Non Drug [...] Penicillin nausea Drug Allergy Active Substance with 4-pimalwm-1-methylgl utaryl-coenzyme A reductase inhibitor mechanism of action [...] W/U Status Risk Notes Problem Plantar wart (14108993) Plantar wart (B07.0) Active confirmed Vital Signs Height 1kn58my in 04/24/2024 Weight 145 lbs 04/24/2024 BMI 29.28 kg/m2 04/24/2024 Blood pressure systolic 125 mm Hg 04/24/19 25 Blood pressure diastolic 70 mm Hg 025 Encounters Encounter Location Date Provider Diagnosis [facility] [place] [address] [place] [address] 04/24/2024 Nora Johnson Xerosis of skin L85.3 [...] Sharon ALONZO ADOB: [birth year] (73 yo F)Acc No.[id number]:04/24/2024 Progress Note Patient:?Sharon ALONZO Provider:?Nora Johnson DPM :1950???Age:73 Y???Sex:Female D ate:04/24/2024 Address:[address] [place], [place] [id number] Pcp:Samm Steward MD Subjective: * Chief Complaints: [...] ?Exercise: no. ?Marital status: . ?Occupation: retired, [employer]. * Medications:?TakingWixela In hub 500-50 MCG/ACT Aerosol [...] diarrhea, upset stomachyes[Allergies Verified] Objective: * Vitals:?Ht: 1zg44rh, Wt:145, BMI:29.28, Shoe size: 6.5, BP:125/70mm Hg, [...] patient to call the office.?Consult:?Pt sees a Farm Loan Representative, I recommend pt speak with her Farm Loan Representative as well about her chronic dry skin, [...] Johnson DPM Date:? Generated for Cookie brown/Gaviota/Brandon on:?05/21/2024 02:01 PM EDT History and Physical Notes * HPI (History [...]
== END 2024-05-21 11:24 | disposition home or self-care (01) ==
LOC: HO.HPS 10:56
PROVIDERS: PCP Family Medicine; Visit Provider Internal Medicine
DX: J45.909 Unspecified asthma, uncomplicated (principal); R05.9 Cough, unspecified; J30.9 Allergic rhinitis, unspecified
CPT/HCPCS: 99213

== ENCOUNTER → 2024-05-21 10:55 | Outpatient (BNVA) | payer MEDICARE, SELFPAY | PROVIDERS: PCP Family Medicine; Visit Provider Internal Medicine | DX: J45.909 Unspecified asthma, uncomplicated (principal) | CPT/HCPCS: 99212 ==

== ENCOUNTER 2024-06-01 13:50 | Outpatient (AMB) | payer MEDICARE, SELFPAY ==
--- NOTE | 2024-06-01 13:57 | A.OFFVIS_ITS ---
Vital Signs 06/01/24 14:00 Height 4 ft 11 in Weight 140 lb BMI 28.3 BP 143/67 H Blood Pressure Location Lt brachial Position Sitting Pulse 75 Pulse Oximetry (%) 98 Intake Visit Reasons: abdominal pains Intake Note: Sharon presents in the office as a follow up for abdominal pains. CC: She states that the anesthesiologist assistant certified was supposed to be in touch. She is having severe GI issues. Pains in the stomach and the anesthesiologist assistant certified thinks she might be having a GI bleed. Been sick the past month and she is extremely anemic. 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 here for f/u RECAP she had coughing and regurgitation for a long time, has horrible taste in mouth she might have incontinence with coughing food can get stuck, feels like not going down smoothly, doesn;t digest fully, foods comes out in bowel no choking with food' diarrhea going on for most of ehr life, has progrssed and gotten worse with time, has no control she is going 5-6 times for stool at night as well no blood in stool she has pain in various area,s moves aorund can be lower quadrants abdo can feel distended she has been told she is anemia and bleeding from her GI tract possibly she started pantoprazole 3-4 weeks has felt no benefit -father and sister both had CRC Colonoscopy 2021: 2 adenomatous polyps removed, random bx neg for microscopic colitis EGD 2021-- nml duodenum, mnimal inflmmation stomach MRe- possible colitis left side, but fecal lactoferrin negative CTe: 04/2022-- neg, no inflammation seen Capsule: 07/01-- mild gastritis Ba swallow- 09/30--mild esophageal dysmotility She had MRI spine and brain no acute findings, small vessel disease but done w/o contrast EGD: 2023-- dilation, hyperplastic polyp removed, h pylori neg MRI 07/2023- cerebral vol is reduced INTERIM: since Apr she has been unwell she got the flu -confirmed by lab testing she had adverse reaction to some medication for presumed pneumonia she notes yellow stools, GERD cough, belching, yaneth umbilical abdominal pain diarrheal stools mild persistent anemai I ordered stool pcr and c diff--neg no trouble swallowing EXAM: GENERAL: The patient is well developed and nontoxic. VITAL SIGNS:see workflow HEENT: Nonicteric sclerae, PERRLA, EOMI. Oropharynx clear. Moist mucous membranes. Conjunctivae appear well perfused. No thyroid mass. CHEST: Chest wall is nontender. HEART: Regular rate and rhythm without murmurs. LUNGS: Clear to auscultation bilaterally. ABDOMEN: Soft, positive bowel sounds, tender upper and lower abdomen, no organomegaly.no flank tenderness SKIN: No rash, no excessive bruising, petechiae, or purpura. NEUROLOGIC: Cranial nerves II-XII intact without motor/sensory deficit. no nystagmus, falling to sides at time, mild tremor Psych: nml affect A/P: 1/ possible post infectious IBS or gastroparesis, Plan: 1/ change PPI--change to lansoprazole 2/ trial of rifaximin 3/ egd and colonoscopy for assessment PFSH Medical History Hemoptysis Allergic rhinitis GERD (gastroesophageal reflux disease) Thyroid disease HTN (hypertension) Bundle branch block EMG syndrome Trigger finger, left index finger Cough Myopathy Obesity (BMI 30-39.9) Asthma Dyspnea on exertion Surgical History Hx of hysterectomy Hx of cerebral aneurysm repair Hx of total knee replacement History of bone marrow biopsy History of laryngoscopy Hx of nasal polypectomy Hx of cholecystectomy Hx of colonoscopy History of esophagogastroduodenoscopy (EGD) Family History Father Colon cancer Sister Colon cancer Social History Patient Tobacco Use Status: Former Tobacco user Tobacco use type: Cigarette Years Smoked: 10 years Physical Exam Vital Signs: Last Vital Signs Pulse 75 06/01/24 14:00 BP 143/67 H 06/01/24 14:00 Pulse Ox 98 06/01/24 14:00 BMI result Body Mass Index 28.3 Assessment & Plan Assessment & Plan (1) Abnormal bowel habits: Code(s): R19.8 - Other specified symptoms and signs involving the digestive system and abdomen Category: Medical Plan: as above Medications: New lansoprazole 30 mg PO DAILY 90 caps 2RF sod sulf-pot chloride-mag sulf 1.479-0.188- 0.225 gram (Sutab) PO PER PKG DIR 24 tabs 0RF rifaximin 550 mg PO TID 2 weeks 42 tabs 0RF Discontinued pantoprazole Discontinued Reason: Doctor's Order 40 mg PO DAILY 90 tabs 2RF Coding Level of Care Code Est Pt Level 4 (05648) Diagnoses Abnormal bowel habits R19.8
[2024-06-01 14:00] VITALS: BP 143/67; PULSE 75; O2SAT 98; BMI 28.3
== END 2024-06-01 14:50 | disposition home or self-care (01) ==
LOC: HO.HGI 13:51
PROVIDERS: PCP Family Medicine; Visit Provider Internal Medicine Gastroenterology
DX: R19.8 Other specified symptoms and signs involving the digestive system and abdomen (principal)
CPT/HCPCS: 99214

== ENCOUNTER → 2024-06-01 13:50 | Outpatient (BNVA) | payer MEDICARE, SELFPAY | PROVIDERS: PCP Family Medicine; Visit Provider Internal Medicine Gastroenterology | DX: R19.8 Other specified symptoms and signs involving the digestive system and abdomen (principal); R10.9 Unspecified abdominal pain | CPT/HCPCS: 99212 ==

== ENCOUNTER 2024-09-23 10:48 | Outpatient (AMB) | payer MEDICARE, SELFPAY ==
--- OUTSIDE RECORDS SUMMARY | 2024-04-16 06:00 | XMS_ITS ---
Author Organization [facility] Address [address] [place] [id number] Care Team Providers Care Recycling Director Name Role Phone Nichelle CAHVEZ, Samm Primary Care Provider Unava ilable Black, Elise Unavailable [phone] Shantelle Linda [phone] Fishman Encounters Encounter Location Date Provider Diagnosis [address] [address] 04/16/2024 Shantelle Linda Plan Of Treatment No Information Progress Notes * Sharon ALONZO ADOB: [birth year] (74 yo F)Acc No.[id number]:04/16/2024 Progress Note Patient: Sharon TYLER Provider: Lyndsey Linda DPM :1950 A ge:73 Y S ex:Female Date:04/16/2024 Address:[address] [place], [place] [id number] Pcp:Samm Steward MD Subjective: * Chief Complaints: [...] 0 04/16/2024 Generated for Matti stephanie/Gaviota/eTransmitting on: 0 09/23/2024 11:32 AM EDT
[2024-09-23 11:04] VITALS: BP 114/68; PULSE 56; O2SAT 99; BMI 29.8
--- NOTE | 2024-09-23 11:04 | MHC.OFFVIS ---
Vital Signs 09/23/24 11:04 Height 4 ft 11 in Weight 147 lb 11.355 oz BMI 29.8 BP 114/68 Blood Pressure Location Rt brachial Position Sitting Pulse 56 Pulse Source Pulse Oximeter Pulse Oximetry (%) 99 Oxygen Delivery Method Room Air Intake Visit Reasons: Cough Intake Note: pt is here for follow up and still coughing all the time, with the mucous, some wheezing when lying down, had holter and echo done. 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 Teacher Required: No Allergies latex (LATEX) Allergy (Intermediate, Verified 09/23/24 12:06) RASH Sulfa (Sulfonamide Antibiotics) (SULFA (SULFONAMIDE ANTIBIOTICS)) Allergy (Intermediate, Verified 09/23/24 12:06) HIVES, coughing, wheezing, breathing moxifloxacin (From AVELOX) Allergy (Unknown, Verified 09/23/24 12:06) HIVES penicillin G (Penicillin G) Allergy (Unknown, Verified 09/23/24 12:06) UPSET STOMACH Bxwbomj-CYR-AxM Reductase Inhibitor (MCCCLQG-BFZ-WMC REDUCTASE INHIBITOR) Allergy (Unknown, Verified 09/23/24 12:06) MUSCLE CRAMPS Medication List - Last Reconciled 09/23/24 by Erin Correa MD albuterol sulfate 90 mcg/actuation (ProAir HFA) 2 puffs inhalation QID amlodipine 10 mg PO DAILY dicyclomine 20 mg PO TID PRN diphenoxylate-atropine 2.5-0.025 mg (Lomotil) 1 tab PO BID PRN duloxetine 30 mg PO DAILY famotidine 40 mg PO BEDTIME fluticasone propion-salmeterol 250-50 mcg/dose (Wixela Inhub) 1 inh inhalation BID 90 days gabapentin 100 mg PO DAILY lansoprazole 30 mg PO DAILY levothyroxine 112 mcg PO DAILY lorazepam (Ativan) 1 mg PO BEDTIME PRN metoprolol succinate ER 25 mg PO DAILY metronidazole 500 mg PO TID 14 days mirtazapine 15 mg PO BEDTIME olmesartan 40 mg PO DAILY ondansetron 4 mg PO Q8H PRN sod sulf-pot chloride-mag sulf 1.479-0.188- 0.225 gram (Sutab) PO PER PKG DIR trazodone 100 mg PO BEDTIME zolpidem 10 mg PO BEDTIME PRN Do you need a note to return to daycare/school/sports/work: No HPI HPI Cough: Details: This 74 years old very pleasant female comes for follow-up after 4 months. Her main issue is reactive airways and ongoing cough. It is relatively well controlled with the use of Wixela 250-50 inhalation b.i.d. and albuterol p.r.n.. She has had no recurrent respiratory infection. Her chronic GI symptoms are also under control She does have mild anxiety and uses lorazepam 1 mg at bedtime p.r.n. She is also using mirtazapine 15 mg at bedtime [facility] Medical History Hemoptysis Allergic rhinitis GERD (gastroesophageal reflux disease) Thyroid disease HTN (hypertension) Bundle branch block EMG syndrome Trigger finger, left index finger Cough Myopathy Obesity (BMI 30-39.9) Asthma Dyspnea on exertion Surgical History Hx of hysterectomy Hx of cerebral aneurysm repair Hx of total knee replacement History of bone marrow biopsy History of laryngoscopy Hx of nasal polypectomy Hx of cholecystectomy Hx of colonoscopy History of esophagogastroduodenoscopy (EGD) Family History Father Colon cancer Sister Colon cancer Social History Patient Tobacco Use Status: Former Tobacco user Tobacco use type: Cigarette Years Smoked: 10 years Review of Systems Const All systems reviewed & are unremarkable except as noted in HPI and below Reports body aches (MILD ) and Reports fatigue (MILD) Eyes Reports no additional complaints ENT Reports no additional complaints Card Denies chest pain, Denies irregular heart rhythm and Denies dyspnea on exertion Resp Reports cough (OCCASIONAL , MILD ), Denies dyspnea on exertion and Denies wheezing GI Reports no additional complaints Reports no additional complaints Musc Reports myalgias (MILD TO MODERATE ) and Reports muscle weakness (CHRONIC , MILD ) Skin/Breast Reports system reviewed and no additional complaints, except as documented Neuro Reports no additional complaints Psych Reports anxiety (WORRIED ABOUT ALL HER MEDICAL PROBLEMS ) Endo Reports fatigue (MILD) Aller/Immun Denies wheezing Physical Exam Vital Signs: Last Vital Signs Pulse 56 09/23/24 11:04 BP 114/68 09/23/24 11:04 Pulse Ox 99 09/23/24 11:04 Oxygen Delivery Method Room Air 09/23/24 11:04 BMI result Body Mass Index 29.8 Const General: comfortable, no acute distress, alert and awake Orientation/consciousness: patient oriented x3 HEENT Head: Yes normal to inspection General nose exam: No nasal polyps present, No nasal discharge present and Other nasal findings present (MILD NASAL CONGESTION NOTED) Face and sinus: Yes sinuses nontender Mouth: oropharynx normal Throat: Yes posterior oropharynx normal Eyes General: appearance normal, both eyes and all related structures Neck Neck: Yes normal visual inspection, Yes no lymphadenopathy, Yes trachea midline and Yes no JVD Thyroid: Thyroid normal Chest Chest palpation & inspection: normal inspection of the chest, normal palpation of entire chest wall and no tenderness Resp Other: Percussion note is resonant, breath sounds slightly distant with prolonged expiratory phase. There are no wheezes , rhonchi or crepitations. Cardio Palpation: normal PMI Rate: regular rate Rhythm: regular rhythm Heart sounds: no gallops and no murmurs Peripheral pulses: Peripheral pulses 2+ throughout GI Palpation (GI): Soft to palpation, nontender, No hepatosplenomegaly present and no masses Auscultation: normal bowel sounds Back/Spine/Pelvis Thoracic/Lumbar Spine: thoracic and lumbar spine normal to inspection Skin General skin exam: no rashes or lesions noted Neuro General: patient oriented x3 and no focal motor deficits Cranial nerves: Yes CN's II-XII intact bilaterally Extrem General: Yes normal to inspection, Yes no clubbing, cyanosis or edema and Yes no calf tenderness Psych Appearance: grossly normal and well kempt Speech and movement: Normal speech and movement present Assessment & Plan Assessment & Plan (1) Asthma: Comment: PER SPIROMETRY SHE DOES HAVE EVIDENCE OF BRONCHIAL ASTHMA/COPD ,MODERATELY SEVERE . REMAINS UNDER CONTROL AND STABLE. CLAIMS THAT HER COUGH IS MINIMAL, AND SHE HAS NO WHEEZING. Code(s): J45.909 - Unspecified asthma, uncomplicated Category: Medical Plan: CONTINUE WIXELA 250-51 INHALATION B.I.D. ALBUTEROL HFA 2 PUFFS Q 4-6 HOURS PRN OR ANY WHEEZING ATTACKS ARE BOUTS OF COUGH. (2) Cough: Comment: COUGH IS SEC. TO GERD AND REACTIVE AIRWAYS . IT GETS FLARED UP EVERY NOW AND THEN ESPECIALLY WITH THE AT CHANGE IN THE WEATHER. Code(s): R05.9 - Cough, unspecified Category: Medical Plan: CONTINUE THE TREATMENT UNDER BRONCHIAL ASTHMA (3) Dyspnea on exertion: Comment: DYSPNEA ON EXERTION IS MULTIFACTORIAL, AND I EXPLAINED TO HER MULTIPLE POSSIBLE CONTRIBUTING FACTORS. 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 SHE UNDERSTANDS FULLY AND, STATES THAT HER DYSPNEA ON EXERTION IS NOT BOTHERING HER MUCH. Code(s): R06.00 - Dyspnea, unspecified Category: Medical Plan: ONCE AGAIN EXPLAINED ABOUT ALL THESE POSSIBILITIES, TREATMENT REVIEWED, AND PATIENT IS REASSURED Coding Level of Care Code Est Pt Level 3 (44900) Diagnoses Asthma J45.909 Cough R05.9 Dyspnea on exertion R06.00
--- OUTSIDE RECORDS SUMMARY | 2024-09-23 11:32 | XMS_ITS | Clinical Summary ---
Author Organization [facility] Address [address] [place] [address] Phone Care Team Providers Care Photographer Name Role Phone Unavailable Primary Care Provider [...] Cancer Screening: Sigmoidoscopy 1998 Influenza Vaccine (#1) 2024 6, 12/14/2009, 02/16/2009, Additional history exists Pneumococcal Vaccine: 50+ Years Completed 01/09/2018, 05/28/2014, 01/09/2006, Additional history exists Hepatitis B Vaccine Aged Out No longe r eligible based on patient's age to complete this topic Insurance Medicare [facility] Medicare [facility]
--- OUTSIDE RECORDS SUMMARY | 2024-09-23 11:32 | XMS_ITS | Patient Health Record ---
Author Organization [facility] Address [address] [place] [address] Care Team Providers Care Marketing Agent Name Role Phone Samm Steward Primary Care Provider Alberto Camarena Unavailable [phone] Allergies Allergen (clinical drug ingredient) Drug/Non Drug Allergy documented on EMR Reaction Allergy Type Onset Date Status Substance with sulfonamide structure and antibacterial mechanism of action (substance) Sulfa (uncoded) Unknown Allergy Active moxifloxacin Avelox (uncoded) Unknown Allergy Active erythromycin Erythromycin (uncoded) Unknown Allergy Active Penicillin (uncoded) Unknown Allergy Active Reason For Referral No Information Medications Medication SIG (Take, Route, Frequency, Duration) Notes Start Date End Date Status amLODIPine Besylate 5 MG 1 tablet Orally Once a day Active Multivitamin/Minerals 1 orally qd Active Flunisolide 25 MCG/ACT (0.025%) 2 drops in each nostril Nasally Twice a day Active Colyte w Flavor Packs 240 GM as directed Orally as directed for 1 day(s) 06/03/2014 Active FLUoxetine HCl 20 MG 1 tablet in the morning Orally Once a day Active Atorvastatin Calcium 80 MG 1 tablet Oral ly Once a day Active Levothyroxine Sodium 0075 1 capsule Oral ly Once a day Active DULoxetine HCl 30 MG 1 capsule Orally On ce a day Active Glucosamine Chondr 1500 Complx Orally Active ALPRAZolam 0.5 MG 1 tablet Orally Thre e times a day Active Probiotic 1 1 Orally qd 10 x A ctive Vitamin D (Ergocalciferol) 5000 1 capsule Orally 1 po qd Active Omeprazole 20 MG 1 capsule Orally Onc e a day Active Latanoprost 0.005 % 1 drop into affected eye in the evening Ophthalmic Once a day Active ProAir HFA 108 (90 Base) MCG/ACT 2 puffs as needed Inhalation every 4 hrs Active QUEtiapine Fumarate 25 MG 1 tablet Orall y Once a day Active Spiriva HandiHaler 18 MCG 1 capsule Inha lation Once a day Active Multivitamin Adult 1 1 tablet Orally onc e a day Active Symbicort 160-4.5 MCG/ACT 2 puffs Inhala tion Twice a day Active traZODone HCl 50 MG Orally Not-Taking Immunizations Vaccine Route Administration Date Status Comme nts Flu vaccine no Preserv 3 and > Unknown 02/07/2015 Admin istered Problems Problem Type SNOMED Code ICD Code Onset Dates Problem Status W/U Status Risk Notes Problem [id number] Gastroesophageal reflux disease, esophagitis presence not specified (K21.9) Active confirmed Problem 57455168 Hoarseness (R49.0) Active confirmed Plan Of Treatment Future Test Test Name Order Date COLONOSCOPY 06/01/2014 UPPER GI ENDOSCOPY 01/31/2016 Insurance Providers Payer Name Payer Address Payer Phone Subscriber Number Group Number Insured Name Patient Relationship to Insured Coverage Start Date Coverage End Date MEDICARE OF [place] [address] [place] [address] [id number] HAROLDO MORALES Self - patient is the insured [facility] SUPPLEMENTAL PLAN [address] [place] [address] [id number] HAROLDO MORALES Self - patient is the insured Medical (General) History Medical History History ICD Code 09/27/2009 Colonoscopy-negat christiano for polyps--biopsies neg. for microscopic colitis Diverticulosis Internal hemorrhoids TIA's--neg. carotid U/S Nasal polyps Irritable bowel syndrome Urinary incontinence Anxiety/Depression Hypothyroidism Hypertension-she sees Dr. Chicas Tubular adenoma removed in [address]ala--had a negative colonoscopy [place] [address] Ayala as well COPD Neg EGD in [address] Ayala--neg bx for celiac disease Denies [place], DM,renal disease Colonoscopy in 09/2014--1 small tubular a denoma Surgical History Surgery Date(Month/Year) SABINA Cholecystectomy/gall stones Removal of benign salivary gland tumor Knee surgery- on right knee bladder suspension nasal polypectomy breast biopsy-benign ganglion cyst
--- OUTSIDE RECORDS SUMMARY | 2024-09-23 11:32 | XMS_ITS | Data Portability ---
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 Return next available with Dr. Sevilla; discussed if her symptoms have advanced or failed to improve, interventions that day might include cautery, repeat endoscopy, and/or CT sinus. Discussed that allergy testing may prove illuminating. [email or web address] Not available 04/01/2024 14:46:33 Plan of Treatment Reminders Order Date Submit Date Provider Last Modified By Organization Details Last Modified Time Details Appointments None recorded. Lab None recorded. Referral None recorded. Procedures None recorded. Surgeries None recorded. Imaging None recorded. Medication Orders fluticasone propionate 50 mcg/actuati on nasal spray,suspe nsion 2024 025 [id number], [address] [facility], [place], [place], [id number], 01/22/202 5 14:24:08 Patient TargetsNo targets recorded. Patient Instructions Encounter Date Encounter Id Patient Instructions Last Modified By Organization Details Last Modified Time 05/28/2024 [id number] Overall doing well. No evidence of nasal polyps or nasal bleeding. She declines audiometric testing at the present time. She will contact us through the portal for an appointment as needed. [email or web address] Not available 05/28/2024 08:56:59 Reason for Referral None Reported. Problems Name Problem SNOMED Code Status Onset Date Resolution Date Notes Provider Name and Address Organization Details Recorded Time Disorder of muscle 783949707 Active 2020 Other specified disorders of muscle; Note: Date Diagnosed: 07/20/2020 11:12 AM (M62.89) Not Available [facility] 4 02:31:14 Nasal polyp Active 2014 Nasal polyps: Polyp of nasal cavity; Note: Date Diagnosed: 03/31/2014 11:12 AM (471.0) Not Available [facility] 4 02:31:10 Dysphonia 86275110 Active 2016 Other voice and resonance disorders; Note: Date Diagnosed: 05/24/2016 5:22 PM (R49.8) Not Available [facility] 4 02:30:55 Finding of resonance of voice 927204337 Active 2016 Other voice and resonance disorders; Note: Date Diagnosed: 05/24/2016 5:22 PM (R49.8) Not Available [facility] 4 02:30:55 Gastroeso phageal reflux disease without esophagit is 435424926 Active 2015 Gastro-eso phageal reflux disease without esophagiti s; Note: Date Diagnosed: 11/02/2015 12:09 PM (K21.9) Not Available [facility] 4 02:31:12 Anxiety disorder 512688529 Active 2014 Transient mental disorders due to conditions classified elsewhere: Anxiety disorder in conditions classified elsewhere; Note: Date Diagnosed: 03/31/2014 11:12 AM (293.84) Not Available [facility] 4 02:31:05 Chronic pharyngit is 984448 Active 2014 Chronic pharyngiti s and nasopharyn gitis: Chronic pharyngiti s; Note: Date Diagnosed: 03/31/2014 11:12 AM (472.1) Not Available [facility] 4 02:31:03 Chronic rhinitis 39338378 Active 2016 Chronic rhinitis; Note: Date Diagnosed: 01/09/2017 5:17 PM (J31.0) Not Available [facility] 4 02:30:57 Polyp of nasal cavity 097391569 Active 2015 Polyp of nasal cavity; Note: Date Diagnosed: 11/02/2015 12:09 PM (J33.0) Not Available [facility] 4 02:31:10 Glossitis 28211031 Active 2014 Glossitis; Note: Date Diagnosed: 05/31/2014 10:50 AM (529.0) Not Available [facility] 4 02:31:11 Headache 67409089 Active 2016 Facial pain NOS; Note: Date Diagnosed: 01/09/2017 2:08 PM (R51) Not Available [facility] 4 02:30:57 Pain of temporoma ndibular joint 25747493 Active 2015 Arthralgia of temporoman dibular joint; Note: Date Diagnosed: 11/02/2015 11:10 AM (M26.62) Not Available [facility] 4 02:31:12 Allergic rhinitis 88868916 Active 2024 JOSÉ BLAIR PA-C [address] [facility],[place] [address], [place], [address] , [place] - [facility] 5 14:47:05 Moderate persisten t asthma 092452534 Active 2024 KRISTI JIMÉNEZ MD [address] [facility],[address], [place], [address] , [place] - [facility] 5 07:54:24 Bleeding from nose 354403667 Active 2024 KRISTI JIMÉNEZ MD [address] [facility],[place] [address], [place], [address] , [place] - [facility] 5 07:55:08 Abnormal auditory perceptio n 09466449 Active 2024 KRISTI JIMÉNEZ MD [address] [facility],[place] [address], [place], [address] , [facility] - [facility] 08:55:48 Problem Notes None recorded. Procedures Surgical History Date Name Laterality Status Provider Name and Address Organization Details Recorded Time 05/29/19 JMSNasal/Sinus Endoscopy-PRIOR surgical cavities completed KRISTI SEVILLA MD [address] [facility],[place] [address], [place], [phone], [facility] - [facility] 05/28/2024 08:57:47 04/01/19 Nasal Endoscopy completed JOSÉ BLAIR PA-C [address] [facility],[place] [address], [place], [address], [place] - [facility] 04/01/2024 14:25:03 Hysterectomy completed Kaylynn Moctezuma [place] - [facility] 04/01/2024 14:00:27 cholecystectomy completed Kaylynn Moctezuma [place] [facility] 04/01/2024 14:00:34 arthroscopy of knee completed Kaylynn Moctezuma [place] [facility] 04/01/2024 14:01:28 biopsy of breast completed Kaylynn Moctezuma [place] [facility] 04/01/2024 14:01:39 total knee replacement completed Kaylynn Moctezuma [place] [facility] 04/01/2024 14:01:47 Imaging Results None recorded. Procedure Notes None recorded. Medical Equipment None Reported. Allergies Allergen ID Allergen Name Allergen Category Reaction Reaction Severity Criticality Documentation Date Start Date Code Code System Note Provider Name and Address Organization Details Recorded Time 68130 Product containin g angiotens in-conver ting enzyme inhibitor (product) medicatio n other Not available Not available 07/23/2023 42932 009 SNOMED React ion: Unkno wn; Not Available [facility] 00:53:39 55240 moxifloxa maxwell medicatio n other Not available Not available 07/23/2023 88412 2 RxNorm React ion: unkno wn, unspe cifie d;; Not Available [facility] 00:53:40 21484 erythromy maxwell ethylsucc inate medicatio n other Not available Not available 07/23/2023 4056 RxNorm React ion: unkno wn, unspe cifie d;; Not Available [facility] 4 00:53:44 67078 penicilli n V potassium medicatio n other Not available Not available 07/23/2023 51910 5 RxNorm React ion: unkno wn, unspe cifie d;; Not Available [facility] 4 00:53:47 82332 Product containin g 3-hydroxy -3-methyl glutaryl- coenzyme A reductase inhibitor (product) medicatio n other Not available Not available 07/23/2023 28637 009 SNOMED React ion: unkno wn, unspe cifie d;; Not Available [facility] 4 00:53:52 88877 Substance with sulfonami de structure and antibacte rial mechanism of action (substanc e) medicatio n other Not available Not available 07/23/2023 06499 8003 SNOMED React ion: unkno wn, unspe cifie d;; Not Available [facility] 4 00:53:53 Medications Name Sig Start Date Stop Date Status Note LastModified by Organization Details LastModified Time fluoxetin e 40 mg capsule 05/04 completed Medicati on ID: [id number] Du ration Value: 30 Reason: () Brand Name: fluoxeti ne Send Method: E-Prescr ibed Sub s Allowed: subs OK Speci al Instruct ion: TAKE 1 CAPSULE BY MOUTH ONCE A DAY [facility] nericNam e: fluoxeti ne Not Available Not Available Not Available latanopro st 0.005 % eye drops 07/20 completed Medicati on ID: [id number] B rand Name: latanopr ost Send Method: E-Prescr ibed Sub s Allowed: subs OK Medic ationGen ericName : latanopr ost Not Available Not Available Not Available fluticaso ne 250 mcg-salme terol 50 mcg/dose blistr powdr for inhalatio n active Not Available Not Available Not Available atorvasta tin 80 mg tablet 05/04 completed Medicati on ID: [id number] R yinka: () Brand Name: atorvast atin Sen d Method: E-Prescr ibed Sub s Allowed: subs OK Medic ationGen ericName : atorvast atin Not Available Not Available Not Available doxycycli ne hyclate 100 mg capsule TAKE 1 CAPSULE BY MOUTH TWICE DAILY WITH FOOD FOR 7 DAYS 05/28 completed Not Available Not Available Not Available trazodone 50 mg tablet 05/04 completed Medicati on ID: [id number] Du ration Value: 30 Reason: () Brand Name: trazodon e Send Method: E-Prescr ibed Sub s Allowed: subs OK Speci al Instruct ion: TAKE 1 TABLET BY MOUTH AT BEDTIME Medicati onGeneri cName: trazodon e Not Available Not Available Not Available alprazola m 1 mg tablet 04/01 completed Medicati on ID: [id number] B rand Name: alprazol am Send Method: E-Prescr ibed Sub s Allowed: subs OK Medic ationGen ericName : alprazol am Not Available Not Available Not Available benzonata te 200 mg capsule TAKE 1 CAPSULE BY MOUTH THREE TIMES DAILY FOR 7 DAYS 05/28 completed Not Available Not Available Not Available sucralfat e 100 mg/mL oral suspensio [...] TABLETS BY MOUTH DAILY FOR 5 DAYS 05/28 completed Not Available Not Available Not Available alendrona te 70 mg tablet 05/04 completed Medicati on ID: [id number] Du ration Value: 84 Reason: () Brand [...] mg tablet 07/20 completed Medicati on ID: [id number] D uration Value: 90 Brand Name: amlodipi ne Send Method: E-Prescr ibed Sub s Allowed: subs OK Medic ationGen ericName : amlodipi ne Not Available Not Available Not Available levothyro xine 25 mcg tablet 05/04 completed Medicati on ID: [id number] R yinka: () Brand Name: levothyr oxine Se nd Method: E-Prescr ibed Sub s Allowed: subs OK Medic ationGen ericName : levothyr oxine Not Available Not Available Not Available levothyro xine 75 mcg tablet 07/20 completed Medicati on ID: [id number] D uration Value: 90 Brand Name: levothyr oxine Se nd Method: E-Prescr ibed Sub s Allowed: subs OK Medic ationGen ericName : levothyr oxine Not Available Not Available Not Available alprazola m 0.5 mg tablet 05/04 completed Medicati on ID: [id number] Du ration Value: 30 Reason: () Brand [...] Not Available trazodone 100 mg tablet active Not Available Not Available Not Available dicyclomi [...] nasal spray 07/20 completed Medicati on ID: [id number] B rand Name: flunisol kelvin Send Method: [...] Not Available levothyro xine 125 mcg tablet 05/28 completed Medicati on ID: [id number] B rand Name: levothyr oxine Se nd Method: E-Prescr ibed Sub s Allowed: subs OK Medic ationGen ericName : levothyr oxine Not Available Not Available Not Available omeprazol e 20 mg capsule,d elayed release 07/20 completed Medicati on ID: [id number] B rand Name: omeprazo le Send Method: E-Prescr ibed Sub s Allowed: subs OK Medic ationGen ericName : omeprazo le Not Available Not Available Not Available pravastat in 20 mg tablet 05/04 completed Medicati on ID: [id number] Du ration Value: 90 Reason: () Brand Name: pravasta tin Send Method: E-Prescr ibed Sub s Allowed: subs OK Medic ationGen ericName : pravasta tin Not Available Not Available Not Available gabapenti n 100 mg capsule active Not Available Not Available Not Available metoprolo l succinate ER 25 mg tablet,ex tended release 24 hr 05/28 completed Not Available Not Available Not Available lorazepam 1 mg tablet TAKE 1 TABLET BY MOUTH AT BEDTIME NEEDED FOR ANXIETY OR SLEEP 04/01 completed Not Available Not Available Not Available zolpidem 10 mg tablet TAKE 1 TABLET BY MOUTH DAILY AT BEDTIME active Not Available Not Available No t Available albuterol sulfate HFA 90 mcg/actua tion aerosol inhaler active Not Available Not Available Not Available multivita min capsule 07/20 completed Medicati on ID: [id number] B rand Name: multivit callahan Sen d Method: E-Prescr ibed Sub s Allowed: subs OK Medic ationGen ericName : multivit callahan Not Available Not Available Not Available fluoxetin e 20 mg capsule 07/20 completed Medicati on ID: [id number] B rand Name: fluoxeti ne Send Method: E-Prescr ibed Sub s Allowed: subs OK Medic ationGen ericName : fluoxeti ne Not Available Not Available Not Available fluticaso ne propionat e 50 mcg/actua tion nasal spray,tuan pension 2 sprays each nostril once a day 2024 active Not Available Not Available Not Avai lable levothyro xine 112 mcg tablet active Not Available Not Available Not Available olmesarta n 20 mg tablet 05/28 completed Medicati on ID: [id number] B rand Name: olmesart an Send Method: E-Prescr ibed Sub s Allowed: subs OK Medic ationGen ericName : olmesart an Not Available Not Available Not Available olmesarta n 40 mg tablet active Not Available Not Available Not Available Fish Oil 120 mg-180 mg capsule 07/20 completed Medicati on ID: [id number] B rand Name: Fish Oil Send Method: E-Prescr ibed Sub s Allowed: subs OK Medic ationGen ericName : Fish Oil Not Available Not Available Not Available Spiriva with HandiHale r 18 mcg and inhalatio n capsules 07/20 completed Medicati on ID: [id number] B rand Name: Spiriva with HandiHal er Send Method: E-Prescr ibed Sub s Allowed: subs OK Medic ationGen ericName : Spiriva with HandiHal er Not Available Not Available Not Available duloxetin e 30 mg capsule,d elayed release 07/20 completed Medicati on ID: [id number] B rand Name: duloxeti ne Send Method: E-Prescr ibed Sub s Allowed: subs OK Medic ationGen ericName : duloxeti ne Not Available Not Available Not Available duloxetin e 60 mg capsule,d elayed release 04/01 completed Medicati on ID: [id number] B rand Name: duloxeti ne Send Method: E-Prescr ibed Sub s Allowed: subs OK Medic ationGen ericName : duloxeti ne Not Available Not Available Not Available gabapenti n 100 mg tablet Take 1 tablet 3 times a day by oral route. active Not Available Not Available No t Available quetiapin e 50 mg tablet 05/04 completed Medicati on ID: [id number] R yinka: () Brand Name: quetiapi ne Send Method: E-Prescr ibed Sub s Allowed: subs OK Medic ationGen ericName : quetiapi ne Not Available Not Available Not Available Symbicort 160 mcg-4.5 mcg/actua tion HFA aerosol inhaler 05/12 /2021 completed Medicati on ID: [id number] Du ration Value: 90 Brand Name: Symbicor t Send Method: E-Prescr ibed Sub s Allowed: subs OK Medic ationGen ericName : Symbicor t Not Available Not Available Not Available Calcium 600 + D(3) 600 mg-10 mcg (400 unit) tablet 07/20 completed Medicati on ID: [id number] B rand Name: Calcium 600 + D(3) Sen d Method: E-Prescr ibed Sub s Allowed: subs OK Medic ationGen ericName : Calcium 600 + D(3) Not Available Not Available Not Available Vitamin D3 125 mcg (5,000 unit) tablet 07/20 completed Medicati on ID: B rand Name: Vitamin D3 Send Method: E-Prescr ibed Sub s Allowed: subs OK Medic ationGen ericName : Vitamin D3 Not Available Not Available Not Available Probiotic (B. coagulans ) 10 billion cell capsule,d elayed release 07/20 completed Medicati on ID: [id number] B rand Name: Probioti c (B. coagulan s) Send Method: E-Prescr ibed Sub s Allowed: subs OK Medic ationGen ericName : Probioti c (B. coagulan s) Not Available Not Available Not Available metoprolo l succinate ER 25 mg capsule sprinkle, ext. release 24 hr Take 1 capsule every day by oral route. active Not Available Not Available No t Available Vitals Date Recorded Body height Body weight Provider Name and Address Organization Details Last Updated DateTime 04/01/2024 149.86 cm 10498.89 g Kaylynn Moctezuma [place] - [facility] 04/01/2024 13:57:31 Date Recorded Body height Body weight Provider Name and Address Organization Details Last Updated DateTime 05/28/2024 149.86 cm 39555.89 g Kaylynn Moctezuma [place] [facility] 05/28/2024 08:32:47 Social History None recorded. Functional Status None recorded. Mental Status None recorded. Family History Nothing Reported. Medical History Condition Response Anemia Y Arthritis Y Anxiety Y Migraines Y Thyroid Problems Y Stroke Hypertension Y Depression Y Asthma Y Gynecological HistoryNo gynecological history recorded. Obstetrics History GPAL:G 0 P 0 0 0 0 Past Encounters Encounter ID Performer Location Encounter Start Date Encounter Closed Date Diagnosis/Indication Diagnosis SNOMED-CT Code Diagnosis ICD10 Code Diagnosis Note [id number] JOSÉ BLAIR PA-C [facility] [address] [place] [address] 04/01/2024 13:45:57 04/01/2024 14:30:05 Polyp of nasal cavity 886538277 J33.0 Allergic rhinitis 837593 04 J30.9 [id number] KRISTI JIMÉNEZ MD [facility] [address] [place] [address] 05/28/2024 08:27:33 05/28/2024 08:59:04 Polyp of nasal cavity 927583172 J33.0 Moderate p ersistent asthma 684787361 J45.40 Bleeding from nose 58486 6005 R04.0 Abnormal a uditory perception 17334094 H93.299 declines audio--chris guo make appt at her convenienc e Health Concerns Section Related Observation LastModified by Organization Detai ls LastModified Time None Recorded Concern Status LastModified by Organization Details LastModified Time None Recorded Advance Directives Directive None Recorded Payers Insurance Date Sequence Insurance Name Policy Number Policy Bustos Covered Member ID Bustos Member ID Guarantor Name 05/28/2024 1 [place] [employer] Sharon A Alonzo [id number] Sharon A Laonzo 05/28/2024 2 AARP (MEDICARE SUPPLEMENT) Sharon A Alonzo Sharon A Alonzo 05/28/2024 2 [employer] (MEDICARE SUPPLEMENT) Sharon A Alonzo [id number] Sharon A Alonzo Notes Date Note Type Note Provider Name and Address Organization Details Recorded Time 04/01/2024 text/html 46 year old sundar luo with history of polypectomy multiple times presents [...] she blows the nose. JOSÉ BLAIR PA-C [address] [facility],[address], [place], [address], [place] - [facility] 04/01/2024 14:47:35 05/28/2024 text/html f/u sinus/hx of polyps and occasional epistaxis--no recent bleedingBreathing and sense of smell are okFlonase a few times per weekNo salineShe notes difficulty understanding words at a time. Migraines and headaches have been under control. She has been having some GI difficulties.Hx of nasal polyps, asthma, migraine and depression prior visitPatient with remote history of sinus surgery and polypectomy presents after long hiatus from the practice for evaluation of itching in the nose and small amount of blood on the tissue when blowing. Physical exam unrevealing aside from a small dilated vessel on the right anterior septum. Nasal endoscopy reveals expected postsurgical changes without polypoid regrowth. Suspect allergic rhinitis. Recommend fluticasone. Offered cautery but patient prefers to avoid. Recommend saline spray, gel, and bedside humidifier. Return next available with Dr. Sevilla; discussed if her symptoms have advanced or failed to improve, interventions that day might include cautery, repeat endoscopy, and/or CT sinus. Discussed that allergy testing may prove illuminating. KRISTI SEVILLA MD [address] [facility],[address], [place], [address], [facility] - [facility] 05/28/2024 08:58:14 OBGyn Episode No OBEpisode recorded.
== END 2024-09-23 11:31 | disposition home or self-care (01) ==
LOC: HO.HPS 10:49
PROVIDERS: PCP Family Medicine; Visit Provider Internal Medicine
DX: J45.909 Unspecified asthma, uncomplicated (principal); R05.9 Cough, unspecified; R06.00 Dyspnea, unspecified
CPT/HCPCS: 99213

== ENCOUNTER → 2024-09-23 10:48 | Outpatient (BNVA) | payer MEDICARE, SELFPAY | PROVIDERS: PCP Family Medicine; Visit Provider Internal Medicine | DX: R06.09 Other forms of dyspnea (principal); R05.9 Cough, unspecified; J45.909 Unspecified asthma, uncomplicated | CPT/HCPCS: 99212 ==

== ENCOUNTER 2025-01-12 10:55 | Outpatient (AMB) | payer MEDICARE, SELFPAY ==
--- OUTSIDE RECORDS SUMMARY | 2024-04-16 05:00 | XMS_ITS ---
[facility] Organization [facility] Address [address] [place] [id number] Care Team Providers Care Petal Shaper Hand Name Role Phone Nichelle CHAVEZ, Samm Primary Care Provider Unava ilable Black, Elise Unavailable [phone] Shantelle Linda [phone] Fishman Encounters Encounter Location Date Provider Diagnosis [address] [address] 04/16/2024 Shantelle Linda Plan Of Treatment No Information Progress Notes * Sharon ALONZO ADOB: [birth year] (74 yo F)Acc No.[id number]:04/16/2024 Progress Note Patient: Sharon TYLER Provider: Lyndsey Linda DPM :1950 A ge:73 Y S ex:Female Date:04/16/2024 Address:[address] [place], [place] [id number] Pcp:Samm Steward MD Subjective: * Chief Complaints: [...] Linda DPM Date: 0 04/16/2024 Generated for Cookie brown/Gaviota/eTransmitting on: 03/14/2024 01:11 PM EST
--- NOTE | 2025-01-12 10:59 | A.OFFVIS_ITS ---
Vital Signs 01/12/25 11:03 Height 4 ft 11 in Weight 147 lb 11.355 oz BMI 29.8 BP 142/68 H Blood Pressure Location Lt brachial Position Sitting Pulse 78 Pulse Source Pulse Oximeter Pulse Oximetry (%) 97 Oxygen Delivery Method Room Air Intake Visit Reasons: cough Intake Note: pt is here for follow up and states the chronic cough and wheezing that has been bothering her, tried benzonatate with not much relief Belt Worker Required: No Therapeutic Assistant: Therapeutic Assistant offered & declined Allergies latex (LATEX) Allergy (Intermediate, Verified 01/12/25 11:27) RASH Sulfa (Sulfonamide Antibiotics) (SULFA (SULFONAMIDE ANTIBIOTICS)) Allergy (Intermediate, Verified 01/12/25 11:27) HIVES, coughing, wheezing, breathing moxifloxacin (From AVELOX) Allergy (Unknown, Verified 01/12/25 11:27) HIVES penicillin G (Penicillin G) Allergy (Unknown, Verified 01/12/25 11:27) UPSET STOMACH Gdklcri-MUQ-LnE Reductase Inhibitor ([id number]-[id number] REDUCTASE INHIBITOR) Allergy (Unknown, Verified 01/12/25 11:27) MUSCLE CRAMPS Medication List - Last Reconciled 01/12/25 by Erin Correa MD albuterol sulfate 90 mcg/actuation (ProAir HFA) 2 puffs inhalation QID amlodipine 10 mg PO DAILY benzonatate 100 mg PO TID PRN dicyclomine 20 mg PO TID PRN diphenoxylate-atropine 2.5-0.025 mg (Lomotil) 1 tab PO BID PRN duloxetine 30 mg PO DAILY famotidine 40 mg PO BEDTIME fluticasone propion-salmeterol 250-50 mcg/dose (Wixela Inhub) 1 inh inhalation BID 90 days gabapentin 100 mg PO DAILY lansoprazole 30 mg PO DAILY levothyroxine 112 mcg PO DAILY lorazepam (Ativan) 1 mg PO BEDTIME PRN metoprolol succinate ER 25 mg PO DAILY metronidazole 500 mg PO TID 14 days mirtazapine 15 mg PO BEDTIME olmesartan 40 mg PO DAILY ondansetron 4 mg PO Q8H PRN sod sulf-pot chloride-mag sulf 1.479-0.188- 0.225 gram (Sutab) PO PER PKG DIR trazodone 100 mg PO BEDTIME zolpidem 10 mg PO BEDTIME PRN Do you need a note to return to daycare/school/sports/work: No HPI HPI cough: Details: THIS 74 YEARS OLD VERY PLEASANT FEMALE IS A CASE OF BRONCHIAL ASTHMA AND CHRONIC COUGH. FOR THE LAST FEW MONTHS SHE HAS HAD ONGOING COUGH. SHE HAS HAD CHEST X-RAY LAST 1 IN AND THERE WAS NO EVIDENCE OF PNEUMONIA. SHE HAS TRIED TESSALON PERLES PRESCRIBED BY HER PCP. IT DID NOT HELP TO CONTROL HER COUGH. ONE PROBLEM IS THAT SHE HAS NOT BEEN USING WIXELA, DUE TO SOME MISUNDERSTANDING. DENIES ANY FEVER OR CHILLS. SHE DOES HAVE MILD NASAL CONGESTION WITH POSTNASAL DISCHARGE. CURRENTLY WITH COUGH, SHE BRINGS UP SMALL AMOUNT OF MUCUS. SHE ALSO FEELS THAT THERE IS SOME MOLD IN THE BASEMENT AND WHEN SHE GOES DOWN STAIRS SHE STARTS HAVING MORE COUGH. [facility] Medical History Hemoptysis Allergic rhinitis GERD (gastroesophageal reflux disease) Thyroid disease HTN (hypertension) Bundle branch block EMG syndrome Trigger finger, left index finger Cough Myopathy Obesity (BMI 30-39.9) Asthma Dyspnea on exertion Surgical History Hx of hysterectomy Hx of cerebral aneurysm repair Hx of total knee replacement History of bone marrow biopsy History of laryngoscopy Hx of nasal polypectomy Hx of cholecystectomy Hx of colonoscopy History of esophagogastroduodenoscopy (EGD) Family History Father Colon cancer Sister Colon cancer Social History Patient Tobacco Use Status: Former Tobacco user Tobacco use type: Cigarette Years Smoked: 10 years Review of Systems Const All systems reviewed & are unremarkable except as noted in HPI and below Reports body aches (MILD ) and Reports fatigue (MILD) Eyes Reports no additional complaints ENT Reports no additional complaints Card Denies chest pain, Denies irregular heart rhythm and Denies dyspnea on exertion Resp Reports cough (OCCASIONAL , MILD ), Denies dyspnea on exertion and Denies wheezing GI Reports no additional complaints Reports no additional complaints Musc Reports myalgias (MILD TO MODERATE ) and Reports muscle weakness (CHRONIC , MILD ) Skin/Breast Reports system reviewed and no additional complaints, except as documented Neuro Reports no additional complaints Psych Reports anxiety (WORRIED ABOUT ALL HER MEDICAL PROBLEMS ) Endo Reports fatigue (MILD) Aller/Immun Denies wheezing Physical Exam Vital Signs: Last Vital Signs Pulse 78 01/12/25 11:03 BP 142/68 H 01/12/25 11:03 Pulse Ox 97 01/12/25 11:03 Oxygen Delivery Method Room Air 01/12/25 11:03 BMI result Body Mass Index 29.8 Const General: comfortable, no acute distress, alert and awake Orientation/consciousness: patient oriented x3 HEENT Head: Yes normal to inspection General nose exam: No nasal polyps present, No nasal discharge present and Other nasal findings present (MILD NASAL CONGESTION NOTED) Face and sinus: Yes sinuses nontender Mouth: oropharynx normal Throat: Yes posterior oropharynx normal Eyes General: appearance normal, both eyes and all related structures Neck Neck: Yes normal visual inspection, Yes no lymphadenopathy, Yes trachea midline and Yes no JVD Thyroid: Thyroid normal Chest Chest palpation & inspection: normal inspection of the chest, normal palpation of entire chest wall and no tenderness Resp Other: Percussion note is resonant, breath sounds slightly distant with prolonged expiratory phase. There are a few scattered wheezes on both sides, No crepitations. Cardio Palpation: normal PMI Rate: regular rate Rhythm: regular rhythm Heart sounds: no gallops and no murmurs Peripheral pulses: Peripheral pulses 2+ throughout GI Palpation (GI): Soft to palpation, nontender, No hepatosplenomegaly present and no masses Auscultation: normal bowel sounds Back/Spine/Pelvis Thoracic/Lumbar Spine: thoracic and lumbar spine normal to inspection Skin General skin exam: no rashes or lesions noted Neuro General: patient oriented x3 and no focal motor deficits Cranial nerves: Yes CN's II-XII intact bilaterally Extrem General: Yes normal to inspection, Yes no clubbing, cyanosis or edema and Yes no calf tenderness Psych Appearance: grossly normal and well kempt Speech and movement: Normal speech and movement present Assessment & Plan Assessment & Plan (1) Asthma: Comment: PER SPIROMETRY SHE DOES HAVE EVIDENCE OF BRONCHIAL ASTHMA/COPD ,MODERATELY SEVERE . REMAINS UNDER CONTROL AND STABLE. MAIN COMPLAINT AT THIS TIME IS ONGOING FREQUENT BOUTS OF COUGH. I THINK SHE MAY HAVE A LOW-GRADE BRONCHITIS AND ALSO NOT USING WIXELA REGULARLY Code(s): J45.909 - Unspecified asthma, uncomplicated Category: Medical Plan: EXPLAINED THAT SHE SHOULD START USING WIXELA 250-51 INHALATION B.I.D. REGULARLY A CONTROLLER INHALER. AND USE ALBUTEROL( VENTOLIN ) TWO PUFFS Q SIX HOURS ONLY PRN FOR BREAKTHROUGH COUGH, (2) Cough: Comment: COUGH IS SEC. TO GERD AND REACTIVE AIRWAYS . IT GETS FLARED UP EVERY NOW AND THEN ESPECIALLY WITH THE AT CHANGE IN THE WEATHER. NOW FOR THE PAST FEW MONTHS SHE HAS NOT BEEN USING WIXELA, AND COUGH HAS BECOME MORE FREQUENT. SHE MAY HAVE A LOW-GRADE BRONCHITIS. Code(s): R05.9 - Cough, unspecified Category: Medical Plan: I WILL PRESCRIBE SHORT COURSE OF DOXYCYCLINE. SHE WILL USE WIXELA TWO FIFTY-FIFTY ONE INHALATION B.I.D. REGULARLY AND USE ALBUTEROL HFA PRN. NO NEED OF YOU USING ANY COUGH SYRUPS ARE USING BENZONATATE PEARLS (3) Allergic rhinitis: Comment: She does have intermittent nasal congestion with some postnasal drip., but it is not bothersome. Code(s): J30.9 - Allergic rhinitis, unspecified Category: Medical Plan: MAY USE LORATADINE 10 MG ONCE A DAY P.R.N.. Medications: New doxycycline hyclate 100 mg PO BID 14 tabs 0RF BRONCHITIS 7 days Changed From albuterol sulfate 90 mcg/actuation (ProAir HFA) 2 puffs inhalation QID To albuterol sulfate 90 mcg/actuation (ProAir HFA) 2 puffs inhalation Q6-8H PRN Refilled fluticasone propion-salmeterol 250-50 mcg/dose (Wixela Inhub) 1 inh inhalation BID 3 ea 3RF ASTHMA/COUGH 90 days Coding Level of Care Code Est Pt Level 3 (26039) Diagnoses Asthma J45.909 Cough R05.9 Allergic rhinitis J30.9
[2025-01-12 11:03] VITALS: BP 142/68; PULSE 78; O2SAT 97; BMI 29.8
--- OUTSIDE RECORDS SUMMARY | 2025-01-12 13:11 | XMS_ITS | Patient Health Record ---
[facility] Address [address] [place] [address] Care Team Providers Care Rcis Name Role Phone Samm Steward MD Primary Care Provider Maria linda Elise Santos Unavailable [phone] AlexNora Unavailable [phone] Shantelle Linda Unavailable [phone] Allergies Allergen (clinical drug ingredient) Drug/Non Drug [...] Penicillin nausea Drug Allergy Active Substance with 2-afepqsd-0-methylgl utaryl-coenzyme A reductase inhibitor mechanism of action [...] at bedtime as needed Orally Once a day; Duration: 30 day(s) Active IVIg Infusions Active FLUoxetine HCl 20 MG 1 capsule Orally On ce a day; Duration: 30 day(s) Active Ammonium Lactate 12 % 1 application Externally to affected areas of dry skin to feet except for between the toes Twice a day; Duration: 30 days Active amLODIPine Besylate 10 MG 1 tablet Orall y Once a day; Duration: 30 day(s) Active Wixela Inhub 500-50 MCG/ACT 1 puff Inhalation Twice a day Active ALPRAZolam 1 MG 1 tablet Orally Twic e a day Active traZODone HCl 100 MG 1 tablet at bedtime Orally Once a day; Duration: 30 day(s) Active Ammonium Lactate 12 % 1 application to affected area Externally Twice a day to dry areas of skin on feet; Duration: 30 days Active ProAir HFA 108 (90 Base) MCG/ACT 1 puff as needed Inhalation every 4 hrs Active Pantoprazole Sodium 40 MG 1 tablet Orall y Once a day; Duration: 30 day(s) Active Olmesartan Medoxomil 20 MG 1 tablet Orally Once a day; Duration: 30 day(s) Active Lidocaine-Prilocaine 2.5-2.5 % as directed Externally Activ e Levothyroxine Sodium 112 MCG 1 tablet in the morning on an empty stomach Orally Once a day; Duration: 30 day(s) Active Social History Tobacco Use: [...] W/U Status Risk Notes Problem Plantar wart ([id number]) Plantar wart (B07.0) Active confirmed Vital Signs Blood pressure diastolic 70 mm Hg 04/24/2024 Height [id number] in 04/24/2024 Blood pressure systolic 125 mm Hg 04/24/2024 Weight 145 lbs 04/24/2024 BMI 29.28 kg/m2 04/24/2024 Encounters Encounter Location Date Provider Diagnosis [facility] [address] [place] [address] 04/24/2024 Nora Johnson Xerosis of skin L85.3 [...] Medicare [employer] [address] [place] [address] [id number] Sharon Alonzo Self - patient is the insured [employer] Secondary to Medicare [address] [place] [address] [id number] Sharon Alonzo Self - patient is the [...]
--- OUTSIDE RECORDS SUMMARY | 2025-01-12 13:11 | XMS_ITS | Clinical Summary ---
Author Organization [facility] Address [address] [place] [address] Phone Care Team Providers Care Crane Operator Name Role Phone Unavailable Primary Care [...] age to complete this topic Insurance Medicare [facility] Medicare [facility]
--- OUTSIDE RECORDS SUMMARY | 2025-01-12 13:11 | XMS_ITS | Data Portability ---
Author Organization [place] - [facility], Allergy Address [address] [facility] [address] [place] [address] Care Team Providers Care Farm Machine Tender Name Role Phone HORACIO OCHOA Primary Care Provider [phone] Assessment Encounter Date Assessment Date Assessment LastModified [...] mcg/actuati on nasal spray,suspe nsion 2024 025 [facility] #[id number], [address] [facility], [place], [place], [id number], 01/22/202 5 14:24:08 Patient TargetsNo targets recorded. Patient Instructions Encounter Date Encounter Id Patient Instructions Last Modified By Organization Details Last Modified Time 05/28/2024 [id number] Overall doing well. No evidence of nasal polyps or nasal bleeding. She declines audiometric testing at the present time. She will contact us through the portal for an appointment as needed. [email or web address] Not available 05/28/2024 08:56:59 Reason for Referral None Reported. Problems Name Problem SNOMED Code Status Onset Date Resolution Date Notes Provider Name and Address Organization Details Recorded Time Nasal polyp Active 2014 Nasal polyps: Polyp of nasal cavity; Note: Date Diagnosed: 03/31/2014 11:12 AM (471.0) Not Available [facility] 4 02:31:10 Anxiety disorder 743475420 Active 2014 Transient mental disorders due to conditions classified elsewhere: Anxiety disorder in conditions classified elsewhere; Note: Date Diagnosed: 03/31/2014 11:12 AM (293.84) Not Available [facility] 4 02:31:05 Chronic pharyngit is 295239 Active 2014 Chronic pharyngiti s and nasopharyn gitis: Chronic pharyngiti s; Note: Date Diagnosed: 03/31/2014 11:12 AM (472.1) Not Available [facility] 4 02:31:03 Glossitis 40316925 Active 2014 Glossitis; Note: Date Diagnosed: 05/31/2014 10:50 AM (529.0) Not Available [facility] 4 02:31:11 Gastroeso phageal reflux disease without esophagit is 545112112 Active 2015 Gastro-eso phageal reflux disease without esophagiti s; Note: Date Diagnosed: 11/02/2015 12:09 PM (K21.9) Not Available [facility] 4 02:31:12 Polyp of nasal cavity 463015936 Active 2015 Polyp of nasal cavity; Note: Date Diagnosed: 11/02/2015 12:09 PM (J33.0) Not Available [facility] 4 02:31:10 Pain of temporoma ndibular joint 76788894 Active 2015 Arthralgia of temporoman dibular joint; Note: Date Diagnosed: 11/02/2015 11:10 AM (M26.62) Not Available [facility] 4 02:31:12 Dysphonia 12686922 Active 2016 Other voice and resonance disorders; Note: Date Diagnosed: 05/24/2016 5:22 PM (R49.8) Not Available [facility] 4 02:30:55 Finding of resonance of voice 339253784 Active 2016 Other voice and resonance disorders; Note: Date Diagnosed: 05/24/2016 5:22 PM (R49.8) Not Available [facility] 4 02:30:55 Chronic rhinitis 59202112 Active 2016 Chronic rhinitis; Note: Date Diagnosed: 01/09/2017 5:17 PM (J31.0) Not Available [facility] 4 02:30:57 Headache 17249273 Active 2016 Facial pain NOS; Note: Date Diagnosed: 01/09/2017 2:08 PM (R51) Not Available [facility] 4 02:30:57 Disorder of muscle 940112362 Active 2020 Other specified disorders of muscle; Note: Date Diagnosed: 07/20/2020 11:12 AM (M62.89) Not Available [facility] 4 02:31:14 Allergic rhinitis 62058869 Active 2024 Linnette keys [place] - [facility] 5 14:47:05 Moderate persisten t asthma 824108881 Active 2024 KRISTI JIMÉNEZ MD [address] [place] [address],[place] [address], [place], [address] , [place] - [facility] 5 07:54:24 Bleeding from nose 088265096 Active 2024 KRISTI JIMÉNEZ MD [address] [place] [address],[place] [address], [place], [address] , [place] - [facility] 5 07:55:08 Abnormal auditory perceptio n 77883656 Active 2024 KRISTI JIMÉNEZ MD [address] [facility],[place] [address], [place], [address] , [place] - [facility] 08:55:48 Problem Notes None recorded. Procedures Surgical History Date Name Laterality Status Provider Name and Address Organization Details Recorded Time 05/29/19 JMSNasal/Sinus Endoscopy-PRIOR surgical cavities completed KRISTI SEVILLA MD [address] [facility],[place] [address], [place], [address], [place] - [facility] 05/28/2024 08:57:47 04/01/19 Nasal Endoscopy completed Linnette Blair [place] - [facility] 04/01/2024 14:25:03 Hysterectomy completed Kaylynn Moctezuma [facility] 04/01/2024 14:00:27 cholecystectomy completed Kaylynn Moctezuma [facility] 04/01/2024 14:00:34 arthroscopy of knee completed Kaylynn Moctezuma [facility] 04/01/2024 14:01:28 biopsy of breast completed Kaylynn Moctezuma [facility] 04/01/2024 14:01:39 total knee replacement completed Kaylynn Moctezuma [place] - [facility] 04/01/2024 14:01:47 Imaging Results None recorded. Procedure Notes None recorded. Medical Equipment None Reported. Allergies Allergen ID Allergen Name Allergen Category Reaction Reaction Severity Criticality Documentation Date Start Date Code Code System Note Provider Name and Address Organization Details Recorded Time 18788 Product containin g angiotens in-conver ting enzyme inhibitor (product) medicatio n other Not available Not available 07/23/2023 37509 009 SNOMED React ion: Unkno wn; Not Available [facility] 4 00:53:39 71037 moxifloxa maxwell medicatio n other Not available Not available 07/23/2023 51504 2 RxNorm React ion: unkno wn, unspe cifie d;; Not Available [facility] 4 00:53:40 82167 erythromy maxwell ethylsucc inate medicatio n other Not available Not available 07/23/2023 4056 RxNorm React ion: unkno wn, unspe cifie d;; Not Available [facility] 4 00:53:44 06982 penicilli n V potassium medicatio n other Not available Not available 07/23/2023 28109 5 RxNorm React ion: unkno wn, unspe cifie d;; Not Available [facility] 4 00:53:47 54891 Product containin g 3-hydroxy -3-methyl glutaryl- coenzyme A reductase inhibitor (product) medicatio n other Not available Not available 07/23/2023 07148 009 SNOMED React ion: unkno wn, unspe cifie d;; Not Available [facility] 4 00:53:52 80792 Substance with sulfonami de structure and antibacte rial mechanism of action (substanc e) medicatio n other Not available Not available 07/23/2023 61099 8003 SNOMED React ion: unkno wn, unspe cifie d;; Not Available [facility] 4 00:53:53 Medications Name Sig Start Date Stop Date Status Note LastModified by Organization Details LastModified Time fluoxetin e 40 mg capsule 05/04 completed Medicati on ID: [id number] Du ration Value: 30 Reason: () Brand Name: fluoxeti ne Send Method: E-Prescr ibed Sub s Allowed: subs OK Speci al Instruct ion: TAKE 1 CAPSULE BY MOUTH ONCE A DAY Medi cationGe nericNam e: fluoxeti ne Not Available Not Available Not Available latanopro st 0.005 % eye drops 07/20 completed Medicati on ID: [id number] B rand Name: latanopr ost Send Method: E-Prescr ibed Sub s Allowed: subs OK Medic ationGen ericName : latanopr ost Not Available Not Available Not Available fluticaso ne 250 mcg-salme terol 50 mcg/dose blistr powdr for inhalatio n active Not Available Not Available Not Available atorvasta tin 80 mg tablet 05/04 completed Medicati on ID: [id number] R yinka: () Brand Name: atorvast atin [...] mg tablet 05/04 completed Medicati on ID: 45530 Du ration Value: 30 Reason: () Brand Name: trazodon e Send Method: E-Prescr ibed Sub s Allowed: subs OK Speci al Instruct ion: TAKE 1 TABLET BY MOUTH AT BEDTIME Medicati onGeneri cName: trazodon e Not Available Not Available Not Available alprazola m 1 mg tablet 04/01 completed Medicati on ID: [id number] B rand Name: alprazol am Send Method: [...] mg tablet 05/04 completed Medicati on ID: [id number] Du ration Value: 84 Reason: () Brand [...] mg tablet 07/20 completed Medicati on ID: [id number] D uration Value: 90 Brand Name: amlodipi ne Send Method: E-Prescr ibed Sub s Allowed: subs OK Medic ationGen ericName : amlodipi ne Not Available Not Available Not Available levothyro xine 25 mcg tablet 05/04 completed Medicati on ID: [id number] R yinka: () Brand Name: levothyr oxine Se nd Method: E-Prescr ibed Sub s Allowed: subs OK Medic ationGen ericName : levothyr oxine Not Available Not Available Not Available levothyro xine 75 mcg tablet 07/20 completed Medicati on ID: [id number] D uration Value: 90 Brand Name: levothyr oxine Se nd Method: E-Prescr ibed Sub s Allowed: subs OK Medic ationGen ericName : levothyr oxine Not Available Not Available Not Available alprazola m 0.5 mg tablet 05/04 completed Medicati on ID: [id number] Du ration Value: 30 Reason: () Brand [...] nasal spray 07/20 completed Medicati on ID: [id number] B rand Name: flunisol kelvin Send Method: [...] mcg tablet 05/28 completed Medicati on ID: [id number] B rand Name: levothyr oxine Se nd Method: E-Prescr ibed Sub s Allowed: subs OK Medic ationGen ericName : levothyr oxine Not Available Not Available Not Available omeprazol e 20 mg capsule,d elayed release 07/20 completed Medicati on ID: [id number] B rand Name: omeprazo le Send Method: E-Prescr ibed Sub s Allowed: subs OK Medic ationGen ericName : omeprazo le Not Available Not Available Not Available pravastat in 20 mg tablet 05/04 completed Medicati on ID: [id number] Du ration Value: 90 Reason: () Brand [...] min capsule 07/20 completed Medicati on ID: [id number] B rand Name: multivit callahan Sen d Method: E-Prescr ibed Sub s Allowed: subs OK Medic ationGen ericName : multivit callahan Not Available Not Available Not Available fluoxetin e 20 mg capsule 07/20 completed Medicati on ID: [id number] B rand Name: fluoxeti ne Send Method: [...] mg tablet 05/28 completed Medicati on ID: [id number] B rand Name: olmesart an Send Method: E-Prescr ibed Sub s Allowed: subs OK Medic ationGen ericName : olmesart an Not Available Not Available Not Available olmesarta n 40 mg tablet active Not Available Not Available Not Available Fish Oil 120 mg-180 mg capsule 07/20 completed Medicati on ID: [id number] B rand Name: Fish Oil Send Method: E-Prescr ibed Sub s Allowed: subs OK Medic ationGen ericName : Fish Oil Not Available Not Available Not Available Spiriva with HandiHale r 18 mcg and inhalatio n capsules 07/20 completed Medicati on ID: [id number] B rand Name: Spiriva with HandiHal er Send Method: E-Prescr ibed Sub s Allowed: subs OK Medic ationGen ericName : Spiriva with HandiHal er Not Available Not Available Not Available duloxetin e 30 mg capsule,d elayed release 07/20 completed Medicati on ID: [id number] B rand Name: duloxeti ne Send Method: E-Prescr ibed Sub s Allowed: subs OK Medic ationGen ericName : duloxeti ne Not Available Not Available Not Available duloxetin e 60 mg capsule,d elayed release 04/01 completed Medicati on ID: [id number] B rand Name: duloxeti ne Send Method: E-Prescr ibed Sub s Allowed: subs OK Medic ationGen ericName : duloxeti ne Not Available Not Available Not Available gabapenti n 100 mg tablet Take 1 tablet 3 times a day by oral route. active Not Available Not Available No t Available quetiapin e 50 mg tablet 05/04 completed Medicati on ID: [id number] R yinka: () Brand Name: quetiapi ne Send Method: E-Prescr ibed Sub s Allowed: subs OK Medic ationGen ericName : quetiapi ne Not Available Not Available Not Available Symbicort 160 mcg-4.5 mcg/actua tion HFA aerosol inhaler 07/20 completed Medicati on ID: [id number] Du ration Value: 90 Brand Name: Symbicor t Send Method: E-Prescr ibed Sub s Allowed: subs OK Medic ationGen ericName : Symbicor t Not Available Not Available Not Available Calcium 600 + D(3) 600 mg-10 mcg (400 unit) tablet 07/20 completed Medicati on ID: [id number] B rand Name: Calcium 600 + D(3) [...] Details Last Updated DateTime 04/01/2024 149.86 cm 51549.89 g Kaylynn Moctezuma [place] - [facility] 04/01/2024 13:57:31 Date Recorded Body height Body weight Provider Name and Address Organization Details Last Updated DateTime 05/28/2024 149.86 cm 71798.89 g Kaylynn Moctezuma [place] [facility] 05/28/2024 08:32:47 Social History None recorded. Functional [...] Diagnosis SNOMED-CT Code Diagnosis ICD10 Code Diagnosis IMO Codes Diagnosis Note [id number] LINNETTE BLAIR PA-C [facility] [address] [address] 04/01/2024 13:45:57 04/01/2024 14:30:05 Polyp of nasal cavity 522042741 J33.0 Allergic rhinitis 537895 04 J30.9 [id number] KRISTI JIMÉNEZ MD [facility] [address] [place] [address] 05/28/2024 08:27:33 05/28/2024 08:59:04 Polyp of nasal cavity 505922610 J33.0 Moderate p ersistent asthma 813455101 J45.40 Bleeding from nose 35602 6005 R04.0 Abnormal a uditory perception 25984147 H93.299 declines audio--chris guo make appt at her convenien[facility] e [facility] Concerns Section Related Observation LastModified by Organization Detai ls LastModified Time None Recorded Concern Status LastModified by Organization Details LastModified Time None Recorded Advance Directives Directive None Recorded Payers Insurance Date Sequence Insurance Name Policy Number Policy Bustos Covered Member ID Bustos Member ID Guarantor Name 05/28/2024 1 [place] [employer] Sharon A Alonzo [id number] Sharon A Alonzo 05/28/2024 2 [employer] (MEDICARE SUPPLEMENT) Sharon A Alonzo Sharon A Alonzo 05/28/2024 2 [employer] (MEDICARE SUPPLEMENT) Sharon A Alonzo [id number] Sharon A Alonzo Notes Date Note Type Note Provider Name and Address Organization Details Recorded Time 04/01/2024 text/html ROS as noted in the HPI 46 year old female with history of polypectomy multiple times presents [...] the tissue when she blows the nose. Linnette keys [place] - [facility] 04/01/2024 14:47:35 05/28/2024 text/html ROS as noted in the HPI f/u sinus/hx of polyps and occasional epistaxis--no recent bleedingBreathing and sense of smell are okFlonase a few times per weekNo Badominique notes difficulty understanding words at a time. [...] testing may prove illuminating. KRISTI SEVILLA MD [address] [place] [address], [place], [address], [facility] - [facility] 05/28/2024 08:58:14 OBGyn Episode No OBEpisode recorded.
--- OUTSIDE RECORDS SUMMARY | 2025-01-12 13:11 | XMS_ITS | Patient Health Record ---
Author Organization [facility] Address [address] [place] [address] Care Team Providers Care Transverse Abdominal Muscle Surgeon Name Role Phone Samm Steward Primary Care Provider Alberto Camarena Unavailable [phone] Allergies Allergen (clinical drug ingredient) Drug/Non Drug [...] Packs 240 GM as directed Orally as directed; Duration: 1 day(s) 06/03/2014 Active FLUoxetine HCl 20 [...] Problem Status W/U Status Risk Notes Problem Gastroesophageal reflux disease (250419308) Gastroesophageal reflux disease, esophagitis presence not specified (K21.9) Active confirmed Problem Hoarseness (84253192) Hoarseness (R49.0) Active confirmed Plan Of Treatment Future Test Test Name Order Date COLONOSCOPY 06/01/2014 UPPER GI ENDOSCOPY 01/31/2016 Insurance Providers Payer Name Payer Address Payer Phone Subscriber Number Group Number Insured Name Patient Relationship to Insured Coverage Start Date Coverage End Date MEDICARE OF [place] [address] [place] [id number] [phone] [id number] MORALESHAROLDO Self - patient is the insured [facility] SUPPLEMENTAL PLAN [address] [place] [address] [id number] CARMENHAROLDO Self - patient is the insured Medical (General) History Medical History History ICD Code 09/27/2009 Colonoscopy-negat christiano for polyps--biopsies neg. for microscopic colitis Diverticulosis Internal hemorrhoids TIA's--neg. carotid U/S Nasal polyps Irritable bowel syndrome Urinary incontinence Anxiety/Depression Hypothyroidism Hypertension-she sees Dr. Chicas Tubular adenoma removed in with Dr. Ayala--had a negative colonoscopy in [address] Ayala as well COPD Neg EGD in [address] Ayala--neg bx for celiac disease Denies AL, DM,renal disease Colonoscopy in 09/2014--1 small tubular a denoma Surgical History Surgery Date(Month/Year) SABINA Cholecystectomy/gall stones Removal of benign salivary gland tumor Knee surgery- on right knee bladder suspension nasal polypectomy breast biopsy-benign ganglion cyst
--- OUTSIDE RECORDS SUMMARY | 2025-01-12 13:11 | XMS_ITS | Data Portability ---
Author Organization [place] - [facility] Address [address] [place] [id number] Care Team Providers Care Client Director Name Role Phone HORACIO OCHOA Primary Care Provider Assessment Encounter Date Assessment Date Assessment LastModified by Organization Details LastModified Time 12/09/2020 12/09/2020 Proper Personal Protective Equipment (PPE), including gloves, gown, shoe covers, eye protection and masks were donned and doffed appropriately and all equipment cleaned using approved technique with germicidal disposable wipes prior to and after care of this patient according to [facility]'s infection prevention protocols. Overview/History: 70 yo immunocompromised [...] Neuro: No focal deficits, patient GCS- 456, CN s II-XII grossly normal Skin: No rash, [...] I have accessed patient records on the [employer]. This information was pertinent in my medical decision making today. [email or web address] Not available 12/09/2020 22:08:31 09/29/2021 09/29/2021 Ms [...] up appointments with her PCP, GI and [facility] Buffer coming up . Time On Scene with Patient: 00:48:34 [email or web address] Not available 09/29/2021 20:00:08 09/30/2021 09/30/2021 Overview/History [...] trauma Neuro: No focal deficits, A&O x4, CN s II-XII grossly normal, equal strength BL, [...] + ionized calcium, serum or plasma [facility], [address] [place], [address], 14:23:15 rapid strep group A, throat 2021 [email or web address] 0 [facility], [address] [place], [address], 18:58:31 Referral None recorded. Procedures None recorded. Surgeries None recorded. Imaging None recorded. Medication Orders nystatin 100,000 unit/mL oral suspension 2020 [email or web address] 0 [id number], [address], [place], [id number], 18:11:58 valacyclovi r 1 gram tablet 2020 [id number], [address], [place], [phone], 14:07:49 Patient TargetsNo targets recorded. Patient Instructions Encounter Date Encounter Id Patient Instructions Last Modified By Organization Details Last Modified Time 12/09/2020 [id number] Thank you for yo ur [facility]. We cannot always find the exact cause of your symptoms during your initial visit. Please follow up with your primary care provider or specialist within 2-3 days to be rechecked or seek medical attention if your symptoms do not go away or get worse. If you develop any new or worsening symptoms and need after hours care, please go to nearest ER and/or call 911. If you have additional concerns or develop a change in your condition between 8am-10pm, please call [facility] at [phone] to help navigate your care. Please seek [...] in your condition between 8am-10pm, please call [facility] at [phone] to help navigate your care. [email or web address] Not available 12/09/2020 21:21:15 Reason for Referral None Reported. Results Created Date Observation Date Name Description Value Unit Range Abnormal Flag Note LastModifiedBy Organization Detail LastModifiedTime 09/30/19 22 09/29/2021 rapid strep group A, throa t Strep A (ref: neg) negati ve Not Available [facility] [address] [place] [address], [phone], 09/29/2021 18:33:19 09/30/19 22 09/29/2021 rapid strep group A, throa t Control Visual ized/V alid Not Available [facility] [address] [place] [address], [phone], 09/29/2021 18:33:19 09/30/19 22 09/29/2021 rapid strep group A, throa t [facility], [address] [place] [address], [id number] Not Available [facility] - [address], [address], 09/29/2021 18:33:19 10/01/19 22 09/30/2021 BMP + IONIZ ED CALCI UM, SERUM OR PLASM A glu 125 mg/dL 70-105 Not Available [facility] [address] [place], [address], 09/30/2021 14:23:15 10/01/19 22 09/30/2021 BMP + IONIZ ED CALCI UM, SERUM OR PLASM A BUN 12 mg/dL 8-26 Not Available [facility] [address] [place] [address], [address], 09/30/2021 14:23:15 10/01/19 22 09/30/2021 BMP + IONIZ ED CALCI UM, SERUM OR PLASM A crea 1.2 mg/dL 0.6-1. 3 Not Available [address], [address], 09/30/2021 14:23:15 10/01/19 22 09/30/2021 BMP + IONIZ ED CALCI UM, SERUM OR PLASM A Na 132 mmol/ L 138-14 6 Not Available [address], [address], 09/30/2021 14:23:15 10/01/19 22 09/30/2021 BMP + IONIZ ED CALCI UM, SERUM OR PLASM A K 3.9 mmol/ L 3.5-4. 9 Not Available [address], [address], 09/30/2021 14:23:15 10/01/19 22 09/30/2021 BMP + IONIZ ED CALCI UM, SERUM OR PLASM A cL 95 mmol/ L 98-109 Not Available [address], [address], 09/30/2021 14:23:15 10/01/19 22 09/30/2021 BMP + IONIZ ED CALCI UM, SERUM OR PLASM A TCO2 27 mmol/ L 24-29 Not Available [address], [address], 09/30/2021 14:23:15 10/01/19 22 09/30/2021 BMP + IONIZ ED CALCI UM, SERUM OR PLASM A angap 15 mmol/ L 10-20 Not Available [address], [address], 09/30/2021 14:23:15 10/01/19 22 09/30/2021 BMP + IONIZ ED CALCI UM, SERUM OR PLASM A ica 1.25 mmol/ L 1.12-1 .32 Not Available [facility] [address] [place], [address], 09/30/2021 14:23:15 10/01/19 22 09/30/2021 BMP + IONIZ ED CALCI UM, SERUM OR PLASM A HCT 30 %pcv 38-51 Not Available [facility] [address] [place], [address], 09/30/2021 14:23:15 10/01/19 22 09/30/2021 BMP + IONIZ ED CALCI UM, SERUM OR PLASM A Hb 10.2 g/dL 12-17 Not Available [facility] [address] [place], [address], 09/30/2021 14:23:15 Result Notes None recorded. Procedures Surgical History Date Name Laterality Status Provider Name and Address Organization Details Recorded Time 022 Venipuncture - DH completed VIOLET Mcgregor [address], [place], [address], [place] [facility] 09/30/2021 15:00:50 Total Hysterectomy completed KYM CUETO NP [address] [place], [address], [place] [facility] 12/09/2020 20:40:28 Imaging Results None recorded. Procedure Notes None recorded. Medical Equipment None Reported. Allergies Allergen ID Allergen Name Allergen Category Reaction Reaction Severity Criticality Documentation Date Start Date Code Code System Note Provider Name and Address Organization Details Recorded Time [id number] Product containin g penicilli n (product) medicatio n Not available Not available Not available 12/09/2020 31848 8001 SNOMED KYM CUETO NP [address], [place], [address], [place] [facility] 20:37:16 [id number] erythromy maxwell medicatio n Not available Not available Not available 12/09/2020 4053 RxNorm KYM ROM, REGISTRATION MANAGER [address], [place], [address], [place] [facility] 20:37:36 640722 Avelox medicatio n Not available Not available Not available 12/09/2020 83601 6 RxNorm KYM ROM, REGISTRATION MANAGER [address], [place], [address], [place] [facility] 20:37:44 541714 Substance with sulfonami de structure and antibacte rial mechanism of action (substanc e) medicatio n Not available Not available Not available 12/09/2020 55460 8003 SNOMED KYM CUETO, REGISTRATION MANAGER [address], [place], [address], [place] [facility] 20:37:52 940080 Product containin g 3-hydroxy -3-methyl glutaryl- coenzyme A reductase inhibitor (product) medicatio n Not available Not available Not available 12/09/2020 23716 009 SNOMED KYM CEUTO NP [address], [place], [address], [place] [facility] 20:37:59 536400 latex environme nt,medica tion Not available Not available Not available 12/09/2020 23706 91 RxNorm KYM CUETO NP [address], [place], [address], [place] [facility] 20:38:06 395845 Product containin g angiotens in-conver ting enzyme inhibitor (product) medicatio n Not available Not available Not available 12/09/2020 08320 009 SNOMED KYM CUETO, REGISTRATION MANAGER [address], [place], [address], [place] [facility] 20:38:17 Medications Name Sig Start Date Stop Date Status Note LastModified by Organization Details LastModified Time nystatin 100,000 unit/mL oral suspension SHAKE LIQUID AND TAKE 5 ML BY MOUTH FOUR TIMES DAILY FOR 7 DAYS 07/22 /2022 completed Not Available Not Available Not Available [...] active Not Available Not Available Not Available valacyclovi r 1 gram tablet Take 1 tablet every 8 hours by oral route for 7 days. 09/30 completed Not Available Not Available Not Available hydrocodone [...] completed Not Available Not Available Not Available [facility] 100,000 unit/gram topical powder APPLY [...] t Available Vitals Date Recorded Heart rate Body temperature Oxygen saturation Oxygen saturation in Arterial blood by Pulse oximetry Respiratory rate Systolic And Diastolic Provider Name and Address Organization Details Last Updated DateTime 2 88 /min 98.5 [degF] 95 % 95 % 18 /min 140/78 mm[Hg] Not Available [facility] 2 18:16:45 Date Recorded Heart rate Body temperature Respiratory rate Oxygen saturation Oxygen saturation in Arterial blood by Pulse oximetry Systolic And Diastolic Provider Name and Address Organization Details Last Updated DateTime 2 92 /min 97.8 [degF] 18 /min 94 % 94 % 142/78 mm[Hg] Not Available [facility] 2 14:08:24 Date Recorded Heart rate Oxygen saturation Oxygen saturation in Arterial blood by Pulse oximetry Body temperature Respiratory rate Systolic And Diastolic Provider Name and Address Organization Details Last Updated DateTime 1 90 /min 97 % 97 % 97.6 [degF] 18 /min 128/84 mm[Hg] Not Available [facility] 20:48:21 Social History Question Answer Notes LastModified by [employer] Details LastModified Time Tobacco Smoking Status Never Smoker KYM CUETO NP [address], [place], [address], [place] [facility] 12/09/2020 20:39:12 Do You Have An Advance Directive? No [email or web address] Information not available 12/09/2020 What Is Your Code Status? Full Code [email or web address] Information not available 12/09/2020 Within The Past 12 Months, Has It Happened That The Food You Bought Just Didn't Last And You Didn't Have Money To Get More. No [email or web address] Information not available 12/09/2020 Within The Past 12 Months, Have You Worried That Your Food Would Run Out Before You Got Money To Buy More. No [email or web address] Information not available 12/09/2020 Fall Risk: Do You Feel Unsteady When Standing Or Walking? No [email or web address] Information not available 12/09/2020 We Know That How And When People Interact With Friends And Family Can Be Very Different From Person To Person. How Often Do You Have The Opportunity To See Or Talk To People That You Care About And Feel Close To? (Ex: Talking To Friends On The Phone Or Visiting Friends Or Family Or Going To [employer] Or Club Meetings) 5 Or More Times Per Week [email or web address] Information not available 12/09/2020 Excessive Alcohol Or Drug Use No [email or web address] Information not available 12/09/2020 Does This Patient Have A PCP? Yes [email or web address] Information not available 12/09/2020 We Know From Many Of Our Patients That Covering All Of Their Costs Can Be Difficult At Times. This Can Cause Stress And Impact Health. In The Past Year, Have You Been Unable To Get Any Of The Following When It Was Really Needed? No [email or web address] Information not available 12/09/2020 What Is Your Housing Situation Today? I Have Housing [email or web address] Information not available 12/09/2020 Would You Like Help Connecting To Resources? None Information not available 12/09/2020 Sex: Unknown Functional Status Question Answer Note LastModified by Organizat ion Details LastModified Time Do you use any illicit or recreational drugs? No Information not available 12/09/2020 Do you or have you ever used any other forms of tobacco or nicotine? No Information not available 12/09/2020 What is your level of alcohol consumption? None [email or web address] Information not available 12/09/2020 Mental Status None recorded. Family History Relationship Description Onset Age of this Age Resolved Age Notes LastModified by Organization Details LastModified Time Father Malignant neoplasm of colon [email or web address] Not available 2020 20:38:47 Sister Malignant neoplasm of colon [email or web address] Not available 2020 20:38:47 Notes:brother has lung cance r, he is a smoker Medical History Condition Response Diabetes N Coronary Artery Disease N CHF N Parkinson's Disease N Cancer N Dementia N Stroke COPD Y Depression Y Asthma Y Hypothyroidism Y High Cholesterol N Rheumatoid Arthritis Pulmonary Embolism N Hypertension Y A-fib N Osteoporosis N Gynecological HistoryNo gynecological history recorded. Obstetrics History GPAL:G 0 P 0 0 0 0 Past Encounters Encounter ID Performer Location Encounter Start Date Encounter Closed Date Diagnosis/Indication Diagnosis SNOMED-CT Code Diagnosis ICD10 Code Diagnosis IMO Codes Diagnosis Note [id number] KYM CUETO NP [facility] [address] [place] [address] 12/09/2020 15:59:06 12/14/2020 17:15:29 Herpes zoster 2282498 B02.9 Candidiasis of mouth 797 [address]46[address] B37.0 [id number] VIOLET Olson [facility] [address] [place] [address] 09/29/2021 17:46:18 10/01/2021 17:32:36 Acute pharyngitis 294244611 J02.9 Pt has had a very bad [...] cubes) follow up with your PCP. Hyponatremia 07187480 E8 7.1 Pt had recent 6 day stay in [facility] for hyponatrem ia, treated with IVF and [...] to Ms. Alonzo and her . Cough 67041596 R05.3 currently being worked up for chronic GERD, she is only on famotidine at this time, protonix were just dc'd while in [facility] last week. cough is productive of clear light yellow sputum, no fever, chills. or other URI sxx. Chest xary in hospital 09/24/21 negative for pneumonia or evidence of mass. She is [id number] VIOLET Clarke [facility] [address] [place] [address] 09/30/2021 13:35:48 10/01/2021 17:32:45 Chronic hyponatremia 26854517 E87.1 Health Concerns Section Related Observation LastModified by Organization Detai ls LastModified Time None Recorded Concern Status LastModified by Organization Details LastModified Time None Recorded Advance Directives Directive N: Payers Insurance Date Sequence Insurance Name Policy Number Policy Bustos Covered Member ID Bustos Member ID Guarantor Name 11/30/2021 2 [employer] (MEDICARE SUPPLEMENT) Sharon Alonzo [id number] Sharon Alonzo 09/29/2021 PENDING Sharon Alonzo [id number] Sharon Alonzo 09/29/2021 PENDING Sharon Alonzo [id number] Sharon Alonzo 09/29/2021 PENDING Sharon Alonzo [id number] Sharon Alonzo 10/12/2021 1 [place] Sharon A Alonzo [id number] Sharon Alonzo 09/29/2021 PENDING Sharon Alonzo [id number] Sharon Alonzo 09/29/2021 PENDING Sharon Alonzo [id number] Sharon Alonzo 09/29/2021 PENDING Sharon Alonzo [id number] Sharon Alonzo 09/29/2021 PENDING Sharon Alonzo [id number] Sharon Alonzo 09/29/2021 PENDING Sharon Alonzo [id number] Sharon Alonzo 09/29/2021 PENDING Sharon Alonzo [id number] Sharon Alonzo 09/29/2021 1 [place] Sharon A Alonzo [id number] Sharon Alonzo 12/09/2020 PENDING Sharon Alonzo [id number] Sharon Alonzo 09/29/2021 2 [employer] (MEDICARE SUPPLEMENT) Sharon Madrigalson [id number] Sharon Alonzo Notes Date Note Type Note Provider Name and Address Organization Details Recorded Time 1 text/html General HPI Template - DHReported by Patient 70 yo female who is new to [...] without trying; just have no appetite. KYM CUETO NP [address], [place], [address], [place] [facility] 12/09/2020 22:09:59 2 text/html 5 days ago went for her infusions, had a reddened area on wrist and she was sent to [facility], who then sent to [facility] for ? cellulitis of left wrist, put on Clindamycin, she got diarrhea, headache, muscle cramping, and went to [place] where she was noted to have hyponatremia, [...] cough, but the phlegm is a much creative consultant color yellow / clear, continue to be afebrile. The cough is irritating her throat and it is worse because she has GERD and believe the acid is also bothering her throat. No swollen glands, no PND, no sinus congestion.She has had 3 covid tests, this past 2 weeks all were negative. She sts her temp at [place] was 100.1 otherwise it is 99. her pulse ox is typically 100% on RA. She has had several COVID test all negative. chest xray negative on 09/24 her sodium was lowest 120, which is why she was admitted to [place]. She went for labs yesterday and her Na was 127, when she was in hospital it was 137. She has been having saltines and tomato juice, She has inhalers, pro air and wexela. she has not used her proair since she got home.she will be seeing her primary teaching assistant on Saturday and her General Purchasing Agent next week. VIOLET Olson [address], [place], [address], [place] [facility] 09/29/2021 20:01:14 2 text/html 71 YO F new to provider [facility] [...] here today. VIOLET Mcgregor [address], [place], [address], [place] [facility] 09/30/2021 15:13:30 OBGyn Episode No OBEpisode recorded.
== END 2025-01-12 11:27 | disposition home or self-care (01) ==
LOC: HO.HPS 10:55
PROVIDERS: PCP Family Medicine; Visit Provider Internal Medicine
DX: J45.909 Unspecified asthma, uncomplicated (principal); R05.9 Cough, unspecified; J30.9 Allergic rhinitis, unspecified
CPT/HCPCS: 99213

== ENCOUNTER → 2025-01-12 10:55 | Outpatient (BNVA) | payer MEDICARE, SELFPAY | PROVIDERS: PCP Family Medicine; Visit Provider Internal Medicine | DX: J45.909 Unspecified asthma, uncomplicated (principal); R05.9 Cough, unspecified | CPT/HCPCS: 99212 ==

== ENCOUNTER 2025-03-08 11:08 | Outpatient (AMB) | payer MEDICARE, SELFPAY ==
--- OUTSIDE RECORDS SUMMARY | 2024-04-16 05:00 | XMS_ITS ---
Author Organization [facility] Address [address] [place] [id number] Care Team Providers Care Lead Blender Name Role Phone Nichelle CHAVEZ, Samm Primary Care Provider Unava ilable Black, Elise Unavailable [phone] Shantelle Linda [phone] Fishman Encounters Encounter Location Date Provider Diagnosis [address] [address] 04/16/2024 Shantelle Linda Plan Of Treatment No Information Progress Notes * Sharon ALONZO ADOB: [birth year] (74 yo F)Acc No.[id number]:04/16/2024 Progress Note Patient: Sharon TYLER Provider: Lyndsey Linda DPM :1950 A ge:73 Y S ex:Female Date:04/16/2024 Address:[address] [place], [place] [id number] Pcp:Samm Steward MD Subjective: * Chief Complaints: * [address] Fishman. * Medical History: Objective: * Vitals: Assessment: Plan: * Treatment: * Images: * The named appointment provid er may or may not be the originator of this progress note, and it is not deemed complete until electronically signed by the appointment provider. Sign off status: Pending * Provider: Lyndsey Linda DPM Date: 0 04/16/2024 Generated for Matti stephanie/Gaviota/eTransmitting on: 01:02 PM EST
--- OUTSIDE RECORDS SUMMARY | 2025-03-02 23:59 | XMS_ITS | Continuity of Care Document ---
Author Organization [facility] Address [address] [place] [phone]- Care Team Providers Care Claim Benefit Specialist Name Role Phone Samm Steward MD Primary Care Physician [phone] [phone] Date(s): 02/23/25 - 03/02/25 [facility] [address] [place] [id number]- Encounter Diagnosis Essential hypertension(Discharge Diagnosis) - 02/28/25 Necrotizing autoimmune myopathy(Discharge Diagnosis) - 02/28/25 Attending Physician: Samm Steward MD Encounter Type: Office Visit Allergies, Adverse Reactions, Alerts Substance Criticality Severity Reaction Reaction Severity Status doxycycline Active erythromycin Nausea Active penicillin Active sulfADIAZINE Active hydrochlorothiazide-tri amterene Hyponatremia Active Avelox hives Active Adhesive Bandage 1 A ctive Latex RASH Active statins muscle swelling Acti ve MISHA inhibitors Activ e 1Tegaderm Adhesive Functional Status Functional Status Assessment Assessment Assessment Component Result Effecti ve Date Disability status [CUBS] I'm Thriving - no identified disability 02/23/25 Do you need any marshall tional assistance or accommodations during your visit No 02/23/25 Difficulty Reading O r Writing No 02/23/25 Difficulty communica ting in usual language No 02/23/25 Because of a physica l, mental, or emotional condition, do you have difficulty doing errands alone such as visiting a physician's office or shopping No 02/23/25 Do you have difficul ty dressing or bathing No 02/23/25 Do you have serious difficulty walking or climbing stairs No 02/23/25 Because of a physica l, mental, or emotional condition, do you have serious difficulty concentrating, remembering, or making decisions No 02/23/25 Are you blind, or do you have serious difficulty seeing, even when wearing glasses No 02/23/25 Are you deaf, or do you have serious difficulty hearing No 02/23/25 Immunizations Given and Recorded Vaccine Date Status Refusal Reason influenza virus vaccine, inactivated 1 12/29/24 Gi lillian influenza virus vaccine, inactivated 2 12/24/22 Gi lillian influenza virus vaccine, inactivated 3 12/22/21 Gi lillian influenza virus vaccine, inactivated 01/17/21 Give n influenza virus vaccine, inactivated 12/01/19 Give n influenza virus vaccine, inactivated 12/12/18 Give n influenza virus vaccine, inactivated 4 01/09/18 Gi lillian influenza virus vaccine, inactivated 5 01/02/17 Gi lillian influenza virus vaccine, inactivated 6 12/12/15 Re corded influenza virus vaccine, inactivated 02/07/15 Give n influenza virus vaccine, inactivated 01/08/14 Give n influenza virus vaccine, inactivated 01/07/13 Gurdeep rded influenza virus vaccine, inactivated 12/08/12 Give n influenza virus vaccine, inactivated 7 12/20/11 Gi lillian influenza virus vaccine, inactivated 11/29/10 Give n influenza virus vaccine, inactivated 12/28/06 Gurdeep rded influenza virus vaccine, inactivated 02/19/05 Gurdeep rded [id number] 12y+ bivalent booster vax 8 12/22/21 Given SARS-CoV-2 mRNA ([id number]) vax 09/06/21 Given SARS-CoV-2 (COVID-19) mRNA BNT-162b2 vac 10/27/20 Recorded SARS-CoV-2 (COVID-19) mRNA BNT-162b2 vac 06/10/20 Given SARS-CoV-2 (COVID-19) mRNA BNT-162b2 vac 05/20/20 Given pneumococcal 23-valent vaccine 9 01/09/18 Given pneumococcal 23-valent vaccine 02/10/03 Recorded tetanus/diphtheria/pertussis, acel(Tdap) 10 01/09/18 Given pneumococcal 13-valent vaccine 05/28/14 Given FluLaval (oldterm) 11 12/14/09 Given Influenza Virus Vaccine (oldterm) 02/16/09 Given Influenza Virus Vaccine (oldterm) 12/18/07 Given Tet/Diphth/Acel, Pertussis (oldterm) 02/26/08 Give n Pneumococcal Vaccine (oldterm) 01/09/06 Given 1Result Comment: [facility]: [phone] Screening checklist reviewed with patient, negative for any contraindications. 2Result Comment: Flu HD [facility]#[id number] 3Result Comment: [id number] 4Result Comment: [01/09/2018] [facility] [place] [id number] 5Result Comment: [01/02/2017] [facility] [id number] 6Result Comment: [12/14/2015] RECIEVED AT [facility] 7Admin Note: VIS GIVEN 8Result Comment: [id number] 9Result Comment: [01/09/2018] [facility] [id number] 10Result Comment: [01/09/2018] [facility] [id number] 11Admin Note: BIOMEDICAL NARENDRA Medications Albuterol (Eqv-ProAir HFA) 90 mcg/inh inhalation aerosol 2 inhalation, Inhalation, Every 6 hours, # 34 Gm, 3 Refills, Maintenance, 11/30/24 8:42:00 AM EDT, [facility], 90, USE 2 INHALATIONS BY MOUTH EVERY 6 HOURS, 151, cm, 11/25/24 14:30:00 EDT, Height, 65, kg, 11/13/24 6:49:00 EDT, Dry Weight Start Date: 11/30/24 Status: Ordered Medication Dispense Status: Completed Quantity: 34.0 Unit: g Total Allowed Fills: 1 Fills Dispensed: 0 amLODIPine 10 mg oral tablet 1 tablet, By Mouth, Daily, # 90 tablet, 3 Refills, Maintenance, 10/22/24 6:50:00 PM EDT, [facility], 149, cm, 10/22/24 16:42:00 EDT, Height, 67.2, kg, 10/12/24 8:32:00 EDT, Dry Weight Start Date: 10/22/24 Status: Ordered Medication Dispense Status: Completed Quantity: 90.0 Unit: tablet Total Allowed Fills: 4 Fills Dispensed: 0 DRAW CPK LEVEL ONCE EVERY 4 WEEKS PRIOR TO IVIG INFUSION. GIVE 500ML NORMAL SALINE INFUSION, IV IN DRAW CPK LEVEL ONCE EVERY 4 WEEKS PRIOR TO IVIG INFUSION. GIVE 500ML NORMAL SALINE INFUSION, IV INFUSION, 500ML, INFUSE 250ML OVER 30 MINUTES BEFORE IVIG, THEN 250ML OVER 30 MINUTES AFTER IVIG., See Instructions, # 1 each, Refills 12, Tot. Refills 12, Maintenance, PRIOR TO EACH INFUSION GIVE 2 REGULAR STRENGTH TYLENOL 325MG PO.PRIOR TO EACH INFUSION GIVE 1 BENADRYL 25 MG PO., 11/03/24 11:36:00 AM EDT, Supply Start Date: 11/03/24 Status: Ordered Medication Dispense Status: Completed Quantity: 1.0 Unit: each Total Allowed Fills: 13 Fills Dispensed: 0 DRAW CPK LEVEL ONCE EVERY 4 WEEKS PRIOR TO IVIG INFUSION. GIVE NORMAL SALINE 0.9%, IV INFUSION, 50 DRAW CPK LEVEL ONCE EVERY 4 WEEKS PRIOR TO IVIG INFUSION. GIVE NORMAL SALINE 0.9%, IV INFUSION, 500ML, INFUSE 250ML OVER 30 MINUTES BEFORE IVIG, THEN 250ML OVER 30 MINUTES AFTER IVIG., See Instructions, # 1 each, Refills 12, Tot. Refills 12, Maintenance, PRIOR TO EACH INFUSION GIVE 2 REGULAR STRENGTH TYLENOL 325MG PO. PRIOR TO EACH INFUSION GIVE 1 BENADRYL 25 MG PO., 07/24/24 11:12:00 AM EDT, Supply Start Date: 07/24/24 Status: Ordered Medication Dispense Status: Completed Quantity: 1.0 Unit: each Total Allowed Fills: 13 Fills Dispensed: 0 famotidine 40 mg oral tablet 1 tablet = 40 mg, By Mouth, Daily at bedtime, # 60 tablet, 0 Refills, Maintenance, 11/10/24 3:52:00 PM EDT, Tablet, Partial fill upon patient request if the prescription is for a schedule II opioid drug. Start Date: 11/10/24 Status: Ordered Medication Dispense Status: Completed Quantity: 60.0 Unit: tablet Total Allowed Fills: 1 Fills Dispensed: 0 ferrous sulfate (as elemental iron) 45 mg oral tablet, extended release 1 tablet = 45 mg, By Mouth, Daily, # 30 tablet, 5 Refills, Maintenance, 12/01/24 5:57:00 PM EDT, ER Tablet, [facility], Partial fill upon patient request if the prescription is for a scheduleII opioid drug., 151, cm, 11/25/24 14:30:00 EDT, Height, 65, kg, 11/13/24 6:49:00 EDT, Dry Weight Start Date: 12/01/24 Status: Ordered Medication Dispense Status: Completed Quantity: 30.0 Unit: tablet Total Allowed Fills: 6 Fills Dispensed: 0 Indications: Iron deficiency; hydrOXYzine hydrochloride 10 mg oral tablet See Instructions, PRN for anxiety, 1-2 tablet By Mouth as needed for anxiety, # 30 tablet, 5 Refills, Acute 04/24/25 5:09:00 PM EST, 10/22/24 5:08:00 PM EDT, Tablet, [facility], Partial fill upon patient request if the prescription is for a schedule II opioid drug., 149, cm, 10/22/24 16:42:00 EDT, Height, 67.2, kg, 10/12/24 8:32:00 EDT, Dry Weight Start Date: 10/22/24 Stop Date: 04/24/25 Status: Ordered Medication Dispense Status: Completed Quantity: 30.0 Unit: tablet Total Allowed Fills: 6 Fills Dispensed: 0 Indications: Anxiety disorder, unspecified; lansoprazole 30 mg oral enteric coated capsule 1 capsule = 30 mg, By Mouth, Daily, 0 Refills, Maintenance, 06/05/24 8:13:00 AM EDT, Partial fill upon patient request if the prescription is for a schedule II opioid drug. Start Date: 06/05/24 Status: Ordered Medication Dispense Status: Completed Total Allowed Fills: 1 Fills Dispensed: 0 levothyroxine 0.112 mg oral tablet 1 tablet, By Mouth, Daily, # 90 tablet, 3 Refills, Maintenance, 10/22/24 6:51:00 PM EDT, [facility], 149, cm, 10/22/24 16:42:00 EDT, Height, 67.2, kg, 10/12/24 8:32:00 EDT, Dry Weight Start Date: 10/22/24 Status: Ordered Medication Dispense Status: Completed Quantity: 90.0 Unit: tablet Total Allowed Fills: 4 Fills Dispensed: 0 lidocaine-prilocaine 2.5%-2.5% topical cream See Instructions, Apply to chest Topically Once, # 30 Gm, 5 Refills, Soft Stop, 10/22/24 6:57:00 PM EDT, Cream, [facility], Partial fill upon patient request if the prescription is for a schedule II opioid drug., Apply to chest Topically Once, 149, cm, 10/22/24 16:42:00 EDT, Height, 67.2, kg, 10/12/24 8:32:00 EDT, Dry Weight Start Date: 10/22/24 Status: Ordered Medication Dispense Status: Completed Quantity: 30.0 Unit: g Total Allowed Fills: 6 Fills Dispensed: 0 Metoprolol Succinate ER 25 mg oral tablet, extended release 1, tablet, By Mouth, Daily, # 90 tablet, Refills 3, Tot. Refills 3, Maintenance, 10/22/24 6:51:00 PMEDT, Route to Pharmacy Electronically, [facility], 149, cm, 10/22/24 16:42:00 EDT, Height,67.2, kg, 10/12/24 8:32:00 EDT, Dry Weight Start Date: 10/22/24 Status: Ordered Medication Dispense Status: Completed Quantity: 90.0 Unit: tablet Total Allowed Fills: 4 Fills Dispensed: 0 MiraLax oral powder for reconstitution See Instructions, By Mouth, For bowel prep: 238 g, split between two (32 oz) bottles of gatorade, #238 Gm, 0 Refills, Acute 03/10/25 3:08:00 PM EST, 07/23/24 3:06:00 PM EDT, [facility], Partial fill upon patient request if the prescription is for a schedule II opioid drug., For bowel prep:238 g, split between two (32 oz) bottles of gatorade, 149, cm, 07/23/24 14:31:00 EDT, Height, 63.5,kg, 07/20/24 11:46:00 EDT, Dry Weight Start Date: 07/23/24 Stop Date: 03/10/25 Status: Ordered Medication Dispense Status: Completed Quantity: 238.0 Unit: g Total Allowed Fills: 1 Fills Dispensed: 0 Indications: Diarrhea, unspecified; olmesartan 40 mg oral tablet See Instructions, TAKE 1 TABLET BY MOUTH DAILY, # 90 tablet, 3 Refills, Maintenance, 05/07/24 4:47:00 PM EST, [facility], 149, cm, 05/07/24 16:17:00 EST, Height, 66, kg, 05/05/24 11:50:00 EST, Dry Weight Start Date: 05/07/24 Status: Ordered Medication Dispense Status: Completed Quantity: 90.0 Unit: tablet Total Allowed Fills: 1 Fills Dispensed: 0 PARoxetine 10 mg oral tablet 10 mg, 1, tablet, By Mouth, Daily, # 30 tablet, Refills 5, Tot. Refills 5, Maintenance, 11/25/24 2:57:00 PM EDT, Route to Pharmacy Electronically, [id number], Partial fill upon patient request if the prescription is for a schedule II opioid drug., 151, cm, 11/25/24 14:30:00 EDT, Height, 65, kg, 11/13/24 6:49:00 EDT, Dry Weight Start Date: 11/25/24 Status: Ordered Medication Dispense Status: Completed Quantity: 30.0 Unit: tablet Total Allowed Fills: 6 Fills Dispensed: 0 Indications: Anxiety disorder, unspecified; traZODone 100 mg oral tablet 100 mg, 1, tablet, By Mouth, Daily at bedtime, 1 tab at bedtime, # 90 tablet, Refills 3, Tot. Refills 3, Maintenance, 10/22/24 6:51:00 PM EDT, Route to Pharmacy Electronically, [facility], Partial fill upon patient request if the prescription is for a schedule II opioid drug., 149, cm, 10/22/24 16:42:00 EDT, Height, 67.2, kg, 10/12/24 8:32:00 EDT, Dry Weight Start Date: 10/22/24 Status: Ordered Medication Dispense Status: Completed Quantity: 90.0 Unit: tablet Total Allowed Fills: 4 Fills Dispensed: 0 traZODone 50 mg oral tablet 50 mg, 1, tablet, By Mouth, Daily at bedtime, Refills 0, Maintenance, 11/10/24 3:53:00 PM EDT, Partial fill upon patient request if the prescription is for a schedule II opioid drug. Start Date: 11/10/24 Status: Ordered Medication Dispense Status: Completed Total Allowed Fills: 1 Fills Dispensed: 0 Wixela Inhub 500 mcg-50 mcg inhalation powder 1 inhalation, Inhalation, 2 times a day, rinse mouth and throat after use, # 1 each, 0 Refills, Maintenance, 07/31/21 5:03:00 PM EDT, Powder, Partial fill upon patient request if the prescription is for a schedule II opioid drug. Start Date: 07/31/21 Status: Ordered Medication Dispense Status: Completed Quantity: 1.0 Unit: each Total Allowed Fills: 1 Fills Dispensed: 0 zolpidem 10 mg oral tablet 1 tablet = 10 mg, By Mouth, Daily at bedtime, # 90 tablet, 1 Refills, Acute 04/24/25 6:52:00 PM EST,10/22/24 6:51:00 PM EDT, Tablet, [facility], Partial fill upon patient request if the prescription is for a schedule II opioid drug., 149, cm, 10/22/24 16:42:00 EDT, Height, 67.2, kg, 10/12/24 8:32:00 EDT, Dry Weight Start Date: 10/22/24 Stop Date: 04/24/25 Status: Ordered Medication Dispense Status: Completed Quantity: 90.0 Unit: tablet Total Allowed Fills: 2 Fills Dispensed: 0 Mental Status Mental Status Assessment Assessment Assessment Component Result Effecti ve Date Patient Health Questionnaire 2 item (PHQ-2) total score [Reported] 2 02/23/25 Problem List Condition Confirmation Course Effective Dates Status H ealth Status Informant Liver function abnormality 1, 2 Confirmed Active Adenomatous colon polyp 3, 4 Confirmed Active Anxiety and depression 5 Confirmed Active Carotid artery stenosis 6 Confirmed Active Carpal tunnel syndrome, bilateral Confirmed Active Aneurysm of ophthalmic artery Confirmed Active Chills Confirmed Active Chronic obstructive pulmonary disease (COPD) 7, 8, 9 Confirmed Active Necrotizing autoimmune myopathy Confirmed Active Diverticulitis Confirmed 02/18/16 Active Encounter for monitoring long-term proton pump inhibitor therapy Confirmed Active Essential hypertension Confirmed Active Extensive excision of nasal polyps Confirmed Active Familial hyperlipidemia Confirmed Active Family history of colon cancer 10 Confirmed Active Hot flashes Confirmed Active GERD (gastroesophageal reflux disease) 11, 12 Confirmed Active History of CVA (cerebrovascular accident) 13 Confirmed Active Headache Confirmed Active Hoarseness 14, 15 Confirmed Active Hyperlipidemia Confirmed Active Hypothyroidism Confirmed Active IBS (irritable bowel syndrome) 16, 17, 18 Confirmed Active Impaired Fasting Glucose 19, 20 Confirmed Active Impingement syndrome, shoulder, left Confirmed Active Internal hemorrhoid Confirmed Active Iron deficiency Confirmed Active Itching Confirmed Active Leukopenia Confirmed Active Mass of brain 21 Confirmed 02/12/14 Active Obesity (BMI 35.0-39.9 without comorbidity) Confirmed Active Myalgia Confirmed Active Obese class I Confirmed Active Overweight and Obesity Confirmed Active Polymyositis Confirmed Active PND (post-nasal drip) Confirmed Active Prolonged QT interval Confirmed 02/18/16 Active TIA (transient ischemic attack) Confirmed Active 1Normal iron negative hepatitis ABc 2normal ggt 3Another tubular adenoma found 7 2631 4rescope 2014 5remission OPHQ 1 6Right Side: 1-49% stenosis in the Internal Carotid Artery. Antegrade flow in the Vertebral Artery. Multiphasic flow is seen in the Subclavian Artery. Left Side: 50-69% stenosis in the Internal Carotid Artery. Antegrade flow in the Vertebral Artery. Multiphasic flow is seen in the Subclavian Artery. 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 20explain pre diabetes;risk diabetes/CVD 21workup pending;refer CT can Diagnosis Diagnosis Type Effective Dates Health Status Clinical Service Informant Essential hypertension Discharge Diagnosis 02/28/25 Necrotizing autoimmune myopathy Discharge Diagnosis 02/28/25 Vital Signs Most recent to oldest [Reference Range]: 1 2 Height 149 cm (02/23/25 3:45 PM) 149 cm (02/23/25 3:42 PM) Weight 70.7 kg (02/23/25 3:42 PM) Oxygen Saturation [94-100 %] 98 % (02/23/25 3:42 PM) Pulse Rate [55-90 bpm] 77 bpm (02/23/25 3:42 PM) Body Mass Index [18.5-24.99 kg/m2] 31.85 kg/m2 *H* (02/23/25 3:42 PM) Blood Pressure [90-138/55-84 mm Hg] 133/ 71mm Hg (02/23/25 3:45 PM) 144/71mm Hg *H* (02/23/25 3:42 PM) Mode of Delivery (Oxygen) Room air (02/23/25 3:42 PM) Blood pressure sites Arm, left (02/23/25 3:45 PM) Arm, left (02/23/25 3:42 PM) Weight Obtained Via Standing scale (02/23/25 3:42 PM) Social History Social History Type Response Smoking Status Former smoker; Type: Cigarettes; Number of years: 25; Total pack years: 20; Started at age: 14; Stopped at age: 39; entered on: 08/20/13 Sex Sex Representation Female (finding) Implantable Device List Procedure Provider Procedure Date Device Type Site Unknown Unknown 12/09/16 Non Biological Unknown Device Identifier Serial Number Lot or Batch Number Manufacturing Date Expiration Date Distinct Identification Code MRI Safety Implantable Status Assigning Authority Unknown 1 Unknown Unknown Unknown Unknown Unknown Unknown Active U nknown 1pt has anuerysm stent - Okay for scanning Normal Mode - [employer] Coil / Receive coils okay per [employer] rep Note * Ciera Galvez: PERFORM Event Display: Patient Education/Instruction Authored Date: [id number] Ambulatory Adult Visit Summary [facility] [address] [place] [address] [id number] Name: HAROLDO MORALES : 1950?? Visit: 02/23/2025 15:30?? Ambulatory Visit Instructions ?? Your Care Team Primary Care Provider Samm Steward MD? This Visit Provider Samm Steward MD Vitals Signs Pulse Rate: 77 bpm Height: 149 cm Systolic Blood Pressure: 133 mm Hg Weight: 70.7 kg Diastolic Blood Pressure: 71 mm Hg Body Mass Index:??31.85 kg/m2??High Oxygen Saturation: 98 % Body surface area: 1.71 What to do next Scheduled Follow-Up Appointments Saturday 12:30 PM EST ?? Type: New Patient Visit With: Kolton CHAVEZ, Elmo Solorio Where: [facility] Status: Pending Future Orders CBC w/ Differential - Routine, Once, 06/20/24 3:00:00 EDT every 1 months for 24 months, Single or Recurring Future Order, [facility], Blood?? Comprehensive Metabolic Panel - Routine, Once, 06/20/24 3:00:00 EDT, Single or Recurring Future Order, [facility], Blood?? CPK Total Only - Routine, Once, 06/20/24 3:00:00 EDT, Single or Recurring Future Order, [facility], Blood?? TSH Rfx on Abnormal to Free T4 - Routine, Once, 06/20/24 3:00:00 EDT, Single or Recurring Future Order, [facility], Blood?? CBC w/ Differential - Routine, Once, 07/16/24 12:01:00 EDT, Order for Today, [facility], Blood?? Comprehensive Metabolic Panel - Routine, Once, 07/16/24 12:01:00 EDT, Order for Today, [facility], Blood?? TSH Rfx on Abnormal to Free T4 - Routine, Once, 07/16/24 12:02:00 EDT, Order for Today, [facility], Blood?? Magnesium Level - Routine, Once, 07/16/24 12:02:00 EDT, Order for Today, [facility], Blood?? Lipase - Routine, Once, 07/16/24 12:02:00 EDT, Order for Today, [facility], Blood?? Amylase - Routine, Once, 07/16/24 12:04:00 EDT, Future Order, [facility], Blood?? CPK Total Only - Routine, Once, 07/16/24 12:04:00 EDT, Future Order, [facility], Blood?? Basic Metabolic Panel (BMP) - Routine, Once, 08/23/24 3:28:00 EDT, Single or Recurring Future Order, [facility], Blood?? Vitamin D 25 Hydroxy Level - Routine, Once, 11/25/24 15:08:00 EDT, Future Order, [facility], Blood?? Ferritin - Routine, Once, 11/25/24 15:08:00 EDT, Future Order, [facility], Blood?? Iron + Iron Binding Capacity - Routine, Once, 11/25/24 15:08:00 EDT, Future Order, [facility], Blood?? Transferrin - Routine, Once, 11/25/24 15:08:00 EDT, Future Order, [facility], Blood?? Folate Level (Folic Acid Level) - Routine, Once, 11/25/24 15:08:00 EDT, Future Order, [facility], Blood?? Vitamin B12 Level (B12 Vitamin Level) - Routine, Once, 11/25/24 15:08:00 EDT, Future Order, [facility], Blood?? Free T4 - Routine, Once, 11/25/24 15:08:00 EDT, Future Order, [facility], Blood?? TSH - Routine, Once, 11/25/24 15:08:00 EDT, Future Order, [facility], Blood?? Ferritin - Routine, Once, 11/25/24 15:09:00 EDT, Future Order, [facility], Blood?? CBC w/ Differential - Routine, Once, 01/04/25 5:36:00 EDT, Order for Today, [facility], Blood?? Comprehensive Metabolic Panel - Routine, Once, 01/04/25 5:36:00 EDT, Order for Today, [facility], Blood?? Medications The list below reflects the information in our records and provided by you today along with any changes made during this visit. Please continue your medications until treatment is completed or stopped by your provider. If this is different from the information you have or there are other questions,please contact the prescribing provider. What How Much When Why Instructions Unchanged Albuterol (Albuterol (Eqv-ProAir HFA) 90 mcg/ inh inhalation aerosol) 2 inhalation Inhalation Every 6 hours Ordering Physician: Samm Steward MD Unchanged Amlodipine (amLODIPine 10 mg oral tablet) 1 tab(s) Oral Daily Ordering Physician: Samm Steward MD Unchanged Benzonatate (benzonatate 100 mg oral capsule) 1 capsule Oral 3 times a day as needed for cough Ordering Physician: Samm Steward MD Unchanged Famotidine (famotidine 40 mg oral tablet) 1 tab(s) Oral Daily at Bedtime Unchanged Ferrous Sulfate (ferrous sulfate (as elemental iron) 45 mg oral tablet, extended release) 1 tab(s) Oral Daily Iron deficiency Ordering Physician: Hazel Madison MD Unchanged Fluticasone-Salmeterol (Wixela Inhub 500 mcg-50 mcg inhalation powder) 1 inhalation Inhalation Twice a day Special Instructions: rinse mouth and throat after use Ordering Physician: Samm Steward MD ?? Unchanged HydrOXYzine (hydrOXYzine hydrochloride 10 mg oral tablet) See instructions Anxiety and depression Special Instructions: 1-2 tablet By Mouth as needed for anxiety, As needed for for anxiety Ordering Physician: Samm Steward MD R ?? Unchanged Lansoprazole (lansoprazole 30 mg oral enteric coated capsule) 1 capsule Oral Daily Unchanged Levothyroxine (levothyroxine 0.112 mg oral tablet) 1 tab(s) Oral Daily Ordering Physician: Samm Steward MD Unchanged Lidocaine/ Prilocaine Topical (lidocaine-prilocaine 2.5%-2.5% topical cream) See instructions Special Instructions: Apply to chest Topically Once Ordering Physician: Samm Steward MD ?? Unchanged Metoprolol (Metoprolol Succinate ER 25 mg oral tablet, extended release) 1 tab(s) Oral Daily Ordering Physician: Samm Steward MD Unchanged Miscellaneous Rx (DRAW CPK LEVEL ONCE EVERY 4 WEEKS PRIOR TO IVIG INFUSION. GIVE 500ML NORMAL SALINE INFUSION, IV IN) See instructions Special Instructions: PRIOR TO EACH INFUSION GIVE 2 REGULAR STRENGTH TYLENOL 325MG PO.PRIOR TO EACHINFUSION GIVE 1 BENADRYL 25 MG PO. Ordering Physician: Samm Steward MD ?? Unchanged Miscellaneous Rx (DRAW CPK LEVEL ONCE EVERY 4 WEEKS PRIOR TO IVIG INFUSION. GIVE NORMAL SALINE 0.9%, IV INFUSION, 50) See instructions Special Instructions: PRIOR TO EACH INFUSION GIVE 2 REGULAR STRENGTH TYLENOL 325MG PO. ??PRIOR TO EACH INFUSION GIVE 1 BENADRYL 25 MG PO. Ordering Physician: Samm Steward MD ?? Unchanged Olmesartan (olmesartan 40 mg oral tablet) See instructions Special Instructions: TAKE 1 TABLET BY MOUTH DAILY Ordering Physician: Samm Steward MD ?? Unchanged Paroxetine (PARoxetine 10 mg oral tablet) 1 tab(s) Oral Daily Anxiety and depression Ordering Physician: Hazel Madison MD Unchanged Polyethylene Glycol 3350 (MiraLax oral powder for reconstitution) See instructions Diarrhea Special Instructions: For bowel prep: 238 g, split between two (32 oz) bottles of gatorade Ordering Physician: Yamilet Wilcox ?? Unchanged Trazodone (traZODone 100 mg oral tablet) 1 tab(s) Oral Daily at Bedtime Special Instructions: 1 tab at bedtime Ordering Physician: Samm Steward MD ?? Unchanged Trazodone (traZODone 50 mg oral tablet) 1 tab(s) Oral Daily at Bedtime Unchanged Zolpidem (zolpidem 10 mg oral tablet) 1 tab(s) Oral Daily at Bedtime Ordering Physician: Samm Steward MD Medications and Immunizations Administered Medications Given During Visit No medications given during this visit.?? Allergies (NKA means No Known Allergies) MISHA inhibitors Adhesive Bandage Avelox??hives Latex??RASH doxycycline erythromycin??Nausea hydrochlorothiazide-triamterene??Hyponatremia penicillin statins??muscle swelling sulfADIAZINE Common Emergency Awareness Tips IS IT A STROKE? Act FAST and Check for these signs: FACE Does the face look uneven? ARM Does one arm drift down? SPEECH Does their speech sound strange? TIME Call at any sign of stroke ?? Heart Attack Signs Chest discomfort: Most heart attacks involve discomfort in the center of the chest and lasts more than a few minutes, or goes away and comes back. It can feel like uncomfortable pressure, squeezing, fullness or pain. Discomfort in upper body: Symptoms can include pain or discomfort in one or both arms, back, neck, jaw or stomach. Shortness of breath: With or without discomfort. Other signs: Breaking out in a cold sweat, nausea, or lightheaded. Remember, MINUTES DO MATTER. If you experience any of these heart attack warning signs, call to get immediate medical attention! ?? Smoking can increase your chances of developing chronic health problems and can cause harmful effects to other family members in your house. If you smoke, you are strongly encouraged to quit. Please call [employer] at [phone] or [phone] ([phone]) or log in to [email or web address] for referrals to smoking cessation programs. ?? The National Suicide Prevention Hotline is available 01/10 if you or someone you know needs to find a reason to keep living. By calling 0-483-208-[employer] (3335) you'll be connected to a skilled, trained counselor at a crisis center in your area. [facility] Health Portal You can view and manage your care through the patient portal or by using a health care ynes of your choosing. [employer] is a website that allows you to securely view your medical information including your hospital discharge summary, office visit summaries, medications and follow-up visits. You can also request appointments, renew medications, and request access to your medical information using a health care ynes of your choosing, or just ask a question. You can enroll at [email or web address] or register during your next office visit. [facility], in keeping with [facility] guidance, no longer requires face masks for staff, patientsor visitors in most situations. Similiar to time spent indoors at other locations, there is the chance that you were exposed to repiratory viruses during your time with us (such as flu or COVID-19). If you develop symptoms concerning for a viral respiratory infection, please seek testing (and treatment if indicated) from your medical provider or home test kit. ?? Disclaimer: The information provided is of a general nature and is intended to be used in conjunction with the recommendations and advice of your health care practitioner. Every effort has been made to ensure that the information provided is accurate and complete at the time it is provided to you however, as your needs change, or, as new information becomes available, different or additional instructions may be required. ?? If you have questions, please consult with your primary care provider or pharmacist, as appropriate. This information is not intended to serve as substitution for assessment and evaluation by a qualified health care provider. If you do not have a primary care provider, you may find a [facility] provider by calling [facility] [employer] at [phone]. Patient Care team information Care Team Personnel Name: Marina Dominguez RN Position: [facility] AMB Nurse Member Role: Primary Care Nurse Name: Bernadette Lyn RN Position: [facility] RN Member Role: Primary Care Nurse Name: Lexie Johnson RN Position: [facility] RN Member Role: Primary Care Nurse Name: Katarzyna Elena RN Position: [facility] RN Member Role: Primary Care Nurse Name: Jaycee Giraldo RN Position: [facility] Onco RN Member Role: Primary Care Nurse Name: Génesis Obrien RN Position: [facility] RN Member Role: Primary Care Nurse Name: Cinthya Martinez RN Position: [facility] OB RN Member Role: Primary Care Nurse Name: Salina Anthony RN Position: [facility] SN RN Member Role: Primary Care Nurse Name: Tisha Alfredo RN Position: [facility] RN Member Role: Primary Care Nurse Name: Dalton ([employer]) Valerie Position: [facility] market relationship manager Member Role: Power Washer Name: Samm Steward MD Position: [facility] Physician - Primary Care Member Role: PCP Address: [address] [place] [address]- Telecom: Name: Kiersten Foy RN Position: [facility] RN Member Role: Primary Care Nurse Name: Liliam Mansfield Position: [facility] RN Member Role: Primary Care Nurse Name: Rochelle Trinh RN Position: [facility] AMB Nurse Member Role: Primary Care Nurse Name: Juan Carlos Ordonez MD Position: [facility] Outreach Member Role: Lifetime Consulting Physician Address: [address] [facility] [address] [facility], [place] [address]- Telecom: Name: Tsering Adams RN Position: [facility] RN Member Role: Primary Care Nurse Name: Selwyn Jones RN Position: [facility] RN Member Role: Primary Care Nurse Name: Rabia Roger RN Position: [facility] RN Member Role: Primary Care Nurse Name: Caridad Painting RN Position: [facility] RN Member Role: Primary Care Nurse Care Team Related Persons Name: TAYLOR MORALES Name: CARMENSURY Insurance Providers Guarantor name: HAROLDO MORALES Health [facility] Information #: 1 Payer: MEDICARE B Payer Identifier: Member Number: [id number] Group Number: Subscriber Identifier: [id number] Relationship to Subscriber: self Coverage Type: NA Coverage Verification Date: NA Telecom: NA Address: Health Plan Information #: 2 Payer: [employer] SECONDARY ONLY Payer Identifier: NA Member Number: [id number] Group Number: Subscriber Identifier: [id number] Relationship to Subscriber: self Coverage Type: MEDICARE Coverage Verification Date: NA Telecom: NA Address:
[2025-03-08 11:16] VITALS: BP 158/78; PULSE 67; O2SAT 98; BMI 30.7
--- NOTE | 2025-03-08 11:16 | MHC.OFFVIS ---
Vital Signs 03/08/25 11:16 Height 4 ft 11 in Weight 152 lb 1.903 oz BMI 30.7 BP 158/78 H Blood Pressure Location Lt brachial Position Sitting Pulse 67 Pulse Source Pulse Oximeter Pulse Oximetry (%) 98 Oxygen Delivery Method Room Air Intake Visit Reasons: cough Intake Note: pt is here for sick visit, has been sick for about 16 days, coughing with phlegm light yellow in color, low grade fever, wheezing and night time is worse. Hot Metal Crane Operator Required: No Multiple Pressure Riveter Operator: Multiple Pressure Riveter Operator offered & declined Allergies latex (LATEX) Allergy (Intermediate, Verified 03/08/25 11:41) RASH Sulfa (Sulfonamide Antibiotics) (SULFA (SULFONAMIDE ANTIBIOTICS)) Allergy (Intermediate, Verified 03/08/25 11:41) HIVES, coughing, wheezing, breathing moxifloxacin (From AVELOX) Allergy (Unknown, Verified 03/08/25 11:41) HIVES penicillin G (Penicillin G) Allergy (Unknown, Verified 03/08/25 11:41) UPSET STOMACH Szgbhat-XJJ-AsZ Reductase Inhibitor (OGOCEDF-RLF-BHG REDUCTASE INHIBITOR) Allergy (Unknown, Verified 03/08/25 11:41) MUSCLE CRAMPS Do you need a note to return to daycare/school/sports/work: No HPI HPI cough: Details: HAROLDO HAS BEEN SUFFERING FROM NASAL CONGESTION POSTNASAL DISCHARGE INCREASED COUGH AND FEVERISH FEELING FOR THE LAST 2-3 WEEKS. SHE CONTINUES TO HAVE COUGH WITH MINIMAL AMOUNT OF EXPECTORATION AND IN FACT COUGH THEN MAKES HER CHEST SORE AND SHE GETS MORE SHORT OF BREATH. SHE CONTINUES TO USE HER INHALER, WIXELA AND ALSO ALBUTEROL NEEDED. SHE DOES NOT TOLERATE DOXYCYCLINE IT MAKES HER SICK TO THE STOMACH. SHE DENIES FEVER OR CHILLS. [facility] Medical History (Updated 03/08/25 @ 11:48 by Erin Correa MD) Rhinosinusitis Bronchitis Hemoptysis Allergic rhinitis GERD (gastroesophageal reflux disease) Thyroid disease HTN (hypertension) Bundle branch block EMG syndrome Trigger finger, left index finger Cough Myopathy Obesity (BMI 30-39.9) Asthma Dyspnea on exertion Surgical History Hx of hysterectomy Hx of cerebral aneurysm repair Hx of total knee replacement History of bone marrow biopsy History of laryngoscopy Hx of nasal polypectomy Hx of cholecystectomy Hx of colonoscopy History of esophagogastroduodenoscopy (EGD) Family History Father Colon cancer Sister Colon cancer Social History Patient Tobacco Use Status: Former Tobacco user Tobacco use type: Cigarette Years Smoked: 10 years Review of Systems Const All systems reviewed & are unremarkable except as noted in HPI and below Reports body aches (MILD ) and Reports fatigue (MILD) Eyes Reports no additional complaints ENT Reports no additional complaints Card Denies chest pain, Denies irregular heart rhythm and Denies dyspnea on exertion Resp Reports cough (OCCASIONAL , MILD ), Denies dyspnea on exertion and Denies wheezing GI Reports no additional complaints Reports no additional complaints Musc Reports myalgias (MILD TO MODERATE ) and Reports muscle weakness (CHRONIC , MILD ) Skin/Breast Reports system reviewed and no additional complaints, except as documented Neuro Reports no additional complaints Psych Reports anxiety (WORRIED ABOUT ALL HER MEDICAL PROBLEMS ) Endo Reports fatigue (MILD) Aller/Immun Denies wheezing Physical Exam Vital Signs: Last Vital Signs Pulse 67 03/08/25 11:16 BP 158/78 H 03/08/25 11:16 Pulse Ox 98 03/08/25 11:16 Oxygen Delivery Method Room Air 03/08/25 11:16 BMI result Body Mass Index 30.7 Const General: comfortable, no acute distress, alert and awake Orientation/consciousness: patient oriented x3 HEENT Head: Yes normal to inspection General nose exam: No nasal polyps present, No nasal discharge present and Other nasal findings present (MILD NASAL CONGESTION NOTED) Face and sinus: Yes sinuses nontender Mouth: oropharynx normal Throat: Yes posterior oropharynx normal Eyes General: appearance normal, both eyes and all related structures Neck Neck: Yes normal visual inspection, Yes no lymphadenopathy, Yes trachea midline and Yes no JVD Thyroid: Thyroid normal Chest Chest palpation & inspection: normal inspection of the chest, normal palpation of entire chest wall and no tenderness Resp Other: Percussion note is resonant, breath sounds slightly distant with prolonged expiratory phase. There are a few scattered wheezes on both sides, No crepitations. Cardio Palpation: normal PMI Rate: regular rate Rhythm: regular rhythm Heart sounds: no gallops and no murmurs Peripheral pulses: Peripheral pulses 2+ throughout GI Palpation (GI): Soft to palpation, nontender, No hepatosplenomegaly present and no masses Auscultation: normal bowel sounds Back/Spine/Pelvis Thoracic/Lumbar Spine: thoracic and lumbar spine normal to inspection Skin General skin exam: no rashes or lesions noted Neuro General: patient oriented x3 and no focal motor deficits Cranial nerves: Yes CN's II-XII intact bilaterally Extrem General: Yes normal to inspection, Yes no clubbing, cyanosis or edema and Yes no calf tenderness Psych Appearance: grossly normal and well kempt Speech and movement: Normal speech and movement present Results Reviewed Results Reviewed: CHEST XRAY ORDERED Assessment & Plan Assessment & Plan (1) Asthma: Comment: PER SPIROMETRY SHE DOES HAVE EVIDENCE OF BRONCHIAL ASTHMA/COPD ,MODERATELY SEVERE . REMAINS UNDER CONTROL AND STABLE. MAIN COMPLAINT AT THIS TIME IS ONGOING FREQUENT BOUTS OF COUGH. IT WAS BETTER, SINCE SHE HAS BEEN USING ICS/LABA , WIXELA 250-50 1 INHALATION B.I.D. . Code(s): J45.909 - Unspecified asthma, uncomplicated Category: Medical Plan: CONTINUE TO USE WIXELA 250-50 1 INHALATION B.I.D.. AND USE ALBUTEROL HFA 2 PUFFS Q 6 HOURS P.R.N.. (2) Cough: Comment: COUGH IS SEC. TO GERD ,REACTIVE AIRWAYS , AND CURRENTLY AGGRAVATED BY UPPER RESPIRATORY INFECTION. SHE DOES HAVE A LOW-GRADE BRONCHITIS. Code(s): R05.9 - Cough, unspecified Category: Medical Plan: TREATMENT UNDER RHINOSINUSITIS (3) Rhinosinusitis: Comment: PATIENT DOES HAVE CHRONIC INTERMITTENT NASAL CONGESTION DUE TO ALLERGIC RHINITIS. AT PRESENT SHE SEEMS TO HAVE LINGERING, RHINO SINUSITIS. Code(s): J32.9 - Chronic sinusitis, unspecified Category: Medical Plan: 1- Z-JAQUAN 1 COURSE PRESCRIBED. PREDNISONE 20 MG B.I.D. FOR 5 DAYS. Orders: Orders XR chest 2V Today J40 - Bronchitis, not specified as acute or chronic, J45.909 - Unspecified asthma, uncomplicated, R05.9 - Cough, unspecified Medications: New prednisone 20 mg PO BID 10 tabs 0RF AC. EXCERBATION OF ASTHMA 5 days azithromycin For 250 mg dose pack: take 500 mg today (day 1), then 250 mg for 4 days (days 2-5) PO 6 tabs 0RF Coding Level of Care Code Est Pt Level 3 (92794) Diagnoses Asthma J45.909 Cough R05.9 Rhinosinusitis J32.9
--- OUTSIDE RECORDS SUMMARY | 2025-03-08 13:02 | XMS_ITS | Clinical Summary ---
Author Organization [facility] Address [address] [place] [id number] Phone Care Team Providers Care Explosive Ordnance Disposal Specialist Name Role Phone Samm Steward MD Primary Care Provider + Allergies Active Allergy Reactions Criticality Noted Date Comments Desean Inhibitors 08/17/2019 Adhesive 12/21/2020 Moxifloxacin Hives 11/04/2017 Erythromycin Nausea and/or Vomiting 11/04/2017 Latex 11/04/2017 Penicillins Nausea and/or Vomiting 11/04/2017 Nqgxhvr-Kek-Cev Reductase Inhibitors 11/04/2017 Muscle problems, elevated CPK. Sulfa (Sulfonamide Antibiotics) Cough,Wheezing 11/04/2017 Breathing issues. Medications ALPRAZolam (XANAX) 1 MG tablet Take 1 mg by mouth 3 (three) times a day as needed for anxiety. 8 Active amLODIPine (NORVASC) 10 MG tablet Take 10 mg by mouth daily. 8 Active DULoxetine (CYMBALTA) 30 MG capsule Take 60 mg by mouth daily. 8 Active FLUoxetine (PROZAC) 20 MG capsule Take 40 mg by mouth daily. Take two 20mg tablets daily, making 40mg 8 Active brimonidine 0.2 % ophthalmic solution Place 1 drop into each eye 2 (two) times a day. 8 Active latanoprost (XALATAN) 0.005 % ophthalmic solution Place 1 drop into each eye daily. 8 Active levothyroxine (SYNTHROID, LEVOTHROID) 100 MCG tablet Take 125 mcg by mouth daily. 8 Active omeprazole (PRILOSEC) 20 MG capsule Take 20 mg by mouth daily. 8 Active traZODone (DESYREL) 50 MG tablet Take 100 mg by mouth nightly at bedtime as needed for insomnia. 8 Active albuterol 90 mcg/actuation inhaler Inhale 2 puffs into the lungs as needed for wheezing. Active tiotropium (SPIRIVA HANDIHALER) 18 mcg inhalation capsule Inhale 18 mcg into the lungs daily. Active budesonide-formot neelam (SYMBICORT) 160-4.5 mcg/actuation inhaler Inhale 2 puffs into the lungs 2 (two) times a day. Active therapeutic multivitamin tablet Take 1 tablet by mouth daily. Active aspirin 81 MG EC tablet Take 81 mg by mouth daily. Active Ca cit-D3-mag#11-zin a-ohtf-lsb-bor (CALTRATE 600+D) 600 mg calcium- 800 unit-50 mg Tab Take 2 tablets by mouth daily. Active cholecalciferol (VITAMIN D3) 5,000 unit tablet Take 5,000 Units by mouth daily. Active B.animalis,bifid, infantis,long 10-15 mg TbEC Take 1 capsule by mouth daily. Active omega-3 fatty acids-fish oil 300-1,000 mg Cap Take 1 capsule by mouth daily. Active spironolactone (ALDACTONE) 25 MG tablet Take 25 mg by mouth daily. Active olmesartan (BENICAR) 20 mg tablet Take 20 mg by mouth daily. Active predniSONE (DELTASONE) 5 MG tablet Take 1.5 tablets (7.5 mg total) by mouth daily. 135 tablet 3 1 Active diphenhydrAMINE (BENADRYL) 25 mg capsule Take 25 mg by mouth daily. Active hydrOXYchloroQUIN E (PLAQUENIL) 200 mg tablet Take 200 mg by mouth 2 (two) times a day. 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 Not on matt e 07/06/2022 Are you concerned about learning? Not on file 07/06/2022 No 07/06/2022 No 07/06/2022 Digital Access Answer Date Recorded No 08/03/2022 No 08/03/2022 No 08/03/2022 Reliable internet access at home? Not on file 08/03/2022 Device with a working camera? Not on file Comments Unknown Sex and Gender Information Value Date Recorded Sex Assigned at Not on file Legal Sex Female 10:03 AM EDT Gender Identity Not on file Sexual Orientation Not on file Last Filed Vital Signs Vital Sign Reading Time Taken Comments Blood Pressure 148/76 02/08/2020 10:31 AM EST Pulse 86 02/08/2020 10:31 AM EST Temperature 36.5 C (97.7 F) 02/08/2020 10:31 AM EST Respiratory Rate 17 02/08/2020 10:31 AM EST Oxygen Saturation 98% 02/08/2020 10:31 AM EST Inhaled Oxygen Concentration - - Weight 79.4 kg (175 lb) 05/24/2021 2:28 PM EDT Height 149.9 cm (4' 11 ) 05/24/2021 2:28 PM EDT Body Mass Index 35.35 05/24/2021 2:28 PM EDT Plan of Treatment Health Maintenance Due Date Last Done Comments CREATININE LEVEL 1949 LIPID PANEL 1949 POTASSIUM LEVEL 1949 TSH LEVEL 1949 DEPRESSION SCREENING 1961 SMOKING Hx and SMOKELESS TOBACCO SCREENING 1962 HEPATITIS C SCREENING 1967 COLOGUARD 1994 COLONOSCOPY 1994 COLORECTAL CANCER SCREENING 1994 FIT TEST 1994 FOBT 1994 SIGMOIDOSCOPY 1994 VIRTUAL COLONOSCOPY 1994 ZOSTER VACCINES (1 of 2) 1999 OSTEOPOROSIS SCREENING INITIAL (ONE-TIME) 2014 RSV VACCINE (1 - 1-dose 75+ series) 2024 COVID-19 VACCINE (6 - season) 2024 12/22/2021, 09/06/2021, 10/27/2020, Additional history exists Adult Td,Tdap Booster 01/10/2028 01/09/2018 PNEUMOCOCCAL VACCINES (50+ years) Completed 01/09/2018, 05/28/2014, 01/09/2006, Additional history exists INFLUENZA VACCINE Completed 12/29/2024, , 12/22/2021, Additional history exists HEPATITIS A VACCINES Aged Out No long er eligible based on patient's age to complete this topic HIB VACCINES Aged Out No longer eligi ble based on patient's age to complete this topic MENINGOCOCCAL VACCINES (ACWY) Aged Out No longer eligible based on patient's age to complete this topic MENINGOCOCCAL VACCINES (B) Aged Out N o longer eligible based on patient's age to complete this topic Medical Devices Not on file Insurance MEDICARE PART A & B [facility] MEDICARE SUPPLEMENT MEDICARE PART A & B [facility] MEDICARE SUPPLEMENT MEDICARE PART A & B [facility] MEDICARE SUPPLEMENT MEDICARE PART A & B MEDICARE SUPPLEMENT MEDICARE PART A & B MEDICARE SUPPLEMENT MEDICARE PART A & B MEDICARE SUPPLEMENT MEDICARE PART A & B MEDICARE SUPPLEMENT MEDICARE PART A & B [facility] MEDICARE SUPPLEMENT MEDICARE PART A & B [facility] MEDICARE SUPPLEMENT Care Teams Explosive Ordnance Disposal Specialist Relationship Specialty Start Date End Date Samm Steward MD [address] [place] [id number] PCP - General Family Medicine 07/17/17 Additional Source Comments The information contained in this document represents components of the legal health record. It is not the complete legal health record[facility]
--- OUTSIDE RECORDS SUMMARY | 2025-03-08 13:02 | XMS_ITS | Encounter Summary ---
Author Organization [facility] Address [address] [place] [phone] Phone Care Team Providers Care Size Marker Name Role Phone Samm Steward MD Primary Care Provider + Reason for Referral * MRI/CAT Scan - Closed Specialty Diagnoses / Procedures Referred By Contac t Referred To Contact Radiology Diagnoses Bilateral hand pain Procedures MRI Hand (Left) Omid Hurtado MD Phone: tel: fax: Referral ID Status Reason Start Date Expiration Date Visits Re quested Visits Authorized [id number] Closed 05/12/2021 05/12/2022 1 1 Encounter Details Date Type Department Care Team (Latest Contact Info) Description 05/12/2021 Transcribe Orders Virtual Department [address] [place] [address] Omid Hurtado MD [address] [place] [address] Bilateral hand pain (Primary Dx) Social History Tobacco Use Types Packs/Day Years Used Date Smoking Tobacco: Former Smokeless Tobacco: Never Comments Unknown Sex and Gender Information Value Date Recorded Sex Assigned at Not on file Legal Sex Female 10:03 AM EDT Gender Identity Not on file Sexual Orientation Not on file documented as of this encounter Plan of Treatment Not on file documented as of this encounter Results * MRI HAND WITH AND WITHOUT CONTRAST (LEFT) (05/30/2021 3:18 PM EDT) Anatomical Region Laterality Modality Hand Left Magnetic Resonan ce 05/30/2021 5:43 PM EDT Impressions 05/31/2021 8:19 AM EDT 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 No specific evidence of rheumatoid arthritis. Ganglion cyst overlying the third middle phalanx. Narrative 05/31/2021 8:19 AM EDT MRI HAND WITH AND WITHOUT CONTRAST (LEFT) TECHNIQUE: Multi-sequence, multi-planar MRI of the hand with and without intravenous contrast. COMPARISON: None FINDINGS: Bone: No fracture, osteonecrosis, or suspicious focal lesion. Joints: Joint effusion with enhancing synovitis surrounding the first CMC joint and triscaphe joint at the site of joint space narrowing, bony proliferation and subchondral cystic change. More mild effusion and enhancing synovitis along the ulnar aspect of the wrist, likely also due to degenerative change within the wrist. Additional areas of osteoarthritis are noted at the DIP and PIP joints. No definite osseous erosions. Soft tissues: T2 hyperintense lesion which is multiloculated measuring 1.4 cm in maximal dimension overlying the dorsal aspect of the mid third middle phalanx without appreciable enhancement. Lesion appears closely associated with the extensor tendon sheath. Ligaments and tendons are intact. Procedure Note Jorge Sanchez MD - 05/31/2021 MRI HAND WITH AND WITHOUT CONTRAST (LEFT) TECHNIQUE: Multi-sequence, multi-planar MRI of the hand with and withoutintravenous contrast. COMPARISON: None FINDINGS: Bone: No fracture, osteonecrosis, or suspicious focal lesion. Joints: Joint effusion with enhancing synovitis surrounding the first CMCjoint and triscaphe joint at the site of joint space narrowing, bonyproliferation and subchondral cystic change. More mild effusion andenhancing synovitis along the ulnar aspect of the wrist, likely also dueto degenerative change within the wrist. Additional areas ofosteoarthritis are noted at the DIP and PIP joints. No definite osseouserosions. Soft tissues: T2 hyperintense lesion which is multiloculated measuring 1.4cm in maximal dimension overlying the dorsal aspect of the mid thirdmiddle phalanx without appreciable enhancement. Lesion appears closelyassociated with the extensor tendon sheath. Ligaments and tendons areintact. 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 No specific evidence of rheumatoid arthritis. Ganglion cyst overlying the third middle phalanx. Omid Hurtado MD IMG MR EXTREMITY Final Result documented in this encounter Visit Diagnoses Diagnosis Bilateral hand pain- Primary Bilateral hand pain documented in this encounter Care Teams Size Marker Relationship Specialty Start Date End Date Samm Steward MD [address] [place] [phone] PCP - General Family Medicine 07/17/17 documented as of this encounter Additional Source Comments The information contained in this document represents components of the legal health record. It is not the complete legal health record.[facility]
--- OUTSIDE RECORDS SUMMARY | 2025-03-08 13:02 | XMS_ITS | Clinical Summary ---
Author Organization [facility] Address [address] [place] [address] Care Team Providers Care Environmental Lawyer Name Role Phone Samm Steward Primary Care Provider Allergies Active Allergy Reactions Criticality Noted Date Comments Moxifloxacin Hives High 06/10/2017 Erythromycin Other (See Comments) 06/10/2017 nausea Latex, Natural Rubber Unknown 06/10/2017 Penicillins Other (See Comments) High 06/10/2017 Nausea Gryplnf-Zuw-Hhq Reductase Inhibitors Other (See Comments) High 06/10/2017 Muscle problemselevated CPK Sulfa (Sulfonamide Antibiotics) Anaphylaxis High 06/10/2017 Medications ALPRAZolam (XANAX) 1 MG tablet Take 1 mg by mouth 3 times a day as needed for insomnia. Active amLODIPine-ator vastatin (CADUET) 10-10 mg per tablet Take 1 tablet by mouth daily. Active clopidogrel (PLAVIX) 75 mg tablet Take 75 mg by mouth daily. Active DULoxetine (CYMBALTA) [address] capsule Take 30 mg by mouth daily. Active FLUoxetine (PROzac) 20 mg/5 mL (4 mg/mL) solution Take 20 mg by mouth 2 times a day with breakfast & dinner. Active latanoprost (XALATAN) 0.005 % ophthalmic solution 1 drop every morning & every evening. Active LEVOTHYROXINE SODIUM (LEVOTHYROXINE ORAL) Take by mouth. Activ e omeprazole (PriLOSEC) [address] capsule Take 20 mg by mouth daily. Active albuterol HFA (VENTOLIN; PROAIR; PROVENTIL) 90 mcg/actuation aerosol inhaler Inhale 1-2 puffs every 4 hours as needed for wheezing or shortness of breath. Active tiotropium (SPIRIVA) [address] 18 mcg into inhaler and inhale every morning & every evening. Active budesonide-form oterol (SYMBICORT) 160-4.5 mcg/actuation inhaler Inhale 2 puffs every morning & every evening. Active traZODone (DESYREL) 50 MG tablet Take 50 mg by mouth at bedtime. Active B complex with C#20-folic acid (NEPHROCAPS) 1 mg cap capsule Take 1 capsule by mouth daily. Active aspirin 325 MG EC tablet Take 325 mg by mouth daily. Active vitamin D3-folic acid 5,000 unit- 1 mg Tab Take by mouth. Activ e calcium carbonate-vitam in D3 (CALCIUM 500 + D) 500 mg(1,250mg) -400 unit Tab Take by mouth. A ctive Lactobacillus rhamnosus (CULTURELLE) 10 billion cell capsule Take 1 capsule by mouth daily. Active fish oil-omega-3 fatty acids 300-1,000 mg capsule Take 2 g by mouth daily. Active Social History Tobacco Use Types Packs/Day Years Used Date Smoking Tobacco: Never Smokeless Tobacco: Never Alcohol Use Standard Drinks/Week Comments No 0 (1 standard drink = 0.6 oz pur e alcohol) Comments Unknown Sex and Gender Information Value Date Recorded Sex Assigned at Not on file Legal Sex Female 1:42 PM EST Gender Identity Not on file Sexual Orientation Not on file Last Filed Vital Signs Vital Sign Reading Time Taken Comments Blood Pressure 132/83 06/10/2017 10:27 AM EDT Pulse 88 06/10/2017 10:27 AM EDT Temperature - - Respiratory Rate - - Oxygen Saturation - - Inhaled Oxygen Concentration - - Weight - - Height - - Body Mass Index - - Plan of Treatment Not on file Insurance [facility]ICARE [facility] MEDICARE SUPPLEMENT Care Teams Environmental Lawyer Relationship Specialty Start Date End Date [place] [address] PCP - General 05/13/17
--- OUTSIDE RECORDS SUMMARY | 2025-03-08 13:02 | XMS_ITS | Patient Health Record ---
Author Organization [facility] Address [address] [place] [address] Care Team Providers Care Senior Microsoft Consultant Name Role Phone Samm Steward Primary Care Provider Alberto Camarena Unavailable [phone] Allergies Allergen (clinical drug ingredient) Drug/Non Drug Allergy documented on EMR Reaction Allergy Type Onset Date Status moxifloxacin Avelox (uncoded) Unknown Allergy Active erythromycin Erythromycin (uncoded) Unknown Allergy Active Penicillin (uncoded) Unknown Allergy Active Substance with sulfonamide structure and antibacterial mechanism of action (substance) Sulfa (uncoded) Unknown Allergy Active Reason For Referral No Information Medications Medication SIG (Take, Route, Frequency, Duration) Notes Start Date End Date Status amLODIPine Besylate 5 MG Tablet 1 tablet Orally Once a day Active Multivitamin/Minerals 1 orally qd Active Flunisolide 25 MCG/ACT (0.025%) Solution 2 drops in each nostril Nasally Twice a day Active Colyte w Flavor Packs 240 GM Solution Reconstituted as directed Orally as directed; Duration: 1 day(s) 06/03/2014 Active FLUoxetine HCl 20 MG Tablet 1 tablet in the morning Orally Once a day Active Atorvastatin Calcium 80 MG Tablet 1 tablet Orally Once a day Active Levothyroxine Sodium 0075 Tablet 1 capsule Orally Once a day Active DULoxetine HCl 30 MG Capsule Delayed Release Particles 1 capsule Orally Once a day Active Glucosamine Chondr 1500 Complx Capsule Orally Active ALPRAZolam 0.5 MG Tablet 1 tablet Orally Three times a day Active Probiotic 1 Capsule 1 Orally qd 10 x Active Vitamin D (Ergocalciferol) 5000 Capsule 1 capsule Orally 1 po qd Active Omeprazole 20 MG Capsule Delayed Release 1 capsule Orally Once a day Active Latanoprost 0.005 % Solution 1 drop into affected eye in the evening Ophthalmic Once a day Active ProAir HFA 108 (90 Base) MCG/ACT Aerosol Solution 2 puffs as needed Inhalation every 4 hrs Active QUEtiapine Fumarate 25 MG Tablet 1 tablet Orally Once a day Active Spiriva HandiHaler 18 MCG Capsule 1 capsule Inhalation Once a day Active Multivitamin Adult 1 Tablet 1 tablet Orally once a day Active Symbicort 160-4.5 MCG/ACT Aerosol 2 puffs Inhalation Twice a day Active traZODone HCl 50 MG Tablet Orally Not-Taking/PRN Immunizations Vaccine Route Administration Date Status Comme nts Flu vaccine no Preserv 3 and > Unknown 02/07/2015 Admin istered Social History Social History Additional Details Category Social Info Options Details Miscellaneous: Marital status: Occupation: retired Section Notes: Nonsmoker > 10 yrs; no alcoh ol Nonsmoker > 10 yrs; no alcoh ol Problems Problem Type SNOMED Code ICD Code Onset Dates Problem Status W/U Status Risk Notes Problem Gastroesophageal reflux disease (172834876) Gastroesophageal reflux disease, esophagitis presence not specified (K21.9) Active confirmed Problem Hoarseness (62838974) Hoarseness (R49.0) Active confirmed Plan Of Treatment Future Test Test Name Order Date COLONOSCOPY 06/01/2014 UPPER GI ENDOSCOPY 01/31/2016 Insurance Providers Payer Name Payer Address Payer Phone Subscriber Number Group Number Insured Name Patient Relationship to Insured Coverage Start Date Coverage End Date MEDICARE OF [place] [address] [place] [id number] HRAOLDO MORALES Self - patient is the insured [facility] [employer] [address] [place] [address] [phone] [id number] MORALESHAROLDO SILVESTRE Self - patient is the insured Medical (General) History Medical History History ICD Code 09/27/2009 Colonoscopy-negat christiano for polyps--biopsies neg. for microscopic colitis Diverticulosis Internal hemorrhoids TIA's--neg. carotid U/S Nasal polyps Irritable bowel syndrome Urinary incontinence Anxiety/Depression Hypothyroidism Hypertension-she sees Dr. Chicas Tubular adenoma removed in [address] Ayala--had a negative colonoscopy [place] [address] Ayala as well COPD Neg EGD in [address] Hirschkorn--neg bx for celiac disease Denies DE, DM,renal disease Colonoscopy in 09/2014--1 small tubular a denoma Surgical History Surgery Date(Month/Year) SABINA Cholecystectomy/gall stones Removal of benign salivary gland tumor Knee surgery- on right knee bladder suspension nasal polypectomy breast biopsy-benign ganglion cyst
--- OUTSIDE RECORDS SUMMARY | 2025-03-08 13:02 | XMS_ITS | Clinical Summary ---
Author Organization [facility] Address [address] [place] [address] Phone Care Team Providers Care Bin Piler Name Role Phone Unavailable Primary Care Provider [...] age to complete this topic Insurance Medicare [facility] Medicare [facility]
--- OUTSIDE RECORDS SUMMARY | 2025-03-08 13:02 | XMS_ITS | Patient Health Record ---
[facility] Address [address] [place] [address] Care Team Providers Care Film Historian Name Role Phone Samm Steward MD Primary Care Provider Maria linda Elise Santos Unavailable [phone] AlexNora Unavailable [phone] Shantelle Linda Unavailable [phone] Allergies Allergen (clinical drug ingredient) Drug/Non Drug [...] Penicillin nausea Drug Allergy Active Substance with 8-yrtukld-0-methylgl utaryl-coenzyme A reductase inhibitor mechanism of action [...] W/U Status Risk Notes Problem Plantar wart (65487834) Plantar wart (B07.0) Active confirmed Vital Signs Blood pressure diastolic 70 mm Hg 04/24/2024 Height 4gf71dl in 04/24/2024 Blood pressure systolic 125 mm Hg 04/24/2024 Weight 145 lbs 04/24/2024 BMI 29.28 kg/m2 04/24/2024 Encounters Encounter Location Date Provider Diagnosis [facility] [address] [place] [address] 04/24/2024 Nora Johnson Xerosis of skin L85.3 [...] Inc [address] [place] [address] [id number] Sharon Alonzo Self - patient is the insured [employer] Secondary to Medicare [address] [place] [id number] Sharon Alonzo Self - patient is the [...]
--- OUTSIDE RECORDS SUMMARY | 2025-03-08 13:02 | XMS_ITS | Encounter Summary ---
Author Organization [facility] Address [address] [place] [address] [place] [phone] Phone Care Team Providers Care Nursing Services Manager Name Role Phone Samm Steward MD Primary Care Provider + Encounter Details Date Type Department Care Team (Late st Contact Info) Description 05/12/2021 Procedure Pass [facility], [address] [address] Social History Tobacco Use Types Packs/Day Years Used Date Smoking Tobacco: Former Smokeless Tobacco: Never Comments Unknown Sex and Gender Information Value Date Recorded Sex Assigned at Not on file Legal Sex Female 10:03 AM EDT Gender Identity Not on file Sexual Orientation Not on file documented as of this encounter Plan of Treatment Not on file documented as of this encounter Visit Diagnoses Not on filedocumented in this encounter Care Teams Nursing Services Manager Relationship Specialty Start Date End Date Samm Steward MD [address] [place] [address] PCP - General Family Medicine 07/17/17 documented as of this encounter Additional Source Comments The information contained in this document represents components of the legal health record. It is not the complete legal health record.[facility]
== END 2025-03-08 11:30 | disposition home or self-care (01) ==
LOC: HO.HPS 11:08
PROVIDERS: PCP Family Medicine; Visit Provider Internal Medicine
DX: J45.909 Unspecified asthma, uncomplicated (principal); R05.9 Cough, unspecified; J32.9 Chronic sinusitis, unspecified
CPT/HCPCS: 99213

== ENCOUNTER 2025-03-08 11:08 | Outpatient (REF) | payer MEDICARE, SELFPAY ==
--- NOTE | ~2025-03-08 | XR_ITS ---
EXAMINATION: XR CHEST CLINICAL INFORMATION: R05.9 - Cough, unspecified COMPARISON: Chest x-ray 05/12/2024. TECHNIQUE: 2 views of the chest were obtained. FINDINGS: The lungs are well-expanded and clear of acute process. The heart size and pulmonary vascularity is normal. There is a right central venous port with its tip in mid SVC and stable. No gross bony abnormality seen. XR/XR chest 2V IMPRESSION: Unremarkable chest exam. No change from 05/12/2024 Electronically signed by: Cresencio Batres MD 03/08/2025 11:56 AM EST
--- OUTSIDE RECORDS SUMMARY | 2025-03-08 13:39 | XMS_ITS | Data Portability ---
Author Organization [place] - [facility], Allergy Address [address] [facility] [address] [place] [id number] Care Team Providers Care Lab Associate Name Role Phone HORACIO OCHOA Primary Care [...] mcg/actuati on nasal spray,suspe nsion 2024 025 [employer] [id number], [address] [facility], [place], [place], [id number], 01/22/202 5 14:24:08 Patient TargetsNo targets recorded. Patient Instructions Encounter Date Encounter Id Patient Instructions Last Modified By Organization Details Last Modified Time 05/28/2024 [id number] Overall doing well. No evidence of nasal [...] Diagnosed: 03/31/2014 11:12 AM (471.0) Not Available [facility] 4 02:31:10 Anxiety disorder [id number] Active 2014 Transient mental disorders due to conditions classified elsewhere: Anxiety disorder in conditions classified elsewhere; Note: Date Diagnosed: 03/31/2014 11:12 AM (293.84) Not Available [facility] 4 02:31:05 Chronic pharyngit is 205235 Active 2014 Chronic pharyngiti s and nasopharyn gitis: Chronic pharyngiti s; Note: Date Diagnosed: 03/31/2014 11:12 AM (472.1) Not Available [facility] 4 02:31:03 Glossitis 50357694 Active 2014 Glossitis; Note: Date Diagnosed: 05/31/2014 10:50 AM (529.0) Not Available [facility] 4 02:31:11 Gastroeso phageal reflux disease without esophagit is 389719683 Active 2015 Gastro-eso phageal reflux disease without esophagiti s; Note: Date Diagnosed: 11/02/2015 12:09 PM (K21.9) Not Available [facility] 4 02:31:12 Polyp of nasal cavity 372125141 Active 2015 Polyp of nasal cavity; Note: Date Diagnosed: 11/02/2015 12:09 PM (J33.0) Not Available [facility] 4 02:31:10 Pain of temporoma ndibular joint 46059984 Active 2015 Arthralgia of temporoman dibular joint; Note: Date Diagnosed: 11/02/2015 11:10 AM (M26.62) Not Available [facility] 4 02:31:12 Dysphonia 39865547 Active 2016 Other voice and resonance disorders; Note: Date Diagnosed: 05/24/2016 5:22 PM (R49.8) Not Available [facility] 4 02:30:55 Finding of resonance of voice 191699999 Active 2016 Other voice and resonance disorders; Note: Date Diagnosed: 05/24/2016 5:22 PM (R49.8) Not Available [facility] 4 02:30:55 Chronic rhinitis 43360798 Active 2016 Chronic rhinitis; Note: Date Diagnosed: 01/09/2017 5:17 PM (J31.0) Not Available [facility] 4 02:30:57 Headache 15307126 Active 2016 Facial pain NOS; Note: Date Diagnosed: 01/09/2017 2:08 PM (R51) Not Available [facility] 4 02:30:57 Disorder of muscle 354543997 Active 2020 Other specified disorders of muscle; Note: Date Diagnosed: 07/20/2020 11:12 AM (M62.89) Not Available [facility] 4 02:31:14 Allergic rhinitis 03768855 Active 2024 Linnette keys [place] - [facility] 5 14:47:05 Moderate persisten t asthma 916511922 Active 2024 KRISTI JIMÉNEZ MD [address] [place] [address],[place] [address], [place], [phone] , [place] - [facility] 5 07:54:24 Bleeding from nose 552225712 Active 2024 KRISTI JIMÉNEZ MD [address] [place] [address],[place] [address], [place], [address] , [place] - [facility] 5 07:55:08 Abnormal auditory perceptio n 65916393 Active 2024 KRISTI JIMÉNEZ MD [address] [facility],[place] [address], [place], [address] , [place] - [facility] 08:55:48 Problem Notes None recorded. Procedures Surgical History Date Name Laterality Status Provider Name and Address Organization Details Recorded Time 05/29/19 JMSNasal/Sinus Endoscopy-PRIOR surgical cavities completed KRISTI SEVILLA MD [address] [facility],[place] [address], [place], [phone], [place] - [facility] 05/28/2024 08:57:47 04/01/19 Nasal Endoscopy completed Linnette Blair [place] - [facility] 04/01/2024 14:25:03 Hysterectomy completed Kaylynn Moctezuma [facility] 04/01/2024 14:00:27 cholecystectomy completed Kaylynn Moctezuma [facility] 04/01/2024 14:00:34 arthroscopy of knee completed Kaylynn Moctezuma [facility] 04/01/2024 14:01:28 biopsy of breast completed Kaylynn Moctezuma [facility] 04/01/2024 14:01:39 total knee replacement completed Kaylynn Moctezuma [place] - [facility] 04/01/2024 14:01:47 Imaging Results None recorded. Procedure Notes None recorded. Medical Equipment None Reported. Allergies Allergen ID Allergen Name Allergen Category Reaction Reaction Severity Criticality Documentation Date Start Date Code Code System Note Provider Name and Address Organization Details Recorded Time 25077 Product containin g angiotens in-conver ting enzyme inhibitor (product) medicatio n other Not available Not available 07/23/2023 44459 009 SNOMED React ion: Unkno wn; Not Available [facility] 4 00:53:39 38707 moxifloxa maxwell medicatio n other Not available Not available 07/23/2023 32248 2 RxNorm React ion: unkno wn, unspe cifie d;; Not Available [facility] 4 00:53:40 82640 erythromy maxwell ethylsucc inate medicatio n other Not available Not available 07/23/2023 4056 RxNorm React ion: unkno wn, unspe cifie d;; Not Available [facility] 4 00:53:44 68542 penicilli n V potassium medicatio n other Not available Not available 07/23/2023 33733 5 RxNorm React ion: unkno wn, unspe cifie d;; Not Available [facility] 4 00:53:47 63242 Product containin g 3-hydroxy -3-methyl glutaryl- coenzyme A reductase inhibitor (product) medicatio n other Not available Not available 07/23/2023 63683 009 SNOMED React ion: unkno wn, unspe cifie d;; Not Available [facility] 4 00:53:52 77094 Substance with sulfonami de structure and antibacte rial mechanism of action (substanc e) medicatio n other Not available Not available 07/23/2023 15164 8003 SNOMED React ion: unkno wn, unspe cifie d;; Not Available [facility] 4 00:53:53 Medications Name Sig Start Date Stop Date Status Note LastModified by Organization Details LastModified Time fluoxetin e 40 mg capsule 05/04 completed Medicati on ID: [id number] Du ration Value: 30 Reason: () Brand Name: fluoxeti ne Send Method: E-Prescr ibed Sub s Allowed: subs OK Speci al Instruct ion: TAKE 1 CAPSULE BY MOUTH ONCE A DAY Medi cationGe nericNam e: fluoxeti ne Not Available Not Available Not Available latanopro st 0.005 % eye drops 07/20 completed Medicati on ID: [id number] B rand Name: latanopr ost Send Method: E-Prescr ibed Sub s Allowed: subs OK Medic ationGen ericName : latanopr ost Not Available Not Available Not Available fluticaso ne 250 mcg-salme terol 50 mcg/dose blistr powdr for inhalatio n active Not Available Not Available Not Available atorvasta tin 80 mg tablet 05/04 completed Medicati on ID: [id number] R yinka: () Brand Name: atorvast atin [...] mg tablet 05/04 completed Medicati on ID: [id number] Du ration Value: 30 Reason: () Brand Name: trazodon e Send Method: E-Prescr ibed Sub s Allowed: subs OK Speci al Instruct ion: TAKE 1 TABLET BY MOUTH AT BEDTIME Medicati onGeneri cName: trazodon e Not Available Not Available Not Available alprazola m 1 mg tablet 04/01 completed Medicati on ID: [id number] B rand Name: alprazol am Send Method: [...] mg tablet 05/04 completed Medicati on ID: [id number] Du ration Value: 84 Reason: () Brand [...] mg tablet 07/20 completed Medicati on ID: [id number] D uration Value: 90 Brand Name: amlodipi ne Send Method: E-Prescr ibed Sub s Allowed: subs OK Medic ationGen ericName : amlodipi ne Not Available Not Available Not Available levothyro xine 25 mcg tablet 05/04 completed Medicati on ID: [id number] R yinka: () Brand Name: levothyr oxine Se nd Method: E-Prescr ibed Sub s Allowed: subs OK Medic ationGen ericName : levothyr oxine Not Available Not Available Not Available levothyro xine 75 mcg tablet 07/20 completed Medicati on ID: [id number] D uration Value: 90 Brand Name: levothyr oxine Se nd Method: E-Prescr ibed Sub s Allowed: subs OK Medic ationGen ericName : levothyr oxine Not Available Not Available Not Available alprazola m 0.5 mg tablet 05/04 completed Medicati on ID: [id number] Du ration Value: 30 Reason: () Brand [...] nasal spray 07/20 completed Medicati on ID: [id number] B rand Name: flunisol kelvin Send Method: [...] mcg tablet 05/28 completed Medicati on ID: [id number] B rand Name: levothyr oxine Se nd Method: E-Prescr ibed Sub s Allowed: subs OK Medic ationGen ericName : levothyr oxine Not Available Not Available Not Available omeprazol e 20 mg capsule,d elayed release 07/20 completed Medicati on ID: [id number] B rand Name: omeprazo le Send Method: E-Prescr ibed Sub s Allowed: subs OK Medic ationGen ericName : omeprazo le Not Available Not Available Not Available pravastat in 20 mg tablet 05/04 completed Medicati on ID: [id number] Du ration Value: 90 Reason: () Brand [...] min capsule 07/20 completed Medicati on ID: [id number] B rand Name: multivit callahan Sen d Method: E-Prescr ibed Sub s Allowed: subs OK Medic ationGen ericName : multivit callahan Not Available Not Available Not Available fluoxetin e 20 mg capsule 07/20 completed Medicati on ID: [id number] B rand Name: fluoxeti ne Send Method: [...] mg tablet 05/28 completed Medicati on ID: [id number] B rand Name: olmesart an Send Method: E-Prescr ibed Sub s Allowed: subs OK Medic ationGen ericName : olmesart an Not Available Not Available Not Available olmesarta n 40 mg tablet active Not Available Not Available Not Available Fish Oil 120 mg-180 mg capsule 07/20 completed Medicati on ID: [id number] B rand Name: Fish Oil Send Method: E-Prescr ibed Sub s Allowed: subs OK Medic ationGen ericName : Fish Oil Not Available Not Available Not Available Spiriva with HandiHale r 18 mcg and inhalatio n capsules 07/20 completed Medicati on ID: [id number] B rand Name: Spiriva with HandiHal er Send Method: E-Prescr ibed Sub s Allowed: subs OK Medic ationGen ericName : Spiriva with HandiHal er Not Available Not Available Not Available duloxetin e 30 mg capsule,d elayed release 07/20 completed Medicati on ID: [id number] B rand Name: duloxeti ne Send Method: E-Prescr ibed Sub s Allowed: subs OK Medic ationGen ericName : duloxeti ne Not Available Not Available Not Available duloxetin e 60 mg capsule,d elayed release 04/01 completed Medicati on ID: [id number] B rand Name: duloxeti ne Send Method: E-Prescr ibed Sub s Allowed: subs OK Medic ationGen ericName : duloxeti ne Not Available Not Available Not Available gabapenti n 100 mg tablet Take 1 tablet 3 times a day by oral route. active Not Available Not Available No t Available quetiapin e 50 mg tablet 05/04 completed Medicati on ID: [id number] R yinka: () Brand Name: quetiapi ne Send Method: E-Prescr ibed Sub s Allowed: subs OK Medic ationGen ericName : quetiapi ne Not Available Not Available Not Available Symbicort 160 mcg-4.5 mcg/actua tion HFA aerosol inhaler 07/20 completed Medicati on ID: [id number] Du ration Value: 90 Brand Name: Symbicor [...] Details Last Updated DateTime 04/01/2024 149.86 cm 02427.89 g Kaylynn Moctezuma [place] - [facility] 04/01/2024 13:57:31 Date Recorded Body height Body weight Provider Name and Address Organization Details Last Updated DateTime 05/28/2024 149.86 cm 78852.89 g Kaylynn Moctezuma [place] [facility] 05/28/2024 08:32:47 Social History None recorded. [...] ICD10 Code Diagnosis IMO Codes Diagnosis Note [id number] LINNETTE BLAIR PA-C [facility] [address] [address] 04/01/2024 13:45:57 04/01/2024 14:30:05 Polyp of nasal cavity 748796282 J33.0 Allergic rhinitis 152196 04 J30.9 [id number] KRISTI JIMÉNEZ MD [facility] [address] [facility] [place] [address] 05/28/2024 08:27:33 05/28/2024 08:59:04 Polyp of nasal cavity 297849364 J33.0 Moderate p ersistent asthma 739243842 J45.40 Bleeding from nose 27245 6005 R04.0 Abnormal a uditory perception 48016943 H93.299 declines audio--chris guo make appt at her [facility] Concerns Section Related Observation LastModified by Organization Detai ls LastModified Time None Recorded Concern Status LastModified by Organization Details LastModified Time None Recorded Advance Directives Directive None Recorded Payers Insurance Date Sequence Insurance Name Policy Number Policy Bustos Covered Member ID Bustos Member ID Guarantor Name 05/28/2024 1 [place]: [employer] Sharon A Alonzo [id number] Sharon A Alonzo 05/28/2024 2 [employer] (MEDICARE SUPPLEMENT) Sharon A Alonzo Sharon A Alonzo 05/28/2024 2 [employer] (MEDICARE SUPPLEMENT) Sharon A Alonzo [id number] Sharon A Alonzo Notes Date Note Type [...] keys [place] - [facility] 04/01/2024 14:47:35 05/28/2024 text/html ROS as noted [...] testing may prove illuminating. KRISTI SEVILLA MD [address] [place] [address], [place], [address], [facility] - [facility] 05/28/2024 08:58:14 OBGyn Episode No OBEpisode recorded.
--- OUTSIDE RECORDS SUMMARY | 2025-03-08 13:39 | XMS_ITS | Data Portability ---
Author Organization [place] [facility] Address [address] [place] [id number] Care Team Providers Care Media Planner / Buyer Name Role Phone HORACIO OCHOA Primary Care Provider Assessment Encounter Date Assessment Date Assessment LastModified by Organization Details LastModified Time 12/09/2020 12/09/2020 Proper Personal Protective Equipment (PPE), including gloves, gown, shoe covers, eye protection and masks were donned and doffed appropriately and all equipment cleaned using approved technique with germicidal disposable wipes prior to and after care of this patient according to [facility]'s infection prevention protocols. Overview/History: 70 yo immunocompromised [...] I have accessed patient records on the [employer]. This information was pertinent in my medical decision making today. [email or web address] Not available 12/09/2020 22:08:31 09/29/2021 09/29/2021 Ms [...] up appointments with her PCP, GI and Director Field Services coming up . Time On Scene with Patient: 00:48:34 [email or web address] Not available 09/29/2021 20:00:08 09/30/2021 09/30/2021 Overview/History [...] + ionized calcium, serum or plasma [facility], [address] [place], [address], 14:23:15 rapid strep group A, throat 2021 [email or web address] 0 [facility], [address] [place], [address], 18:58:31 Referral None recorded. Procedures None recorded. Surgeries None recorded. Imaging None recorded. Medication Orders nystatin 100,000 unit/mL oral suspension 2020 [email or web address] 0 [id number], [address], [place], [phone], 18:11:58 [email or web address] r 1 gram tablet 2020 [id number], [address], [place], [phone], 14:07:49 Patient TargetsNo targets recorded. Patient Instructions Encounter Date Encounter Id Patient Instructions Last Modified By Organization Details Last Modified Time 12/09/2020 [id number] [facility] you [facility] yo ur [facility] We cannot always find the exact [...] in your condition between 8am-10pm, please call [facility] at [phone] to help navigate your care. Please seek [...] in your condition between 8am-10pm, please call [facility] at [phone] to help navigate your care. [email or web address] Not available 12/09/2020 21:21:15 Reason for Referral None Reported. Results Created Date Observation Date Name Description Value Unit Range Abnormal Flag Note LastModifiedBy Organization Detail LastModifiedTime 09/30/19 22 09/29/2021 rapid strep group A, throa t Strep A (ref: neg) negati ve Not Available [facility] [address] [place] [address], [address], 09/29/2021 18:33:19 09/30/19 22 09/29/2021 rapid strep group A, throa t Control Visual ized/V alid Not Available [facility] [address] [place] [address], [address], 09/29/2021 18:33:19 09/30/19 22 09/29/2021 rapid strep group A, throa t [place] [facility], [address] [place] [address], [id number] Not Available [facility] - [address], [address], 09/29/2021 18:33:19 10/01/19 22 09/30/2021 BMP + IONIZ ED CALCI UM, SERUM OR PLASM A glu 125 mg/dL 70-105 Not Available [facility] [address] [place], [address], 09/30/2021 14:23:15 10/01/19 22 09/30/2021 BMP + IONIZ ED CALCI UM, SERUM OR PLASM A BUN 12 mg/dL 8-26 Not Available [facility] [address] [place] [address], [address], 09/30/2021 14:23:15 10/01/19 22 09/30/2021 BMP + IONIZ ED CALCI UM, SERUM OR PLASM A crea 1.2 mg/dL 0.6-1. 3 Not Available [address], [address], 09/30/2021 14:23:15 10/01/19 22 09/30/2021 BMP + IONIZ ED CALCI UM, SERUM OR PLASM A Na 132 mmol/ L 138-14 6 Not Available [address], [address], 09/30/2021 14:23:15 10/01/19 22 09/30/2021 BMP + IONIZ ED CALCI UM, SERUM OR PLASM A K 3.9 mmol/ L 3.5-4. 9 Not Available [address], [address], 09/30/2021 14:23:15 10/01/19 22 09/30/2021 BMP + IONIZ ED CALCI UM, SERUM OR PLASM A cL 95 mmol/ L 98-109 Not Available [address], [address], 09/30/2021 14:23:15 10/01/19 22 09/30/2021 BMP + IONIZ ED CALCI UM, SERUM OR PLASM A TCO2 27 mmol/ L 24-29 Not Available [address], [address], 09/30/2021 14:23:15 10/01/19 22 09/30/2021 BMP + IONIZ ED CALCI UM, SERUM OR PLASM A angap 15 mmol/ L 10-20 Not Available [address], [address], 09/30/2021 14:23:15 10/01/19 22 09/30/2021 BMP + IONIZ ED CALCI UM, SERUM OR PLASM A ica 1.25 mmol/ L 1.12-1 .32 Not Available [facility] [address] [place], [address], 09/30/2021 14:23:15 10/01/19 22 09/30/2021 BMP + IONIZ ED CALCI UM, SERUM OR PLASM A HCT 30 %pcv 38-51 Not Available [facility] [address] [place], [address], 09/30/2021 14:23:15 10/01/19 22 09/30/2021 BMP + IONIZ ED CALCI UM, SERUM OR PLASM A Hb 10.2 g/dL 12-17 Not Available [facility] [address] [place], [address], 09/30/2021 14:23:15 Result Notes None recorded. Procedures Surgical History Date Name Laterality Status Provider Name and Address Organization Details Recorded Time 022 Venipuncture - DH completed VIOLET Mcgregor [address], [place], [address], [place] [facility] 09/30/2021 15:00:50 Total Hysterectomy completed KYM CUETO NP [address] [place], [address], [place] [facility] 12/09/2020 20:40:28 Imaging Results None recorded. Procedure Notes None recorded. Medical Equipment None Reported. Allergies Allergen ID Allergen Name Allergen Category Reaction Reaction Severity Criticality Documentation Date Start Date Code Code System Note Provider Name and Address Organization Details Recorded Time [id number] Product containin g penicilli n (product) medicatio n Not available Not available Not available 12/09/2020 61008 8001 SNOMED KYM CUETO NP [address], [place], [address], [place] [facility] 20:37:16 726750 erythromy maxwell medicatio n Not available Not available Not available 12/09/2020 4053 RxNorm KYM ROM, NET APPLICATION SUPPORT SPECIALIST [address], [place], [address], [place] [facility] 20:37:36 118726 Avelox medicatio n Not available Not available Not available 12/09/2020 04958 6 RxNorm KYM ROM, NET APPLICATION SUPPORT SPECIALIST [address], [place], [address], [place] [facility] 20:37:44 559046 Substance with sulfonami de structure and antibacte rial mechanism of action (substanc e) medicatio n Not available Not available Not available 12/09/2020 29573 8003 SNOMED KYM CUETO, NET APPLICATION SUPPORT SPECIALIST [address], [place], [address], [place] [facility] 20:37:52 683511 Product containin g 3-hydroxy -3-methyl glutaryl- coenzyme A reductase inhibitor (product) medicatio n Not available Not available Not available 12/09/2020 36790 009 SNOMED KYM CUETO NP [address], [place], [address], [place] [facility] 20:37:59 374756 latex environme nt,medica tion Not available Not available Not available 12/09/2020 46980 91 RxNorm KYM CUETO NP [address], [place], [address], [place] [facility] 20:38:06 352913 Product containin g angiotens in-conver ting enzyme inhibitor (product) medicatio n Not available Not available Not available 12/09/2020 90725 009 SNOMED KYM CUETO, NET APPLICATION SUPPORT SPECIALIST [address], [place], [address], [place] [facility] 20:38:17 Medications [...] completed Not Available Not Available Not Available [facility] 100,000 unit/gram topical powder APPLY TO THE [...] Recorded Heart rate Body temperature Oxygen saturation Respiratory rate Systolic And Diastolic Provider Name and Address Organization Details Last Updated DateTime 2 88 /min 98.5 [degF] 95 % 18 /min 140/78 mm[Hg] Not Available [facility] 2 18:16:45 Date Recorded Heart rate Body temperature Respiratory rate Oxygen saturation Systolic And Diastolic Provider Name and Address Organization Details Last Updated DateTime 2 92 /min 97.8 [degF] 18 /min 94 % 142/78 mm[Hg] Not Available [facility] 2 14:08:24 Date Recorded Heart rate Oxygen saturation Body temperature Respiratory rate Systolic And Diastolic Provider Name and Address Organization Details Last Updated DateTime 1 90 /min 97 % 97.6 [degF] 18 /min 128/84 mm[Hg] Not Available [facility] 20:48:21 Social History Question Answer Notes LastModified by Organizat ion Details LastModified Time Tobacco Smoking Status Never Smoker KYM CUETO NP [address], [place], [address], [place] [facility] 12/09/2020 20:39:12 Do You Have An Advance Directive? No Information not available 12/09/2020 What Is Your Code Status? Full Code [email or web address] Information not available 12/09/2020 Within The Past 12 Months, Has It Happened That The Food You Bought Just Didn't Last And You Didn't Have Money To Get More. No [email or web address] Information not available 12/09/2020 Within The Past 12 Months, Have You Worried That Your Food Would Run Out Before You Got Money To Buy More. No Information not available 12/09/2020 Fall Risk: Do You Feel Unsteady When Standing Or Walking? No [email or web address] Information not available 12/09/2020 We Know That How And When People Interact With Friends And Family Can Be Very Different From Person To Person. How Often Do You Have The Opportunity To See Or Talk To People That You Care About And Feel Close To? (Ex: Talking To Friends On The Phone Or Visiting Friends Or Family Or Going To Congregational Or Club Meetings) 5 Or More Times Per Week [email or web address] Information not available 12/09/2020 Excessive Alcohol Or Drug Use No Information not available 12/09/2020 Does This Patient Have A PCP? Yes [email or web address] Information not available 12/09/2020 We Know From Many Of Our Patients That Covering All Of Their Costs Can Be Difficult At Times. This Can Cause Stress And Impact Health. In The Past Year, Have You Been Unable To Get Any Of The Following When It Was Really Needed? No Information not available 12/09/2020 What Is Your Housing Situation Today? I Have Housing [email or web address] Information not available 12/09/2020 Would You Like Help Connecting To Resources? None [email or web address] Information not available 12/09/2020 Sex: Unknown Functional Status Question Answer Note LastModified by Organizat ion Details LastModified Time Do you use any illicit or recreational drugs? No [email or web address] Information not available 12/09/2020 Do you or have you ever used any other forms of tobacco or nicotine? No Information not available 12/09/2020 What is your level of alcohol consumption? None [email or web address] Information not available 12/09/2020 Mental Status None recorded. Family History Relationship Description Onset Age of this Age Resolved Age Notes LastModified by Organization Details LastModified Time Father Malignant neoplasm of colon [email or web address] Not available 2020 20:38:47 Sister Malignant neoplasm of colon [email or web address] Not available 2020 20:38:47 Notes:brother has lung cance r, he is a smoker Medical History Condition Response Diabetes N Coronary Artery Disease N CHF N Parkinson's Disease N Cancer N Stroke Dementia N Hypothyroidism Y Asthma Y Depression Y COPD Y High Cholesterol N Rheumatoid Arthritis Pulmonary Embolism N Hypertension Y A-fib N Osteoporosis N Gynecological HistoryNo gynecological history recorded. Obstetrics History GPAL:G 0 P 0 0 0 0 Past Encounters Encounter ID Performer Location Encounter Start Date Encounter Closed Date Diagnosis/Indication Diagnosis SNOMED-CT Code Diagnosis ICD10 Code Diagnosis IMO Codes Diagnosis Note [id number] KYM CUETO NP [facility] [address] [place] [address] 12/09/2020 15:59:06 12/14/2020 17:15:29 Herpes zoster 4314543 B02.9 Candidiasis of mouth 797 72762 B37.0 [id number] VIOLET Olson [facility] - [facility] [address] [place] [address] 09/29/2021 17:46:18 10/01/2021 17:32:36 Acute pharyngitis 596638459 J02.9 Pt has had a very bad [...] cubes) follow up with your PCP. Hyponatremia 72732814 E8 7.1 Pt had recent 6 day stay in [facility] for hyponatrem ia, treated with IVF and [...] to Ms. Alonzo and her . Cough 80331964 R05.3 currently being worked up for chronic GERD, she is only on famotidine at this time, protonix were just dc'd while in [facility] last week. cough is productive of clear light yellow sputum, no fever, chills. or other URI sxx. Chest xary in hospital 09/24/21 negative for pneumonia or evidence of mass. She is [id number] VIOLET Clarke [facility] [address] [place] [address] 09/30/2021 13:35:48 10/01/2021 17:32:45 Chronic hyponatremia 66397810 E87.1 Health Concerns Section Related Observation LastModified by Organization Detai ls LastModified Time None Recorded Concern Status LastModified by Organization Details LastModified Time None Recorded Advance Directives Directive N: Payers Insurance Date Sequence Insurance Name Policy Number Policy Bustos Covered Member ID Bustos Member ID Guarantor Name 11/30/2021 2 [employer] (MEDICARE SUPPLEMENT) Sharon Madrigalson [id number] Sharon Alonzo 09/29/2021 PENDING Sharon Alonzo [id number] Sharon Alonzo 09/29/2021 PENDING Sharon Alonzo [id number] Sharon Alonzo 09/29/2021 PENDING Sharon Alonzo [id number] Sharon Alonzo 10/12/2021 1 [place] [employer] Sharon Alonzo [id number] Sharon Alonzo 09/29/2021 PENDING Sharon Alonzo [id number] Sharon Alonzo 09/29/2021 PENDING Sharon Alonzo [id number] Sharon Alonzo 09/29/2021 PENDING Sharon Alonzo [id number] Sharon Alonzo 09/29/2021 PENDING Sharon Alonzo [id number] Sharon Alonzo 09/29/2021 PENDING Sharon Alonzo [id number] Sharon Alonzo 09/29/2021 PENDING Sharon Alonzo [id number] Sharon Alonzo 09/29/2021 1 [place] [place] Sharon Alonzo [id number] Sharon Alonzo 12/09/2020 PENDING Sharon Alonzo [id number] Sharon Alonzo 09/29/2021 2 [employer] (MEDICARE SUPPLEMENT) Sharon Madrigalson [id number] Sharon Alonzo Notes Date Note Type Note [...] appetite. KYM CUETO, SHON [address], [place], [address], [place] [facility] 12/09/2020 22:09:59 2 text/html 5 days ago went for her infusions, had a reddened area on wrist and she was sent to [facility], who then sent to [facility] for ? 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 The cough is irritating her throat and it is worse because she has GERD and believe the acid is also bothering her throat. No swollen glands, no PND, no sinus congestion.She has had 3 covid tests, this past 2 weeks all were negative. She sts her temp at [facility] was 100.1 otherwise it is 99. her pulse ox is typically 100% on RA. She has had several COVID test all negative. chest xray negative on 09/24 her sodium was lowest 120, which is why she was admitted to [facility]. She went for labs yesterday and her Na was 127, when she was in hospital it was 137. She has been having saltines and tomato juice, She has inhalers, pro air and wexela. she has not used her proair since she got home.she will be seeing her dishwasher busser on Saturday and her Lock Plater next week. VIOLET Olson [address], [place], [address], [place] [facility] 09/29/2021 20:01:14 2 text/html 71 YO F new to provider but known to [facility] is being seen today as she was [...] here today. VIOLET Mcgregor [address], [place], [address], [place] [facility] 09/30/2021 15:13:30 OBGyn Episode No OBEpisode recorded.
== END 2025-03-08 11:09 | disposition home or self-care (01) ==
LOC: HO.XRAY 11:08
PROVIDERS: PCP Family Medicine; Visit Provider Internal Medicine
DX: J45.909 Unspecified asthma, uncomplicated (principal); R05.9 Cough, unspecified; J32.9 Chronic sinusitis, unspecified; Z87.891 Personal history of nicotine dependence; Z79.51 Long term (current) use of inhaled steroids
CPT/HCPCS: 71046; 99212

== ENCOUNTER → 2025-03-08 11:41 | Outpatient (BNV) | payer MEDICARE, SELFPAY | PROVIDERS: PCP Family Medicine; Visit Provider Radiology Diagnostic Radiology | DX: R05.9 Cough, unspecified (principal) | CPT/HCPCS: 71046 ==